=== PATIENT | female | born 1980 | race Caucasian/White ===

== ENCOUNTER 2023-11-01 14:29 | Outpatient (REF) | payer MEDICAID, SELFPAY ==
--- NOTE | ~2023-11-01 | US_ITS ---
EXAMINATION: US THYROID CLINICAL INFORMATION: Chronic mass sensation in thyroid, history of untreated hypothyroidism. COMPARISON: None available. TECHNIQUE: Linear transducer pelletier-scale and color Doppler examination with attention to the region of the thyroid. FINDINGS: SIZE: Measurements of the thyroid lobes and nodules are given in sagittal, anteroposterior and transverse dimensions respectively. Right Thyroid Lobe: 3.8 x 1.5 x 1.3 cm, volume 3.9 mL. Parenchyma: The gland echotexture is homogeneous. Thyroid vascularity is normal. Left Thyroid Lobe: 4.5 x 0.8 x 1.3 cm, volume 2.4 mL. Parenchyma: The gland echotexture is homogeneous. Thyroid vascularity is normal. Isthmus: 0.2 cm in maximum AP dimension. No focal thyroid nodule is seen. NODES: No lymphadenopathy is seen in the tissue surrounding the thyroid gland. US/US thyroid IMPRESSION: Nonenlarged homogeneous thyroid gland without a focal nodule. No further follow-up imaging is recommended. ACR TI-RADS RECOMMENDATION REFERENCE: Ultrasound-guided fine-needle aspiration, followup ultrasound, no further follow up. * TR1 (0 point) and TR2 (2 points): No FNA or follow up. * TR3 (3 points): FNA if more than or equal to 2.5 cm in maximum dimension, followup ultrasound in 1, 3 and 5 years if 1.5 to 2.4 cm in maximum dimension. * TR4 (4-6 points): FNA if more than or equal to 1.5 cm in maximum dimension, followup ultrasound in 1, 2, 3 and 5 years if 1 to 1.4 cm in maximum dimension. * TR5 (more than or equal to 7 points): FNA if more than or equal to 1 cm in maximum dimension, followup ultrasound every year for 5 years if 0.5 to 0.9 cm in maximum dimension. * TR3, TR4 or TR5 nodules that are below the size threshold for followup receive no follow up.
== END 2023-11-01 14:30 | disposition home or self-care (01) ==
LOC: HO.US 14:29
PROVIDERS: PCP Student in an Organized Health Care Education/Training Program; Visit Provider Student in an Organized Health Care Education/Training Program
DX: E03.9 Hypothyroidism, unspecified (principal)
CPT/HCPCS: 76536

== ENCOUNTER 2023-11-02 20:13 | Emergency (ER) | payer MEDICAID, SELFPAY ==
--- NOTE | ~2023-11-02 | XR_ITS ---
EXAMINATION: XR SHOULDER, LEFT CLINICAL INFORMATION: Pain with range of motion COMPARISON: None available. TECHNIQUE: Four views of the left shoulder. FINDINGS: The bones and soft tissues are normal. No fracture. Glenohumeral and acromioclavicular alignment is anatomic with normal joint space. No abnormal soft tissue calcifications. XR/XR shoulder LT min 2V IMPRESSION: Normal left shoulder.
--- NOTE | ~2023-11-02 | XR_ITS ---
EXAMINATION: XR ELBOW, LEFT CLINICAL INFORMATION: Pain with motion COMPARISON: None available. TECHNIQUE: Four views of the left elbow. FINDINGS: The bones and soft tissues are normal. No fracture or joint effusion. Alignment is anatomic. Joint spaces are maintained. XR/XR elbow LT 2V IMPRESSION: Normal left elbow.
[2023-11-02 20:38] VITALS: BP 145/90; PULSE 103; RESP 18; TEMP 37.1; O2SAT 97; BMI 37.8
--- NOTE | 2023-11-02 20:44 | ED_ITS ---
HPI - General Adult General Chief complaint: General Medical Stated complaint: Lt Arm ? Injury/ numbness Time Seen by Provider: 11/03/23 01:48 Source: patient Mode of arrival: ambulatory Limitations: no limitations History of Present Illness HPI narrative: Patient comes to the emergency room complaining of burning sensation with certain movements of the left arm. Patient states that the pins and needle sensation started approximately a few weeks ago. Patient states that she has to do a lot of heavy lifting including taking care and lifting her 4-year-old son who is autistic and fights her a lot. Also, patient's mother recently had a CVA and has to help lift her up and care for her. Patient states that she did not sustain any pulse. However, today after patient picked up her son, patient started feeling a burning sensation on the inside of the arm especially around the elbow area. Patient denies any loss of motor function. Related Data Previous Rx's Medication Instructions Recorded ketorolac 10 mg tablet 10 mg PO TID PRN pain #10 tabs 11/03/23 Allergies Allergy/AdvReac Type Severity Reaction Status Date / Time No Known Allergies Allergy Verified 11/02/23 20:37 Review of Systems Review of Systems: Constitutional : No Weight loss, No Fever, No Chills, No Night Sweats, No Fatigue, No Malaise ENT/Mouth : No Hearing loss, No Ear Pain, No Nasal Congestion, No Sinus Pain, No Hoarseness, No sore throat, No Rhinorrhea, No Swallowing Difficulty Eyes: No Eye Pain, No Swelling, No Redness, No Foreign Body, No Discharge, No Vision Changes Cardiovascular : No Chest Pain, No SOB, No Dyspnea on Exertion, No Orthopnea, No Edema, No Palpitations Respiratory : No Cough, No Sputum, No Wheezing, No Smoke Exposure, No Dyspnea Gastrointestinal : No Nausea, No Vomiting, No Diarrhea, No Constipation, No abdominal Pain, No Hematochezia, No Melena Genitourinary : no irregular bleeding, No Dysuria, No Urinary Frequency, No Hematuria, No Urinary Incontinence, No Urgency, No Flank Pain, No Urinary Flow Changes, No Hesitancy Musculoskeletal : Complaining of left arm pain especially around the elbow area , burning sensation throughout the whole arm with certain movement No joint pain, No Myalgias, No Joint Swelling Skin : No Skin Lesions, No rash Neuro : No Weakness, No Numbness, No Paresthesias, No Loss of Consciousness, No Dizziness, No Headache Psych : No Anxiety/Panic, No Depression, No SI/HI/AH/VH, No Social Issues, Heme/Lymph: No Bruising, No Bleeding,No Lymphadenopathy Endocrine : No Polyuria, No Polydipsia, No Temperature Intolerance [facility] Social History Social History Advance Directives: No Advance Directives Information Provided: Yes Physical Exam ED Vital Signs: Vital Signs - 24 hr 11/02/23 20:38 11/03/23 00:05 Temperature 98.7 F 98.2 F Pulse Rate 103 H 96 Respiratory Rate 18 18 Blood Pressure 145/90 H 146/100 H Pulse Oximetry 97 98 Oxygen Delivery Method Room Air Room Air BMI result Body Mass Index 37.8 Const Other: Appearance: Alert. Oriented X3. No acute distress. Eyes: Pupils equal, round and reactive to light. ENT: Pharynx normal. Neck: Normal inspection. Neck supple. No lymph nodes noted. No crepitus CVS: Normal heart rate and rhythm. Pulses normal. Normal S1 and S2 Respiratory: No respiratory distress. Breath sounds normal. No Wheezing. No rales Abdomen: Soft and nontender. No rigidity. No distention. Skin: Skin warm and dry. Normal skin color. Normal skin turgor. Extremities: No lower extremity edema. No Lacerations. No Rash, normal range of motion with arms. However, painful to the certain movements such as flexion- extension of the elbow and abduction of the left arm Neuro: Oriented X 3. No motor deficit. No sensory deficit. Moving all extremities. No slurred speech. CN 2 through 12 grossly intact Psych: calm, cooperative, normal affect Course Course Course Narrative: This is a rapid medical exam: Additional HPI, ROS, PE not included below will be deferred to primary provider. Patient is a 43-year-old female presenting to the ED with complaint of left upper arm pain from shoulder to elbow. States pain has been ongoing, was prescribed Sulindac in [place] which is an NSAID, was scheduled to have x-rays tomorrow. Was changing her autistic son today who weights 43lbs, and felt sudden increase in pain. Decreased ROM, especially with abduction of shoulder, extension of elbow. Plan: x-ray shoulder and elbow Medical Decision Making Medical Decision Making [facility] Narrative: -my interpretation of x-rays of the elbow and shoulder: Normal alignment, no fractures -I discussed with the patient his physical exam and also her symptoms. Patient likely has a cervical radiculopathy. Patient will likely need physical therapy and or an MRI. -for symptomatic relief, patient was giving a dose of IM Toradol and dexamethasone IM -patient's NIH score is 0, stroke is not suspected. Symptoms do not match stroke symptoms. Differential Diagnosis Differential Diagnoses: The differential diagnosis associated with the presentation includes (Pulled muscle, cervical radiculopathy, musculoskeletal injury) Independent Interpretation I performed an independent interpretation of an: Plain X-Ray Radiology Impression Discussion of test interpretation with radiology: I have reviewed the radiologist's reading. Radiologist Impression: The bones and soft tissues are normal. No fracture or joint effusion. Alignment is anatomic. Joint spaces are maintained. XR/XR elbow LT 2V IMPRESSION: Normal left elbow. The bones and soft tissues are normal. No fracture. Glenohumeral and acromioclavicular alignment is anatomic with normal joint space. No abnormal soft tissue calcifications. XR/XR shoulder LT min 2V IMPRESSION: Normal left shoulder. Discharge Plan Discharge Clinical Impression: Cervical radiculopathy Patient Disposition: Home, Self-Care Instructions: Cervical Radiculopathy (ED) Additional Instructions: Please follow-up with your primary care physician tomorrow. If you have any worsening or new symptoms, please return to the emergency room or call 911 Prescriptions: New ketorolac 10 mg tablet 10 mg PO TID PRN (Reason: pain) Qty: 10 0RF Rx Instructions: Do not use this medication with ibuprofen, Aleve or NSAIDs, only Tylenol
[2023-11-03 00:05] VITALS: BP 146/100; PULSE 96; RESP 18; TEMP 36.8; O2SAT 98
[2023-11-03] MEDS: dexAMETHasone sod phosphate 4 MG/ML VIAL IM (02:28)
[2023-11-03] MEDS: Ketorolac Tromethamine 60 MG/2 ML VIAL IM (02:28)
[2023-11-03 02:30] VITALS: BP 142/78; PULSE 76; RESP 16; O2SAT 97
== END 2023-11-03 02:35 | disposition home or self-care (01) ==
PROVIDERS: Emergency Provider Emergency Medicine
DX: M54.12 Radiculopathy, cervical region (principal)
CPT/HCPCS: 73030; 73070; 96372; 99284; J1100; J1885

== ENCOUNTER 2023-11-04 09:40 | Outpatient (REF) | payer MEDICAID, SELFPAY ==
--- NOTE | ~2023-11-04 | XR_ITS ---
EXAMINATION: RIGHT SHOULDER, BILATERAL ELBOWS CLINICAL INFORMATION: Chronic bilateral elbow pain and chronic right shoulder pain COMPARISON: Left elbow and left shoulder radiographs 2 days ago on 11/02/2023 TECHNIQUE: 4 views each elbow, 4 views right shoulder FINDINGS: Right shoulder: No significant bone, joint or soft tissue abnormality is seen. Left elbow: No interval change when compared to the study from 2 days ago. No significant bone, joint or soft tissue abnormality is seen. Right elbow: No bone, joint or soft tissue abnormality is seen. XR/XR elbow LT min 3V IMPRESSION: Normal radiographs of the right shoulder and both elbows. Patient had normal radiographs of the left elbow and left shoulder 2 days ago.
--- NOTE | ~2023-11-04 | XR_ITS ---
EXAMINATION: RIGHT SHOULDER, BILATERAL ELBOWS CLINICAL INFORMATION: Chronic bilateral elbow pain and chronic right shoulder pain COMPARISON: Left elbow and left shoulder radiographs 2 days ago on 11/02/2023 TECHNIQUE: 4 views each elbow, 4 views right shoulder FINDINGS: Right shoulder: No significant bone, joint or soft tissue abnormality is seen. Left elbow: No interval change when compared to the study from 2 days ago. No significant bone, joint or soft tissue abnormality is seen. Right elbow: No bone, joint or soft tissue abnormality is seen. XR/XR shoulder RT min 2V IMPRESSION: Normal radiographs of the right shoulder and both elbows. Patient had normal radiographs of the left elbow and left shoulder 2 days ago.
--- NOTE | ~2023-11-04 | XR_ITS ---
EXAMINATION: RIGHT SHOULDER, BILATERAL ELBOWS CLINICAL INFORMATION: Chronic bilateral elbow pain and chronic right shoulder pain COMPARISON: Left elbow and left shoulder radiographs 2 days ago on 11/02/2023 TECHNIQUE: 4 views each elbow, 4 views right shoulder FINDINGS: Right shoulder: No significant bone, joint or soft tissue abnormality is seen. Left elbow: No interval change when compared to the study from 2 days ago. No significant bone, joint or soft tissue abnormality is seen. Right elbow: No bone, joint or soft tissue abnormality is seen. XR/XR elbow RT min 3V IMPRESSION: Normal radiographs of the right shoulder and both elbows. Patient had normal radiographs of the left elbow and left shoulder 2 days ago.
[2023-11-04 12:14] LABS: Estimated Average Glucose 105 mg/dL; Hemoglobin A1c % 5.3 % (<6.0)
[2023-11-04 12:25] LABS: Hematocrit 38.1 % (37.0-47.0); Mean Corpuscular HGB Conc 34.1 g/dl (31.0-35.0); Mean Corpuscular Hemoglobin 31.8 pg (27.0-33.0); Mean Corpuscular Volume 93.2 fL (80.0-98.0); Mean Platelet Volume 10.1 fL (9.4-12.3); Platelet Count 310 X10*3/uL (160-400); Red Blood Count 4.09 X10*6/uL (4.20-5.50); Red Cell Distribution Width 12.8 % (11.0-16.0); White Blood Count 10.6 X10*3/uL (4.8-10.8)
[2023-11-04 12:53] LABS: Rheumatoid Factor < 13.0 IU/mL (<15.0)
[2023-11-04 13:26] LABS: Syphilis Screen Nonreactive (Nonreactive)
[2023-11-04 13:27] LABS: Alanine Aminotransferase 26 U/L (0-31); Albumin Level 4.1 g/dL (3.5-5.0); Alkaline Phosphatase 53 U/L (39-117); Anion Gap 13 (12-20); Aspartate Amino Transferase 16 U/L (5-31); Bilirubin Total 0.3 mg/dL (0.0-1.0); Blood Urea Nitrogen 12 mg/dL (9-16); C Reactive Protein 0.25 mg/dL (< or = 0.50); Carbon Dioxide 23 mmol/L (22-29); Chloride 108 mmol/L (96-108); Cholesterol 164 mg/dL (<200); Estimated Glomerular Filt Rate > 60; Glucose Random 122 mg/dL (60-115); HDL Cholesterol 51 mg/dL (>40); LDL Cholesterol Calculated 93 mg/dL (<100); Potassium 3.7 mmol/L (3.3-5.1); Sodium 140 mmol/L (135-145); Total Protein 7.3 g/dL (6.5-8.0); Triglycerides 100 mg/dL (<150)
[2023-11-04 13:31] LABS: Erythrocyte Sedimentation Rate 8 MM/HR (0-20)
[2023-11-04 13:44] LABS: Free T4 (Free Thyroxine) 0.83 ng/dL (0.71-1.85); Thyroid Stimulating Hormone 2.98 uIU/mL (0.32-4.0)
[2023-11-04 14:40] LABS: CT PCR NOT DETECTED (Not Detect.); NG PCR NOT DETECTED (Not Detect.)
[2023-11-05 04:09] LABS: HBS Num1 0.25 mIU/mL (0-7.99); HBc Num1 0.16 S/CO (0.00-0.79); HBsAGNum1 0.25 S/CO (0.00-0.99); HIV AB/AG Nonreactive (Nonreactive); HIV Num 1 0.05 S/CO (0.00-0.99); Hepatitis B Core Antibody Nonreactive (Nonreactive); Hepatitis B Surface Antigen Negative (Negative); ~HepC Num1 0.08 S/CO (0.00-0.79); ~Hepatitis B Surface Antibody NONREACTIVE (Nonreactive); ~Hepatitis C Antibody Nonreactive (Nonreactive)
[2023-11-06 11:44] LABS: Anti Nuclear Antibody Screen NEGATIVE (NEGATIVE)
[2023-11-08 14:23] LABS: Cyclic Citrullinated Peptide <16 UNITS
== END 2023-11-04 09:41 | disposition home or self-care (01) ==
LOC: HO.HHCL 09:40
PROVIDERS: Visit Provider Student in an Organized Health Care Education/Training Program
DX: Z00.00 Encounter for general adult medical examination without abnormal findings (principal); Z11.4 Encounter for screening for human immunodeficiency virus [HIV]; M25.522 Pain in left elbow; M25.521 Pain in right elbow; M25.511 Pain in right shoulder; E03.9 Hypothyroidism, unspecified
CPT/HCPCS: 0353U; 36415; 73030; 73080; 80053; 80061; 83036; 84439; 84443; 85027; 85652; 86038; 86140; 86200; 86431; 86704; 86706; 86780; 86803; 87340; 87389

== ENCOUNTER 2023-11-05 14:12 | Outpatient (REF) | payer MEDICAID, SELFPAY ==
--- NOTE | ~2023-11-05 | MM_ITS ---
EXAMINATION: MM SCREENING DIGITAL BREAST TOMOSYNTHESIS, BILATERAL CLINICAL INFORMATION: Screening. Asymptomatic. COMPARISON: Mammography: There are no prior mammograms for comparison. TECHNIQUE: Digital breast tomosynthesis is performed in both the craniocaudal and mediolateral oblique views along with computer-aided detection (CAD). Synthesized 2D images are generated from the tomosynthesis. FINDINGS: There are scattered areas of fibroglandular density (ACR BI-RADS breast composition Category b). In the upper outer quadrant of the right breast, there is an asymmetry in middle depth. Additional mammographic and targeted sonographic evaluation of these findings are advised. In the left breast, there are no significant masses, abnormal calcifications, or other abnormalities. MM/MM tomosynthesis screening BI IMPRESSION: Right breast asymmetry warrants additional mammographic and targeted sonographic imaging. No mammographic signs of malignancy left breast. ASSESSMENT: BI-RADS BI-RADS 0 - Incomplete: Needs additional Imaging. RECOMMENDATION: 1. Additional views of the right breast. 2. Targeted ultrasound if warranted after review of the additional views. 3. Radiology department staff will contact the patient for additional imaging. Additional Imaging required This examination should not preclude the clinical evaluation of a suspicious palpable abnormality. This patient's information was entered into a reminder system with a target due date for their next mammogram.
== END 2023-11-05 14:13 | disposition home or self-care (01) ==
LOC: HO.MAMMO 14:12
PROVIDERS: PCP Student in an Organized Health Care Education/Training Program; Visit Provider Student in an Organized Health Care Education/Training Program
DX: Z12.31 Encounter for screening mammogram for malignant neoplasm of breast (principal)
CPT/HCPCS: 77063; 77067

== ENCOUNTER → 2023-11-05 14:15 | Outpatient (BNV) | payer MEDICAID, SELFPAY | PROVIDERS: PCP Student in an Organized Health Care Education/Training Program; Visit Provider Radiology Diagnostic Radiology | DX: Z12.31 Encounter for screening mammogram for malignant neoplasm of breast (principal) | CPT/HCPCS: 77063; 77067 ==

== ENCOUNTER 2024-02-04 13:56 | Outpatient (REF) | payer MEDICAID, SELFPAY ==
--- NOTE | ~2024-02-04 | XR_ITS ---
EXAMINATION: XR HIP, RIGHT CLINICAL INFORMATION: Right hip pain, no trauma COMPARISON: None available. TECHNIQUE: Frontal and lateral views of the right hip. FINDINGS: No fracture. Alignment is anatomic. Hip joint space is maintained. Soft tissues are unremarkable. XR/XR hip RT min 2V IMPRESSION: Unremarkable plain radiographs of the right hip.
== END 2024-02-04 13:57 | disposition home or self-care (01) ==
LOC: HO.HHCX 13:56
PROVIDERS: Visit Provider Emergency Medicine
DX: S76.211A Strain of adductor muscle, fascia and tendon of right thigh, initial encounter (principal)
CPT/HCPCS: 73502

== ENCOUNTER → 2024-02-11 13:00 | Outpatient (BNV) | payer MEDICAID, SELFPAY | PROVIDERS: PCP Student in an Organized Health Care Education/Training Program; Visit Provider Radiology Diagnostic Radiology | DX: R92.8 Other abnormal and inconclusive findings on diagnostic imaging of breast (principal) | CPT/HCPCS: 77061; 77065 ==

== ENCOUNTER 2024-02-11 13:34 | Outpatient (REF) | payer MEDICAID, SELFPAY ==
--- NOTE | ~2024-02-11 | MM_ITS ---
EXAMINATION: MM DIAGNOSTIC DIGITAL BREAST TOMOSYNTHESIS, RIGHT CLINICAL INFORMATION: Follow-up one view linear asymmetry seen central slightly lateral right CC view, with no MLO correlate. The patient is over 3 months late for follow-up appointment. COMPARISON: Mammography: 11/05/2023 baseline exam. TECHNIQUE: Digital breast tomosynthesis is performed. 2D images are generated from the tomosynthesis. The following views are obtained: Full-field 3-D digital right mediolateral view, as well as a 3-D right spot compression CC view. FINDINGS: There are scattered areas of fibroglandular density (ACR BI-RADS breast composition Category b). Additional views show no significant mass, architectural abnormality, or abnormal calcifications. The one view asymmetry effaces completely with spot compression, consistent with superimposition artifact. No abnormalities seen in the right ML view. MM/MM tomosynthesis added views R IMPRESSION: No persistent findings suspicious for malignancy. Recommend the patient resume routine annual screening mammography. ASSESSMENT: BI-RADS BI-RADS 1 - Negative RECOMMENDATION: 1 year F/U Results were provided to the patient at time of visit by the technologist. This patient's information was entered into a reminder system with a target due date for their next mammogram.
== END 2024-02-11 13:35 | disposition home or self-care (01) ==
LOC: HO.MAMMO 13:34
PROVIDERS: PCP Student in an Organized Health Care Education/Training Program; Visit Provider Student in an Organized Health Care Education/Training Program
DX: N64.89 Other specified disorders of breast (principal)
CPT/HCPCS: 77061; 77065

== ENCOUNTER 2024-03-02 23:36 | Emergency (ER) | payer MEDICAID, SELFPAY ==
[2024-03-02 23:44] VITALS: BP 144/94; PULSE 110; RESP 20; TEMP 36.8; O2SAT 98; BMI 37.9
[2024-03-03 00:51] LABS: IDNOW Serial# 08D9AD1C; Strep A Nucleic Acid Negative (Negative)
[2024-03-03 01:07] LABS: Influenza A PCR NEGATIVE (Negative); Influenza B PCR NEGATIVE (Negative); Resp Syncy Virus RNA Qual PCR NEGATIVE (Negative); SARS COV2 PCR INHOUSE NEGATIVE (Negative)
--- NOTE | 2024-03-03 01:32 | ED.GENADULT ---
HPI - General Adult General Chief complaint: General Medical Stated complaint: Strep throat Time Seen by Provider: 03/03/24 00:39 Source: patient Mode of arrival: ambulatory Limitations: no limitations History of Present Illness HPI narrative: Patient's congested for last 3 days running nose and sore throat patient's son and nephew were sick last week patient took a leftover amoxicillin for 2 days still feeling sore throat and running nose with fever occasional cough no shortness a breath Related Data Previous Rx's ?Medication ?Instructions ?Recorded ketorolac 10 mg tablet 10 mg PO TID PRN pain #10 tabs 11/03/23 amoxicillin 875 mg-potassium 1 tab PO BID #20 tabs 03/03/24 clavulanate 125 mg tablet benzonatate 200 mg capsule 200 mg PO TID PRN cough #20 caps 03/03/24 Allergies Allergy/AdvReac Type Severity Reaction Status Date / Time red onion AdvReac Anaphylaxis Uncoded 03/02/24 23:47 Review of Systems Review of Systems: Yes all other systems are reviewed and are negative [facility] Social History Social History Advance Directives: No Advance Directives Information Provided: Yes Do you have a plan to hurt others: No Plan Physical Exam ED Vital Signs: Vital Signs - 24 hr 03/02/24 23:44 Temperature 98.2 F Pulse Rate 110 H Respiratory Rate 20 Blood Pressure 144/94 H Pulse Oximetry 98 Oxygen Delivery Method Room Air BMI result Body Mass Index 37.9 Appearance: Alert. Oriented X3. No acute distress. ENT: Pharynx erythema++ no exudates Oral Mucosa moist tympanic membrane intact no fluid Neck: Normal inspection. Neck supple. CVS: Normal heart rate and rhythm. Pulses normal. Respiratory: No respiratory distress. Equal air entry bilateral, no wheezing/rales/rhonchi Abdomen: Soft and nontender. Bowel sounds are present, Skin: Skin warm and dry. Normal skin color. Normal skin turgor. Extremities: No lower extremity edema. No calf tenderness Neuro: Oriented X 3. Medical Decision Making Lab Data [facility] Lab Attestation statement: I reviewed the patient's lab results. Labs: Lab Results 03/03/24 Range/Units 00:22 Influenza Type A (PCR) NEGATIVE (Negative) Influenza Type B (PCR) NEGATIVE (Negative) RSV RNA Qual (PCR) NEGATIVE (Negative) SARS-CoV-2 RNA (RT-PCR) NEGATIVE (Negative) S. pyogenes GrpA SHANT Negative (Negative) Discharge Plan Discharge Clinical Impression: Acute pharyngitis Patient Disposition: Home, Self-Care Instructions: Pharyngitis (ED) Additional Instructions: Possible you have strep pharyngitis but test is negative as you were taking antibiotics Antibiotic as prescribed for 10 days Saline gargles Tessalon for cough Prescriptions: New benzonatate 200 mg capsule 200 mg PO TID PRN (Reason: cough) Qty: 20 0RF amoxicillin-pot clavulanate 875-125 mg tablet 1 tab PO BID Qty: 20 0RF No Action ketorolac 10 mg tablet 10 mg PO TID PRN (Reason: pain) Qty: 10 0RF Rx Instructions: Do not use this medication with ibuprofen, Aleve or NSAIDs, only Tylenol Print Language: Danish
[2024-03-03 01:45] VITALS: BP 153/97; PULSE 99; RESP 19; TEMP 36.8; O2SAT 98
[2024-03-03] MEDS: Amoxicillin/Potassium Clav 875 MG TABLET PO (01:46)
--- NOTE | 2024-03-03 01:52 | PC.NURSE ---
pt able to swallow medication upon discharge, reviewed discharge instructions with pt. pt verbalized understanding, no sign of distress upon discharge.
[2024-03-03 01:53] VITALS: BP 153/97; PULSE 99; RESP 19; TEMP 36.8; O2SAT 98
== END 2024-03-03 01:54 | disposition home or self-care (01) ==
PROVIDERS: Emergency Provider Internal Medicine; PCP Student in an Organized Health Care Education/Training Program
DX: J02.9 Acute pharyngitis, unspecified (principal); Z03.818 Encounter for observation for suspected exposure to other biological agents ruled out
CPT/HCPCS: 0241U; 87651; 99283; 99284

== ENCOUNTER 2024-06-12 04:33 | Emergency (ER) | payer MEDICAID, SELFPAY ==
[2024-06-12 04:49] VITALS: BP 143/87; PULSE 98; RESP 18; TEMP 36.6; O2SAT 96; BMI 32.6
[2024-06-12 04:56] LABS: Basophils Percent Auto 0.5 % (0-2); Eosinophils Absolute Auto 0.2 X10*3/uL (0.0-0.4); Eosinophils Percent Auto 2.6 % (0-4); Hematocrit 37.6 % (37.0-47.0); Hemoglobin 13.3 g/dl (12.0-16.0); Imm Gran Abs Auto 0.03 X10*3/uL (0.00-0.03); Imm Gran Pct Auto 0.4 % (0.0-0.4); Lymphocytes Absolute Auto 3.1 X10*3/uL (1.2-4.9); Lymphocytes Percent Auto 36.6 % (20-40); MANUAL DIFF FLAG NO; Mean Corpuscular HGB Conc 35.4 g/dl (31.0-35.0); Mean Corpuscular Volume 90.4 fL (80.0-98.0); Mean Platelet Volume 9.2 fL (9.4-12.3); Monocytes Absolute Auto 0.5 X10*3/uL (0.1-1.2); Monocytes Percent Auto 5.8 % (2-11); Neutrophils Absolute Auto 4.6 x10*3/uL (2.0-8.3); Neutrophils Percent Auto 54.1 % (45-73); Platelet Count 247 X10*3/uL (160-400); Red Blood Count 4.16 X10*6/uL (4.20-5.50); Red Cell Distribution Width 12.3 % (11.0-16.0); White Blood Count 8.6 X10*3/uL (4.8-10.8)
[2024-06-12 05:12] LABS: Alanine Aminotransferase 32 U/L (0-31); Albumin Level 4.2 g/dL (3.5-5.0); Alkaline Phosphatase 59 U/L (39-117); Anion Gap 16 (12-20); Aspartate Amino Transferase 19 U/L (5-31); Bilirubin Direct 0.1 mg/dL (0.0-0.5); Bilirubin Total 0.3 mg/dL (0.0-1.0); Blood Urea Nitrogen 14 mg/dL (9-16); Calcium 9.5 mg/dL (8.4-10.2); Carbon Dioxide 21 mmol/L (22-29); Chloride 107 mmol/L (96-108); Creatinine Clr Calc Pharmacy 97.5; Estimated Glomerular Filt Rate > 60; Glucose Random 133 mg/dL (60-115); Lipase 34 U/L (8-78); Potassium 3.6 mmol/L (3.3-5.1); Sodium 140 mmol/L (135-145)
[2024-06-12 05:54] LABS: Appearance Urine Clear; Color Urine Yellow; Glucose Urine UA Negative (Negative); Leukocyte Esterase Urine Negative (Negative); Nitrite Urine Negative (Negative); PH 5.5 (5.0-9.0); Specific Gravity - Urine 1.025 (1.005-1.025); UPreg QC Valid YES; Urine Blood Negative (Negative); Urine Ketones Negative (Negative); Urine Pregnancy NEGATIVE (NEGATIVE); Urine Protein Negative (Neg-Trace)
--- NOTE | 2024-06-12 06:14 | ED_ITS ---
HPI - General Adult General Chief complaint: Abdominal Pain Stated complaint: L Side Pain Time Seen by Provider: 06/12/24 05:50 Source: patient Mode of arrival: ambulatory Limitations: no limitations History of Present Illness ED Provider: Dr. Olivia Cho HPI narrative: Patient comes to the emergency room complaining of pain along the left side of the rib for several years. Patient states that about every year she gets the same pain. This time, it has lasted constantly for 2 weeks. Patient states that the pain gets much worse with movement and is unable to lay on the left side due to pain. Patient states that about 5 years ago she started having this pain. States that when her son was born she had this discomfort, went to see her primary care physician, it was explained to her by her PCP that the pain was likely secondary to the muscle stretching of the . Patient states that every year she has rib pain. Patient denies any injuries, denies any nausea vomiting or diarrhea. Denies any hematuria or dysuria, denies flank pain. Related Data Previous Rx's ?Medication ?Instructions ?Recorded ketorolac 10 mg tablet 10 mg PO TID PRN pain #10 tabs 11/03/23 amoxicillin 875 mg-potassium 1 tab PO BID #20 tabs 03/03/24 clavulanate 125 mg tablet benzonatate 200 mg capsule 200 mg PO TID PRN cough #20 caps 03/03/24 Allergies Allergy/AdvReac Type Severity Reaction Status Date / Time red onion AdvReac Anaphylaxis Uncoded 06/12/24 04:50 Review of Systems 2 Review of Systems: Constitutional : No Weight loss, No Fever, No Chills, No Night Sweats, No Fatigue, No Malaise ENT/Mouth : No Hearing loss, No Ear Pain, No Nasal Congestion, No Sinus Pain, No Hoarseness, No sore throat, No Rhinorrhea, No Swallowing Difficulty Eyes: No Eye Pain, No Swelling, No Redness, No Foreign Body, No Discharge, No Vision Changes Cardiovascular : No Chest Pain, No SOB, No Dyspnea on Exertion, No Orthopnea, No Edema, No Palpitations Respiratory : No Cough, No Sputum, No Wheezing, No Smoke Exposure, No Dyspnea Gastrointestinal : No Nausea, No Vomiting, No Diarrhea, No Constipation, No abdominal Pain, No Hematochezia, No Melena Genitourinary : no irregular bleeding, No Dysuria, No Urinary Frequency, No Hematuria, No Urinary Incontinence, No Urgency, No Flank Pain, No Urinary Flow Changes, No Hesitancy Musculoskeletal : Complaining of pain along the ribcage on the left side No joint pain, worsened by movement, No Myalgias, No Joint Swelling Skin : No Skin Lesions, No rash Neuro : No Weakness, No Numbness, No Paresthesias, No Loss of Consciousness, No Dizziness, No Headache Psych : No Anxiety/Panic, No Depression, No SI/HI/AH/VH, No Social Issues, Heme/Lymph: No Bruising, No Bleeding,No Lymphadenopathy Endocrine : No Polyuria, No Polydipsia, No Temperature Intolerance [facility] Social History Social History Advance Directives: No Advance Directives Information Provided: Yes Do you have a plan to hurt others: No Plan Physical Exam ED Vital Signs: Vital Signs - 24 hr 06/12/24 04:49 Temperature 97.8 F Pulse Rate 98 Respiratory Rate 18 Blood Pressure 143/87 H Pulse Oximetry 96 Oxygen Delivery Method Room Air BMI result Body Mass Index 32.6 Const Other: Appearance: Alert. Oriented X3. No acute distress. Eyes: Pupils equal, round and reactive to light. ENT: Pharynx normal. Neck: Normal inspection. Neck supple. No lymph nodes noted. No crepitus CVS: Normal heart rate and rhythm. Pulses normal. Normal S1 and S2 Respiratory: No respiratory distress. Breath sounds normal. No Wheezing. No rales Abdomen: Soft and nontender. No rigidity. No distention. Musculoskeletal: Pain to palpation in the intercostal spaces in the mid axillary line and intercostal spaces in the frontal aspect of the ribcage on the left side. Skin: Skin warm and dry. Normal skin color. Normal skin turgor. Extremities: No lower extremity edema. No Lacerations. No Rash Neuro: Oriented X 3. No motor deficit. No sensory deficit. Moving all extremities. No slurred speech. CN 2 through 12 grossly intact Psych: calm, cooperative, normal affect Medical Decision Making Medical Decision Making MDM Narrative: -my interpretation of labs, normal hematology, normal chemistry, normal lipase, urine negative for UTI or blood -patient had clear reproducible pain to palpation in the intercostal spaces between the ribs on the lateral aspect of the ribcage and the frontal aspect of the ribcage. No abdominal pain whatsoever., no flank pain -I confirmed with the patient that she has been having the symptoms for 5 years. I asked the patient why she did not come before for an evaluation in the last 5 years. Patient states that today she was able to get a ride from her nephew to bring her to the hospital. I discussed the physical exam with the patient. I discussed with the patient that given her history and physical exam, she likely has costochondritis, musculoskeletal pain, possible muscle spasms. Patient got extremely upset that she was told that she has musculoskeletal pain. -patient was offered pain medication and muscle relaxants. Patient declined Differential Diagnosis Differential Diagnoses: The differential diagnosis associated with the presentation includes (Kidney stone, muscle spasms, costochondritis, UTI, pyelonephritis) Lab Data MDM Lab Attestation statement: I reviewed the patient's lab results. 06/12/24 04:52 06/12/24 04:52 Labs: Lab Results 06/12/24 06/12/24 Range/Units 04:52 05:45 WBC 8.6 (4.8-10.8) X10*3/uL RBC 4.16 L (4.20-5.50) X10*6/uL Hgb 13.3 (12.0-16.0) g/dl Hct 37.6 (37.0-47.0) % MCV 90.4 (80.0-98.0) fL MCH 32.0 (27.0-33.0) pg MCHC 35.4 H (31.0-35.0) g/dl RDW 12.3 (11.0-16.0) % Plt Count 247 (160-400) X10*3/uL MPV 9.2 L (9.4-12.3) fL Immature Gran % (Auto) 0.4 (0.0-0.4) % Neut % (Auto) 54.1 (45-73) % Lymph % (Auto) 36.6 (20-40) % Gosper % (Auto) 5.8 (2-11) % Eos % (Auto) 2.6 (0-4) % Baso % (Auto) 0.5 (0-2) % Lymph # (Auto) 3.1 (1.2-4.9) X10*3/uL Gosper # (Auto) 0.5 (0.1-1.2) X10*3/uL Eos # (Auto) 0.2 (0.0-0.4) X10*3/uL Baso # (Auto) 0.0 (0.0-0.2) X10*3/uL Abs Immat Gran (auto) 0.03 (0.00-0.03) X10*3/uL Absolute Neuts (auto) 4.6 (2.0-8.3) x10*3/uL Absolute Nucleated RBC 0.000 (0.0-0.012) X10*3/uL Nucleated RBC % (auto) 0.0 (0.0-0.2) /100WBC Sodium 140 (135-145) mmol/L Potassium 3.6 (3.3-5.1) mmol/L Chloride 107 (96-108) mmol/L Carbon Dioxide 21 L (22-29) mmol/L Anion Gap 16 (12-20) BUN 14 (9-16) mg/dL Creatinine 0.79 (0.5-1.4) mg/dL Estim Creat Clear Calc 97.5 Estimated GFR > 60 Random Glucose 133 H (60-115) mg/dL Calcium 9.5 (8.4-10.2) mg/dL Total Bilirubin 0.3 (0.0-1.0) mg/dL Direct Bilirubin 0.1 (0.0-0.5) mg/dL AST 19 (5-31) U/L ALT 32 H (0-31) U/L Alkaline Phosphatase 59 (39-117) U/L Total Protein 7.0 (6.5-8.0) g/dL Albumin 4.2 (3.5-5.0) g/dL Lipase 34 (8-78) U/L Urine Color Yellow Urine Appearance Clear Urine pH 5.5 (5.0-9.0) Ur Specific Baird 1.025 (1.005-1.025) Urine Protein Negative (Neg-Trace) mg/dL Urine Glucose (UA) Negative (Negative) mg/dL Urine Ketones Negative (Negative) mg/dL Urine Blood Negative (Negative) Urine Nitrite Negative (Negative) Ur Leukocyte Esterase Negative (Negative) Urine Test NEGATIVE (NEGATIVE) Discharge Plan Discharge Clinical Impression: Costochondritis Patient Disposition: Home, Self-Care Instructions: Costochondritis (ED) Additional Instructions: Please follow-up with your primary care physician tomorrow. If you have any worsening or new symptoms, please return to the emergency room or call 911 Prescriptions: No Action ketorolac 10 mg tablet 10 mg PO TID PRN (Reason: pain) Qty: 10 0RF Rx Instructions: Do not use this medication with ibuprofen, Aleve or NSAIDs, only Tylenol benzonatate 200 mg capsule 200 mg PO TID PRN (Reason: cough) Qty: 20 0RF amoxicillin-pot clavulanate 875-125 mg tablet 1 tab PO BID Qty: 20 0RF Print Language: Danish
[2024-06-12 06:32] VITALS: BP 00/00; PULSE 0; RESP 0; TEMP -17.7; TEMP 0
== END 2024-06-12 06:34 | disposition home or self-care (01) ==
PROVIDERS: Emergency Provider Emergency Medicine; PCP Student in an Organized Health Care Education/Training Program
DX: M94.0 Chondrocostal junction syndrome [Tietze] (principal); R07.81 Pleurodynia; Z79.899 Other long term (current) drug therapy
CPT/HCPCS: 36415; 80048; 80076; 81003; 81025; 83690; 85025; 99283; 99284

== ENCOUNTER 2024-06-14 17:49 | Outpatient (REF) | payer MEDICAID, SELFPAY | END 2024-06-14 17:50 | disposition home or self-care (01) | LOC: HO.HHCLNP 17:49 | PROVIDERS: Visit Provider Emergency Medicine | DX: L03.011 Cellulitis of right finger (principal) | CPT/HCPCS: 87070; 87077; 87147; 87186; 87205 ==

== ENCOUNTER 2024-06-27 13:34 | Outpatient (AMB) | payer MEDICAID, SELFPAY ==
[2024-06-27 13:37] VITALS: BMI 39.2
--- NOTE | 2024-06-27 13:37 | A.OFFVIS_ITS ---
VS Expanded 06/27/24 13:37 06/28/24 11:24 Height 5 ft 4 in 5 ft 4 in Weight 228 lb 2.855 oz 228 lb BMI 39.2 39.1 Intake Visit Reasons: T2DM/CONFIRMED Allergies red onion Adverse Reaction (Uncoded 06/12/24 04:50) Anaphylaxis Nutrition Presentation Details: Pt presents for MNT for T2DM Pt was referred by PCP, Dr. Monica Brandt Currently on no DM meds,working on diet modification Pt reports having weighed 160 lbs , 5 years ago, then gradually gaining weight. Reports often times having no meal routine and finding herself increasing on snacks. food frequency fruits: 0-1/d ve x/wk dairy 2-3 serving/d fish 0-1/wk starches 20+/d beverages: water, tea,sometimes juices \ etoh: denies smoking:denies physical activity: daily life activities BS Monitoring Most Recent Diabetes Results: Creatinine 0.79 mg/dL (0.5-1.4) 06/12/24 Blood Urea Nitrogen 14 mg/dL (9-16) 06/12/24 Sodium 140 mmol/L (135-145) 06/12/24 Potassium 3.6 mmol/L (3.3-5.1) 06/12/24 Chloride 107 mmol/L (96-108) 06/12/24 Carbon Dioxide 21 mmol/L (22-29) L 06/12/24 Calcium 9.5 mg/dL (8.4-10.2) 06/12/24 AST 19 U/L (5-31) 06/12/24 ALT 32 U/L (0-31) H 06/12/24 Total Protein 7.0 g/dL (6.5-8.0) 06/12/24 Albumin 4.2 g/dL (3.5-5.0) 06/12/24 TKA-Iyoapvb-Or.Jeor Equation Height: 5 ft 4 in Weight: 228 lb Resting Metabolic Rate: 1676.60 Calculated Activity Level: Sedentary Calories Needed to Maintain Weight: Diagnosis Nutrition problem #1: excessive energy intake As related to (etiology) #1: diagnosis PFSH Social History Alcohol intake: never Assessment & Plan Assessment & Plan (1) T2DM (type 2 diabetes mellitus): Code(s): E11.9 - Type 2 diabetes mellitus without complications Category: Medical Plan: Wt: 104 Kg ( 06/2024 ) Est kcal needs as per MSJ: 2000 (40% carb, 30% protein/fat) Est fluid needs as per 25-30 ml/d: 3100 Est prot per day as per 1 g/kg bw: 104 Recommend fiber intake : 8-10 g per day and gradually increase to 25-28 g per day for women and 35-38 g for men or as tolerated Recommend sodium intake per day : less than 2000 mg Educated patient on: ( R = reviewed V = verbalizes understanding N/R = needs review N/A = not applicable * Food sources of carbohydrate, adequate serving sizes and its role in various health conditions: R * Differences between complex carbohydrates a simple carbohydrates, role of fiber in diet: R * Lean protein sources of foods: R * Differences between types of fats and role in diet (mono on saturated fat fatty acids, saturated fatty acids, trans fats): R V N/R * Food sources of sodium in salt and healthy modifications for heart health in kidney health: R V R/V * Vitamins and minerals: R V N/R * Healthy plate method concept: R * Physical activity: Benefits a precaution: R V N/R * Hypoglycemia protocol (rule of 15): R V N/R * Dietary prevention of Hyperglycemia: R Patient Instructions: Work on having 3 scheduled meals following healthy plate method and reducing on snacks Reduce total carbs to 45-60 g per meal keep hydrated by having water with meals, choosing low sugar beverages Coding Level of Care Code Nutr Indiv Intake (26631) Diagnoses T2DM (type 2 diabetes mellitus) E11.9 Time Spent (min) 30
[2024-06-28 11:24] VITALS: BMI 39.1
== END 2024-06-27 14:12 | disposition home or self-care (01) ==
PROVIDERS: PCP Student in an Organized Health Care Education/Training Program; Visit Provider Dietitian, Registered
DX: E11.9 Type 2 diabetes mellitus without complications (principal)

== ENCOUNTER → 2024-06-27 13:34 | Outpatient (BNVA) | payer MEDICAID, SELFPAY | PROVIDERS: PCP Student in an Organized Health Care Education/Training Program; Visit Provider Dietitian, Registered | DX: E11.9 Type 2 diabetes mellitus without complications (principal) | CPT/HCPCS: 97802 ==

== ENCOUNTER 2024-07-15 13:46 | Outpatient (REF) | payer MEDICAID, SELFPAY | END 2024-07-15 13:47 | disposition home or self-care (01) | LOC: HO.HHCLNP 13:46 | PROVIDERS: Visit Provider General Practice | DX: J02.9 Acute pharyngitis, unspecified (principal) | CPT/HCPCS: 87070 ==

== ENCOUNTER 2024-07-27 13:35 | Outpatient (AMB) | payer MEDICAID, SELFPAY ==
[2024-07-27 13:37] VITALS: BMI 38.9
--- NOTE | 2024-07-27 13:37 | A.OFFVIS_ITS ---
VS Expanded 07/27/24 13:37 Height 5 ft 4 in Weight 226 lb 13.69 oz BMI 38.9 Intake Visit Reasons: obesity/LVM Allergies red onion Adverse Reaction (Uncoded 06/12/24 04:50) Anaphylaxis Nutrition Presentation Details: Pt presents for MNT f/u obesity Pt reports working on having a meal replacement instead of skipping meals, increasing in water intake, working on following healthy plate method, feeling well, no concerns expressed BS Monitoring Most Recent Diabetes Results: Creatinine 0.79 mg/dL (0.5-1.4) 06/12/24 Blood Urea Nitrogen 14 mg/dL (9-16) 06/12/24 Sodium 140 mmol/L (135-145) 06/12/24 Potassium 3.6 mmol/L (3.3-5.1) 06/12/24 Chloride 107 mmol/L (96-108) 06/12/24 Carbon Dioxide 21 mmol/L (22-29) L 06/12/24 Calcium 9.5 mg/dL (8.4-10.2) 06/12/24 AST 19 U/L (5-31) 06/12/24 ALT 32 U/L (0-31) H 06/12/24 Total Protein 7.0 g/dL (6.5-8.0) 06/12/24 Albumin 4.2 g/dL (3.5-5.0) 06/12/24 [facility] Social History Alcohol intake: never Assessment & Plan Assessment & Plan (1) T2DM (type 2 diabetes mellitus): Code(s): E11.9 - Type 2 diabetes mellitus without complications Category: Medical Plan: Wt: 104 Kg ( 06/2024 ), 103 (08/10) Est kcal needs as per MSJ: 2000 (40% carb, 30% protein/fat) Est fluid needs as per 25-30 ml/d: 3100 Est prot per day as per 1 g/kg bw: 104 Recommend fiber intake : 8-10 g per day and gradually increase to 25-28 g per day for women and 35-38 g for men or as tolerated Recommend sodium intake per day : less than 2000 mg Educated patient on: ( R = reviewed V = verbalizes understanding N/R = needs review N/A = not applicable * Food sources of carbohydrate, adequate serving sizes and its role in various health conditions: R * Differences between complex carbohydrates a simple carbohydrates, role of fiber in diet: R * Lean protein sources of foods: R * Differences between types of fats and role in diet (mono on saturated fat fatty acids, saturated fatty acids, trans fats): R V N/R * Food sources of sodium in salt and healthy modifications for heart health in kidney health: R V R/V * Vitamins and minerals: R V N/R * Healthy plate method concept: R * Physical activity: Benefits a precaution: R * Hypoglycemia protocol (rule of 15): R V N/R * Dietary prevention of Hyperglycemia: R Patient Instructions: Continue working on following healthy plate method Include prebiotic/probiotic food sources ( yogurts/bananas, beans, sauerkraut, fiber rich foods) Engage in physical activity, walking 20-30 minutes, 3-4 times a week Coding Level of Care Code Nutr Indiv Subseq (95895) Diagnoses T2DM (type 2 diabetes mellitus) E11.9 Time Spent (min) 30
== END 2024-07-27 14:09 | disposition home or self-care (01) ==
PROVIDERS: PCP Student in an Organized Health Care Education/Training Program; Visit Provider Dietitian, Registered
DX: E11.9 Type 2 diabetes mellitus without complications (principal)

== ENCOUNTER → 2024-07-27 13:35 | Outpatient (BNVA) | payer MEDICAID, SELFPAY | PROVIDERS: PCP Student in an Organized Health Care Education/Training Program; Visit Provider Dietitian, Registered | DX: E11.9 Type 2 diabetes mellitus without complications (principal); E66.9 Obesity, unspecified; Z71.3 Dietary counseling and surveillance; Z68.38 Body mass index [BMI] 38.0-38.9, adult | CPT/HCPCS: 97803 ==

== ENCOUNTER 2024-08-09 10:56 | Outpatient (REF) | payer MEDICAID, SELFPAY ==
--- NOTE | ~2024-08-09 | XR_ITS ---
EXAMINATION: XR CHEST CLINICAL INFORMATION: Productive cough. COMPARISON: None available. TECHNIQUE: 2 views of the chest were obtained. FINDINGS: No significant abnormality is noted involving the heart, lungs, mediastinum, bony thorax or soft tissues. XR/XR chest 2V IMPRESSION: Unremarkable examination. Electronically signed by: Shan Beauchamp MD 08/09/2024 04:50 PM EDT RP
== END 2024-08-09 10:57 | disposition home or self-care (01) ==
LOC: HO.HHCX 10:56
PROVIDERS: Visit Provider Emergency Medicine
DX: R05.2 Subacute cough (principal)
CPT/HCPCS: 71046

== ENCOUNTER 2024-08-12 14:23 | Emergency (ER) | payer MEDICAID, SELFPAY ==
--- NOTE | ~2024-08-12 | XR_ITS ---
EXAMINATION: XR CHEST CLINICAL INFORMATION: Chest pain. Shortness of breath. COMPARISON: Chest x-ray August 09, 2024 TECHNIQUE: 2 views of the chest were obtained. FINDINGS: Cardiac silhouette is normal in size. The lungs are mildly hypoinflated. Subtle patchy opacity in the right lung base is most suggestive of atelectasis. No gross lobar consolidation. No pleural effusion or pneumothorax. No acute osseous abnormality. XR/XR chest 2V IMPRESSION: Suspected right basilar atelectasis. Electronically signed by: Reno Lawton MD 08/12/2024 04:56 PM EDT
--- NOTE | 2024-08-12 14:25 | ECG_ITS ---
Test Reason : chest pain Blood Pressure : / mmHG Vent. Rate : 091 BPM Atrial Rate : 091 BPM P-R Int : 170 ms QRS Dur : 076 ms QT Int : 344 ms P-R-T Axes : 054 -06 025 degrees QTc Int : 423 ms Normal sinus rhythm Cannot rule out Anterior infarct , age undetermined Abnormal ECG No previous ECGs available Referred By: Claudia Mir Electronically Signed By:Vaibhav Cronin
[2024-08-12 14:40] VITALS: BP 166/88; PULSE 97; RESP 16; TEMP 36.8; O2SAT 96; BMI 38.5
--- NOTE | 2024-08-12 14:40 | ED.CHESTPAIN ---
HPI - Chest Pain General Chief Complaint: Chest Pain Stated Complaint: chest pain Time Seen by Provider: 08/12/24 16:38 Source: patient Limitations: no limitations History of Present Illness ED Provider: Katy Lloyd PA-C HPI narrative: Patient is a 44 year old female who presents with sternal pleuritic CP, cough, and L arm numbness x1 day. She was recently seen at [facility] for a productive cough with green phlegm and sent home with Prednisone, Azithromycin, and Albuterol. When she used the prednisone yesterday, she states her CP began and she felt nauseous, dizzy, and had palpitations and bilateral arm numbness/tingling. Her home BP at that time was 189/164, and then slowly decreased throughout the day as she rested. This morning, her fasting glucose was 202, and she states she does not have DM. Her CP is described as a pressure/throbbing sensation and she rates it a 9/10 overall. There are associated palpitations still present, especially on exertion. Though her cough is still productive, the phlegm is now yellow in color, per patient report. She denies fevers, SOB, edema, and recent travel. Related Data Previous Rx's ?Medication ?Instructions ?Recorded ketorolac 10 mg tablet 10 mg PO TID PRN pain #10 tabs 11/03/23 amoxicillin 875 mg-potassium 1 tab PO BID #20 tabs 03/03/24 clavulanate 125 mg tablet benzonatate 200 mg capsule 200 mg PO TID PRN cough #20 caps 03/03/24 Allergies Allergy/AdvReac Type Severity Reaction Status Date / Time red onion Allergy Severe Anaphylaxis Uncoded 08/12/24 14:44 Review of Systems Review of Systems: Yes all other systems are reviewed and are negative Constitutional: Constitutional: Denies chills, Denies fever(s), Reports headache(s) and Denies lethargy Eyes: Eyes: Denies loss of vision ENT: Denies dizziness and Reports headache(s) Cardiovascular: Cardiovascular: Denies Abdominal Distension, Reports chest pain, Denies syncope, Denies radiating jaw, neck or arm pain, Denies palpitations and Denies dyspnea Respiratory: Respiratory: Reports cough, Denies hemoptysis, Reports excessive phlegm production, Denies dyspnea and Denies wheezing Gastrointestinal: Gastrointestinal: Denies abdominal pain, Denies melena, Denies hematochezia, Denies constipation and Denies diarrhea Genitourinary: Genitourinary: Denies abnormal vaginal bleeding and Denies hematuria Musculoskeletal: Musculoskeletal: Denies myalgias, Denies atrophy, Denies deformity, Reports numbness and Reports tingling Neurologic: Denies dizziness, Denies syncope, Reports headache(s), Denies loss of vision, Reports numbness and Reports tingling Endocrine: Endocrine: Denies palpitations Allergic/Immunologic: Allergic/Immunologic: Denies wheezing [facility] Social History Social History Alcohol intake: never Smoked in Last 30 Days: No Use of substances other than those prescribed or required for medical reasons: No Advance Directives: No Advance Directives Information Provided: No Do you have a plan to hurt others: No Plan Physical Exam Vital Signs: Vital Signs: Last Vital Signs Temp 98.1 F 08/12/24 18:16 Pulse 96 08/12/24 18:16 Resp 18 08/12/24 18:16 BP 140/81 H 08/12/24 18:16 Pulse Ox 98 08/12/24 18:16 O2 Del Method Room Air 08/12/24 18:16 BMI result Body Mass Index 38.5 Const: Orientation/consciousness: patient oriented x3 Neck: Neck: Yes no meningeal signs Chest: Chest palpation & inspection: no crepitus, localized rib tenderness with anteroposterior compression, no masses and No rash Resp: Effort & Inspection: normal respiratory effort, no pursed lip breathing, not tachypneic and no use of accessory muscles Cardio: Jugular venous distension: no JVD Rate: regular rate Rhythm: regular rhythm Heart sounds: S1 normal heart sound present and S2 normal heart sound present Skin: Other: warm and dry, no rash Neuro: Other: calm and cooperative General: patient oriented x3, no meningeal signs, no focal motor deficits and CN's II-XI intact bilaterally Cranial nerves: Yes CN's II-XII intact bilaterally Cognition (Neuro): normal cognition Psych: Appearance: grossly normal Mental Status: mental status grossly normal Speech and movement: Normal speech and movement present and Clear speech present Affect: normal affect Attitude: cooperative Thought process: Normal thought process present Thought content: Normal thought content present Insight: Good insight present (Psych) Judgement: Good judgement present (Psych) Course Course Course Narrative: This is a Rapid Medical Examination (RME) performed by Richard Mir PA-C in triage. Full HPI, ROS, assessment and treatment plan per primary provider in the Main ED. 44 yo female chest pain worse w/ deep breathing and lying down x24 hours. pain radiation down b/l extremities and shoulders. no recent long car rides/ travel. no ocp. admits to elevated BP recently. no hx of HTN. eports upper respiratory symptoms x1 mo. seen at [facility] this week, discharged w/ zpak, albuterol, prednisone for bronchitis. Plan: labs, ekg, cxr Medications Administered Discontinued Medications Generic Name Dose Route Start Last Admin Trade Name Freq PRN Reason Stop Dose Admin Ketorolac Tromethamine 30 mg 08/12/24 18:48 08/12/24 19:06 Ketorolac Tromethamine 30 Mg/Ml Vial IM 08/12/24 18:49 30 mg ONCE ONE Administration Medical Decision Making Medical Decision Making [facility] Narrative: I Katy Melgar have personally assessed and manage the patient, Thalia ALEXANDRE observed and helped to formulate the documentation. Patient is a 44 year old female who presents with sternal pleuritic CP, cough, and L arm numbness x1 day. She was recently seen at [facility] for a productive cough with green phlegm and sent home with Prednisone, Azithromycin, and Albuterol. When she used the prednisone yesterday, she states her CP began and she felt nauseous, dizzy, and had palpitations and bilateral arm numbness/tingling. Her home BP at that time was 189/164, and then slowly decreased throughout the day as she rested. This morning, her fasting glucose was 202, and she states she does not have DM. Her CP is described as a pressure/throbbing sensation and she rates it a 9/10 overall. There are associated palpitations still present, especially on exertion. Though her cough is still productive, the phlegm is now yellow in color, per patient report. She denies fevers, SOB, edema, and recent travel. Patient has a history of hypothyroidism that was diagnosed when she lived in [place], but she has not been medicated for it x1 year. Differentials: ACS, pneumonia, bronchitis, costochondritis, atelectasis, asthma, PE, viral syndrome, hypothyroidism, anemia, electrolyte imbalance Plan: Patient is here today with what I believe to be costochondritis, considering patient has been suffering from an upper respiratory infection for upwards of 1 month, and pain is reproducible on exam. Will diagnose based on exclusion. I also find it reasonable to assume atelectasis due to her recent infection and prolonged cough, though she denies SOB. Will rule out with CXR. PE was considered, however patient is not hypoxic, not tachycardic, denies recent travel and estrogen supplementation, and has no objective symptoms of DVT. Considered ACS, however patient does not have any risk factors, symptoms are more likely to be caused by recent upper respiratory illness, and EKG was normal. Pneumonia was also considered, however there are no systemic symptoms such as fever, and patient was recently treated for bronchitis last week. Will do CXR to rule out. Thought about asthma exacerbation, however patient is not a known asthmatic and does not have SOB. Hypothyroidism was considered as she is not currently being treated for this, however given that she has upper respiratory symptoms and palpitations, I do not believe this is a likely diagnosis. Will check thyroid panel to rule out. Anemia and electrolyte imbalance also considered, given that the patient has had palpitations, dizziness, and chest pain, however there are not consistent with the upper respiratory symptoms and the patient denies history of either. Will check CBC and CMP to rule out. I believe that her symptoms are due to the use of prednisone use yesterday, and the prolonged upper respiratory infection that she has had. Per Katy Lloyd PA-C Patient here with a prolonged viral syndrome, she saw her primary care last week they initiated treatment for bronchitis. She is currently taking albuterol, steroid and a Z-Alirio. Patient here due to diffuse chest discomfort, I do believe this is consistent with costochondritis due to prolonged viral syndrome and all the excessive coughing. I explained at length that this is an inflammatory process, that the patient needs to take ibuprofen. She states she took ibuprofen once, and it did not help. I explained to the patient that she needs to take the medication as frequently as is directed over time, to have any benefit to help this inflammatory process. She is angry, I offered a muscle relaxant, she declines. We will discharge the patient as she has a appropriate treatment for her bronchitis. She can continue to follow up with her primary care provider labs, chest x-ray and EKG were obtained from triage. Patient does not want to stay for additional assessment at this time, we will have to defer the delta troponin. I have independently reviewed the following tests: Labs: No leukocytosis, not anemic, no electrolyte abnormality, 1st troponin is indeterminate, we will obtain a 2nd EKG: Normal sinus rhythm, rate of 91, no ischemic changes no ectopy Chest x-ray: XR/XR chest 2V IMPRESSION: Suspected right basilar atelectasis. Electronically signed by: Reno Lawton MD 08/12/2024 04:56 PM EDT RP Lab Data 08/12/24 17:13 08/12/24 15:12 Labs: Lab Results 08/12/24 08/12/24 08/12/24 Range/Units 15:12 15:35 17:13 WBC 10.8 (4.8-10.8) X10*3/uL RBC 4.35 (4.20-5.50) X10*6/uL Hgb 13.9 (12.0-16.0) g/dl Hct 39.7 (37.0-47.0) % MCV 91.3 (80.0-98.0) fL MCH 32.0 (27.0-33.0) pg MCHC 35.0 (31.0-35.0) g/dl RDW 12.4 (11.0-16.0) % Plt Count 279 (160-400) X10*3/uL MPV 9.4 (9.4-12.3) fL Immature Gran % (Auto) 0.3 (0.0-0.4) % Neut % (Auto) 64.3 (45-73) % Lymph % (Auto) 28.0 (20-40) % [place] % (Auto) 6.3 (2-11) % Eos % (Auto) 0.8 (0-4) % Baso % (Auto) 0.3 (0-2) % Lymph # (Auto) 3.0 (1.2-4.9) X10*3/uL [place] # (Auto) 0.7 (0.1-1.2) X10*3/uL Eos # (Auto) 0.1 (0.0-0.4) X10*3/uL Baso # (Auto) 0.0 (0.0-0.2) X10*3/uL Abs Immat Gran (auto) 0.03 (0.00-0.03) X10*3/uL Absolute Neuts (auto) 6.9 (2.0-8.3) x10*3/uL Absolute Nucleated RBC 0.000 (0.0-0.012) X10*3/uL Nucleated RBC % (auto) 0.0 (0.0-0.2) /100WBC PT 11.7 (10.9-12.4) SEC INR 1.0 (0.9-1.1) Sodium 140 (135-145) mmol/L Potassium 3.3 (3.3-5.1) mmol/L Chloride 106 (96-108) mmol/L Carbon Dioxide 25 (22-29) mmol/L Anion Gap 12 (12-20) BUN 12 (9-16) mg/dL Creatinine 0.84 (0.5-1.4) mg/dL Estim Creat Clear Calc 99.2 Estimated GFR > 60 Random Glucose 125 H (60-115) mg/dL Calcium 9.6 (8.4-10.2) mg/dL Magnesium 2.3 (1.6-2.6) mg/dL Total Bilirubin 0.4 (0.0-1.0) mg/dL AST 29 (5-31) U/L ALT 39 H (0-31) U/L Alkaline Phosphatase 61 (39-117) U/L Troponin I High Sens 9.7 (<3.5-17.0) ng/L Total Protein 7.5 (6.5-8.0) g/dL Albumin 4.2 (3.5-5.0) g/dL Lipase 29 (8-78) U/L Beta HCG, Quant < 2 mIU/mL Influenza Type A (PCR) NEGATIVE (Negative) Influenza Type B (PCR) NEGATIVE (Negative) RSV RNA Qual (PCR) NEGATIVE (Negative) SARS-CoV-2 RNA (RT-PCR) NEGATIVE (Negative) Discharge Plan Discharge Clinical Impression: Costochondritis Patient Disposition: Home, Self-Care Instructions: Costochondritis (ED) Additional Instructions: Your screening labs were overall unremarkable, there were no concerning changes on your EKG on your chest x-ray is clear. I would continue with the treatment you are receiving for your bronchitis. In regard to the costochondritis, as we discussed, this is inflammation of the cartilages between your ribs. It will take time for this inflammation to resolve. The treatment of choice is [id number] ibuprofen 600 mg taken every 6 hours with food, for 5-7 days. Again, it will take time for the inflammation to resolve. Follow up with your primary care provider for a recheck in 5-7 days Prescriptions: No Action ketorolac 10 mg tablet 10 mg PO TID PRN (Reason: pain) Qty: 10 0RF Rx Instructions: Do not use this medication with ibuprofen, Aleve or NSAIDs, only Tylenol benzonatate 200 mg capsule 200 mg PO TID PRN (Reason: cough) Qty: 20 0RF amoxicillin-pot clavulanate 875-125 mg tablet 1 tab PO BID Qty: 20 0RF Interventions: ED Discharge Assessment Last Done: 08/12/24 18:16 Discharge Date/Time: 08/12/24 18:17 Print Language: [place] Islander
[2024-08-12 15:34] LABS: Alanine Aminotransferase 39 U/L (0-31); Albumin Level 4.2 g/dL (3.5-5.0); Alkaline Phosphatase 61 U/L (39-117); Anion Gap 12 (12-20); Aspartate Amino Transferase 29 U/L (5-31); Bilirubin Total 0.4 mg/dL (0.0-1.0); Blood Urea Nitrogen 12 mg/dL (9-16); Calcium 9.6 mg/dL (8.4-10.2); Carbon Dioxide 25 mmol/L (22-29); Chloride 106 mmol/L (96-108); Creatinine Clr Calc Pharmacy 99.2; Estimated Glomerular Filt Rate > 60; Glucose Random 125 mg/dL (60-115); Lipase 29 U/L (8-78); Magnesium 2.3 mg/dL (1.6-2.6); Potassium 3.3 mmol/L (3.3-5.1); Sodium 140 mmol/L (135-145); Total Protein 7.5 g/dL (6.5-8.0)
[2024-08-12 15:41] LABS: Troponin-I High Sensitivity 9.7 ng/L (<3.5-17.0)
[2024-08-12 15:44] LABS: HCG Quantitative < 2 mIU/mL
[2024-08-12 15:50] LABS: Prothrombin Time 11.7 SEC (10.9-12.4)
[2024-08-12 15:55] LABS: Influenza A PCR NEGATIVE (Negative); Influenza B PCR NEGATIVE (Negative); Resp Syncy Virus RNA Qual PCR NEGATIVE (Negative); SARS COV2 PCR INHOUSE NEGATIVE (Negative)
[2024-08-12 17:40] LABS: Basophils Percent Auto 0.3 % (0-2); Eosinophils Absolute Auto 0.1 X10*3/uL (0.0-0.4); Eosinophils Percent Auto 0.8 % (0-4); Hematocrit 39.7 % (37.0-47.0); Hemoglobin 13.9 g/dl (12.0-16.0); Imm Gran Abs Auto 0.03 X10*3/uL (0.00-0.03); Imm Gran Pct Auto 0.3 % (0.0-0.4); Mean Corpuscular Volume 91.3 fL (80.0-98.0); Mean Platelet Volume 9.4 fL (9.4-12.3); Monocytes Absolute Auto 0.7 X10*3/uL (0.1-1.2); Monocytes Percent Auto 6.3 % (2-11); Neutrophils Absolute Auto 6.9 x10*3/uL (2.0-8.3); Neutrophils Percent Auto 64.3 % (45-73); Platelet Count 279 X10*3/uL (160-400); Red Blood Count 4.35 X10*6/uL (4.20-5.50); Red Cell Distribution Width 12.4 % (11.0-16.0); White Blood Count 10.8 X10*3/uL (4.8-10.8)
[2024-08-12 18:16] VITALS: BP 140/81; PULSE 96; RESP 18; TEMP 36.7; O2SAT 98
[2024-08-12] MEDS: Ketorolac Tromethamine 30 MG/ML VIAL IM (19:06)
== END 2024-08-12 18:17 | disposition home or self-care (01) ==
PROVIDERS: Physician Assistant Medical; Emergency Provider Emergency Medicine; PCP Student in an Organized Health Care Education/Training Program
DX: M94.0 Chondrocostal junction syndrome [Tietze] (principal); Z03.818 Encounter for observation for suspected exposure to other biological agents ruled out; E11.9 Type 2 diabetes mellitus without complications; Z79.899 Other long term (current) drug therapy
CPT/HCPCS: 0241U; 36415; 71046; 80053; 83690; 83735; 84484; 84702; 85025; 85610; 93005; 96372; 99284; J1885

== ENCOUNTER → 2024-08-12 14:25 | Outpatient (BNV) | payer MEDICAID, SELFPAY | PROVIDERS: Emergency Provider Emergency Medicine; PCP Student in an Organized Health Care Education/Training Program; Visit Provider Internal Medicine Cardiovascular Disease | DX: R07.9 Chest pain, unspecified (principal); R94.31 Abnormal electrocardiogram [ECG] [EKG] | CPT/HCPCS: 93010 ==

== ENCOUNTER 2024-09-20 12:58 | Outpatient (AMB) | payer MEDICAID, SELFPAY ==
[2024-09-20 13:00] VITALS: BMI 39.5
--- NOTE | 2024-09-20 13:00 | A.OFFVIS_ITS ---
VS Expanded 09/20/24 13:00 Height 5 ft 4 in Weight 229 lb 15.074 oz BMI 39.5 Intake Visit Reasons: T2DM/Left vm Allergies red onion Allergy (Severe, Uncoded 08/12/24 14:44) Anaphylaxis Nutrition Presentation Details: Pt presents for MNT f/u for T2DM BS Monitoring Most Recent Diabetes Results: Creatinine 0.84 mg/dL (0.5-1.4) 08/12/24 Blood Urea Nitrogen 12 mg/dL (9-16) 08/12/24 Sodium 140 mmol/L (135-145) 08/12/24 Potassium 3.3 mmol/L (3.3-5.1) 08/12/24 Chloride 106 mmol/L (96-108) 08/12/24 Carbon Dioxide 25 mmol/L (22-29) 08/12/24 Calcium 9.6 mg/dL (8.4-10.2) 08/12/24 AST 29 U/L (5-31) 08/12/24 ALT 39 U/L (0-31) H 08/12/24 Total Protein 7.5 g/dL (6.5-8.0) 08/12/24 Albumin 4.2 g/dL (3.5-5.0) 08/12/24 [facility] Social History Alcohol intake: never Assessment & Plan Assessment & Plan (1) T2DM (type 2 diabetes mellitus): Code(s): E11.9 - Type 2 diabetes mellitus without complications Category: Medical Plan: Wt: 104 Kg ( 06/2024 ), 103 (08/10), 104 kg (10/10) Est kcal needs as per MSJ: 2000 (40% carb, 30% protein/fat) Est fluid needs as per 25-30 ml/d: 3100 Est prot per day as per 1 g/kg bw: 104 Recommend fiber intake : 8-10 g per day and gradually increase to 25-28 g per day for women and 35-38 g for men or as tolerated Recommend sodium intake per day : less than 2000 mg Educated patient on: ( R = reviewed V = verbalizes understanding N/R = needs review N/A = not applicable * Food sources of carbohydrate, adequate serving sizes and its role in various health conditions: R * Differences between complex carbohydrates a simple carbohydrates, role of fiber in diet: R * Lean protein sources of foods: R * Differences between types of fats and role in diet (mono on saturated fat fatty acids, saturated fatty acids, trans fats): R * Food sources of sodium in salt and healthy modifications for heart health in kidney health: R V R/V * Vitamins and minerals: R V N/R * Healthy plate method concept: R * Physical activity: Benefits a precaution: R * Hypoglycemia protocol (rule of 15): R V N/R * Dietary prevention of Hyperglycemia: R Patient Instructions: Continue working on diet modifications, reducing on total carbohydrate to 60 g or less at meal (3 x/day) Include greens in your diet (spinach, lettuce, green beans, kale, alternating with red/orange, tomatoes/carrots, beets Try edadame, tofu, lentils, beans as protein sources lower n fat Coding Level of Care Code Nutr Indiv Subseq (32691) Diagnoses T2DM (type 2 diabetes mellitus) E11.9 Time Spent (min) 30
== END 2024-09-20 13:42 | disposition home or self-care (01) ==
PROVIDERS: PCP Student in an Organized Health Care Education/Training Program; Visit Provider Dietitian, Registered
DX: E11.9 Type 2 diabetes mellitus without complications (principal)

== ENCOUNTER → 2024-09-20 12:58 | Outpatient (BNVA) | payer MEDICAID, SELFPAY | PROVIDERS: PCP Student in an Organized Health Care Education/Training Program; Visit Provider Dietitian, Registered | DX: E11.9 Type 2 diabetes mellitus without complications (principal); Z71.3 Dietary counseling and surveillance | CPT/HCPCS: 97803 ==

== ENCOUNTER 2024-09-22 14:06 | Outpatient (REF) | payer MEDICAID, SELFPAY ==
[2024-09-22 16:27] LABS: Estimated Average Glucose 134 mg/dL; Hemoglobin A1C 166.1761 umol/L; Hemoglobin A1c % 6.3 % (<6.0); Total Hemoglobin (HGBA1C) 3637.1014 umol/L
[2024-09-22 16:49] LABS: Free T4 (Free Thyroxine) 0.79 ng/dL (0.71-1.85)
== END 2024-09-22 14:07 | disposition home or self-care (01) ==
LOC: HO.HHCL 14:06
PROVIDERS: Visit Provider Student in an Organized Health Care Education/Training Program
DX: E66.9 Obesity, unspecified (principal)
CPT/HCPCS: 36415; 83036; 84439; 84443

== ENCOUNTER 2024-10-12 11:15 | Emergency (ER) | payer MEDICAID, SELFPAY ==
--- NOTE | ~2024-10-12 | CT_ITS ---
EXAMINATION: CT ABDOMEN AND PELVIS WITH CONTRAST CLINICAL INFORMATION: Diffuse abdominal pain, nausea and diarrhea COMPARISON: None available. TECHNIQUE: Multidetector volumetric images were obtained from the superior aspect of the liver through the pubic symphysis following administration 85 mL of Omnipaque 350 intravenous contrast. Sagittal and coronal reformatted images were obtained on the technologist's workstation. Oral contrast: No This CT examination was performed using dose optimization techniques as appropriate, variously including the following: *Automated exposure control *Adjustment of mA and/or kV according to patient size (this includes techniques or standardized protocols for targeted exams where dose is matched to indication/reason for exam; i.e. extremities or head) *Use of iterative reconstruction technique DLP: 871 mGy-cm FINDINGS: LUNG BASES: The visualized lung bases are unremarkable. LIVER, GALLBLADDER, AND BILIARY TREE: The liver is normal in size, shape, and diffusely hypoattenuated. No focal hepatic lesion or biliary ductal dilatation is present. The gallbladder has been surgically removed. PANCREAS: Unremarkable. SPLEEN: Unremarkable. ADRENAL GLANDS: Unremarkable. KIDNEYS AND URETERS: The kidneys are normal in size, shape, and attenuation. No hydronephrosis, hydroureter, or calculi seen. No perinephric stranding. BLADDER: Unremarkable. GASTROINTESTINAL TRACT: There is scattered stool seen in colon without distention. There is a fecal filled small bowel loop of small bowel in the left midabdomen with clumped up other small bowel loops. No mural thickening or fat stranding seen. There is distal fluid-filled small bowel loops There is no pneumothorax or biliary. No free air or free fluid. The stomach is nondistended. Appendix is not visualized. ABDOMINAL WALL: No significant hernia is appreciated. LYMPH NODES: Normal. VASCULAR: Unremarkable. PELVIC VISCERA: The uterus is anteverted. It and appears unremarkable. The ovaries are unremarkable. No adnexal mass or free fluid seen. OSSEOUS STRUCTURES: Unremarkable. CT/CT abdomen pelvis w IV con IMPRESSION: No acute intra-abdominal process seen. Mild sacralization of loop of small bowel in the midabdomen and left upper proximal jejunal loop loops in the left upper/ mid quadrant and distal fluid-filled small bowel loops question focal ileus from local inflammatory process. Recommend the small bowel follow-through if patient has persistent pain. Fatty liver with cholecystectomy. Fleischner guidelines were followed. Electronically signed by: Severino Crow MD 10/12/2024 07:15 PM YANELY TOSCANO
[2024-10-12 11:36] VITALS: BP 136/82; PULSE 101; RESP 16; TEMP 36.7; O2SAT 95; BMI 38.4
--- NOTE | 2024-10-12 11:38 | ED.GENADULT ---
HPI - General Adult General Chief complaint: Abdominal Pain Stated complaint: abd pain Time Seen by Provider: 10/12/24 12:58 Source: patient, RN notes reviewed and old records reviewed Mode of arrival: ambulatory History of Present Illness ED Provider: Adelita Gómez PA-C HPI narrative: 44-year-old female with a past medical history of diabetes presenting to the ED complaining of abdominal pain, nausea, vomiting, and watery diarrhea x4-5 days s/p 1st injection of Mounjaro. States she was just prescribed Mounjaro for weight loss and diabetes treatment, had vs injection on Wednesday and then symptoms develop. Reports vomiting x1, resolved at present. Reports decreased p.o. intake. Was seen at [facility] and sent to ED for further eval. Denies bloody BMs, melena, dysuria/hematuria, fever/chills, suspicious food intake. Related Data Previous Rx's ?Medication ?Instructions ?Recorded ketorolac 10 mg tablet 10 mg PO TID PRN pain #10 tabs 11/03/23 amoxicillin 875 mg-potassium 1 tab PO BID #20 tabs 03/03/24 clavulanate 125 mg tablet benzonatate 200 mg capsule 200 mg PO TID PRN cough #20 caps 03/03/24 loperamide 2 mg capsule 2 mg PO Q4H PRN loose stool #14 10/12/24 caps ondansetron 4 mg disintegrating 4 mg PO Q6H PRN nausea and 10/12/24 tablet vomiting #14 tabs phenylephrine 0.25 %-pramoxine 1 1 appl HI QID PRN hemorrhoids #51 10/12/24 %-glycerin-wh.petrolatum rectal grams cream Allergies Allergy/AdvReac Type Severity Reaction Status Date / Time red onion Allergy Severe Anaphylaxis Uncoded 10/12/24 11:40 Review of Systems Review of Systems: Yes all other systems are reviewed and are negative Constitutional: Constitutional: Reports as per [facility] Past Medical History Attestation statement: The following information was validated with the patient. Source: old records reviewed Social History Social History Alcohol intake: never Smoked in Last 30 Days: No Use of substances other than those prescribed or required for medical reasons: No Advance Directives: No Advance Directives Information Provided: Yes Do you have a plan to hurt others: No Plan Patient : No Physical Exam ED Vital Signs: Vital Signs - 24 hr 10/12/24 11:36 10/12/24 15:47 10/12/24 18:00 Temperature 98.0 F 97.8 F 98.3 F Pulse Rate 101 H 91 96 Respiratory Rate 16 16 16 Blood Pressure 136/82 133/80 131/85 Pulse Oximetry 95 95 97 Oxygen Delivery Method Room Air Room Air Room Air 10/12/24 20:00 10/12/24 22:00 Temperature 98.3 F 97.8 F Pulse Rate 93 96 Respiratory Rate 16 16 Blood Pressure 139/71 147/91 H Pulse Oximetry 96 98 Oxygen Delivery Method Room Air Room Air BMI result Body Mass Index 38.4 Const Other: Appears uncomfortable General: cooperative, healthy appearing and no acute distress Orientation/consciousness: patient oriented x3 Limitations: no limitations HENMT Head: Yes normal to inspection and Yes atraumatic Ears: hearing grossly normal bilaterally General nose exam: Normal external nose present Face and sinus: Yes normal facial exam Eyes General: appearance normal, both eyes and all related structures EOM: EOMs intact bilaterally Neck Neck: Yes normal visual inspection and Yes no meningeal signs Resp Effort & Inspection: normal respiratory effort and no respiratory distress Auscultation: clear to auscultation bilaterally Cardio Rate: regular rate Heart sounds: S1 normal heart sound present and S2 normal heart sound present GI Inspection: Yes normal to inspection Palpation (GI): Soft to palpation, Tenderness to palpation present (GI) (Diffusely, no rebound or guarding) with no rebound tenderness, no guarding and not rigid Skin Rashes: no rashes Wounds: no wounds Neuro General: patient oriented x3, tone normal and no meningeal signs Cranial nerves: Yes CN's II-XII intact bilaterally Gait exam (Neuro): Normal gait present Extrem General: Yes normal to inspection Course Course Course Narrative: RME, this is a rapid medical exam performed by Vinicius Mclean please refer to primary provider for complete H&P- 44 year old female presents for evaluation abdominal pain. She is currently being treated with Zepbound for weight loss as well as diabetes treatment. She reports her 1st dose was Wednesday and she has had severe abdominal pain since with associated nausea and vomiting. She was sent for further evaluation and management. Plan to start with labs, urinalysis. Will defer any advanced imaging to primary ER provider -8--potassium low to 3.2 > p.o. repletion given. Labs otherwise reassuring. -UA negative -patient difficult stick, multiple attempts at getting IV. Ultrasound guidance used -1630--ED care transferred to JULIO Mccormick pending C diff, GI panel, CT AP, re-evaluation/p.o. trial Medications Administered Discontinued Medications Generic Name Dose Route Start Last Admin Trade Name Freq PRN Reason Stop Dose Admin Sodium Chloride 1,000 mls @ 999 mls/hr 10/12/24 13:15 10/12/24 17:22 Ns IV 10/12/24 14:15 Infused .Q1H1M BRICE Infusion Iohexol 100 ml 10/12/24 16:53 10/12/24 16:53 Iohexol 350 Mg/Ml 100 Ml Infus..Btl IV 10/12/24 16:54 85 ml ONCE ONE Administration Ketorolac Tromethamine 15 mg 10/12/24 13:12 10/12/24 16:16 Ketorolac Tromethamine 15 Mg/Ml Vial IVPUSH 10/12/24 13:13 15 mg ONCE ONE Administration Potassium Chloride 60 meq 10/12/24 13:36 10/12/24 14:05 Potassium Chloride Er 20 Meq Tab.Er.Prt PO 10/12/24 13:37 60 meq ONCE ONE Administration Medical Decision Making Medical Decision Making MDM Narrative: 44-year-old female with a past medical history of diabetes presenting to the ED complaining of abdominal pain, nausea, vomiting, and watery diarrhea x4-5 days s/p 1st injection of Mounjaro. On exam mildly tachycardic to 101, NAD, appears uncomfortable, nontoxic appearing, abdomen soft diffusely tender, no rebound or guarding. Low suspicion for severe sepsis this time. Concern for medication reaction vs pancreatitis vs colitis/diverticulitis or C diff. lower suspicion for acute appendicitis or cholecystitis/lithiasis Plan: Labs, UA, stool studies, IVF, CT AP, re-evaluate Please refer to course for remaining clinical decision making, interpretation of labs/imaging results, and discussions with consultants and/or family members. I received sign-out from my colleague JULIO Gómez - CT scan does not show any acute intra-abdominal process. Patient does have distal fluid filled small bowel loops. Patient has been having diarrhea for about a week. - Patient was given potassium p.o. I discussed with the patient that she is likely having a side effect with her medication for weight loss. - Patient states that the detriment of diarrhea is irritating her hemorrhoid, requesting topical medication for home. -Pt was PO challanged, did well, no N/V/D Differential Diagnosis Differential Diagnoses: The differential diagnosis associated with the presentation includes As above Admission/Observation Consideration of admission/observation: Escalation of care including admission/observation considered Lab Data MDM Lab Attestation statement: I reviewed the patient's lab results. 10/12/24 11:46 10/12/24 11:46 Labs: Lab Results 10/12/24 10/12/24 10/12/24 Range/Units 11:46 15:49 15:57 WBC 6.5 (4.8-10.8) X10*3/uL RBC 4.44 (4.20-5.50) X10*6/uL Hgb 14.0 (12.0-16.0) g/dl Hct 40.0 (37.0-47.0) % MCV 90.1 (80.0-98.0) fL MCH 31.5 (27.0-33.0) pg MCHC 35.0 (31.0-35.0) g/dl RDW 11.9 (11.0-16.0) % Plt Count 250 (160-400) X10*3/uL MPV 9.4 (9.4-12.3) fL Immature Gran % (Auto) 0.3 (0.0-0.4) % Neut % (Auto) 56.5 (45-73) % Lymph % (Auto) 33.8 (20-40) % [place] % (Auto) 6.2 (2-11) % Eos % (Auto) 2.9 (0-4) % Baso % (Auto) 0.3 (0-2) % Lymph # (Auto) 2.2 (1.2-4.9) X10*3/uL [place] # (Auto) 0.4 (0.1-1.2) X10*3/uL Eos # (Auto) 0.2 (0.0-0.4) X10*3/uL Baso # (Auto) 0.0 (0.0-0.2) X10*3/uL Abs Immat Gran (auto) 0.02 (0.00-0.03) X10*3/uL Absolute Neuts (auto) 3.7 (2.0-8.3) x10*3/uL Absolute Nucleated RBC 0.000 (0.0-0.012) X10*3/uL Nucleated RBC % (auto) 0.0 (0.0-0.2) /100WBC Sodium 139 (135-145) mmol/L Potassium 3.2 L (3.3-5.1) mmol/L Chloride 109 H (96-108) mmol/L Carbon Dioxide 21 L (22-29) mmol/L Anion Gap 12 (12-20) BUN 13 (9-16) mg/dL Creatinine 0.83 (0.5-1.4) mg/dL Estim Creat Clear Calc 100.3 Estimated GFR > 60 Random Glucose 124 H (60-115) mg/dL Lactic Acid 0.9 (0.5-2.0) mmol/L Calcium 8.9 D (8.4-10.2) mg/dL Magnesium 2.1 (1.6-2.6) mg/dL Total Bilirubin 0.5 (0.0-1.0) mg/dL AST 31 (5-31) U/L ALT 36 H (0-31) U/L Alkaline Phosphatase 55 (39-117) U/L Total Protein 7.5 (6.5-8.0) g/dL Albumin 4.4 (3.5-5.0) g/dL Lipase 23 (8-78) U/L Beta HCG, Quant < 2 mIU/mL Urine Color Yellow Urine Appearance Clear Urine pH 5.5 (5.0-9.0) Ur Specific [place] 1.025 (1.005-1.025) Urine Protein Negative (Neg-Trace) mg/dL Urine Glucose (UA) Negative (Negative) mg/dL Urine Ketones Negative (Negative) mg/dL Urine Blood Negative (Negative) Urine Nitrite Negative (Negative) Ur Leukocyte Esterase Negative (Negative) Urine RBC 3-5 H (0-2) /HPF Urine WBC 0-5 (0-5) /HPF Ur Squamous Epith Cells 3-5 (0-2) /HPF Urine Bacteria None Seen (None Seen) Hyaline Casts 0-2 (0-2) /LPF C. difficile Tox B Gene NEGATIVE (Negative) Independent Interpretation I performed an independent interpretation of an: CT Scan Radiology Impression Discussion of test interpretation with radiology: I have reviewed the radiologist's reading. Radiologist Impression: FINDINGS: LUNG BASES: The visualized lung bases are unremarkable. LIVER, GALLBLADDER, AND BILIARY TREE: The liver is normal in size, shape, and diffusely hypoattenuated. No focal hepatic lesion or biliary ductal dilatation is present. The gallbladder has been surgically removed. PANCREAS: Unremarkable. SPLEEN: Unremarkable. ADRENAL GLANDS: Unremarkable. KIDNEYS AND URETERS: The kidneys are normal in size, shape, and attenuation. No hydronephrosis, hydroureter, or calculi seen. No perinephric stranding. BLADDER: Unremarkable. GASTROINTESTINAL TRACT: There is scattered stool seen in colon without distention. There is a fecal filled small bowel loop of small bowel in the left midabdomen with clumped up other small bowel loops. No mural thickening or fat stranding seen. There is distal fluid-filled small bowel loops There is no pneumothorax or biliary. No free air or free fluid. The stomach is nondistended. Appendix is not visualized. ABDOMINAL WALL: No significant hernia is appreciated. LYMPH NODES: Normal. VASCULAR: Unremarkable. PELVIC VISCERA: The uterus is anteverted. It and appears unremarkable. The ovaries are unremarkable. No adnexal mass or free fluid seen. OSSEOUS STRUCTURES: Unremarkable. CT/CT abdomen pelvis w IV con IMPRESSION: No acute intra-abdominal process seen. Mild sacralization of loop of small bowel in the midabdomen and left upper proximal jejunal loop loops in the left upper/ mid quadrant and distal fluid-filled small bowel loops question focal ileus from local inflammatory process. Recommend the small bowel follow-through if patient has persistent pain. Fatty liver with cholecystectomy. Fleischner guidelines were followed. External Record Review External record reviewed: Inpatient record, Office record, Outpatient record, Prior outpatient labs, Prior outpatient radiology, Primary care record and Outside ED record Tests considered The following testing was considered but not selected: As above Prescription Management I considered prescription management with: Pain Medication Chronic Conditions Patient?s care impacted by: Other Social Determinants Patient?s care significantly limited by Social Determinants of Health including: Other Social Determinant of Health Critical Care Time Critical Care Time Critical Care Time: Yes Total Critical Care Time: 45 Attestation: I have personally provided critical care time. Time includes review of lab data, radiology results, discussion with consultants, and monitoring for potential decompensation. Intervention performed as documented. Discharge Plan Discharge Clinical Impression: Abdominal pain, Diarrhea Patient Disposition: Home, Self-Care Instructions: Acute Diarrhea (ED), Abdominal Pain (ED) Additional Instructions: Please stop taking previously prescribed Mounjaro Call your doctor for close follow-up Prescriptions: New ondansetron 4 mg tablet,disintegrating 4 mg PO Q6H PRN (Reason: nausea and vomiting) Qty: 14 0RF loperamide 2 mg capsule 2 mg PO Q4H PRN (Reason: loose stool) Qty: 14 0RF Rx Instructions: administer after each loose stool until symptoms controlled; do not exceed 8 mg per 24 hrs jtbjckbls-fptrnewo-vnwlm-w.pet 0.25-1 % cream 1 appl HI QID PRN (Reason: hemorrhoids) Qty: 51 0RF No Action ketorolac 10 mg tablet 10 mg PO TID PRN (Reason: pain) Qty: 10 0RF Rx Instructions: Do not use this medication with ibuprofen, Aleve or NSAIDs, only Tylenol benzonatate 200 mg capsule 200 mg PO TID PRN (Reason: cough) Qty: 20 0RF amoxicillin-pot clavulanate 875-125 mg tablet 1 tab PO BID Qty: 20 0RF Print Language: Divehi
[2024-10-12 11:52] LABS: MANUAL DIFF FLAG NO
[2024-10-12 11:57] LABS: Basophils Percent Auto 0.3 % (0-2); Eosinophils Absolute Auto 0.2 X10*3/uL (0.0-0.4); Eosinophils Percent Auto 2.9 % (0-4); Imm Gran Abs Auto 0.02 X10*3/uL (0.00-0.03); Imm Gran Pct Auto 0.3 % (0.0-0.4); Lymphocytes Absolute Auto 2.2 X10*3/uL (1.2-4.9); Lymphocytes Percent Auto 33.8 % (20-40); Mean Corpuscular Hemoglobin 31.5 pg (27.0-33.0); Mean Corpuscular Volume 90.1 fL (80.0-98.0); Mean Platelet Volume 9.4 fL (9.4-12.3); Monocytes Absolute Auto 0.4 X10*3/uL (0.1-1.2); Monocytes Percent Auto 6.2 % (2-11); Neutrophils Absolute Auto 3.7 x10*3/uL (2.0-8.3); Neutrophils Percent Auto 56.5 % (45-73); Platelet Count 250 X10*3/uL (160-400); Red Blood Count 4.44 X10*6/uL (4.20-5.50); Red Cell Distribution Width 11.9 % (11.0-16.0); White Blood Count 6.5 X10*3/uL (4.8-10.8)
[2024-10-12 12:06] LABS: Lactic Acid 0.9 mmol/L (0.5-2.0)
[2024-10-12 12:08] LABS: Alanine Aminotransferase 36 U/L (0-31); Albumin Level 4.4 g/dL (3.5-5.0); Anion Gap 12 (12-20); Aspartate Amino Transferase 31 U/L (5-31); Bilirubin Total 0.5 mg/dL (0.0-1.0); Blood Urea Nitrogen 13 mg/dL (9-16); Calcium 8.9 mg/dL (8.4-10.2); Carbon Dioxide 21 mmol/L (22-29); Chloride 109 mmol/L (96-108); Creatinine Clr Calc Pharmacy 100.3; Estimated Glomerular Filt Rate > 60; Glucose Random 124 mg/dL (60-115); Lipase 23 U/L (8-78); Potassium 3.2 mmol/L (3.3-5.1); Sodium 139 mmol/L (135-145); Total Protein 7.5 g/dL (6.5-8.0)
[2024-10-12 12:12] LABS: HCG Quantitative < 2 mIU/mL
[2024-10-12 12:56] LABS: Alkaline Phosphatase 55 U/L (39-117)
[2024-10-12 13:48] LABS: Magnesium 2.1 mg/dL (1.6-2.6)
--- NOTE | 2024-10-12 13:59 | PC.NURSE ---
RNs x2 unsuccessful with IV insertions. Tammi Haddad, DO aware and will try via US-guided
[2024-10-12] MEDS: Potassium Chloride ER 20 MEQ TAB.ER.PRT 60 MEQ PO (14:05)
[2024-10-12 15:47] VITALS: BP 133/80; PULSE 91; RESP 16; TEMP 36.6; O2SAT 95
[2024-10-12 16:00] LABS: Appearance Urine Clear; Color Urine Yellow; Glucose Urine UA Negative (Negative); Leukocyte Esterase Urine Negative (Negative); Nitrite Urine Negative (Negative); PH 5.5 (5.0-9.0); Specific Gravity - Urine 1.025 (1.005-1.025); Urine Blood Negative (Negative); Urine Ketones Negative (Negative); Urine Protein Negative (Neg-Trace)
[2024-10-12 16:11] LABS: Bacteria Urine None Seen (None Seen); Hyaline Casts Urine 0-2 /LPF (0-2); WBC Urine 0-5 /HPF (0-5)
--- NOTE | 2024-10-12 16:14 | PC.NURSE ---
20G peripheral IV to L upper AC inserted per JULIO Dodd. Tolerated well. IV flushes without difficulty or discomfort per pt.
[2024-10-12] MEDS: Ketorolac Tromethamine 15 MG/ML VIAL IVPUSH (16:16)
[2024-10-12] MEDS: 0.9 % Sodium Chloride 1,000 ML 999 ML IV (16:16)
[2024-10-12] MEDS: iohexoL 350 MG/ML 100 ML INFUS..BTL IV (16:53)
[2024-10-12 17:00] LABS: CDiff Gene PCR NEGATIVE (Negative)
[2024-10-12 18:00] VITALS: BP 131/85; PULSE 96; RESP 16; TEMP 36.8; O2SAT 97
--- NOTE | 2024-10-12 19:36 | PC.NURSE ---
pt abd tender to right quad.
[2024-10-12 20:00] VITALS: BP 139/71; PULSE 93; RESP 16; TEMP 36.8; O2SAT 96
--- NOTE | 2024-10-12 20:29 | PC.NURSE ---
pt ambulated with steady gait and is asking for something to eat. Pt given po challenge ok with provider. pt given crackers and gingerale.
[2024-10-12 22:00] VITALS: BP 147/91; PULSE 96; RESP 16; TEMP 36.6; O2SAT 98
[2024-10-12] MEDS: Loperamide HCl 2 MG CAPSULE 4 MG PO (22:51)
[2024-10-12 22:54] VITALS: BP 147/91; PULSE 96; RESP 16; TEMP 36.6; O2SAT 98
[2024-10-13 11:47] LABS: Adenovirus F 40/41 Not Detected (Not Detect.); Astrovirus Not Detected (Not Detect.); Campylobacter Not Detected (Not Detect.); Cryptosporidium Not Detected (Not Detect.); Cyclospora cayetanensis Not Detected (Not Detect.); E. coli EAEC Not Detected (Not Detect.); E. coli EPEC Not Detected (Not Detect.); E. coli ETEC Not Detected (Not Detect.); E. coli STEC Not Detected (Not Detect.); Entamoeba histolytica Not Detected (Not Detect.); Giardia lamblia Not Detected (Not Detect.); Norovirus GI/GII Not Detected (Not Detect.); Plesiomonas shigelloides Not Detected (Not Detect.); Rotavirus A Not Detected (Not Detect.); Salmonella Not Detected (Not Detect.); Sapovirus Not Detected (Not Detect.); Shigella sp./EIEC Not Detected (Not Detect.); Vibrio Not Detected (Not Detect.); Vibrio Cholerae Not Detected (Not Detect.); Yersinia enterocolitica Not Detected (Not Detect.)
== END 2024-10-12 22:55 | disposition home or self-care (01) ==
PROVIDERS: Physician Assistant; Emergency Provider Emergency Medicine; PCP Internal Medicine
DX: R19.7 Diarrhea, unspecified (principal); R10.9 Unspecified abdominal pain; R11.2 Nausea with vomiting, unspecified; R00.0 Tachycardia, unspecified; E11.9 Type 2 diabetes mellitus without complications; Z79.899 Other long term (current) drug therapy
CPT/HCPCS: 36415; 74177; 80053; 81001; 83605; 83690; 83735; 84702; 85025; 87493; 87507; 96361; 96374; 99284; 99285; J1885; Q9967

== ENCOUNTER → 2024-10-12 13:12 | Outpatient (BNV) | payer MEDICAID, SELFPAY | PROVIDERS: Emergency Provider Emergency Medicine; PCP Internal Medicine; Visit Provider Radiology Diagnostic Radiology | DX: R10.9 Unspecified abdominal pain (principal); R19.7 Diarrhea, unspecified; R11.0 Nausea; K76.0 Fatty (change of) liver, not elsewhere classified | CPT/HCPCS: 74177 ==

== ENCOUNTER 2024-12-13 01:08 | Emergency (ER) | payer MEDICAID, SELFPAY ==
--- NOTE | 2024-12-13 | ECG_ITS ---
Test Reason : CP Blood Pressure : */* mmHG Vent. Rate : 96 BPM Atrial Rate : 96 BPM P-R Int : 172 ms QRS Dur : 78 ms QT Int : 342 ms P-R-T Axes : 26 -5 18 degrees QTcB Int : 432 ms Normal sinus rhythm Minimal voltage criteria for LVH, may be normal variant ( R in aVL ) Borderline ECG When compared with ECG of 12-Aug-2024 14:23, No significant change was found Referred By: Generic ED Physician Electronically Signed By: Vaibhav Cronin
--- NOTE | ~2024-12-13 | XR_ITS ---
CLINICAL HISTORY: cp 1 view chest x-ray Comparison: CR/SR - XR CHEST 2V - 08/12/24 15:29 EDT Findings: No consolidation or effusion. Prominent cardiac silhouette. No acute fracture. IMPRESSION: 1. No acute findings. This document has been electronically signed by: Domingo Aguayo MD on 12/13/2024 02:16:21
[2024-12-13 01:23] VITALS: BP 115/85; PULSE 93; RESP 20; TEMP 36.2; O2SAT 96; BMI 39.4
[2024-12-13 01:26] LABS: MANUAL DIFF FLAG NO
[2024-12-13 01:27] LABS: Basophils Percent Auto 0.4 % (0-2); Eosinophils Absolute Auto 0.2 X10*3/uL (0.0-0.4); Eosinophils Percent Auto 3.2 % (0-4); Hematocrit 37.8 % (37.0-47.0); Hemoglobin 13.6 g/dl (12.0-16.0); Imm Gran Abs Auto 0.02 X10*3/uL (0.00-0.03); Imm Gran Pct Auto 0.3 % (0.0-0.4); Lymphocytes Absolute Auto 2.5 X10*3/uL (1.2-4.9); Lymphocytes Percent Auto 35.1 % (20-40); Mean Corpuscular Hemoglobin 31.6 pg (27.0-33.0); Mean Corpuscular Volume 87.9 fL (80.0-98.0); Mean Platelet Volume 9.1 fL (9.4-12.3); Monocytes Absolute Auto 0.4 X10*3/uL (0.1-1.2); Monocytes Percent Auto 5.8 % (2-11); Neutrophils Percent Auto 55.2 % (45-73); Platelet Count 252 X10*3/uL (160-400); Red Cell Distribution Width 12.4 % (11.0-16.0); White Blood Count 7.2 X10*3/uL (4.8-10.8)
[2024-12-13 01:46] LABS: Alanine Aminotransferase 43 U/L (0-31); Albumin Level 4.1 g/dL (3.5-5.0); Alkaline Phosphatase 65 U/L (39-117); Anion Gap 11 (12-20); Aspartate Amino Transferase 33 U/L (5-31); Bilirubin Total 0.3 mg/dL (0.0-1.0); Blood Urea Nitrogen 12 mg/dL (9-16); Carbon Dioxide 24 mmol/L (22-29); Chloride 108 mmol/L (96-108); Creatinine Clr Calc Pharmacy 106.8; Estimated Glomerular Filt Rate > 60; Glucose Random 147 mg/dL (60-115); Potassium 3.4 mmol/L (3.3-5.1); Sodium 140 mmol/L (135-145); Total Protein 7.7 g/dL (6.5-8.0); Troponin-I High Sensitivity 9.7 ng/L (<3.5-17.0)
[2024-12-13 03:20] VITALS: BP 155/91; PULSE 88; RESP 11; O2SAT 97
[2024-12-13 03:59] LABS: Troponin-I High Sensitivity 10.8 ng/L (<3.5-17.0)
[2024-12-13 05:33] VITALS: BP 152/77; PULSE 85; RESP 16; TEMP 36.5; O2SAT 98
--- NOTE | 2024-12-13 06:51 | ED.CHESTPAIN ---
HPI - Chest Pain General Chief Complaint: Chest Pain Stated Complaint: chest pain Time Seen by Provider: 12/13/24 06:51 Source: patient and RN notes reviewed Mode of arrival: ambulatory Limitations: no limitations History of Present Illness ED Provider: Niecy May PA-C HPI narrative: This is a 44-year-old female, with a history of type 2 diabetes, who presents emergency department with concerns of chest pain and pressure since yesterday afternoon. patient reports that since yesterday she has had chest pain, and right shoulder pain. She states the pain is tight in nature, onset in nature. She denies any shortness of breath. She also reports some right shoulder pain. She denies any recent injury, trauma, heavy lifting. 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 She states that she has a primary care physician. No recent travel, surgery, hospitalizations. No history of blood clots. No history of cancer. She is not on blood thinners. No control use. No other complaints or concerns at this time MD complaint: chest pain Onset (ago): day(s) Timing of current episode: constant Prior episodes: No Onset: during rest Pain location: left chest and right chest Pain radiation: right arm Severity: moderate Quality: tightness Relieving factors: nothing Exacerbating factors: nothing Treatment prior to arrival: none Risk Factors Coronary artery disease risk factors: none Thoracic aortic dissection risk factors: none Related Data On Oral Contraceptives: No Previous Rx's ?Medication ?Instructions ?Recorded ketorolac 10 mg tablet 10 mg PO TID PRN pain #10 tabs 11/03/23 amoxicillin 875 mg-potassium 1 tab PO BID #20 tabs 03/03/24 clavulanate 125 mg tablet benzonatate 200 mg capsule 200 mg PO TID PRN cough #20 caps 03/03/24 loperamide 2 mg capsule 2 mg PO Q4H PRN loose stool #14 10/12/24 caps ondansetron 4 mg disintegrating 4 mg PO Q6H PRN nausea and 10/12/24 tablet vomiting #14 tabs phenylephrine 0.25 %-pramoxine 1 1 appl SD QID PRN hemorrhoids #51 10/12/24 %-glycerin-wh.petrolatum rectal grams cream Allergies Allergy/AdvReac Type Severity Reaction Status Date / Time red onion Allergy Severe Anaphylaxis Uncoded 12/13/24 01:25 Review of Systems Review of Systems: Yes all other systems are reviewed and are negative Constitutional: Constitutional: Reports as per [facility] Social History Social History Alcohol intake: never Smoked in Last 30 Days: No Use of substances other than those prescribed or required for medical reasons: No Advance Directives: No Do you have a plan to hurt others: No Plan Patient : No Physical Exam Vital Signs: Vital Signs: Last Vital Signs Temp 97.7 F 12/13/24 05:33 Pulse 86 12/13/24 08:38 Resp 16 12/13/24 08:38 BP 146/87 H 12/13/24 08:38 Pulse Ox 95 12/13/24 08:38 O2 Del Method Room Air 12/13/24 08:38 BMI result Body Mass Index 39.4 Const: General: cooperative, comfortable and no acute distress Orientation/consciousness: patient oriented x3 Limitations: no limitations HEENT: Head: Yes normal to inspection, Yes normocephalic and Yes atraumatic Ears: hearing grossly normal bilaterally General nose exam: Normal external nose present Face and sinus: Yes normal facial exam Mouth: Normal oral and palatal mucosa present, oropharynx normal and moist mucous membranes Throat: Yes posterior oropharynx normal Eyes: General: appearance normal, both eyes and all related structures Eyelids: Yes eyelids normal Conjunctivae: conjunctivae normal Sclerae: sclerae normal Pupils: Equal, round and reactive pupils present EOM: EOMs intact bilaterally Neck: Neck: Yes normal visual inspection, Yes full ROM and Yes no lymphadenopathy Lymphatic: no lymphadenopathy noted Chest: Chest palpation & inspection: normal inspection of the chest Resp: Effort & Inspection: normal respiratory effort and able to speak in complete sentences Auscultation: clear to auscultation bilaterally, no crackles, no rales, no rhonchi and no wheezes Cardio: Rate: regular rate Rhythm: regular rhythm Heart sounds: S1 normal heart sound present and S2 normal heart sound present GI: Other: Abdomen is soft, nontender, nondistended Inspection: Yes normal to inspection Back/Spine/Pelvis: Other: tenderness palpation above the right trapezius with spasm. Skin: General skin exam: no rashes or lesions noted Trauma: no lacerations or abrasions Wounds: no wounds Neuro: General: patient oriented x3 and moves all extremities Cranial nerves: Yes Equal, round and reactive pupils present Extrem: General: Yes normal to inspection Right upper extremity: normal to inspection Left upper extremity: normal to inspection Right lower extremity: normal to inspection Left lower extremity: normal to inspection Course Reevaluation(s) Reevaluation #1: Chest x-ray revealing no acute findings. Third troponin flat. Overall workup was reassuring today. she has a heart score of 0. Unlikely cardiac in etiology. She will follow-up with her PCP. I spoke to patient, she does have pain in her right upper trapezius muscle, with spasm, she has had Toradol which has helped her symptoms in the past. Will medi Given strict return precautions. Patient stable for discharge. Time: 09:37 Medical Decision Making Medical Decision Making [facility] Narrative: This is a 44-year-old female, with a history of type 2 diabetes, who presents emergency department with ongoing chest pain which started yesterday. On arrival, vital signs within normal limits. She is speaking full sentences under no acute distress. Regular rate and rhythm, lungs are clear to auscultation bilaterally. No pitting edema noted bilaterally, no calf tenderness. She states that she has been monitoring her blood pressure at home which has been slightly elevated. on arrival, blood pressure 115/85. chest pain has been constant. Also radiates into her right shoulder. 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 Labs were obtained prior to my assessment, she has no leukocytosis, stable H&H, troponin x2 is flat. Will obtain 3rd As she has been in the emergency room for several hours with constant chest pain. EKG normal sinus rhythm with no ST elevation or depression. chest x-ray ordered, revealing no abnormalities. She has no pleuritic chest pain. No known risk factors. She is PERC negative. We will continue to closely monitor. Differential Diagnosis Differential Diagnoses: The differential diagnosis associated with the presentation includes Chest pain, pneumonia, viral illness, musculoskeletal pain, ACS Lab Data [facility] Lab Attestation statement: I reviewed the patient's lab results. see [facility] 12/13/24 01:21 12/13/24 01:21 Labs: Lab Results 12/13/24 12/13/24 12/13/24 Range/Units 01:21 03:27 08:35 WBC 7.2 (4.8-10.8) X10*3/uL RBC 4.30 (4.20-5.50) X10*6/uL Hgb 13.6 (12.0-16.0) g/dl Hct 37.8 (37.0-47.0) % MCV 87.9 (80.0-98.0) fL MCH 31.6 (27.0-33.0) pg MCHC 36.0 H (31.0-35.0) g/dl RDW 12.4 (11.0-16.0) % Plt Count 252 (160-400) X10*3/uL MPV 9.1 L (9.4-12.3) fL Immature Gran % (Auto) 0.3 (0.0-0.4) % Neut % (Auto) 55.2 (45-73) % Lymph % (Auto) 35.1 (20-40) % Kenton % (Auto) 5.8 (2-11) % Eos % (Auto) 3.2 (0-4) % Baso % (Auto) 0.4 (0-2) % Lymph # (Auto) 2.5 (1.2-4.9) X10*3/uL [place]on # (Auto) 0.4 (0.1-1.2) X10*3/uL Eos # (Auto) 0.2 (0.0-0.4) X10*3/uL Baso # (Auto) 0.0 (0.0-0.2) X10*3/uL Abs Immat Gran (auto) 0.02 (0.00-0.03) X10*3/uL Absolute Neuts (auto) 4.0 (2.0-8.3) x10*3/uL Absolute Nucleated RBC 0.000 (0.0-0.012) X10*3/uL Nucleated RBC % (auto) 0.0 (0.0-0.2) /100WBC Sodium 140 (135-145) mmol/L Potassium 3.4 (3.3-5.1) mmol/L Chloride 108 (96-108) mmol/L Carbon Dioxide 24 (22-29) mmol/L Anion Gap 11 L (12-20) BUN 12 (9-16) mg/dL Creatinine 0.79 (0.5-1.4) mg/dL Estim Creat Clear Calc 106.8 Estimated GFR > 60 Random Glucose 147 H (60-115) mg/dL Calcium 9.0 (8.4-10.2) mg/dL Total Bilirubin 0.3 (0.0-1.0) mg/dL AST 33 H (5-31) U/L ALT 43 H (0-31) U/L Alkaline Phosphatase 65 (39-117) U/L Troponin I High Sens 9.7 10.8 8.4 (<3.5-17.0) ng/L Total Protein 7.7 (6.5-8.0) g/dL Albumin 4.1 (3.5-5.0) g/dL Influenza Type A (PCR) NEGATIVE (Negative) Influenza Type B (PCR) NEGATIVE (Negative) RSV RNA Qual (PCR) NEGATIVE (Negative) SARS-CoV-2 RNA (RT-PCR) NEGATIVE (Negative) Independent Interpretation I performed an independent interpretation of an: EKG Interpretation: EKG normal sinus rhythm at a ventricular rate of 96 beats per minute, SD interval 172, QT QTC 342/432, no ST elevation or depression. Radiology Impression Discussion of test interpretation with radiology: I have reviewed the radiologist's reading. Radiologist Impression: CLINICAL HISTORY: cp 1 view chest x-ray Comparison: CR/SR - XR CHEST 2V - 08/12/24 15:29 EDT Findings: No consolidation or effusion. Prominent cardiac silhouette. No acute fracture. IMPRESSION: 1. No acute findings. This document has been electronically signed by: Domingo Aguayo MD on 12/13/2024 02:16:21 Dictated By: Domingo Aguayo MD Scores Heart Score History: -0- slightly suspicious ECG: -0- normal Age: -0- < or = 45 Risk factory: -0- no risk factors known Troponin: -0- < or = normal limit Score: 0 Risk: 1.7% Discharge Plan Discharge Clinical Impression: Chest pain Patient Disposition: Still a Patient Instructions: Chest Pain (ED) Additional Instructions: You were seen in the emergency department due to chest pain. Your blood work was reassuring. You do have slight elevation in your liver enzymes, this is just above the upper limit of normal. Please follow-up with your primary care physician. Your blood glucose was. Your troponin test, which is a enzyme measuring any heart attack, was normal. We trended this over several hours. Your EKG was normal. You tested negative for COVID, flu, and RSV. Your chest x-ray was normal. If any new or worsening symptoms occur including but not limited to worsening chest pain, shortness of breath, please seek emergent care. Prescriptions: No Action ondansetron 4 mg tablet,disintegrating 4 mg PO Q6H PRN (Reason: nausea and vomiting) Qty: 14 0RF loperamide 2 mg capsule 2 mg PO Q4H PRN (Reason: loose stool) Qty: 14 0RF Rx Instructions: administer after each loose stool until symptoms controlled; do not exceed 8 mg per 24 hrs ajubcntez-rvxmkvmd-ceahh-w.pet 0.25-1 % cream 1 appl SD QID PRN (Reason: hemorrhoids) Qty: 51 0RF ketorolac 10 mg tablet 10 mg PO TID PRN (Reason: pain) Qty: 10 0RF Rx Instructions: Do not use this medication with ibuprofen, Aleve or NSAIDs, only Tylenol benzonatate 200 mg capsule 200 mg PO TID PRN (Reason: cough) Qty: 20 0RF amoxicillin-pot clavulanate 875-125 mg tablet 1 tab PO BID Qty: 20 0RF Print Language: Nicaraguan
[2024-12-13 08:38] VITALS: BP 146/87; PULSE 86; RESP 16; O2SAT 95
[2024-12-13 09:06] LABS: Troponin-I High Sensitivity 8.4 ng/L (<3.5-17.0)
[2024-12-13 09:31] LABS: Influenza A PCR NEGATIVE (Negative); Influenza B PCR NEGATIVE (Negative); Resp Syncy Virus RNA Qual PCR NEGATIVE (Negative); SARS COV2 PCR INHOUSE NEGATIVE (Negative)
[2024-12-13 09:49] VITALS: BP 146/87; PULSE 86; RESP 16; TEMP 36.7; O2SAT 95
[2024-12-13] MEDS: Ketorolac Tromethamine 15 MG/ML VIAL IM (09:56)
== END 2024-12-13 10:08 | disposition still patient (30) ==
PROVIDERS: Physician Assistant Medical; Emergency Provider Emergency Medicine Emergency Medical Services; PCP Student in an Organized Health Care Education/Training Program
DX: R07.9 Chest pain, unspecified (principal); M25.511 Pain in right shoulder; E11.9 Type 2 diabetes mellitus without complications; Z03.818 Encounter for observation for suspected exposure to other biological agents ruled out; Z79.899 Other long term (current) drug therapy
CPT/HCPCS: 0241U; 36415; 71045; 80053; 84484; 85025; 93005; 96372; 99284; 99285; J1885

== ENCOUNTER → 2024-12-13 01:14 | Outpatient (BNV) | payer MEDICAID, SELFPAY | PROVIDERS: Emergency Provider Emergency Medicine Emergency Medical Services; PCP Student in an Organized Health Care Education/Training Program; Visit Provider Internal Medicine Cardiovascular Disease | DX: R07.9 Chest pain, unspecified (principal); R94.31 Abnormal electrocardiogram [ECG] [EKG] | CPT/HCPCS: 93010 ==

== ENCOUNTER → 2024-12-13 01:55 | Outpatient (BNV) | payer MEDICAID, SELFPAY | PROVIDERS: PCP Student in an Organized Health Care Education/Training Program; Visit Provider Radiology Diagnostic Radiology | DX: R07.9 Chest pain, unspecified (principal) | CPT/HCPCS: 71045 ==

== ENCOUNTER 2025-01-08 09:08 | Outpatient (REF) | payer MEDICAID, SELFPAY ==
[2025-01-08 12:13] LABS: Estimated Average Glucose 140 mg/dL; Hemoglobin A1c % 6.5 % (<6.0)
[2025-01-08 12:14] LABS: Anion Gap 12 (12-20); Blood Urea Nitrogen 9 mg/dL (9-16); Calcium 9.1 mg/dL (8.4-10.2); Carbon Dioxide 23 mmol/L (22-29); Chloride 107 mmol/L (96-108); Estimated Glomerular Filt Rate > 60; Glucose Random 204 mg/dL (60-115); Potassium 3.3 mmol/L (3.3-5.1); Sodium 139 mmol/L (135-145)
[2025-01-08 12:38] LABS: TSH reflex Free T4 4.12 uIU/mL (0.32-4.0)
[2025-01-08 13:12] LABS: Free T4 (Free Thyroxine) 0.85 ng/dL (0.71-1.85)
== END 2025-01-08 09:09 | disposition home or self-care (01) ==
LOC: HO.HHCL 09:08
DX: I10 Essential (primary) hypertension (principal); R00.2 Palpitations; R63.5 Abnormal weight gain
CPT/HCPCS: 36415; 80048; 83036; 84439; 84443

== ENCOUNTER 2025-01-16 14:24 | Outpatient (REF) | payer MEDICAID, SELFPAY ==
--- OUTSIDE RECORDS SUMMARY | 2025-01-16 19:08 | XMS_ITS | Encounter Summary ---
Author Organization [employer] Address [address] [facility] [address] [place] [address] Care Team Providers Care Resistance Welder Name Role Phone Janel Go RN Unavailable [phone] Ina Arroyo NP Primary Care Provider [phone] Reason for Visit * Reason Comments Care Coordination Appt reminder Encounter Details Date Type Department Care Team (Latest Contact Info) Description 01/11/2025 Patient Outreach [facility] MEDICINE [address] [place] [address] Ina Arroyo NP [address] [place] [address] Care Coordination (Appt reminder) Social History Tobacco Use Types Packs/Day Years Used Date Smoking Tobacco: Never Passive Smoke Exposure: Never Smokeless Tobacco: Never Alcohol Use Standard Drinks/Week Comments Yes 0 (1 standard drink = 0.6 oz pur e alcohol) social Depression Answer Date Recorded Patient Health Questionnaire-9 Score 0 09/22/2024 Patient Health Questionnaire-9 Score 0 09/22/2024 Last PHQ-9: Questionnaire Data Not on file 1 11/23/2023 Housing Stability Answer Date Recorded What is your housing situation today? I have martinrica duff 10/23/[address] you li ve. Do you have problems with any of the following? None of the above 10/23/2024 Food Insecurity Answer Date Recorded Within the past 12 months, y ou worried that your food would run out before you got money to buy more: Never True 10/23/2024 Within the past 12 months,th e food you bought just didn't last and you didn't have enough money to get more: Never True 03/2025 Transportation Answer Date Recorded In the past 12 months, has l ack of transportation kept you from medical appts, meetings, work or from getting things needed for daily living? No 10/23/2024 Utilities Answer Date Recorded In the past 12 months, has t he electric, gas, oil or water company threatened to shut off services in your home? No 10/23/2024 Depression Answer Date Recorded Patient Health Questionnaire-2 Score 0 09/22/2024 Internet Access Answer Date Recorded Internet Access Q1 Yes 10/23/2024 Internet Access Q2 Not on file 10/23/2024 Comments No Sex and Gender Information Value Date Recorded Sex Assigned at Female 08/06/2023 2:51 PM EDT Legal Sex Female 2:46 PM EDT Gender Identity Female 08/06/2023 2:51 PM EDT Sexual Orientation Straight 08/06/2023 2: 51 PM EDT documented as of this encounter Progress Notes * Nahed Engel - 01/11/2025 1:53 PM EDT CHW Nahed Engel placed call to patient to remind her of appt on 01/12/25 1PM at [facility] with PCP. Patient is aware and confirmed will be available for call and has no barriers on attending call. Patient verbalized understanding and agrees with plan. documented in this encounter Plan of Treatment Upcoming Encounters Date Type Department Care Team (Late st Contact Info) Description 01/29/2025 1:30 PM EDT Clinical Support [facility] MEDICINE [address] [place] [address] 02/26/2025 1:30 PM EDT Office Visit [facility] MEDICINE [address] [place] [address] Ina Arroyo NP [address] [place] [address] 03/05/2025 10:00 AM EDT Office Visit [facility] OPTOMETRY [address] [place] [address] Aminta Stewart, OD [address] [place] [address] 05/16/2025 10:00 AM EDT Office Visit [facility] ADULT DENTAL [address] [place] [address] Kristan Briscoe documented as of this encounter Visit Diagnoses Not on filedocumented in this encounter Additional Health Concerns Assessment Noted Time PHQ-9 Depression Total Score: 0 09/22/20 24 1:10 PM EST documented as of this encounter Care Teams Resistance Welder Relationship Specialty Start Date End Date Ina Arroyo NP [address] [place] [address] PCP - General Family Medicine 10/30/24 Janel Go RN [address] [place] [id number] Envelope Folding Machine OperatorProduct Marketing Executive 10/19/24 documented as of this encounter
--- OUTSIDE RECORDS SUMMARY | 2025-01-16 19:08 | XMS_ITS | Encounter Summary ---
Author Organization [employer] Address [address] [facility] [address] [place] [address] Care Team Providers Care Radiological Technologist Name Role Phone Janel Go RN Unavailable [phone] Ina Arroyo NP Primary Care Provider [phone] Reason for Visit * Reason Comments Gynecologic Exam Encounter Details Date Type Department Care Team (Latest Contact Info) Description 01/16/2025 2:15 PM EDT Procedure Visit [facility] MEDICINE [address] [place] [address] Kristina Cuellar CNM [address] [place] [address] Cervical cancer screening (Primary Dx); Screening examination for venereal disease; Genital ulcer, female; Vaginal odor Social History Tobacco Use Types Packs/Day Years [...] is your housing situation today? I have martin duff 10/23/[address] you [...] PM EDT documented as of this encounter Last Filed Vital Signs Vital Sign Reading Time Taken Comments Blood Pressure 161/101 01/16/2025 2:20 PM EDT Pulse 110 01/16/2025 2:20 PM EDT Temperature 36.4 ??C (97.6 ??F) 01/16/2025 2:20 PM ED T Respiratory Rate 20 01/16/2025 2:20 PM EDT Oxygen Saturation 98% 01/16/2025 2:20 PM EDT Inhaled Oxygen Concentration - - Weight 105 kg (232 lb 6.4 oz) 01/16/2025 2:20 PM EDT Height 162.6 cm (5' 4 ) 01/16/2025 2:20 PM EDT Body Mass Index 39.89 01/16/2025 2:20 PM EDT documented in this encounter Progress Notes * Kristina Cuellar CNM - 01/16/2025 2:15 PM EDT Subjective Patient ID: Carlos Castle is a 44 y.o. 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 Notes painful perianal lesion x 4 days. Previous partner HSV positive. Last sexually active in 2019. Also notes vaginal odor. No other vaginal/urinary symptoms. Mammogram BIRADS 1, cat b 03/2024. No pelvic organ abnormalities on CT 09/2024. Has tubal ligation. TSH 4.12. Menses Q1-3 months x 4 d. No heavy flow or severe cramping. Review of Systems Genitourinary: Negative for dyspareunia, dysuria, frequency, genital sores, hematuria, menstrual problem, pelvic pain, urgency, vaginal bleeding, vaginal discharge and vaginal pain. No abnormal pap, no abnormal bleeding, no breast pain, no breast mass, no nipple discharge Objective BP (!) 161/101 (BP Location: Left arm, Patient Position: Sitting, BP Cuff Size: Adult) Pulse 110 Temp 97.6 ??F (36.4 ??C) (Temporal) Resp 20 Ht 5' 4 (1.626 m) Wt 232 lb 6.4 oz (105 kg) LMP 01/01/2025 (Approximate) SpO2 98% BMI 39.89 kg/m?? Physical Exam Constitutional: Appearance: Normal appearance. Chest: Breasts: Right: Normal. No swelling, bleeding, inverted nipple, mass, nipple discharge, skin change or tenderness. Left: Normal. No swelling, bleeding, inverted nipple, mass, nipple discharge, skin change or tenderness. Genitourinary: General: Normal vulva. Labia: Right: No rash, tenderness, lesion or injury. Left: No rash, tenderness, lesion or injury. Vagina: Normal. No signs of injury and foreign body. No vaginal discharge, erythema, tenderness, bleeding or lesions. Cervix: No cervical motion tenderness, discharge, friability, lesion, erythema, cervical bleeding or eversion. Uterus: Normal. Not enlarged and not tender. Adnexa: Right adnexa normal and left adnexa normal. Right: No mass, tenderness or fullness. Left: No mass, tenderness or fullness. Rectum: Tenderness and external hemorrhoid present. No mass, anal fissure or internal hemorrhoid. Comments: Area of ulceration near anus on right. External hemorrhoid noted as well Lymphadenopathy: Upper Body: Right upper body: No supraclavicular or axillary adenopathy. Left upper body: No supraclavicular or axillary adenopathy. Neurological: Mental Status: She is alert. Psychiatric: Mood and Affect: Mood normal. Behavior: Behavior normal. Assessment/Plan Diagnoses and all orders for this visit: Cervical cancer screening - Pap Smear Cotest 5 years if normal. Routine mammography. Reviewed normal vs abnormal perimenopausal menstrual changes and common symptoms. Report prolonged/frequent/heavy bleeding or bleeding that occurs after a year of no bleeding. Screening examination for venereal disease - Herpes Simplex Virus 1 and 2 (IgG), Type-Specific Antibodies; Future - Syphilis Screen; Future Will check RPR and HSV 1/2 ab Genital ulcer, female Suggestive of HSV outbreak, especially given former partner's history. Will treat empirically with lidocaine and valacyclovir, confirm with HSV 1/2 ab Vaginal odor - POCT fern test, vaginal fluid manually resulted No obvious vaginitis. If bacterial vaginosis/vulvovaginal candidiasis on pap, will treat. Other orders - lidocaine (Xylocaine) 5 % ointment; Apply to affected area up to 5 times a day as needed - valACYclovir (Valtrex) 1 g tablet; One tablet twice a day x 7 days documented in this encounter Plan of Treatment Upcoming Encounters Date Type Department Care Team (Late st Contact Info) Description 01/29/2025 1:30 PM EDT Clinical Support [facility] MEDICINE [address] [place] [address] 02/26/2025 1:30 PM EDT Office Visit [facility] MEDICINE [address] [place] [address] Ina Arroyo NP [address] [place] [address] 03/05/2025 10:00 AM EDT Office Visit [facility] OPTOMETRY [address] [place] [address] Terry, Aminta, OD [address] [place] [address] 05/16/2025 10:00 AM EDT Office Visit [facility] ADULT DENTAL [address] [place] [address] Kristan Briscoe Scheduled Orders Name Type Priority Associated Diagnoses Orde r Schedule Pap Smear Pathology and Cytology Routine Cervical cancer screening Ordered: 01/16/2025 Herpes Simplex Virus 1 and 2 (IgG), Type-Specific Antibodies Lab Routine Screening examination for venereal disease Expected: 01/16/2025 (Approximate), Expires: 01/16/2026 Syphilis Screen Lab Routine Screening examination for venereal disease Expected: 01/16/2025 (Approximate), Expires: 01/16/2026 documented as of this encounter Procedures Procedure Name Priority Date/Time Associated Diagnosis Comments POCT WET MOUNT/MARINO Routine 01/16/2025 3: 16 PM EDT Vaginal odor documented in this encounter Results * POCT fern test, vaginal fluid manually resulted (01/16/2025 3:16 PM EDT) MARINO Prep Negative Comment:pH 4.5, neg whiff, n eg clue, neg yeast, neg trich, neg wbc Vaginal Fluid Vaginal structure / Unknown 01/16/2025 3:16 PM EDT Result [facility] Kristina Cuellar [facility] POINT OF CARE TEST ENTER/ EDIT ORDERABLES Final Result documented in this encounter Visit Diagnoses Diagnosis Cervical cancer screening- Primary Screening for malignant neoplasm of the cervix Screening examination for venereal disease Genital ulcer, female Other specified disorders of female genital organs Vaginal odor Unspecified symptom associated with female genital organs documented in this encounter Additional Health Concerns Assessment Noted Time PHQ-9 Depression Total Score: 0 09/22/20 24 1:10 PM EST documented as of this encounter Care Teams Radiological Technologist Relationship Specialty Start Date End Date Ina Arroyo NP [address] [place] [id number] PCP - General Family Medicine 10/30/24 Janel Go RN [address] [place] [id number] Business Analysis ProfessionalSlot Machine Key Person 10/19/24 documented as of this encounter
--- OUTSIDE RECORDS SUMMARY | 2025-01-16 19:08 | XMS_ITS | Encounter Summary ---
Author Organization [employer] Address [address] [place] [address] Care Team Providers Care Relay Tester Name Role Phone Janel Go RN Unavailable [phone] Ina Arroyo NP Primary Care Provider [phone] Encounter Details Date Type Department Care Team (Latest Contact Info) Description 01/16/2025 Travel Social History Tobacco Use Types Packs/Day Years [...] PM EDT documented as of this encounter Plan of Treatment Upcoming Encounters Date Type Department Care Team (Late st Contact Info) Description 01/29/2025 1:30 PM EDT Clinical Support [facility] MEDICINE [address] [place] [id number] 02/26/2025 1:30 PM EDT Office Visit [facility] MEDICINE [address] [place] [address] Ina Arroyo NP [address] [place] [address] 03/05/2025 10:00 AM EDT Office Visit [facility] OPTOMETRY [address] [place] [address] Terry, Aminta, OD [address] [place] [address] 05/16/2025 10:00 AM EDT Office Visit [facility] ADULT DENTAL [address] [place] [address] Kristan Briscoe documented as of this encounter Visit Diagnoses Not on filedocumented in this encounter Additional Health Concerns Assessment Noted Time PHQ-9 Depression Total Score: 0 09/22/20 24 1:10 PM EST documented as of this encounter Care Teams Relay Tester Relationship Specialty Start Date End Date Ina Arroyo NP [address] [place] [address] PCP - General Family Medicine 10/30/24 Janel Go RN [address] [place] [id number] Electric Golf Cart RepairerSupervisor Meter Shop 10/19/24 documented as of this encounter
--- OUTSIDE RECORDS SUMMARY | 2025-01-16 19:08 | XMS_ITS | Encounter Summary ---
Author Organization [employer] Address [address] [place] [address] Care Team Providers Care Program Director Cable Television Name Role Phone Janel Go RN Unavailable [phone] Ina Arroyo NP Primary Care Provider [phone] Reason for Referral * Consultation (Routine) - Closed Specialty Diagnoses / Procedures Referred By Danette ayala Referred To Contact Chiropractic Medicine Diagnoses Chronic low back pain without sciatica, unspecified back pain laterality Neck pain Ina Arroyo NP [address] [place] [address] Phone: tel: fax: [facility] [address] [place] [address] Phone: tel: fax: Referral ID Status Reason Start Date Expiration Date V isits Requested Visits Authorized [id number] Closed Specialty Services Required 01/13/2025 01/13/2026 20 20 Reason for Visit * Reason Comments transfer patient Encounter Details Date Type Department Care Team (Late st Contact Info) Description 01/12/2025 1:00 PM EDT Office Visit [facility] [address] [place] [address] Ina Arroyo NP [address] [place] [address] Encounter to establish care (Primary Dx); Chronic low back pain without sciatica, unspecified back pain laterality; Neck pain; Subclinical hypothyroidism; Class 3 severe obesity due to excess calories without serious comorbidity with body mass index (BMI) of 40.0 to 44.9 in adult ([facility]); Dietary counseling; Exercise counseling; Primary hypertension; Obesity (BMI 30-39.9); Pre-diabetes; Hypertension, unspecified type Social History Tobacco Use Types Packs/Day Years [...] Sign Reading Time Taken Comments Blood Pressure 153/94 01/12/2025 2:09 PM EDT Pulse 100 01/12/2025 12:58 PM EDT Temperature 35.8 ??C (96.5 ??F) 01/12/2025 12:58 PM E DT Respiratory Rate 25 01/12/2025 12:58 PM EDT Oxygen Saturation 97% 01/12/2025 12:58 PM EDT Inhaled Oxygen Concentration - - Weight 106 kg (233 lb 3.2 oz) 01/12/2025 12:58 P M EDT Height 162.6 cm (5' 4 ) 01/12/2025 12:58 PM EDT Body Mass Index 40.03 01/12/2025 12:58 PM EDT documented in this encounter Progress Notes * Ina Arroyo NP - 01/12/2025 1:00 PM EDT Subjective Patient ID: Carlos Castle is a 44 y.o. female who presents for transfer patient visit. Denies recent illness, injury or hospitalization. Previous PCP Dr. Latham. HPI Concerns: Patient has multiple concerns coming in into the appointment today. She understands they cannot be addressed today for the sale of time, however, they will be addressed over the course of our ongoinginteractions. Abdominal pain: located on left in upper quadrant area. CT from 09/2024 reveal mild sacralization of loop of small bowel in mid-abdomen and left upper proximal jejunal loop loops in the LUQ/mid quadrant and distal fluid-filled small bowel loops question focal ileus from local inflammatory process. She has upcoming appointment GI appointment next week . [place]othyroxine for over 5 years. [facility] that revealed abnormal thyroid levels. States she has been unsuccessfully seeking to be restarted on levothyroxine. Reports symptoms of hair loss (clogging shower drain), shivering, palpitations, and unexplained weight gain. She does not attribute the weight gai n to poor lifestyle, reporting that she maintains a strict diet and has been following with lining presser. Neck: has pain along her entire back. Had MR of cervical spine ordered but was unable to complete due to severe claustrophobia Back: reports pain along her entire back; specifically in L4&L5 region where she demonstrates the two areas touching. Hip: reports hip misalignment noted on imaging completed in [place]. States she has coccyx fracture due to a fall several years ago. Feels like her body tilts to the left when she stands straight with herfeet together. Saw chiropractor in [place] and found it beneficial Weight: feels like the weight is the source of all her pain. Attributes the weight to thyroid function. Trialed zepbound and expereinced adverse GI effects ENT: followed by ENT provider and needs barium swallow Echo scheduled for next month bc of palpitations Hypertension: started on lisinopril 5 mg 12/23/23 BP and does not note any improvement. Reports readings: Home readings range 140's-163/80's-90's. 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 son w/ autism Substance use: denies Sexual activity: abstains Last period: Patient's last menstrual period was 12/25/2024 (approximate). Irregular; menses lasts 4 days, heavy bleeding first 2 days Last PAP: Overdue control method: tubal ligation OB Hx: OB History Para Term AB Living 2 1 0 0 1 0 SAB IAB Ectopic Multiple Live Births 1 0 0 0 0 Mental health: Reports stable Routine Health Maintenance Optometry: seen 1 year ago. Has upcoming appointment in March Dental: established with dental home [facility] dental. Last seen couple weeks ago Breast CA: scheduled for screening in January Dexa scan: Not due for routine screening Cervical CA: Overdue, patient declines at this time. Discussed importance of screening and she is encouraged to consider Colon CA: Not due for routine screening Lung CA: N/A patient is non-smoker Outstanding IZ: Up-to-date Family History Problem Relation Name Age of Onset Other (DM2,depression,stroke) Mother Alcohol abuse Father Other (depression -commited suicide) Sister Lung cancer Paternal Grandfather Review of Systems Constitutional: Negative. Negative for chills and fever. Respiratory: Negative for chest tightness and shortness of breath. Cardiovascular: Negative for chest pain. Gastrointestinal: Positive for abdominal pain. Negative for constipation, diarrhea and nausea. Genitourinary: Negative for dysuria. Musculoskeletal: Positive for arthralgias and neck pain. Negative for back pain and myalgias. Skin: Negative. Negative for rash and wound. Neurological: Negative for weakness, light-headedness and headaches. Psychiatric/Behavioral: Negative for behavioral problems, confusion, decreased concentration and suicidal ideas. Objective: Vitals: 01/12/25 1258 01/12/25 1409 BP: (!) 154/85 (!) 153/94 BP Location: Left arm Left arm Patient Position: Sitting Sitting BP Cuff Size: Large adult long Large adult Pulse: 100 Resp: 25 Temp: 96.5 ??F (35.8 ??C) TempSrc: Temporal SpO2: 97% Weight: 233 lb 3.2 oz (106 kg) Height: 5' 4 (1.626 m) Patient Active Problem List Diagnosis Subclinical hypothyroidism Health care maintenance Chronic sinusitis Arthralgia Mixed anxiety and depressive disorder Grief Neck pain Low back pain radiating down leg Generalized anxiety disorder Diarrhea Generalized abdominal pain GERD (gastroesophageal reflux disease) Decreased visual acuity Chronic heel pain, left Palpitations Hypertension Unexplained weight gain Shortness of breath Class 3 severe obesity due to excess calories without serious comorbidity with body mass index (BMI) of 40.0 to 44.9 in adult ([facility]) Pre-diabetes Current Outpatient Medications: acetaminophen (Tylenol) 500 MG tablet, Take 1 tablet by mouth every 6 (six) hours if needed for mild pain., Disp: , Rfl: Blood Pressure kit, 1 each 2 times daily., Disp: 1 kit, Rfl: 0 famotidine (Pepcid) 20 MG tablet, TAKE 1 TABLET (20 MG) BY MOUTH IF NEEDED AT BEDTIME FOR HEARTBURN., Disp: 90 tablet, Rfl: 0 fexofenadine (Misti) 180 MG tablet, Take 1 tablet by mouth Once per day., Disp: , Rfl: fluticasone (Flonase) 50 MCG/ACT nasal spray, INSTILL 1-2 SPRAYS IN EACH NOSTRIL ONCE DAILY IN THE MORNING, Disp: 48 g, Rfl: 0 hydrocortisone (Anusol-HC) 2.5 % rectal cream, INSERT RECTALLY TWICE DAILY, Disp: 30 g, Rfl: 0 lidocaine (Lidoderm) 5 % patch, Apply 1 patch topically Once per day. Remove & discard patch within 12 hours or as directed by MD., Disp: 30 patch, Rfl: 2 lisinopril 10 MG tablet, Take 1 tablet (10 mg) by mouth Once per day., Disp: 30 tablet, Rfl: 1 omeprazole (PriLOSEC) [address] capsule, Take 1 capsule (40 mg) by mouth before breakfast., Disp: 90capsule, Rfl: 0 Immunization History Administered Date(s) Administered Influenza injectable quadrivalent preservative free 10/01/2023 Influenza, seasonal, injectable, preservative free 09/22/2024 Pfizer Covid-19 Vaccine 12+ 09/22/2024 Tdap 10/01/2023 Physical Exam Vitals reviewed. Constitutional: General: She is not in acute distress. Appearance: Normal appearance. She is not ill-appearing. HENT: Head: Normocephalic and atraumatic. Right Ear: External ear normal. Left Ear: External ear normal. Nose: Nose normal. Eyes: General: No scleral icterus. Extraocular Movements: Extraocular movements intact. Cardiovascular: Rate and Rhythm: Normal rate and regular rhythm. Pulses: Normal pulses. Heart sounds: Normal heart sounds. Pulmonary: Effort: Pulmonary effort is normal. No respiratory distress. Breath sounds: Normal breath sounds. Musculoskeletal: General: Normal range of motion. Cervical back: Normal range of motion and neck supple. No tenderness. Lymphadenopathy: Cervical: No cervical adenopathy. Neurological: General: No focal deficit present. Mental Status: She is alert and oriented to person, place, and time. Gait: Gait normal. Psychiatric: Mood and Affect: Mood normal. Behavior: Behavior normal. Assessment/Plan: Problem List Items Addressed This Visit Subclinical hypothyroidism -Recent lab reviewed which reveals TSH of 4.12 with normal T4 -Use of medication is not clinically indicated at this time -Plan to repeat in 4 to 6 weeks Relevant Orders TSH W/Reflex to FT4 Neck pain -Referral for chiropractor placed -Discussed trial of acupuncture for generalized musculoskeletal pain. Schedule provided Relevant Orders Referral to Chiropractic RESOLVED: Obesity (BMI 30-39.9) Hypertension -Office BP above 140/90 mmHg -Increase lisinopril to 10 mg daily, call the clinic with 3 or more persistently elevated BPs -Scheduled follow-up with nurses in 2 weeks -Lifestyle and dietary changes discussed -Continue home monitoring -Emergency precautions reviewed Relevant Medications lisinopril 10 MG tablet Other Relevant Orders Basic Metabolic Panel Albumin, Random Urine W/Creatinine Class 3 severe obesity due to excess calories without serious comorbidity with body mass index (BMI) of 40.0 to 44.9 in adult ([facility]) -Failed Zepbound trial -Engaged with lining presser -Continue lifestyle and diet modifications -Plan to discuss other pharmacological measures at next visit Relevant Orders Lipid Panel, Standard Pre-diabetes -A1c 6.5%, glucose 204 on labs completed 01/08 -Patient declined metformin -Diet and exercise discussed -Plan to discuss further interventions at follow-up Other Visit Diagnoses Encounter to establish care - Primary -Patient's personal and family histories along with surgical history was reviewed -Routine we discussed routine health maintenance Chronic low back pain without sciatica, unspecified back pain laterality Relevant Orders Referral to Chiropractic Dietary counseling Exercise counseling Korean Translation: Patient is bilingual and declines translation services documented in this encounter Miscellaneous Notes * Assessment & Plan Note - Ina Arroyo NP - 01/13/2025 6:49 AM EDTAssociated Problem(s): Neck pain -Referral for chiropractor placed -Discussed trial of acupuncture for generalized musculoskeletal pain. Schedule provided * Assessment & Plan Note - Ina Arroyo NP - 01/13/2025 6:37 AM EDTAssociated Problem(s): Class 3 severe obesity due to excess calories without serious comorbidity with body mass index (BMI) of 40.0 to 44.9 in adult ([facility]) -Failed Zepbound trial -Engaged with lining presser -Continue lifestyle and diet modifications -Plan to discuss other pharmacological measures at next visit * Assessment & Plan Note - Ina Arroyo NP - 01/13/2025 6:33 AM EDTAssociated Problem(s): Pre-diabetes -A1c 6.5%, glucose 204 on labs completed 01/08 -Patient declined metformin -Diet and exercise discussed -Plan to discuss further interventions at follow-up * Assessment & Plan Note - Ina Arroyo NP - 01/13/2025 6:32 AM EDTAssociated Problem(s): Subclinical hypothyroidism -Recent lab reviewed which reveals TSH of 4.12 with normal T4 -Use of medication is not clinically indicated at this time -Plan to repeat in 4 to 6 weeks * Assessment & Plan Note - Ina Arroyo NP - 01/13/2025 6:26 AM EDTAssociated Problem(s): Hypertension -Office BP above 140/90 mmHg -Increase lisinopril to 10 mg daily, call the clinic with 3 or more persistently elevated BPs -Scheduled follow-up with nurses in 2 weeks -Lifestyle and dietary changes discussed -Continue home monitoring -Emergency precautions reviewed documented in this encounter Plan of Treatment Upcoming Encounters Date Type Department Care Team (Late st Contact Info) Description 01/29/2025 1:30 PM EDT Clinical Support [facility] [address] [place] [phone] 02/26/2025 1:30 PM EDT Office Visit [facility] [address] [place] [phone] Ina Arroyo NP [address] [place] [address] 03/05/2025 10:00 AM EDT Office Visit [facility] [address] [place] [address] Terry, Aminta, OD [address] [place] [address] 05/16/2025 10:00 AM EDT Office Visit [facility] D[facility] [address] [place] [address] Kristan Briscoe Scheduled Orders Name Type Priority Associated Diagnoses Orde r Schedule TSH W/Reflex to FT4 Lab Routine Subclinical hypothyroidism Expected: 02/13/2025 (Approximate), Expires: 01/13/2026 Basic Metabolic Panel Lab Routine Primary hypertension Expected: 02/13/2025 (Approximate), Expires: 01/13/2026 Albumin, Random Urine W/Creatinine Lab Routine Primary hypertension Expected: 02/13/2025 (Approximate), Expires: 01/13/2026 Lipid Panel, Standard Lab Routine Class 3 severe obesity due to excess calories without serious comorbidity with body mass index (BMI) of 40.0 to 44.9 in adult (CMS/HCC) Expected: 02/13/2025 (Approximate), Expires: 01/13/2026 Scheduled Referrals Name Type Priority Associated Diagnoses Orde r Schedule Referral to Chiropractic Outpatient Referral Routine Chronic low back pain without sciatica, unspecified back pain laterality Neck pain Expected: 01/13/2025 (Approximate), Expires: 01/13/2026 documented as of this encounter Visit Diagnoses Diagnosis Encounter to establish care- Primary Chronic low back pain without sciatica, unspecified back pain laterality Neck pain Cervicalgia Subclinical hypothyroidism Other specified acquired hypothyroidism Class 3 severe obesity due to excess calories without serious comorbidity with body mass index (BMI) of 40.0 to 44.9 in adult (CMS/HCC) Dietary counseling Dietary surveillance and counseling Exercise counseling Primary hypertension Unspecified essential hypertension Obesity (BMI 30-39.9) Pre-diabetes Other abnormal glucose Hypertension, unspecified type documented in this encounter Additional Health Concerns Assessment Noted Time PHQ-9 Depression Total Score: 0 09/22/20 24 1:10 PM EST documented as of this encounter Care Teams Program Director Cable Television Relationship Specialty Start Date End Date Ina Arroyo NP [address] [place] [address] PCP - General Family Medicine 10/30/24 Janel Go RN [address] [place] [id number] Reptile FarmerFruit Grader Operator 10/19/24 documented as of this encounter
--- OUTSIDE RECORDS SUMMARY | 2025-01-16 19:08 | XMS_ITS | Encounter Summary ---
Author Organization [employer] Address [address] [place] [address] Care Team Providers Care Equalizer Operator Name Role Phone Janel Go RN Unavailable [phone] Ina Arroyo NP Primary Care Provider [phone] Encounter Details Date Type Department Care Team (Latest Contact Info) Description 01/12/2025 Travel Social History Tobacco Use Types Packs/Day [...] Description 01/29/2025 1:30 PM EDT Clinical Support [facility] [address] [place] [phone] 02/26/2025 1:30 PM EDT Office Visit [facility] [address] [place] [address] Ina Arroyo NP [address] [place] [address] 03/05/2025 10:00 AM EDT Office Visit [facility] OPTOMETRY [address] [place] [address] Terry, Aminta, OD [address] [place] [address] 05/16/2025 10:00 AM EDT Office Visit [facility] ADULT DENTAL [address] [place] [address] Kristan Briscoe documented as of this encounter Visit Diagnoses Not on filedocumented in this encounter Additional Health Concerns Assessment Noted Time PHQ-9 Depression Total Score: 0 09/22/20 24 1:10 PM EST documented as of this encounter Care Teams Equalizer Operator Relationship Specialty Start Date End Date Ina Arroyo NP [address] [place] [address] PCP - General Family Medicine 10/30/24 aJnel Go RN [address] [place] [phone] [employer]ed [employer] BoardsJukebox Checker 10/19/24 documented as of this encounter
--- OUTSIDE RECORDS SUMMARY | 2025-01-16 19:08 | XMS_ITS | Clinical Summary ---
Author Organization [email or web address] Address [address] [facility] [address] [place] [address] Care Team Providers Care Shell Trim Operator Name Role Phone Janel Go RN Unavailable [phone] Ina Arroyo NP Primary Care Provider [phone] Allergies Active Allergy Reactions Criticality Noted Date Comments Onion 10/15/2023 All red onion types Medications * This document contains information received from the source organization and may not represent a complete record from that organization. hydrocortisone (Anusol-HC) 2.5 % rectal cream INSERT RECTALLY TWICE DAILY 30 g 12/02/19 24 Active fluticasone (Flonase) 50 MCG/ACT nasal spray INSTILL 1-2 SPRAYS IN EACH NOSTRIL ONCE DAILY IN THE MORNING 48 g 12/02/19 24 Active Blood Pressure kit 1 each 2 times daily. 1 kit 06/14/20 24 025 Active lidocaine (Lidoderm) 5 % patch Apply 1 patch topically Once per day. Remove & discard patch within 12 hours or as directed by MD. 30 patch 2 09/22/20 24 Active omeprazole (PriLOSEC) [address] Morris ons:Gastroesoph ageal reflux disease with esophagitis, unspecified whether hemorrhage Take 1 capsule (40 mg) by mouth before breakfast. 90 capsule 10/24/19 25 026 Active famotidine (Pepcid) 20 MG tablet TAKE 1 TABLET (20 MG) BY MOUTH IF NEEDED AT BEDTIME FOR HEARTBURN. 90 tablet 12/22/19 25 Active fexofenadine (Misti) 180 MG tablet Take 1 tablet by mouth Once per day. Active acetaminophen (Tylenol) 500 MG tablet Take 1 tablet by mouth every 6 (six) hours if needed for mild pain. Active lisinopril 10 MG tabletIndicatio ns:Primary hypertension Take 1 tablet (10 mg) by mouth Once per day. 30 tablet 1 01/14/20 025 Active lidocaine (Xylocaine) 5 % ointment Apply to affected area up to 5 times a day as needed 30 g 01/17/20 25 Active valACYclovir (Valtrex) 1 g tablet One tablet twice a day x 7 days 14 tablet 01/17/20 25 Active loratadine (Claritin) 10 MG tablet Take 10 mg by mouth in the morning. 10/21/19 24 025 Discontinued(M ed list cleanup (will not trigger notification to Pharmacy)) cetirizine (ZyrTEC) 10 MG tablet Take 10 mg by mouth if needed each day. 025 Discontinued(M ed list cleanup (will not trigger notification to Pharmacy)) Spacer/Aero-Hol ding Chambers (OptiChamber Maritza) misc 1 each every 4 (four) hours if needed (asthma). 1 each 08/09/20 025 Discontinued(M ed list cleanup (will not trigger notification to Pharmacy)) sodium chloride (Roberdel Nasal Bokeelia) 0.65 % nasal spray Administer 1 spray into each nostril if needed for congestion. 30 mL 12 08/09/20 025 Discontinued(M ed list cleanup (will not trigger notification to Pharmacy)) famotidine (Pepcid) 20 MG tablet Take 1 tablet (20 mg) by mouth if needed at bedtime for heartburn. 90 tablet 09/22/20 025 Discontinued Tirzepatide-Choco ght Management (Zepbound) 2.5 MG/0.5ML solution auto-injector Inject 0.5 mL (2.5 mg) under the skin 1 (one) time per week. 2 mL 11 09/26/20 025 Discontinued(M ed list cleanup (will not trigger notification to Pharmacy)) lisinopril 5 MG tabletIndicatio ns:Hypertension , unspecified type Take 1 tablet (5 mg) by mouth Once per day. 30 tablet 11 12/23/19 025 Discontinued(R eorder (will not trigger notification to Pharmacy)) Active Problems Problem Noted Date Diagnosed Date Class 3 severe obesity due t o excess calories without serious comorbidity with body mass index (BMI) of 40.0 to 44.9 in adult 01/13/2025 Assessment & Plan (01/13/2025 6:37 AM EDT): -Failed Zepbound trial -Engaged with litigation secretary -Continue lifestyle and diet modifications -Plan to discuss other pharmacological measures at next visit Pre-diabetes 01/13/2025 Assessment & Plan (01/13/2025 6:35 AM EDT): -A1c 6.5%, glucose 204 on labs completed 01/08 -Patient declined metformin -Diet and exercise discussed -Plan to discuss further interventions at follow-up Palpitations 12/22/2024 Assessment & Plan (12/22/2024 12:38 PM EST): EKG: NSR, Rate: 87 bpm, no ST elevation or depression, normal ECG Physical exam reassuring today, wnl Plan to obtain TSH to r/o thyroid abnormalities d/t pt hx of hypothyroidism Plan to obtain echocardiogram and urgent referral to cardiology as pt also having unexplained fatigue and SOB. Has f/u with PCP at the end of the month. Hypertension 12/22/2024 Assessment & Plan (01/13/2025 6:26 AM EDT): -Office BP above 140/90 mmHg -Increase lisinopril to 10 mg daily, call the clinic with 3 or more persistently elevated BPs -Scheduled follow-up with nurses in 2 weeks -Lifestyle and dietary changes discussed -Continue home monitoring -Emergency precautions reviewed Assessment & Plan (12/22/2024 12:39 PM EST): Pt home and in office BP consistently above 140/90 Plan to initiate lisinopril 5 mg Pt plans to obtain BMP in 2 weeks after initiation Unexplained weight gain 12/22/2024 Assessment & Plan (12/22/2024 12:44 PM EST): Pt had unexplained weight gain of 10 lbs in last 3 months Pt reports that this is the heaviest she has been in her life Plan to obtain labs-see orders Shortness of breath 12/22/2024 Assessment & Plan (12/22/2024 12:46 PM EST): Plan to obtain PFTs to r/o resp. Etiology, lung sounds wnl, physical exam wnl Plan to obtain echo and send referral to cardiology to r/o cardiac etiology. EKG was normal today. F/u with PCP at end of month GERD (gastroesophageal reflux disease) Assessment & Plan (10/24/2024 11:44 AM EST): Pt with persistent symptoms despite Famotidine and Prilosec Plan: refer to GI Decreased visual acuity 10/24/2024 Assessment & Plan (10/24/2024 11:50 AM EST): Referred to eye care Chronic heel pain, left 10/24/2024 Assessment & Plan (10/24/2024 11:56 AM EST): Pt reports she has had problems with left heel pain for years, in the past diagnosed with heel spurs per her report. C/o pain usually worse in Am, that improves during the day Symptoms suggestive of plantar fasciitis that has not improve. Plan: Stretching exercises, Podiatry evaluation for heel pads Diarrhea 10/12/2024 Generalized abdominal pain 10/12/2024 Assessment & Plan (10/24/2024 11:40 AM EST): Pt here for a follow up, seen at our [facility] with c/o svere abdominal pain x 4 days, started right after she initiated Zepbound. Intensity 9/10 On exam today she has a distendee abdomen with decreased Bowel sounds and positive rebound. HR is elevated due to pain Plan: Patient needs to be evaluated in the ER to rule out abdominal obstruction. Etiology: likely Zepbound side effect, but other etiologies of acute abdomen need to be considered. At a minimum she will need a CBC, CRP and Pt was Seen in the ER /CT abdomen pelvis w IV con showed: No acute intra-abdominal process seen. Mild sacralization of loop of small bowel in the midabdomen and left upper proximal jejunal loop loops in the left upper/ mid quadrant and distal fluid-filled small bowel loops question focal ileus from local inflammatory process. Recommend the small bowel follow-through if patient has persistent pain. Plan: referral to gastroenterology Assessment & Plan (10/12/2024 10:01 AM EST): Pt here with c/o svere abdominal pain x 4 days, started right after she initiated Zepbound. Intensity 9/10 On exam today she has a distendee abdomen with decreased Bowel sounds and positive rebound. HR is elevated due to pain Plan: Patient needs to be evaluated in the ER to rule out abdominal obstruction. Etiology: likely Zepbound side effect, but other etiologies of acute abdomen need to be considered. At a minimum she will need a CBC, CRP and KUB and or abdominal KUB. Pt refused to be transported via ambulance. Stating that she has an autistic kid she needs to take care of before she can go to the ER and there is no one that cn help her. She promised to go to the ER within the hour. I gave sign out to the charge nurse at [facility] ER who will be expecting her. Generalized anxiety disorder 02/27/2024 Assessment & Plan (02/27/2024 9:03 PM EDT): discontinued duloxetine due to s.e , trial lexapro, start with 2.5 mg daily, if tolerated may increase to 5 mg daily , Medication Indications, side effects and duration of therapy reviewed, pt aware to call clinic for worsening symptoms or failure to resolve Neck pain 02/15/2024 Assessment & Plan (01/13/2025 6:49 AM EDT): -Referral for chiropractor placed -Discussed trial of acupuncture for generalized musculoskeletal pain. Schedule provided Low back pain radiating down leg 02/15/2024 Health care maintenance 10/04/2023 Chronic sinusitis 10/04/2023 Assessment & Plan (07/15/2024 11:16 AM EDT): Acute worsening of chronic sinusitis Continue home remedies such as steam inhalation, Misti D, Robitussin Focus on fluid intake and rast Can also use Mucinex as expectorant If she is experiencing the same level of symptoms or worsening symptoms after 07/17/24, to start Augmentin Arthralgia 10/04/2023 Subclinical hypothyroidism 10/01/202310/01 Assessment & Plan (01/13/2025 6:32 AM EDT): -Recent lab reviewed which reveals TSH of 4.12 with normal T4 -Use of medication is not clinically indicated at this time -Plan to repeat in 4 to 6 weeks Assessment & Plan (02/27/2024 9:03 PM EDT): Due for labs, pt plans to draw after this visit Mixed anxiety and depressive disorder 10/01/2023 Assessment & Plan (12/09/2023 2:43 PM EST): During [facility] Consult Carlos presenting with depressed mood, loss of interests/pleasure , changes in sleep difficulty falling asleep, trouble concentrating, thoughts of worthlessness or guilt, fatigue/loss of energy, hopelessness, worthlessness , difficulty concentrating and excessive worry/anxiety, difficulty controlling worry, restless/keyed up/On edge, easily fatigued, irritability, muscle tension, and sleep disturbance difficulty falling asleep, intense emotional pain, feels like life is meaningless and intense loneliness for a period of 0-6 mo, for all symptoms in the context of , family issues, and illness or family illness. Carlos is having a difficult time adjusting to a new routine after her sister completed SI. Family relocated from [place] to [place] as part of the transition process about six months ago. Patient feels very overwhelmed and frustrated due to having so many stressors (taking care of her mom, son, she has no transportation). PLAN: (check all that apply) Continue with current services (defined as services in the past 12 months) . Carlos was referred to [facility] on 10/04/23. She completed intake and scheduled appointment twice. She's requesting Telehealth session, however, agency keeps scheduling pt for in-person sessions. Pt said she will call again to schedule tele sessions only. Assessment & Plan (10/05/2023 3:10 PM EST): During IBH Consult Carlos presenting with depressed mood, loss of interests/pleasure , trouble concentrating, thoughts of worthlessness or guilt, difficulty concentrating and excessive worry/anxiety, difficulty controlling worry, restless/keyed up/On edge, easily fatigued, and difficulty concentrating/Mind going blank ; for a period of 0-6 mo, for all symptoms in the context of recent move. Carlos is having a difficult time adjusting to a new routine after her sister completed SI. Family relocated from [place] to [place] as part of the transition process. PLAN: (check all that apply) New/Additional Services needed PCP management On-site non-integrated BH services Off-site services for BH, Behavioral Health Integration Plan Internal Follow up with [facility], External OP BH therapy referral , Patient Self Plan Patient to utilize skills provided in intervention , Patient to reach out to HHC team as needed, Patient to engage in OP BH therapy , and Patient to reach out to [facility] as needed. Discussed attending group support for families who lost loved one due to SI. Pt will see clinician Kylie during next physical appointment. Assessment & Plan (10/04/2023 3:00 PM EST): During IBH Consult Carlos presenting with depressed mood, loss of interests/pleasure , changes in sleep difficulty falling asleep, change in appetite or weight overeating, trouble concentrating, thoughts of worthlessness or guilt, fatigue/loss of energy, hopelessness, difficulty concentrating and excessive worry/anxiety, difficulty controlling worry, restless/keyed up/On edge, difficulty concentrating/Mind going blank , and irritability; for a period of 0-6 mo, for all symptoms in the context of family issues financial concern recent move. Carlos is having a difficult time adjusting to a new routine after her sister completed SI. Family relocated from [place] to [place] as part of the transition process. PLAN: (check all that apply) New/Additional Services needed PCP management On-site non-integrated BH services Off-site services for BH, Behavioral Health Integration Plan Internal Follow up with [facility], External OP BH therapy referral , Patient Self Plan Patient to utilize skills provided in intervention , Patient to reach out to HHC team as needed, Patient to engage in OP BH therapy , and Patient to reach out to [facility] as needed. Grief 10/01/2023 Assessment & Plan (12/09/2023 2:43 PM EST): During IBH Consult Carlos presenting with depressed mood, loss of interests/pleasure , changes in sleep difficulty falling asleep, trouble concentrating, thoughts of worthlessness or guilt, fatigue/loss of energy, hopelessness, worthlessness , difficulty concentrating and excessive worry/anxiety, difficulty controlling worry, restless/keyed up/On edge, easily fatigued, irritability, muscle tension, and sleep disturbance difficulty falling asleep, intense emotional pain, feels like life is meaningless and intense loneliness for a period of 0-6 mo, for all symptoms in the context of , family issues, and illness or family illness. Carlos is having a difficult time adjusting to a new routine after her sister completed SI. Family relocated from [place] to [place] as part of the transition process about six months ago. Patient feels very overwhelmed and frustrated due to having so many stressors (taking care of her mom, son, she has no transportation). PLAN: (check all that apply) Continue with current services (defined as services in the past 12 months) . Carlos was referred to [facility] on 10/04/23. She completed intake and scheduled appointment twice. She's requesting Telehealth session, however, agency keeps scheduling pt for in-person sessions. Pt said she will call again to schedule tele sessions only. Assessment & Plan (10/05/2023 3:10 PM EST): During IBH Consult Carlos presenting with depressed mood, loss of interests/pleasure , trouble concentrating, thoughts of worthlessness or guilt, difficulty concentrating and excessive worry/anxiety, difficulty controlling worry, restless/keyed up/On edge, easily fatigued, and difficulty concentrating/Mind going blank ; for a period of 0-6 mo, for all symptoms in the context of recent move. Carlos is having a difficult time adjusting to a new routine after her sister completed SI. Family relocated from [place] to [place] as part of the transition process. PLAN: (check all that apply) New/Additional Services needed PCP management On-site non-integrated BH services Off-site services for BH, Behavioral Health Integration Plan Internal Follow up with [facility], External OP BH therapy referral , Patient Self Plan Patient to utilize skills provided in intervention , [facility], Patient to engage in OP BH therapy , and Patient to reach out to [facility] as needed. Discussed attending group support for families who lost loved one due to SI. Pt will see clinician Kylie during next physical appointment. Assessment & Plan (10/04/2023 3:00 PM EST): During IBH Consult Carlos presenting with depressed mood, loss of interests/pleasure , changes in sleep difficulty falling asleep, change in appetite or weight overeating, trouble concentrating, thoughts of worthlessness or guilt, fatigue/loss of energy, hopelessness, difficulty concentrating and excessive worry/anxiety, difficulty controlling worry, restless/keyed up/On edge, difficulty concentrating/Mind going blank , and irritability; for a period of 0-6 mo, for all symptoms in the context of family issues financial concern recent move. Carlos is having a difficult time adjusting to a new routine after her sister completed SI. Family relocated from [place] to [place] as part of the transition process. PLAN: (check all that apply) New/Additional Services needed PCP management On-site non-integrated BH services Off-site services for BH, Behavioral Health Integration Plan Internal Follow up with I, External OP BH therapy referral , Patient Self Plan Patient to utilize skills provided in intervention , Patient to reach out to HHC team as needed, Patient to engage in OP BH therapy , and Patient to reach out to [facility] as needed. Resolved Problems Problem Noted Date Diagnosed Date Resolved Date Obesity (BMI 30-39.9) 02/27/20242024 Assessment & Plan (10/24/2024 11:48 AM EST): Referred to [facility] weight management center Elevated BP without diagnosis of hypertension 02/15/20 24 12/22/2024 Assessment & Plan (02/27/2024 9:03 PM EDT): Monitor, referral to cardiology given episode of substernal chest pain Encounters Date Type Department Care Team Description 01/16/2025 2:15 PM EDT Procedure Visit [address] [address] Kristina Cuellar CNM Cervical cancer screening (Primary Dx); Screening examination for venereal disease; Genital ulcer, female; Vaginal odor 01/16/[address] [address] Isatu Sloan MD 01/16/2025 Travel 01/15/[address] [address] Ina Arroyo NP 01/12/2025 1:00 PM EDT Office Visit [address] [address] Ina Arroyo NP Encounter to establish care (Primary Dx); Chronic low back pain without sciatica, unspecified back pain laterality; Neck pain; Subclinical hypothyroidism; Class 3 severe obesity due to excess calories without serious comorbidity with body mass index (BMI) of 40.0 to 44.9 in adult (CMS/[facility]); Dietary counseling; Exercise counseling; Primary hypertension; Obesity (BMI 30-39.9); Pre-diabetes; Hypertension, unspecified type 01/12/2025 Travel 01/11/2025 Patient Outreach [address] [address] Ina Arroyo NP Care Coordination (Appt reminder) 01/10/[address] [address] Ina Arroyo NP Care Management (C3CM- f/u call) 01/08/2025 Orders Only [address] [address] María Stephens CNP 01/08/2025 Patient Outreach [address] [address] Ina Arroyo NP Care Coordination (Appt reminder) 01/05/2025 Patient Outreach [facility] [address] [place] [address] Ina Arroyo NP Pre-visit Planning (SDOH was already completed. ) 01/04/[address] [address] Angel Luis Silva MA chartprep 12/29/2024 Population Health Risk Score Community Care [facility] (C3) Department [address] [place] [phone] Provider, Population Health Generic 12/29/2024 Patient Outreach [address] [address] Ina Arroyo NP Care Coordination (SDOH outreach) 12/28/[address] [address] Ina Arroyo NP Care Management (C3CM- f/u call) 12/22/2024 11:15 AM EST Office Visit [address] [address] María Stephens CNP Palpitations (Primary Dx); Hypertension, unspecified type; Unexplained weight gain; Shortness of breath 12/22/2024 10:00 AM EST Clinical Support [address] [address] Rhina Herrera, OPAL Elevated BP without diagnosis of hypertension 12/22/2024 Travel 12/21/2024 Patient Outreach [address] [address] Ina Arroyo NP Care Coordination (CM/CHW f/u) 12/21/[address] [address] Isatu Sloan MD 12/18/2024 Patient Outreach [address] [address] Ina Arroyo NP Care Coordination (Appt reminder) 12/15/[address] [address] Ina Aroryo NP Care Management (C3CM- f/u call) 12/13/2024 Orders Only [facility] External Provider, [facility] 12/01/[address] [address] Janel Go, OPAL 11/20/[address] [place] [address] Janel Go RN Care Management (C3CM- f/u call) 11/13/2024 11:00 AM EST Office Visit [facility] [address] [place] [phone] Kristan Briscoe Dental calculus (Primary Dx); Dental plaque; Encounter for dental examination; Tooth sensitivity 11/10/2024 Patient Outreach [address] [address] Ina Arroyo NP Care Coordination (Appt reminder) 11/09/[address] [address] Janel Go RN 11/09/[address] [address] Janel Go RN Care Management (C3CM- f/u call) 11/03/2024 Patient Outreach [address] [address] Ina Arroyo NP Care Coordination (Appt reminder) 10/30/[address] [address] Janel Go RN Care Management (C3CM- f/u call) 10/30/2024 Travel 10/30/2024 Patient Outreach [address] [address] Isatu Sloan MD Care Coordination (Appt reminder) 10/24/2024 11:00 AM EST Office Visit [address] [address] Alec Barber MD Generalized abdominal pain (Primary Dx); Gastroesophageal reflux disease with esophagitis, unspecified whether hemorrhage; Obesity (BMI 30-39.9); Decreased visual acuity; Chronic heel pain, left 10/24/[address] [address] Alec Barber MD 10/24/[address] [address] Alec Barber MD 10/24/2024 Telephone [facility] [address] [facility] [place] [address] Isatu Sloan MD 10/24/2024 Travel 10/23/2024 Patient Outreach [facility] [address] [facility] [place] [address] Isatu Sloan MD Care Coordination (SDOH/appt reminder) 10/23/2024 Travel 10/19/2024 Telephone [facility] [address] [facility] [place] [address] Janel Go, OPAL Care Management (C3CM- initial assessment/ enrollment.) from Last 3 Months Immunizations Name Administration Dates Next Due Influenza injectable quadrivalent preservative f ree 10/01/2023 Influenza, seasonal, injectable, preservative fr ee 09/22/2024 Pfizer Covid-19 Vaccine 12+ 09/22/2024 Tdap 10/01/2023 Family History Medical History Relation Name Comments Alcohol abuse Father Breast cancer Maternal Grandmother DM2,depression,stroke Mother Lung cancer Paternal Grandfather depression -commited suicide Sister Relation Name Status Comments Father Maternal Grandmother Mother Paternal Grandfather Sister Social History Tobacco Use Types Packs/Day Years Used Date Smoking Tobacco: Never Passive Smoke Exposure: Never Smokeless Tobacco: Never Tobacco Cessation:Counseling Given: Not Answered Alcohol Use Standard Drinks/Week Comments Yes 0 (1 standard drink = 0.6 oz pur e alcohol) social Depression Answer Date Recorded Patient Health Questionnaire-9 Score 0 09/22/2024 Patient Health Questionnaire-9 Score 0 09/22/2024 Last PHQ-9: Questionnaire Data Not on file 1 11/23/2023 Housing Stability Answer Date Recorded What is your housing situation today? I have martin sing 10/23/[address] you li [...] Orientation Straight 08/06/2023 2: 51 PM EDT Last Filed Vital Signs Vital Sign Reading [...] Mass Index 39.89 01/16/2025 2:20 PM EDT Plan of Treatment Upcoming Encounters Date Type Department Care Team (Late st Contact Info) Description 01/29/2025 1:30 PM EDT Clinical Support [facility] [address] [place] [phone] 02/26/2025 1:30 PM EDT Office Visit [facility] [address] [place] [phone] Ina Arroyo NP [address] [place] [address] 03/05/2025 10:00 AM EDT Office Visit [facility] [address] [place] [address] Aminta Stewart, OD [address] [place] [address] 05/16/2025 10:00 AM EDT Office Visit [facility] [address] [place], [place] [phone] Jozef Briscoesa Health Maintenance Due Date Last Done Comments Hepatitis B Vaccines (1 of 3 - 19+ 3-dose series) 1999 Pap Smear 2001 Cervical Cancer Screening 2010 HPV/Cotest 2010 Dental X-Ray: Bitewings 03/11/2025 03/10/2024 Dental Oral Exam 05/14/2025 11/13/2024, 03/10/2024 Dental Prophylaxis 05/14/2025 11/13/2024, 04/04/2024 Alcohol/Substance Use Screening 09/22/2025 09/22/2024 Depression Screening 09/22/2025 09/22/2024, 09/22/2024 SDOH Screening 10/24/2025 10/24/2024 Mammogram 11/05/2025 11/05/2023 Family Planning (PISQ) 01/16/2026 01/16/2025 Tobacco Screening 01/16/2026 01/16/2025 Dental X-Ray: Full Mouth 03/11/2027 03/10/2024 Lipid Panel 11/04/2028 11/04/2023 Zoster Vaccines (1 of 2) 2030 DTaP/Tdap/Td Vaccines (2 - T d or Tdap) 10/01/2033 10/01/2023 RSV Patients and Patients Aged 60 years or older (1 - 1-dose 75+ series) 2055 HIV Screening Completed 11/04/2023 Hepatitis C Screening Completed 11/04/2023 COVID-19 Vaccine Completed 09/22/2024 Influenza Vaccine Completed 09/22/2024, 10/01/2023 HIB Vaccines Aged Out No longer eligi ble based on patient's age to complete this topic HPV Vaccines Aged Out No longer eligi ble based on patient's age to complete this topic Hepatitis A Vaccines Aged Out No long er eligible based on patient's age to complete this topic IPV Vaccines Aged Out No longer eligi ble based on patient's age to complete this topic Meningococcal Vaccine Aged Out No franki terence eligible based on patient's age to complete this topic Pneumococcal Vaccine: Pediatrics (0 to 5 Years) and At-Risk Patients (6 to 49) Years) Aged Out No longer eligible b ased on patient's age to complete this topic RSV under 20 months Aged Out No longe r eligible based on patient's age to complete this topic Rotavirus Vaccines Aged Out No longer eligible based on patient's age to complete this topic Procedures Procedure Name Priority Date/Time Associated Diagnosis Comments POCT WET MOUNT/MARINO Routine 01/16/2025 3: 16 PM EDT Vaginal odor T4, FREE Routine 01/08/2025 9:10 AM EDT HEMOGLOBIN A1C Routine 01/08/2025 9:10 AM EDT Unexplained weight gain BASIC METABOLIC PANEL Routine 01/08/2025 9:10 AM EDT Hypertension, unspecified type TSH W/REFLEX TO FT4 Routine 01/08/2025 9 :10 AM EDT Palpitations ECG 12-LEAD Routine 12/22/2024 12:34 PM EST Palpitations HIGH SENSITIVITY TROPONIN I Routine 12/13/2024 8:35 AM EST SARS COV2/INFLUENZA A/B AND RSV RNA QL NAAT Routine 12/13/2024 8:35 AM EST HIGH SENSITIVITY TROPONIN I Routine 12/13/2024 3:27 AM EST XR CHEST 1 VIEW Routine 12/13/2024 2:16 AM EST COMPREHENSIVE METABOLIC PANEL Routine 12/13/2024 1:21 AM EST HIGH SENSITIVITY TROPONIN I Routine 12/13/2024 1:21 AM EST CBC WITH AUTO DIFFERENTIAL Routine 12/13/2024 1:21 AM EST PERIODIC ORAL EVALUATION - ESTABLISHED PATIENT Routine 11/13/2024 11:00 AM EST CASE PRESENTATION, DETAILED AND EXTENSIVE TREATMENT PLANNING Routine 11/13/2024 11:00 AM EST ORAL HYGIENE INSTRUCTIONS Routine 11/13/2024 11:00 AM EST Dental calculus Dental plaque PROPHYLAXIS - ADULT Routine 11/13/2024 1 1:00 AM EST Dental calculus Dental plaque INTRAORAL - COMPLETE SERIES OF RADIOGRAPHIC IMAGES Routine 03/10/2024 3:00 PM EDT BI MAMMOGRAM SCREENING TOMOSYNTHESIS BILATERAL Routine 11/05/2023 2:30 PM EST Encounter for screening mammogram for malignant neoplasm of breast HEPATITIS C AB W/REFL TO HCV RNA, QN, PCR Routine 11/04/2023 9:45 AM EST Annual physical exam HIV 1/2 ANTIGEN/ANTIBODY, FOURTH GENERATION W/RFL Routine 11/04/2023 9:45 AM EST Annual physical exam LIPID PANEL, STANDARD Routine 11/04/2023 9:45 AM EST Annual physical exam from Last 3 Months or Most Recently Relevant to Health Maintenance Results * POCT fern test, vaginal fluid manually resulted (01/16/2025 3:16 PM EDT) MARINO Prep Negative Comment:pH 4.5, neg whiff, n eg clue, neg yeast, neg trich, neg wbc Vaginal Fluid Vaginal structure / Unknown 01/16/2025 3:16 PM EDT Kristina Cuellar CNM POINT OF CARE TEST ENTER/ EDIT ORDERABLES Final Result * (ABNORMAL) TSH W/Reflex to FT4 (01/08/2025 9:10 AM EDT) TSH reflex Free T4 4.12(H) 0.32 - 4.0 uIU/mL [facility] Blood Venous blood specimen / Unknown 01/08/2025 9:10 AM EDT 01/08/2025 11:36 AM EDT [facility] LAB BLOOD ORDERABLES Saima l Result Performing Organization Address [facility] Co de Phone Number [facility] [address] [place] [phone] * T4, Free (01/08/2025 9:10 AM EDT) Free T4 (Free Thyroxine) 0.85 0.71 - 1.85 ng/dL [facility] 01/08/2025 9:10 AM EDT 01/08/2025 11:36 AM EDT [facility] LAB BLOOD ORDERABLES Saima l Result Performing Organization Address [facility] de Phone Number [facility] [address] [place] [phone] * (ABNORMAL) Hemoglobin A1c (01/08/2025 9:10 AM EDT) Hemoglobin A1c 6.5(H) <6.0 % [facility] Comment:Hemoglobin A1C Refer ence Range Adults: 4.8 - 6.0 % Non diabetic: < 6.0 % Goal: < 7.0 %Additional Action Suggested: > 8.0 %Note: Hemoglobin A1c results are invalid for patients with abnormal amounts of HbF. Blood transfusions may impact the HbA1c concentration in the patient sample. Estimated Average Glucose 140 mg/dL [facility] Comment:eAG = Estimated ave rage glucose which is %A1C expressed asaverage glucose, using the formula of the R5E-YeanwmwYhzthun Glucose study (ADAG), Diabetes Care, Vol.31,#8,May. 2007 Blood Venous blood specimen / Unknown 01/08/2025 9:10 AM EDT 01/08/2025 11:36 AM EDT [facility] LAB BLOOD ORDERABLES Saima l Result Performing Organization Address [facility] de Phone Number [facility] [address] [place] [phone] [phone] * (ABNORMAL) Basic Metabolic Panel (01/08/2025 9:10 AM EDT) Sodium 139 135 - 145 mmol/L [facility] Potassium 3.3 3.3 - 5.1 mmol/L [facility] Chloride 107 96 - 108 mmol/L [facility] Carbon Dioxide 23 22 - 29 mmol/L [facility] Anion Gap 12 12 - 20 [facility] Urea Nitrogen (BUN) 9 9 - 16 mg/dL [facility] Creatinine, Serum 0.80 0.5 - 1.4 mg/dL [facility] Estimated Glomerular Filt Rate >60 [facility] Comment:Chronic Kidney Disea se: Estimated GFR < 60 mL/min/1.50t2Mirugd Kidney Disease: Estimated GFR < 15 mL/min/1.73m2 Glucose 204(H) 60 - 115 mg/dL [facility] Calcium 9.1 8.4 - 10.2 mg/dL [facility] Blood Venous blood specimen / Unknown 01/08/2025 9:10 AM EDT 01/08/2025 11:36 AM EDT [facility] LAB BLOOD ORDERABLES Saima l Result Performing Organization Address [facility] Co de Phone Number [facility] [address] [place] [address] [phone] * ECG 12 lead (12/22/2024 12:34 PM EST) Narrative María Stephens CNP - 12/22/2024 12:34 PM EST NSR, Rate: 87 bpm, no ST elevation or depression, normal ECG [facility] ECG ORDERABLES Final Res ult * High Sensitivity Troponin I (12/13/2024 8:35 AM EST) Only the most recent of3 resultswithin the time period is included. TROPONIN I HIGH SENSITIVITY 8.4 <3.5 - 17.0 ng/L [facility] Comment:The Alaniz high sens itivity Troponin-I results should beused in conjunction with other diagnostic information suchas ECG, clinical observations and information, and patientsymptoms to aid in the diagnosis of [place]. 12/13/2024 8:35 AM EST 12/13/2024 8:39 AM EST us Generic External Data Provider LAB BLOOD ORDERAB LES Final Result Performing Organization Address City/[facility]/ZIP Co de Phone Number [facility] [address] [place] [phone] * SARS-CoV-2 RNA, Influenza A/B, and RSV RNA, Ql NAAT (12/13/2024 8:35 AM EST) Pathologist [facility] Influenza A PCR NEGATIVE Negative [facility] Influenza B PCR NEGATIVE Negative [facility] Resp Syncy Virus RNA Qual PCR NEGATIVE Negative [facility] SARS COV2 PCR NEGATIVE Negative [facility] Comment:All test results mus t be correlated with clinical findings.Negative results do not preclude SARS-CoV2, influenza Avirus, influenza B virus and/or RSV infectionand should not be used as the sole basis for treatment orother patient management decisions. Negative results must becombined with clinical observations, patient history, andepidemiological information.This test has not been evaluated for monitoring treatment ofinfection.This test has been authorized by the FDA under an EmergencyUse Authorization (EUA) for use by authorized laboratories.Testing performed on the [employer] GeneXpert utilizingreal-time RT-PCR.All SARS CoV2 and positive influenza A/B results arereported to [facility]. 12/13/2024 8:35 AM EST 12/13/2024 8:39 AM EST us Generic External Data Provider LAB MICROBIOLOGY - GENERAL ORDERABLES Final Result Performing Organization Address City/[facility]/ZIP Co de Phone Number [facility] [address] [place] [phone] * XR Chest 1 View (12/13/2024 2:16 AM EST) Anatomical Region Laterality Modality Chest Radiographic No ging 12/13/2024 2:16 AM EST Narrative 12/13/2024 2:17 AM EST ? [facility] ?[address] ?[place] [address] ?XRay Report ? Signed ? Patient: Bhatt Monlezun,Danyela ?MR ?? #: [id number] ? : 1980 ?Acct:[id number] ? Age/Sex: 44 / F ?ADM Date: 12/13/24 ? Loc: HO.ED ? Attending Dr: ? Ordering Physician: Generic ED Physician ?? Date of Service: 12/13/24 ?? Procedure(s): XR chest 1V ?? Accession Number(s): [id number] ? cc: Generic ED Physician; Isatu Sloan MD ? CLINICAL HISTORY: cp ? 1 view chest x-ray ? Comparison: CR/SR - XR CHEST 2V - 08/12/24 15:29 EDT ? Findings: ?? No consolidation or effusion. ?? Prominent cardiac silhouette. ?? No acute fracture. ? IMPRESSION: ?? 1. No acute findings. ? This document has been electronically signed by: Domingo Aguayo MD on ?? 12/13/2024 02:16:21 ? Dictated By: ?Domingo Aguayo MD ? Signed By: ?<Electronically signed by Domingo Aguayo MD in OV> ?12/13/24216 ? DD/ 5 ? TD/TT: 12/13/24215 ? Extrusion Die Repair Manager: ? Procedure Note Adelfo, Image - 12/13/[address] [address] XRay Report Signed Patient: Sundar Alegria #: [id number] : 1980Acct:[id number] Age/Sex: 44 / FADM Date: 12/13/24 Loc: HO.ED Attending Dr: Ordering Physician: Generic ED Physician Date of Service: 12/13/24 Procedure(s): XR chest 1V Accession Number(s): [id number] cc: Generic ED Physician; Isatu Sloan MD CLINICAL HISTORY: cp 1 view chest x-ray Comparison: CR/SR - XR CHEST 2V - 08/12/24 15:29 EDT Findings: No consolidation or effusion. Prominent cardiac silhouette. No acute fracture. IMPRESSION: 1. No acute findings. This document has been electronically signed by: Domingo Aguayo MD on 12/13/2024 02:16:21 Dictated By: Domingo Aguayo MD Signed By: <Electronically signed by Domingo Aguayo MD in OV> 12/13/24216 DD/ 5 TD/TT: 12/13/24215 Extrusion Die Repair Manager: [facility] External Provider IMG XR PROCEDURES Edited Result - Final * (ABNORMAL) CBC auto differential (12/13/2024 1:21 AM EST) White Blood Count 7.2 4.8 - 10.8 X10*3/uL [facility] Red Blood Count 4.30 4.20 - 5.50 X10*6/uL [facility] Hemoglobin 13.6 12.0 - 16.0 g/dl [facility] Hematocrit 37.8 37.0 - 47.0 % [facility] Mean Corpuscular Volume 87.9 80.0 - 98.0 fL [facility] Mean Corpuscular Hemoglobin 31.6 27.0 - 33.0 pg [facility] Mean Corpuscular HGB Conc 36.0(H) 31.0 - 35.0 g/dl [facility] Red Cell Distribution Width 12.4 11.0 - 16.0 % [facility] Platelet Count 252 160 - 400 X10*3/uL [facility] Mean Platelet Volume 9.1(L) 9.4 - 12.3 fL [facility] Neutrophils Percent Auto 55.2 45 - 73 % [facility] Imm Gran Pct Auto 0.3 0.0 - 0.4 % [facility] Lymphocytes Percent Auto 35.1 20 - 40 % [facility] Monocytes Percent Auto 5.8 2 - 11 % [facility] Eosinophils Percent Auto 3.2 0 - 4 % [facility] Basophils Percent Auto 0.4 0 - 2 % [facility] NRBC Pct Auto 0.0 0.0 - 0.2 /100WBC [facility] Neutrophils Absolute Auto 4.0 2.0 - 8.3 x10*3/uL [facility] Imm Gran Abs Auto 0.02 0.00 - 0.03 X10*3/uL [facility] Lymphocytes Absolute Auto 2.5 1.2 - 4.9 X10*3/uL [facility] Monocytes Absolute Auto 0.4 0.1 - 1.2 X10*3/uL [facility] Eosinophils Absolute Auto 0.2 0.0 - 0.4 X10*3/uL [facility] Basophils Absolute Auto 0.0 0.0 - 0.2 X10*3/uL [facility] NRBC Abs Auto 0.000 0.0 - 0.012 X10*3/uL [facility] 12/13/2024 1:21 AM EST 12/13/2024 1:24 AM EST us Generic External Data Provider LAB BLOOD ORDERAB LES Final Result [facility] [address] [place] [phone] * (ABNORMAL) Comprehensive Metabolic Panel (12/13/2024 1:21 AM EST) Sodium 140 135 - 145 mmol/L [facility] Potassium 3.4 3.3 - 5.1 mmol/L [facility] Chloride 108 96 - 108 mmol/L [facility] Carbon Dioxide 24 22 - 29 mmol/L [facility] Anion Gap 11(L) 12 - 20 [facility] Urea Nitrogen (BUN) 12 9 - 16 mg/dL [facility] Creatinine, Serum 0.79 0.5 - 1.4 mg/dL [facility] Creatinine Clr Calc Pharmacy 106.8 [facility] Comment:Provided height and weight: 162.56 cm,104.1 kg.eGFR (calculated from the MDRD study equation) and eCrCl(calculated from the Cockcroft-Gault equation) are based ondifferent parameters and may not yield comparable results.If eCrCl result is absurd, please check patient'sheight/weight. Estimated Glomerular Filt Rate >60 [facility] Comment:Chronic Kidney Disea se: Estimated GFR < 60 mL/min/1.65s8Wthoxo Kidney Disease: Estimated GFR < 15 mL/min/1.73m2 Glucose 147(H) 60 - 115 mg/dL [facility] Calcium 9.0 8.4 - 10.2 mg/dL [facility] Bilirubin, Total 0.3 0.0 - 1.0 mg/dL [facility] Aspartate Amino Transferase 33(H) 5 - 31 U/L [facility] Alanine Aminotransferase 43(H) 0 - 31 U/L [facility] Total Protein 7.7 6.5 - 8.0 g/dL [facility] Albumin Level 4.1 3.5 - 5.0 g/dL [facility] Alkaline Phosphatase 65 39 - 117 U/L [facility] 12/13/2024 1:21 AM EST 12/13/2024 1:24 AM EST us Generic External Data Provider LAB BLOOD ORDERAB LES Final Result [facility] [address], [place] [phone] * BI Mammogram Screening Tomosynthesis Bilateral (11/05/2023 2:30 PM EST) Anatomical Region Laterality Modality Breast Bilateral Mammography 11/05/2023 2:30 PM EST Narrative 11/20/2023 12:18 PM EST ? [facility] ? [address] ?[place] [address] ? Mammography Report ? Signed ? Patient: Bhatt Monlezun,Danyela ?MR ?? #: [id number] ? : 1980 ?Acct:[id number] ? Age/Sex: 43 / F ?ADM Date: 11/05/23 ? Loc: HO.MAMMO ? Attending Dr: Isatu Brandt MD ? Ordering Physician: Isatu Sloan MD ?Results: 0Incomplete: Needs Additional Imaging ?? Evaluation ? Date of Service: 11/05/23 ?Follow Up: Additional Imagi ?? ng ? Procedure(s): MM tomosynthesis screening BI ?? Accession Number(s): [id number] ? cc: Isatu Sloan MD ? EXAMINATION: ?? MM SCREENING DIGITAL BREAST TOMOSYNTHESIS, BILATERAL ? CLINICAL INFORMATION: ? Screening. Asymptomatic. ? COMPARISON: ?? Mammography: There are no prior mammograms for comparison. ? TECHNIQUE: ?? Digital breast tomosynthesis is performed in both the craniocaudal and ?? mediolateral oblique views along with computer-aided detection (CAD). ?? Synthesized 2D images are generated from the tomosynthesis. ? FINDINGS: ?? There are scattered areas of fibroglandular density (ACR BI-RADS breast ?? composition Category b). ? In the upper outer quadrant of the right breast, there is an asymmetry ?? in middle depth. Additional mammographic and targeted sonographic ?? evaluation of these findings are advised. ? In the left breast, there are no significant masses, abnormal ?? calcifications, or other abnormalities. ? MM/MM tomosynthesis screening BI ?? IMPRESSION: ?? Right breast asymmetry warrants additional mammographic and targeted ?? sonographic imaging. ? No mammographic signs of malignancy left breast. ? ASSESSMENT: ? BI-RADS BI-RADS 0 - Incomplete: Needs additional Imaging. ? RECOMMENDATION: ?? 1. Additional views of the right breast. ?? 2. Targeted ultrasound if warranted after review of the additional ?? views. ?? 3. Radiology department staff will contact the patient for additional ?? imaging. ? Additional Imaging required ? This examination should not preclude the clinical evaluation of a ?? suspicious palpable abnormality. ? This patient's information was entered into a reminder system with a ?? target due date for their next mammogram. ? Dictated By: ?Rocio Aparicio MD ? Signed By: ?<Electronically signed by Rocio Aparicio MD in OV> ? 11/20/23 1215 ? DD/ 1430 ? TD/TT: ? Extrusion Die Repair Manager: ? Procedure Note Adelfo, Francia - 11/20/2023 [facility] [address] [place], [place] [address] Mammography Report Signed Patient: Sundar Alegria #: [id number] : 1980Acct:[id number] Age/Sex: 43 / FADM Date: 11/05/23 Loc: JUSTO Attending Dr: Isatu Brandt MD Ordering Physician: Isatu Sloan MD Results: 0Incomplete: Needs Additional Imaging Evaluation Date of Service: 11/05/23Follow Up: Additional Imagi ng Procedure(s): MM tomosynthesis screening BI Accession Number(s): [id number] cc: Isatu Sloan MD EXAMINATION: MM SCREENING DIGITAL BREAST TOMOSYNTHESIS, BILATERAL CLINICAL INFORMATION: Screening. Asymptomatic. COMPARISON: Mammography: There are no prior mammograms for comparison. TECHNIQUE: Digital breast tomosynthesis is performed in both the craniocaudal and mediolateral oblique views along with computer-aided detection (CAD). Synthesized 2D images are generated from the tomosynthesis. FINDINGS: There are scattered areas of fibroglandular density (ACR BI-RADS breast composition Category b). In the upper outer quadrant of the right breast, there is an asymmetry in middle depth. Additional mammographic and targeted sonographic evaluation of these findings are advised. In the left breast, there are no significant masses, abnormal calcifications, or other abnormalities. MM/MM tomosynthesis screening BI IMPRESSION: Right breast asymmetry warrants additional mammographic and targeted sonographic imaging. No mammographic signs of malignancy left breast. ASSESSMENT: BI-RADS BI-RADS 0 - Incomplete: Needs additional Imaging. RECOMMENDATION: 1. Additional views of the right breast. 2. Targeted ultrasound if warranted after review of the additional views. 3. Radiology department staff will contact the patient for additional imaging. Additional Imaging required This examination should not preclude the clinical evaluation of a suspicious palpable abnormality. This patient's information was entered into a reminder system with a target due date for their next mammogram. Dictated By: Rocio Aparicio MD Signed By: <Electronically signed by Rocio Aparicio MD in OV> 11/20/23 1215 DD/ 1430 TD/TT: Extrusion Die Repair Manager: us Isatu Brandt MD [facility] PROCED[facility] Edited Result - Final * Hepatitis C Antibody with Reflex to HCV, RNA, Quantitative, Real-Time PCR (11/04/2023 9:45 AM EST) Hepatitis C Antibody Nonreactive Nonreactive [facility] Comment:Antibodies to HCV no t detected; does not exclude early acuteHCV infection. Blood Venous blood specimen / Unknown 11/04/2023 9:45 AM EST 11/04/2023 12:00 PM EST us Isatu Brandt MD LAB BLOOD ORDERAB LES Final Result Performing Organization Address [facility]/ZIP Co de Phone Number [facility] [address] [place] [phone] * HIV-1/2 Antigen and Antibodies, Fourth Generation, with Reflexes (11/04/2023 9:45 AM EST) HIV AB/AG Nonreactive Nonreactive [facility] Comment:HIV-1 p24 Ag and/or HIV-1/HIV-2 Ab not detected.A test result that is nonreactive does not exclude thepossibility of exposure to or infection with HIV-1 and/orHIV-2. Nonreactive results in this assay for individualswith prior exposure to HIV-1 and/or HIV-2 may be due toantigen and antibody levels that are below the limit ofdetection of this assay.The [employer] HIV Ag/Ab Combo assay result andsupplemental assay results should be interpreted inconjunction with the patient's clinical presentation,history and other laboratory results. If the results areinconsistent with clinical evidence, additional testing issuggested to confirm the result. Blood Venous blood specimen / Unknown 11/04/2023 9:45 AM EST 11/04/2023 12:00 PM EST us Isatu Brandt MD LAB BLOOD ORDERAB LES Final Result Performing Organization Address City/[facility]/ZIP Co de Phone Number [facility] [address] [place] [phone] * Lipid Panel, Standard (11/04/2023 9:45 AM EST) Triglycerides 100 <150 mg/dL [facility] Comment:Desirable Triglyceri de: less than 150 mg/dLBorderline High Triglyceride 150-199 mg/dLHigh Triglyceride: 200-499 mg/dLVery High Triglyceride: greater than or equal to 5OO mg/dL Cholesterol 164 <200 mg/dL [facility] Comment:Desirable Cholestero l: less than 200 mg/dLBorderline High Cholesterol: 200-239 mg/dLHigh Cholesterol: greater than 239 mg/dL LDL Cholesterol Calculated 93 <100 mg/dL [facility] Comment:Desirable LDL: less than 100 mg/dLNear Optimal/Above Optimal LDL: 110- 129 mg/dLBorderline High LDL: 130-159 mg/dLHigh LDL: 160-189 mg/dLVery High LDL: greater than or equal to 190 mg/dL HDL Cholesterol 51 >40 mg/dL [facility] Comment:Desirable HDL: great er than 40 mg/dL Note: This HDL assay may give artificially low results in patients with liver disease. Blood Venous blood specimen / Unknown 11/04/2023 9:45 AM EST 11/04/2023 12:00 PM EST Isatu Brandt MD LAB BLOOD ORDERAB LES Final Result [facility] [address] [place] [phone] from Last 3 Months or Most Recently Relevant to Health Maintenance Insurance [place] [address] [place] [address] [employer] [employer] [place] AD[place] Care Teams Shell Trim Operator Relationship Specialty Start Date End Date Ina Arroyo NP [address] [facility] [place] [address] PCP - General Family Medicine 10/30/24 Janel Go, OPAL [address] [place] [phone] Counter HandHi Lift Operator 10/19/24
--- OUTSIDE RECORDS SUMMARY | 2025-01-16 19:08 | XMS_ITS | Encounter Summary ---
Author Organization [employer] Address [address] [facility] 7 [place] [address] Care Team Providers Care Fingerprinter Name Role Phone Janel Go RN Unavailable Ina Arroyo NP Primary Care Provider [phone] for Visit * Reason Comments Med Refill Encounter Details Date Type Department Care Team (Late st Contact Info) Description 01/16/2025 Refill [facility] MEDICINE [address] [place] [address] Isatu Sloan MD [address] [place] [address] Social History Tobacco Use Types Packs/Day Years [...] Description 01/29/2025 1:30 PM EDT Clinical Support [facility] MEDICINE [address] [place] [address] 02/26/2025 1:30 PM EDT Office Visit [facility] MEDICINE [address] [place] [address] Ina Arroyo NP [address] [place] [address] 03/05/2025 10:00 AM EDT Office Visit [facility] OPTOMETRY [address] [place] [address] Terry, Aminta, OD [address] [place] [address] 05/16/2025 10:00 AM EDT Office Visit [facility] ADULT DENTAL [address] [place] [address] Kristan Briscoe documented as of this encounter Visit Diagnoses Not on filedocumented in this encounter Additional Health Concerns Assessment Noted Time PHQ-9 Depression Total Score: 0 09/22/20 24 1:10 PM EST documented as of this encounter Care Teams Fingerprinter Relationship Specialty Start Date End Date Ina Arroyo NP [address] [place] [id number] PCP - General Family Medicine 10/30/24 Janel Go RN [address] [place] [phone] Greige MenderAssembler Skylights 10/19/24 documented as of this encounter
--- OUTSIDE RECORDS SUMMARY | 2025-01-16 19:08 | XMS_ITS | Clinical Summary ---
Author Organization [facility] Address [address] [place] [address] Phone Care Team Providers Care Sharepoint Analyst Name Role Phone Alec Valencia MD Primary Care Provi ana Allergies No known active allergies Medications Hospital, Clinic, or Other Facility Administered Medication Ordered Dose Route Frequency Start Date End Date Status lidocaine (PF) (XYLOCAINE-MPF) 1 % injection 0.5 mLIndications:Planta r fasciitis .5 mL inj Once PRN Procedure 01/09/2025 01/09/2025 Ended triamcinolone acetonide (KENALOG-40) 40 mg/mL injection 40 mgIndications:Planta r fasciitis 40 mg IAtc Once PRN Procedure 01/09/2025 01/09/2025 Ended Encounters Date Type Department Care Team Description 01/09/2025 11:00 AM EDT Consult Orthopedic Surgery [facility] [address] [place] [phone] Tom Higgins DPM Left foot pain (Primary Dx); Equinus contracture of left ankle; Pes planus of both feet; Plantar fasciitis from Last 3 Months Social History Tobacco Use Types Packs/Day Years Used Date Smoking Tobacco: Never Assessed Comments Unknown Sex and Gender Information Value Date Recorded Sex Assigned at Not on file Legal Sex Female 3:43 PM EDT Gender Identity Not on file Sexual Orientation Not on file Last Filed Vital Signs Vital Sign Reading Time Taken Comments Blood Pressure - - Pulse - - Temperature - - Respiratory Rate - - Oxygen Saturation - - Inhaled Oxygen Concentration - - Weight 103 kg (227 lb) 01/09/2025 10:57 AM EDT Height 162.6 cm (5' 4 ) 01/09/2025 10:57 AM EDT Body Mass Index 38.96 01/09/2025 10:57 AM EDT Plan of Treatment Health Maintenance Due Date Last Done Comments Breast Cancer Screening 1980 Hepatitis B Vaccines (1 of 3 - 19+ 3-dose series) 1999 Cervical Cancer Screening: Pap Smear 2001 Social Influencers of Health Screening 08/05/2024 Depression Screening 09/22/2025 09/22/2024 Hypertension/CHF/CAD Annual BMP Blood Test 01/08/2026 01/08/2025, 12/13/2024, 10/12/2024, Additional history exists Cholesterol Screening (Lipid Panel) 11/04/2028 11/04/2023 DTaP,Tdap,and Td Vaccines (2 - Td or Tdap) 10/01/2033 10/01/2023 HIV Screening Completed 11/04/2023 Hepatitis C Screening [...] on patient's age to complete this topic MMR Vaccines Aged Out No longer eligi ble based on patient's age to complete this topic Meningococcal ACWY Vaccine Aged Out N o longer eligible based on patient's age to complete this topic Meningococcal B Vacine Aged Out No lo nger eligible based on patient's age to complete this topic Pneumococcal Vaccine: Pediatrics (0 to 5 Years) and At-Risk Patients (6 to 64 Years) Aged Out No longer eligible based on patient's age to complete this topic RSV Immunization Patients Under 20 months Aged Out No longer eligible based on patient's age to complete this topic Varicella Vaccines Aged Out No longer eligible based on patient's age to complete this topic Procedures Procedure Name Priority Date/Time Associated Diagnosis Comments INJECTION TENDON OR LIGAMENT Routine 01/09/2025 11:00 AM EDT Plantar fasciitis from Last 3 Months Results * Injection tendon or ligament (01/09/2025 11:00 AM EDT) Narrative Tom Higgins DPM - 01/09/2025 11:00 AM EDT Tom Higgins DPM ? 01/09/2025 12:04 PM Injection tendon or ligament Indications: pain Details: 25 G needle Medications: 0.5 mL lidocaine (PF) 1 %; 40 mg triamcinolone acetonide 40 mg/mL Informed Consent: ??Laterality: ??Left us Tom Higgins DPM IN CLINIC/BEDSIDE ORDERABLE S Final Result from Last 3 Months Insurance MEDICAID - [place] Care Teams Sharepoint Analyst Relationship Specialty Start Date End Date Alec Valencia MD [address] [place] [id number] PCP - General Internal Medicine 11/17/24
--- OUTSIDE RECORDS SUMMARY | 2025-01-16 19:08 | XMS_ITS | Encounter Summary ---
Author Organization [employer] Address [address] [facility] 7t [place] [address] Care Team Providers Care Senior Catering Sales Manager Name Role Phone Janel Go RN Unavailable Ina Arroyo NP Primary Care Provider [phone] Encounter Details Date Type Department Care Team ([facility] st Contact Info) Description 01/15/2025 Telephone [facility] MEDICINE [address] [place] [address] Ina Arroyo NP [address] [place] [address] Social History Tobacco Use Types Packs/Day Years [...] PM EDT documented as of this encounter Miscellaneous Notes * Telephone Encounter - Linda Gomez RN - 01/15/2025 9:50 AM EDT TC placed to pt via [employer] oncology rep (ID#[id number]) to inform and advise of below PCP message. Pt does not need oncology rep. Software Quality Analyst advised pt of PCP message. Pt verbalized understanding of message. Pt asked if she can take acetaminophen while on this medication / if there are any interactions between lisinopril and acetaminophen. Advised pt there are not any reactions between the 2 medications. Pt denies further questions at this time. ----- Message from Ina Arroyo sent at 01/15/2025 9:26 AM EDT ----- Regarding: BP medication GM! Please call this patient and advise she increase her lisinopril to 10 mg every day. I sent a new prescription to the pharmacy for her, but she may take two of her 5 mg, until finished if that's easier for her now. She has a BP follow-up scheduled with nurses coming up. Thanks documented in this encounter Plan of Treatment Upcoming Encounters Date Type Department Care Team (Late st Contact Info) Description 01/29/2025 1:30 PM EDT Clinical Support [facility] MEDICINE [address] [place] [address] 02/26/2025 1:30 PM EDT Office Visit [facility] [address] [place] [address] Ina Arroyo NP [address] [place] [address] 03/05/2025 10:00 AM EDT Office Visit [facility] OPTOMETRY [address] [place] [address] Terry, Aminta, OD [address] [place] [address] 05/16/2025 10:00 AM EDT Office Visit [facility] ADULT DENTAL [address] [place] [address] Kristan Briscoe documented as of this encounter Visit Diagnoses Not on filedocumented in this encounter Additional Health Concerns Assessment Noted Time PHQ-9 Depression Total Score: 0 09/22/20 24 1:10 PM EST documented as of this encounter Care Teams Senior Catering Sales Manager Relationship Specialty Start Date End Date Ina Arroyo NP [address] [place] [address] PCP - General Family Medicine 10/30/24 Janel Go, OPAL [address] [place] [address] Veterans Service RepresentativeFinancial Analyst Accountant 10/19/24 documented as of this encounter
--- OUTSIDE RECORDS SUMMARY | 2025-01-16 19:08 | XMS_ITS | Encounter Summary ---
Author Organization [employer] Address [address] [facility] [address] [place] [address] Care Team Providers Care Brake Operator Helper Name Role Phone Isatu Sloan MD Primary Care Pro vider Janel Go RN Unavailable [phone] Ina Arroyo NP Primary Care Provider [phone] Encounter Details Date Type Department Care Team (Late st Contact Info) Description 09/26/2024 Orders Only [facility] MEDICINE [address] [place] [address] Vanita Silver MD [address] [place] [address] Social History Tobacco Use Types Packs/Day Years [...] housing situation today? I have martin duff 09/23/[address] you li ve. Do you have problems with any of the following? None of the above 09/23/2023 Food Insecurity Answer Date Recorded Within the past 12 months, y ou worried that your food would run out before you got money to buy more: Never True 10/01/2023 Within the past 12 months,th e food you bought just didn't last and you didn't have enough money to get more: Never True Transportation Answer Date Recorded In the past 12 months, has l ack of transportation kept you from medical appts, meetings, work or from getting things needed for daily living? No 09/23/2023 Utilities Answer Date Recorded In the past 12 months, has t he electric, gas, oil or water company threatened to shut off services in your home? No 09/23/2023 Depression Answer Date Recorded Patient Health Questionnaire-2 Score 0 09/22/2024 Comments No Sex and Gender Information Value [...] Description 01/29/2025 1:30 PM EDT Clinical Support [facility] MEDICINE [address] [place] [address] 02/26/2025 1:30 PM EDT Office Visit [facility] MEDICINE [address] [place] [address] Ina Arroyo, FLATCAR WHACKER [address] [place] [address] 03/05/2025 10:00 AM EDT Office Visit [facility] OPTOMETRY [address] [place] [address] Terry, Aminta, OD [address] [place] [address] 05/16/2025 10:00 AM EDT Office Visit [facility] ADULT DENTAL [address] [place] [address] Kristan Briscoe documented as of this encounter Visit Diagnoses Not on filedocumented in this encounter Additional Health Concerns Assessment Noted Time PHQ-9 Depression Total Score: 0 09/22/20 24 1:10 PM EST documented as of this encounter Care Teams Brake Operator Helper Relationship Specialty Start Date End Date Isatu Sloan MD [address] [place] [address] PCP - General Internal Medicine 10/01/23 10/29/24 Ina Arroyo NP [address] [place] [id number] PCP - General Family Medicine 10/30/24 Janel Go RN [address] [place] [id number] Cable Television TechnicianSlot Operations Director 10/19/24 documented as of this encounter
[2025-01-24 14:54] LABS: HPV Genotype 16 Negative (Negative); HPV Genotype 18 Negative (Negative); HPV High Risk Negative (Negative)
== END 2025-01-16 14:25 | disposition home or self-care (01) ==
LOC: HO.LNP 14:24
PROVIDERS: Visit Provider Advanced Practice Midwife
DX: Z12.4 Encounter for screening for malignant neoplasm of cervix (principal)
CPT/HCPCS: 87626; 88175

== ENCOUNTER 2025-01-19 12:07 | Outpatient (REF) | payer MEDICAID, SELFPAY ==
[2025-01-19 14:31] LABS: Appearance Urine Clear; Color Urine Yellow; Glucose Urine UA Negative (Negative); Leukocyte Esterase Urine Negative (Negative); Nitrite Urine Negative (Negative); PH 5.5 (5.0-9.0); Specific Gravity - Urine >= 1.030 (1.005-1.025); Urine Blood Negative (Negative); Urine Ketones Negative (Negative); Urine Protein Trace mg/dL (Neg-Trace)
[2025-01-19 15:28] LABS: Alanine Aminotransferase 29 U/L (0-31); Albumin Level 4.4 g/dL (3.5-5.0); Alkaline Phosphatase 77 U/L (39-117); Anion Gap 13 (12-20); Aspartate Amino Transferase 24 U/L (5-31); Bilirubin Total 0.4 mg/dL (0.0-1.0); Blood Urea Nitrogen 15 mg/dL (9-16); Calcium 9.4 mg/dL (8.4-10.2); Carbon Dioxide 25 mmol/L (22-29); Chloride 106 mmol/L (96-108); Estimated Glomerular Filt Rate > 60; Glucose Random 104 mg/dL (60-115); Potassium 3.8 mmol/L (3.3-5.1); Sodium 140 mmol/L (135-145); Total Protein 7.6 g/dL (6.5-8.0)
--- OUTSIDE RECORDS SUMMARY | 2025-01-19 15:29 | XMS_ITS | Clinical Summary ---
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 Generalized [...] her sister completed SI. Family relocated from [place] to [place] as part of the transition process about six months ago. Patient feels very overwhelmed and frustrated due to having so many stressors (taking care of her mom, son, she has no transportation). PLAN: (check all that apply) Continue with current services (defined as services in the past 12 months) . Carlos was referred to [facility] on 10/04/23. She completed intake and [...] her sister completed SI. Family relocated from [place] to [place] as part of the transition process. PLAN: [...] her sister completed SI. Family relocated from [place] to [place] as part of the transition process. PLAN: [...] her sister completed SI. Family relocated from [place] to [place] as part of the transition process about six months ago. Patient feels very overwhelmed and frustrated due to having so many stressors (taking care of her mom, son, she has no transportation). PLAN: (check all that apply) Continue with current services (defined as services in the past 12 months) . Carlos was referred to [facility] on 10/04/23. She completed intake and [...] her sister completed SI. Family relocated from [place] to [place] as part of the transition process. PLAN: [...] her sister completed SI. Family relocated from [place] to [place] as part of the transition process. PLAN: [...] Plan (10/24/2024 11:48 AM EST): Referred to [facility] Elevated BP without diagnosis of hypertension 02/15/20 24 12/22/2024 Assessment & Plan (02/27/2024 9:03 PM EDT): Monitor, referral to cardiology given episode of substernal chest pain Encounters Date Type Department Care Team Description 01/19/2025 Orders Only GENERIC EXTERNAL DATA DEPARTMENT Provider, Generic External Data 01/18/2025 Patient Outreach [address] [address] Ina Arroyo NP Care Coordination (Appt reminder) 01/16/2025 2:15 PM EDT Procedure Visit [address] [address] Kristina Cuellar CNM Cervical cancer screening (Primary Dx); Screening examination for venereal disease; Genital ulcer, female; Vaginal odor 01/16/[address] [address] Isatu Sloan MD 01/16/2025 Travel 01/15/[address] [address] Ina Arroyo NP 01/12/2025 1:00 PM EDT Office Visit [address] [address] Ina Arroyo NP Encounter to establish care (Primary Dx); Chronic low back pain without sciatica, unspecified back pain laterality; Neck pain; Subclinical hypothyroidism; Class 3 severe obesity due to excess calories without serious comorbidity with body mass index (BMI) of 40.0 to 44.9 in adult (CMS/HCC); Dietary counseling; Exercise counseling; Primary hypertension; Obesity (BMI 30-39.9); Pre-diabetes; Hypertension, unspecified type 01/12/2025 Travel 01/11/2025 Patient Outreach [address] [address] Ina Arroyo NP Care Coordination (Appt reminder) 01/10/[address] [address] Ina Arroyo NP Care Management (C3CM- f/u call) 01/08/2025 Orders Only [address] [address] María Stephens CNP 01/08/2025 Patient Outreach [address] [address] Ina Arroyo NP Care Coordination (Appt reminder) 01/05/2025 Patient Outreach [facility] [address] [place] [address] Ina Arroyo NP Pre-visit Planning (SDOH was already completed. ) 01/04/[address] [address] Angel Luis Silva MA chartprep 12/29/2024 Population Health Risk Score Community [facility] (C3) Department [address] [place] [phone] Provider, Population Health Generic 12/29/2024 Patient Outreach [address] [address] Ina Arroyo NP Care Coordination (SDOH outreach) 12/28/[address] [address] Ina Arroyo NP Care Management (C3CM- f/u call) 12/22/2024 11:15 AM EST Office Visit [address] [address] María Stephens CNP Palpitations (Primary Dx); Hypertension, unspecified type; Unexplained weight gain; Shortness of breath 12/22/2024 10:00 AM EST Clinical Support [address] [address] Rhina Herrera, RN Elevated BP without diagnosis of hypertension 12/22/2024 Travel 12/21/2024 Patient Outreach [address] [address] Ina Arroyo NP Care Coordination (CM/CHW f/u) 12/21/[address] [address] Isatu Sloan MD 12/18/2024 Patient Outreach [address] [address] Ina Arroyo NP Care Coordination (Appt reminder) 12/15/[address] [address] Ina Arroyo NP Care Management (C3CM- f/u call) 12/13/2024 Orders Only [facility] External Provider, [employer] 12/01/[address] [address] Janel Go RN 11/20/[address] [address] Janel Go RN Care Management (C3CM- f/u call) 11/13/2024 11:00 AM EST Office Visit [facility] [address] [place] [address] Kristan Briscoe Dental calculus (Primary Dx); Dental plaque; Encounter for dental examination; Tooth sensitivity 11/10/2024 Patient Outreach [address] [address] Ina Arroyo NP Care Coordination (Appt reminder) 11/09/[address] [address] Janel Go RN 11/09/[address] [address] Janel Go RN Care Management (C3CM- f/u call) 11/03/2024 Patient Outreach [address] [address] Ina Arroyo NP Care Coordination (Appt reminder) 10/30/[address] [address] Janel Go RN Care Management (C3- f/u call) 10/30/2024 Travel 10/30/2024 Patient Outreach [address] [address] Isatu Sloan MD Care Coordination (Appt reminder) 10/24/2024 11:00 AM EST Office Visit [address] [address] Alec Barber MD Generalized abdominal pain (Primary Dx); Gastroesophageal reflux disease with esophagitis, unspecified whether hemorrhage; Obesity (BMI 30-39.9); Decreased visual acuity; Chronic heel pain, left 10/24/2024 Telephone [facility] [address] [facility] [place] [address] Alec Barber MD 10/24/2024 Telephone [facility] [address]ierrez, [place] [address] Alec Barber MD 10/24/2024 Telephone [facility] [address] [facility] [place], [place] [phone] Isatu Sloan MD 10/24/2024 Travel 10/23/2024 Patient Outreach [facility] [address] [facility] [place] [address] Isatu Sloan MD Care Coordination (SDOH/appt reminder) [...] your housing situation today? I have martin sherin 10/23/[address] you li [...] EDT Clinical Support [facility] [address] [place] [address] 02/26/2025 1:30 PM EDT Office Visit [facility] [address] [place] [address] Ina Arroyo NP [address] [place] [address] 03/05/2025 10:00 AM EDT Office Visit [facility] [address] [place] [address] Aminta Stewart, OD [address] [place] [address] 05/16/2025 10:00 AM EDT Office Visit [facility] [address] [place] [address] Kristan Briscoe Health Maintenance Due Date Last Done Comments [...] Procedure Name Priority Date/Time Associated Diagnosis Comments URINALYSIS WITH REFLEX MICROSCOPIC Routine 01/19/2025 2:00 PM EDT POCT WET MOUNT/MARINO Routine 01/16/2025 3: 16 [...] Recently Relevant to Health Maintenance Results * (ABNORMAL) Urinalysis w/reflex microscopic (01/19/2025 2:00 PM EDT) Color Urine Yellow [facility] Appearance Urine Clear [facility] PH 5.5 5.0 - 9.0 [facility] Glucose Urine UA Negative Negative mg/dL [facility] Urine Blood Negative Negative [facility] Specific [place] - Urine >=1.030(H) 1.005 - 1.025 [facility] Urine Protein Trace Neg-Trace mg/dL [facility] Urine Ketones Negative Negative mg/dL [facility] Nitrite Urine Negative Negative [facility] Leukocyte Esterase Urine Negative Negative [facility] 01/19/2025 2:00 PM EDT 01/19/2025 2:27 PM EDT Narrative [facility] - 01/19/2025 2:32 PM EDT Urine, Clean Catch Generic External Data Provider LAB URINE ORDERAB LES Final Result Performing Organization Address [facility] Co de Phone Number [facility] [address] [place] [phone] * POCT fern test, vaginal fluid manually resulted (01/16/2025 3:16 PM EDT) MARINO Prep Negative Comment:pH 4.5, neg whiff, n eg clue, neg yeast, neg trich, neg wbc Vaginal Fluid Vaginal structure / Unknown 01/16/2025 3:16 PM EDT Kristina DEL VALLE POINT OF CARE TEST ENTER/ EDIT ORDERABLES Final Result * (ABNORMAL) TSH W/Reflex to FT4 (01/08/2025 9:10 AM EDT) Pathologist [facility] TSH reflex Free T4 4.12(H) 0.32 - 4.0 uIU/mL [facility] Blood Venous blood specimen / Unknown 01/08/2025 9:10 AM EDT 01/08/2025 11:36 AM EDT María Stephens [employer]PER[employer] LAB BLOOD ORDERABLES Saima l Result Performing Organization Address City/[facility]/ZIP Co de Phone Number [facility] [address] [place] [phone] * T4, Free (01/08/2025 9:10 AM EDT) Pathologist [facility] Free T4 (Free Thyroxine) 0.85 0.71 - 1.85 ng/dL [facility] 01/08/2025 9:10 AM EDT 01/08/2025 11:36 AM EDT [facility] LAB BLOOD ORDERABLES Saima l Result Performing Organization Address [facility] Co de Phone Number [facility] [address] [place] [address] [phone] * (ABNORMAL) Hemoglobin A1c (01/08/2025 9:10 AM EDT) Hemoglobin A1c 6.5(H) <6.0 % [facility] Comment:Hemoglobin A1C Refer ence Range Adults: 4.8 - 6.0 % Non diabetic: < 6.0 % Goal: < 7.0 %Additional Action Suggested: > 8.0 %Note: Hemoglobin A1c results are invalid for patients with abnormal amounts of HbF. Blood transfusions may impact the HbA1c concentration in the patient sample. Estimated Average Glucose 140 mg/dL [facility] Comment:eAG = Estimated ave rage glucose which is %A1C expressed asaverage glucose, using the formula of the T7N-PkmzokmMsjxahg Glucose study (ADAG), Diabetes Care, Vol.31,#8,May. 2007 Blood Venous blood specimen / Unknown 01/08/2025 9:10 AM EDT 01/08/2025 11:36 AM EDT [facility] LAB BLOOD ORDERABLES Saima l Result Performing Organization Address [facility]/ZIP Co de Phone Number [facility] [address] [place] [address] [phone] * (ABNORMAL) Basic Metabolic Panel (01/08/2025 9:10 AM EDT) Sodium 139 135 - 145 mmol/L [facility] Potassium 3.3 3.3 - 5.1 mmol/L [facility] Chloride 107 96 - 108 mmol/L [facility] Carbon Dioxide 23 22 - 29 mmol/L [facility] Anion Gap 12 12 - 20 [facility] Urea Nitrogen (BUN) 9 9 - 16 mg/dL [facility] Creatinine, Serum 0.80 0.5 - 1.4 mg/dL [facility] Estimated Glomerular Filt Rate >60 [facility] Comment:Chronic Kidney Disea se: Estimated GFR < 60 mL/min/[id number] Kidney Disease: Estimated GFR < 15 mL/min/1.73m2 Glucose 204(H) 60 - 115 mg/dL [facility] Calcium 9.1 8.4 - 10.2 mg/dL [facility] Blood Venous blood specimen / Unknown 01/08/2025 9:10 AM EDT 01/08/2025 11:36 AM EDT [facility] LAB BLOOD ORDERABLES Saima l Result Performing Organization Address City/[facility] Co de Phone Number [facility] [address] [place] [address] [phone] * ECG 12 lead (12/22/2024 12:34 PM EST) Narrative María Stephens CNP - 12/22/2024 12:34 PM EST NSR, Rate: 87 bpm, no ST elevation or depression, normal ECG [facility] ECG ORDERABLES Final Res ult * High Sensitivity Troponin I (12/13/2024 8:35 AM EST) Only the most recent of3 resultswithin the time period is included. TROPONIN I HIGH SENSITIVITY 8.4 <3.5 - 17.0 ng/L [facility] Comment:The Alaniz high sens itivity Troponin-I results should beused in conjunction with other diagnostic information suchas ECG, clinical observations and information, and patientsymptoms to aid in the diagnosis of DC. 12/13/2024 8:35 AM EST 12/13/2024 8:39 AM EST Generic External Data Provider LAB BLOOD ORDERAB LES Final Result Performing Organization Address City/[facility]/ZIP Co de Phone Number [facility] [address] [place] [address] [phone] * SARS-CoV-2 RNA, Influenza A/B, and RSV RNA, Ql NAAT (12/13/2024 8:35 AM EST) Influenza A PCR NEGATIVE Negative [facility] Influenza B PCR NEGATIVE Negative [facility] Resp Syncy Virus RNA Qual PCR NEGATIVE Negative [facility] SARS COV2 PCR NEGATIVE Negative [facility] Comment:All test results mus t [...] use by authorized laboratories.Testing performed on the Bio[employer] GeneXpert utilizingreal-time RT-PCR.All SARS CoV2 and positive influenza A/B results arereported to [facility]. 12/13/2024 8:35 AM EST 12/13/2024 8:39 AM EST us Generic External Data Provider LAB MICROBIOLOGY - GENERAL ORDERABLES Final Result [facility] [address] [place] [address] [phone] * XR Chest 1 View (12/13/2024 2:16 AM EST) Anatomical Region Laterality Modality Chest Radiographic No ging 12/13/2024 2:16 AM EST Narrative 12/13/2024 2:17 AM EST ? [employer] ?[address] ?[place] [address] ?XRay Report ? Signed ? Patient: Bhatt Monlezun,Danyela ?MR ?? #: [id number] ? : 1980 ?Acct:[id number] ? Age/Sex: 44 / F ?ADM Date: 02/26/25 ? Loc: HO.ED ? Attending Dr: ? Ordering Physician: Generic ED Physician ?? Date of Service: 12/13/24 ?? Procedure(s): XR chest 1V ?? Accession Number(s): [id number] ? cc: Generic ED Physician; Isatu Sloan [...] signed by Domingo Aguayo MD in OV> ?12/13/24 0217 ? DD/ 5 ? TD/TT: 12/13/24215 ? Fire Engine Pump Operator: ? Procedure Note Adelfo, Image - 12/13/[address] [address] XRay Report Signed Patient: Sundar Alegria #: [id number] : 1980Acct:[id number] Age/Sex: 44 / FADM Date: 12/13/24 Loc: HO.ED Attending Dr: Ordering Physician: Generic ED Physician Date of Service: 12/13/24 Procedure(s): XR chest 1V Accession Number(s): [id number] cc: Generic ED Physician; Isatu Sloan MD [...] in OV> 12/13/24216 DD/ 5 TD/TT: 12/13/24215 Fire Engine Pump Operator: [facility] External Provider IMG XR PROCEDURES Edited Result - Final * (ABNORMAL) CBC auto differential (12/13/2024 1:21 AM EST) White Blood Count 7.2 4.8 - 10.8 X10*3/uL [facility] Red Blood Count 4.30 4.20 - 5.50 X10*6/uL [facility] Hemoglobin 13.6 12.0 - 16.0 g/dl [facility] Hematocrit 37.8 37.0 - 47.0 % [facility] Mean Corpuscular Volume 87.9 80.0 - 98.0 fL [facility] Mean Corpuscular Hemoglobin 31.6 27.0 - 33.0 pg [facility] Mean Corpuscular HGB Conc 36.0(H) 31.0 - 35.0 g/dl [facility] Red Cell Distribution Width 12.4 11.0 - 16.0 % [facility] Platelet Count 252 160 - 400 X10*3/uL [facility] Mean Platelet Volume 9.1(L) 9.4 - 12.3 fL [facility] Neutrophils Percent Auto 55.2 45 - 73 % [facility] Imm Gran Pct Auto 0.3 0.0 - 0.4 % [facility] Lymphocytes Percent Auto 35.1 20 - 40 % [facility] Monocytes Percent Auto 5.8 2 - 11 % [facility] Eosinophils Percent Auto 3.2 0 - 4 % [facility] Basophils Percent Auto 0.4 0 - 2 % [facility] NRBC Pct Auto 0.0 0.0 - 0.2 /100WBC [facility] Neutrophils Absolute Auto 4.0 2.0 - 8.3 x10*3/uL [facility] Imm Gran Abs Auto 0.02 0.00 - 0.03 X10*3/uL [facility] Lymphocytes Absolute Auto 2.5 1.2 - 4.9 X10*3/uL [facility] Monocytes Absolute Auto 0.4 0.1 - 1.2 X10*3/uL [facility] Eosinophils Absolute Auto 0.2 0.0 - 0.4 X10*3/uL [facility] Basophils Absolute Auto 0.0 0.0 - 0.2 X10*3/uL [facility] NRBC Abs Auto 0.000 0.0 - 0.012 X10*3/uL [facility] 12/13/2024 1:21 AM EST 12/13/2024 1:24 AM EST us Generic External Data Provider LAB BLOOD ORDERAB LES Final Result [facility] [address] [place] [phone] * (ABNORMAL) Comprehensive Metabolic Panel (12/13/2024 1:21 AM EST) Sodium 140 135 - 145 mmol/L [facility] Potassium 3.4 3.3 - 5.1 mmol/L [facility] Chloride 108 96 - 108 mmol/L [facility] Carbon Dioxide 24 22 - 29 mmol/L [facility] Anion Gap 11(L) 12 - 20 [facility] Urea Nitrogen (BUN) 12 9 - 16 mg/dL [facility] Creatinine, Serum 0.79 0.5 - 1.4 mg/dL [facility] Creatinine Clr Calc Pharmacy 106.8 [facility] Comment:Provided height and weight: 162.56 cm,104.1 kg.eGFR (calculated from the MDRD study equation) and eCrCl(calculated from the Cockcroft-Gault equation) are based ondifferent parameters and may not yield comparable results.If eCrCl result is absurd, please check patient'sheight/weight. Estimated Glomerular Filt Rate >60 [facility] Comment:Chronic Kidney Disea se: Estimated GFR < 60 mL/min/1.02b2Ihuihs Kidney Disease: Estimated GFR < 15 mL/min/1.73m2 Glucose 147(H) 60 - 115 mg/dL [facility] Calcium 9.0 8.4 - 10.2 mg/dL [facility] Bilirubin, Total 0.3 0.0 - 1.0 mg/dL [facility] Aspartate Amino Transferase 33(H) 5 - 31 U/L [facility] Alanine Aminotransferase 43(H) 0 - 31 U/L [facility] Total Protein 7.7 6.5 - 8.0 g/dL [facility] Albumin Level 4.1 3.5 - 5.0 g/dL [facility] Alkaline Phosphatase 65 39 - 117 U/L [facility] 12/13/2024 1:21 AM EST 12/13/2024 1:24 AM EST us Generic External Data Provider LAB BLOOD ORDERAB LES Final Result Performing Organization Address City/State/[facility] de Phone Number [facility] [address] [place] [address] [phone] * BI Mammogram Screening Tomosynthesis Bilateral (11/05/2023 2:30 PM EST) Anatomical Region Laterality Modality Breast Bilateral Mammography 11/05/2023 2:30 PM EST Narrative 11/20/2023 12:18 PM EST ? [facility] [place] ? [address] [facility] ?[place] [address] ? Mammography Report ? Signed ? Patient: Bhatt Zacariaslezun,Danyela ?MR ?? #: [id number] ? : 1980 ?Acct:[id number] ? Age/Sex: 43 / F ?ADM Date: 01/19/24 ? Loc: HO.MAMMO ? Attending Dr: Isatu Brandt MD ? Ordering Physician: Isatu Sloan MD ?Results: 0Incomplete: Needs Additional Imaging ?? Evaluation ? Date of Service: 11/05/23 ?Follow Up: Additional Imagi ?? ng ? Procedure(s): MM tomosynthesis screening BI ?? Accession Number(s): [id number] ? cc: Isatu Sloan MD ? EXAMINATION: [...] by Rocio Aparicio MD in OV> ? 11/20/235 ? DD/ 1430 ? TD/TT: ? Fire Engine Pump Operator: ? Procedure Note Doncirilosriramter, Image - 11/20/2023 [place] [facility] [address] [place] [address] Mammography Report Signed Patient: Sundar Alegria #: [id number] : 1980Acct:[id number] Age/Sex: 43 / FADM Date: 11/05/23 Loc: HO.MAMMO Attending Dr: Isatu Brandt MD Ordering Physician: Isatu Sloan MD Results: 0Incomplete: Needs Additional Imaging Evaluation Date of Service: 11/05/23Follow Up: Additional Imagi ng Procedure(s): MM tomosynthesis screening BI Accession Number(s): [id number] cc: Isatu Sloan MD EXAMINATION: MM SCREENING [...] MD Signed By: <Electronically signed by Rocio Aapricio MD in OV> 11/20/23 1215 DD/ 1430 TD/TT: Fire Engine Pump Operator: Isatu Brandt MD IMG BI PROCEDURES Edited Result - Final * Hepatitis C Antibody with Reflex to HCV, RNA, Quantitative, Real-Time PCR (11/04/2023 9:45 AM EST) Hepatitis C Antibody Nonreactive Nonreactive [facility] Comment:Antibodies to HCV no t detected; does not exclude early acuteHCV infection. Blood Venous blood specimen / Unknown 11/04/2023 9:45 AM EST 11/04/2023 12:00 PM EST Isatu Brandt MD LAB BLOOD ORDERAB LES Final Result [facility] [address] [place] [phone] [phone] * HIV-1/2 Antigen and Antibodies, Fourth Generation, with Reflexes (11/04/2023 9:45 AM EST) HIV AB/AG Nonreactive Nonreactive [facility] Comment:HIV-1 p24 Ag and/or HIV-1/HIV-2 Ab not detected.A test result that is nonreactive does not exclude thepossibility of exposure to or infection with HIV-1 and/orHIV-2. Nonreactive results in this assay for individualswith prior exposure to HIV-1 and/or HIV-2 may be due toantigen and antibody levels that are below the limit ofdetection of this assay.The [employer] HIV Ag/Ab Combo assay result andsupplemental assay results should be interpreted inconjunction with the patient's clinical presentation,history and other laboratory results. If the results areinconsistent with clinical evidence, additional testing issuggested to confirm the result. Blood Venous blood specimen / Unknown 11/04/2023 9:45 AM EST 11/04/2023 12:00 PM EST us Isatu Brandt MD LAB BLOOD ORDERAB LES Final Result [facility] [address] [place] [phone] * Lipid Panel, Standard (11/04/2023 9:45 AM EST) Triglycerides 100 <150 mg/dL [facility] Comment:Desirable Triglyceri de: less than 150 mg/dLBorderline High Triglyceride 150-199 mg/dLHigh Triglyceride: 200-499 mg/dLVery High Triglyceride: greater than or equal to 5OO mg/dL Cholesterol 164 <200 mg/dL [facility] Comment:Desirable Cholestero l: less than 200 mg/dLBorderline High Cholesterol: 200-239 mg/dLHigh Cholesterol: greater than 239 mg/dL LDL Cholesterol Calculated 93 <100 mg/dL [facility] Comment:Desirable LDL: less than 100 mg/dLNear Optimal/Above Optimal LDL: 110- 129 mg/dLBorderline High LDL: 130-159 mg/dLHigh LDL: 160-189 mg/dLVery High LDL: greater than or equal to 190 mg/dL HDL Cholesterol 51 >40 mg/dL [facility] Comment:Desirable HDL: great er than 40 mg/dL Note: This HDL assay may give artificially low results in patients with liver disease. Blood Venous blood specimen / Unknown 11/04/2023 9:45 AM EST 11/04/2023 12:00 PM EST Isatu Brandt MD LAB BLOOD ORDERAB LES Final Result [facility] [address] [place] [address] [phone] from Last 3 Months or Most Recently Relevant to Health Maintenance Insurance [facility] C3 DENTAL-[facility] MEDICAID STAND ADULT Care Teams Patient Access Representative Relationship Specialty Start Date End Date Ina Arroyo NP [address] [place] [phone] PCP - General Family Medicine 10/30/24 Janel Go RN [address] [place] [phone] RheumatologistRegistered Nurse Step Down 10/19/24
--- OUTSIDE RECORDS SUMMARY | 2025-01-19 15:29 | XMS_ITS | Encounter Summary ---
Author Organization [employer] Address 75 [facility] 7t [place] [address] Care Team Providers Care Disability Advocate Name Role Phone Isatu Sloan MD Primary Care Pro vider Janel Go RN Unavailable Ina Arroyo NP Primary Care Provider [phone] Encounter Details Date Type Department Care Team (Late st Contact Info) Description 09/26/2024 Orders Only [facility] MEDICINE [address] [place] [address] Vanita Silver MD [address] [place] [address] Social History Tobacco Use Types Packs/Day Years [...] Description 01/29/2025 1:30 PM EDT Clinical Support [facility] MEDICINE 230 [place] [address] 02/26/2025 1:30 PM EDT Office Visit [facility] MEDICINE [address] [place] [address] Ina Arroyo, REGISTERED NURSE MATERNAL CHILD [address] [place] [address] 03/05/2025 10:00 AM EDT Office Visit [facility] OPTOMETRY [address] [place] [address] Terry, Aminta, OD 230 [place] [address] 05/16/2025 10:00 AM EDT Office Visit [facility] ADULT DENTAL 230 [place] [address] Kristan Briscoe documented as of this encounter Visit Diagnoses Not on filedocumented in this encounter Additional Health Concerns Assessment Noted Time PHQ-9 Depression Total Score: 0 09/22/20 24 1:10 PM EST documented as of this encounter Care Teams Disability Advocate Relationship Specialty Start Date End Date Isatu Sloan MD 230 [place] [address] PCP - General Internal Medicine 10/01/23 10/29/24 Ina rAroyo NP [address] [place] [address] PCP - General Family Medicine 10/30/24 Janel Go RN [address] [place] [address] Color Television Console MonitorSection Leader Screen Printing 10/19/24 documented as of this encounter
--- OUTSIDE RECORDS SUMMARY | 2025-01-19 15:29 | XMS_ITS | Encounter Summary ---
Author Organization [employer] Address 75 [facility] 7 [place] [address] Care Team Providers Care Process Operator Name Role Phone Janel Go RN Unavailable [phone] Ina Arroyo NP Primary Care Provider [phone] Reason for Visit * Reason Comments Med Refill Encounter Details Date Type Department Care Team (Late st Contact Info) Description 01/16/2025 Refill [facility] MEDICINE 230 [place] [address] Isatu Sloan MD 230 [place] [address] Social History Tobacco Use Types Packs/Day Years [...] Description 01/29/2025 1:30 PM EDT Clinical Support [facility] MEDICINE 230 [place] [address] 02/26/2025 1:30 PM EDT Office Visit [facility] MEDICINE 230 [place] [address] Ina Arroyo NP 230 [place] [address] 03/05/2025 10:00 AM EDT Office Visit [facility] OPTOMETRY [address] [place] [address] Terry, Aminta, OD [address] [place] [address] 05/16/2025 10:00 AM EDT Office Visit [facility] ADULT DENTAL 230 [place] [address] Kristan Briscoe documented as of this encounter Visit Diagnoses Not on filedocumented in this encounter Additional Health Concerns Assessment Noted Time PHQ-9 Depression Total Score: 0 09/22/20 24 1:10 PM EST documented as of this encounter Care Teams Process Operator Relationship Specialty Start Date End Date Ina Arroyo NP [address] [place] [address] PCP - General Family Medicine 10/30/24 Janel Go RN [address] [place] [address] Braiding Machine TenderSurgical Technologist 10/19/24 documented as of this encounter
--- OUTSIDE RECORDS SUMMARY | 2025-01-19 15:29 | XMS_ITS | Encounter Summary ---
Author Organization [employer] Address [address] [facility] [address] 7t [place] [address] Care Team Providers Care Ticket Writer Name Role Phone Janel Go RN Unavailable [phone] Ina Arroyo NP Primary Care Provider [phone] Encounter Details Date Type Department Care Team [...] Description 01/29/2025 1:30 PM EDT Clinical Support [facility] MEDICINE [address] [place] [address] 02/26/2025 1:30 PM EDT Office Visit [facility] MEDICINE 230 [place] [address] Ina Arroyo NP 230 [place] [address] 03/05/2025 10:00 AM EDT Office Visit [facility] OPTOMETRY [address] [place] [address] Terry, Aminta, OD 230 [place] [address] 05/16/2025 10:00 AM EDT Office Visit [facility] ADULT DENTAL 230 [place] [address] Kristan Briscoe documented as of this encounter Visit Diagnoses Not on filedocumented in this encounter Additional Health Concerns Assessment Noted Time PHQ-9 Depression Total Score: 0 09/22/20 24 1:10 PM EST documented as of this encounter Care Teams Ticket Writer Relationship Specialty Start Date End Date Ina Arroyo NP 230 [place] [address] PCP - General Family Medicine 10/30/24 Janel Go RN [address] [place] [phone] Photo TechnicianBlender Machine Operator 10/19/24 documented as of this encounter
--- OUTSIDE RECORDS SUMMARY | 2025-01-19 15:29 | XMS_ITS | Encounter Summary ---
Author Organization [employer] Address 75 [facility] 7t [place] [address] Care Team Providers Care Preschool Paraprofessional Name Role Phone Janel Go RN Unavailable [phone] Ina Arroyo NP Primary Care Provider [phone] Reason for Visit * Reason Comments Care Coordination Appt reminder Encounter Details Date Type Department Care Team (Latest Contact Info) Description 01/18/2025 Patient Outreach [facility] MED[facility]INE 230 [place] [address] Ina Arroyo NP 230 [place] [address] Care Coordination (Appt reminder) Social History Tobacco [...] this time LVM with details of appt [facility] on 01/19/25 at 12:00pm. documented in this encounter Plan of Treatment Upcoming Encounters Date Type Department Care Team (Late st Contact Info) Description 01/29/2025 1:30 PM EDT Clinical Support [facility] MEDICINE [address] [place] [address] 02/26/2025 1:30 PM EDT Office Visit [facility] MEDICINE [address] [place] [address] Ina Arroyo NP 230 [place] [address] 03/05/2025 10:00 AM EDT Office Visit [facility] OPTOMETRY [address] [place] [address] Aminta Stewart, OD 230 [place] [address] 05/16/2025 10:00 AM EDT Office Visit [facility] ADULT DENTAL 230 [place] [address] Kristan Briscoe documented as of this encounter Visit Diagnoses Not on filedocumented in this encounter Additional Health Concerns Assessment Noted Time PHQ-9 Depression Total Score: 0 09/22/20 24 1:10 PM EST documented as of this encounter Care Teams Preschool Paraprofessional Relationship Specialty Start Date End Date Ina Arroyo NP 230 [place] [address] PCP - General Family Medicine 10/30/24 Janel Go RN [address] [place] [address] Sanitation OfficerFruit Raiser 10/19/24 documented as of this encounter
--- OUTSIDE RECORDS SUMMARY | 2025-01-19 15:29 | XMS_ITS | Encounter Summary ---
Author Organization [employer] Address 75 [facility] 7t [place] [address] Care Team Providers Care Tire Repair Mechanic Name Role Phone Janel Go RN Unavailable [phone] Ina Arroyo NP Primary Care Provider [phone] Reason for Visit * Reason Comments Gynecologic Exam Encounter Details Date Type Department Care Team (Latest Contact Info) Description 01/16/2025 2:15 PM EDT Procedure Visit [facility] MEDICINE [address] [place] [address] Kristina Cuellar CNM [address] [place] [address] Cervical cancer screening (Primary Dx); Screening examination [...] who presents for pap Here for yearly CHARGE GANG WEIGHER visit. Notes painful perianal lesion x 4 [...] Description 01/29/2025 1:30 PM EDT Clinical Support [facility] MEDICINE [address] [place] [address] 02/26/2025 1:30 PM EDT Office Visit [facility] MEDICINE [address] [place] [address] Ina Arroyo NP 230 [place] [address] 03/05/2025 10:00 AM EDT Office Visit [facility] OPTOMETRY [address] [place] [address] Terry, Aminta, OD 230 [place] [address] 05/16/2025 10:00 AM EDT Office Visit [facility] ADULT DENTAL 230 [place] [address] Kristan Briscoe Scheduled Orders Name Type Priority [...] / Unknown 01/16/2025 3:16 PM EDT Result [facility] Kristina Cuellar [facility] POINT OF CARE TEST ENTER/ EDIT [...] documented as of this encounter Care Teams Tire Repair Mechanic Relationship Specialty Start Date End Date Ina Arroyo NP [address] [place] [address] PCP - General Family Medicine 10/30/24 Janel Go RN [address] [place] [address] Manager GraphicNanny/Household Manager 10/19/24 documented as of this encounter
--- OUTSIDE RECORDS SUMMARY | 2025-01-19 15:29 | XMS_ITS | Encounter Summary ---
Author Organization [employer] Address 75 [facility] 7t [place] [address] Care Team Providers Care Work Order Sorting Clerk Name Role Phone Janel Go RN Unavailable [phone] Ina Arroyo NP Primary Care Provider [phone] Encounter Details Date Type Department Care Team ([facility] st Contact Info) Description 01/15/2025 Telephone [facility] MEDICINE 230 [place] [address] Ina Arroyo NP [address] [place] [address] Social History Tobacco Use Types Packs/Day Years [...] AM EDT TC placed to pt via [employer] health promotion specialist (ID#[id number]) to inform and advise of below PCP message. Pt does not need health promotion specialist. Submarine Element Coordinator advised pt of PCP message. Pt verbalized [...] Description 01/29/2025 1:30 PM EDT Clinical Support [facility] MEDICINE [address] [place] [address] 02/26/2025 1:30 PM EDT Office Visit [facility] MEDICINE [address] [place] [address] Ina Arroyo NP [address] [place] [address] 03/05/2025 10:00 AM EDT Office Visit [facility] OPTOMETRY [address] [place] [address] Terry, Aminta, OD [address] [place] [address] 05/16/2025 10:00 AM EDT Office Visit [facility] ADULT DENTAL [address] [place] [address] Kristan Briscoe documented as of this encounter Visit Diagnoses Not on filedocumented in this encounter Additional Health Concerns Assessment Noted Time PHQ-9 Depression Total Score: 0 09/22/20 24 1:10 PM EST documented as of this encounter Care Teams Work Order Sorting Clerk Relationship Specialty Start Date End Date Ina Arroyo NP [address] [place] [address] PCP - General Family Medicine 10/30/24 Janel Go, OPAL [address] [place] [phone] Custom Van ConverterRadiation Engineer 10/19/24 documented as of this encounter
--- OUTSIDE RECORDS SUMMARY | 2025-01-19 15:29 | XMS_ITS | Clinical Summary ---
Author Organization [facility] Address [address] [place] [address] Phone Care Team Providers Care Sanitation Truck Cleaner Name Role Phone Ina Arroyo JENNY Primary Care Provider [phone] Allergies No known active allergies Medications Hospital, [...] 01/09/2025 11:00 AM EDT Consult Orthopedic Surgery [facility] [address] [place] [phone] Tom Higgins DPM Left foot pain [...] Description 02/09/2025 1:30 PM EDT Evaluation Outpatient [address] [phone] Trey Butterfield, PT [address] [place] [address] Health Maintenance Due Date Last Done Comments [...] Months Insurance MEDICAID - [place] Care Teams Sanitation Truck Cleaner Relationship Specialty Start Date End Date Ina Arroyo NP [address] [phone] PCP - General 01/18/25
--- OUTSIDE RECORDS SUMMARY | 2025-01-19 15:29 | XMS_ITS | Encounter Summary ---
Author Organization [employer] Address 75 [facility] 7t [place] [address] Care Team Providers Care Spooler Rubber Strand Name Role Phone Janel Go RN Unavailable [phone] Ina Arroyo NP Primary Care Provider [phone] Encounter Details Date Type Department Care Team (Late st Contact Info) Description 01/19/2025 Orders Only GENERIC EXTERNAL DATA DEPARTMENT Provider, Generic External Data Social History Tobacco Use Types Packs/Day Years [...] t he electric, gas, oil or water [employer] threatened to shut off services in your [...] Description 01/29/2025 1:30 PM EDT Clinical Support [facility] [address] [place] [address] 02/26/2025 1:30 PM EDT Office Visit [facility] [address] [place] [address] Ina Arroyo, JENNY [address] [place] [address] 03/05/2025 10:00 AM EDT Office Visit [facility] OPTOMETRY [address] [place] [address] Terry, Mainta, OD [address] [place] [address] 05/16/2025 10:00 AM EDT Office Visit [facility] ADULT DENTAL [address] [place] [address] Kristan Briscoe documented as of this encounter Procedures Procedure Name Priority Date/Time Associated Diagnosis Comments URINALYSIS WITH REFLEX MICROSCOPIC Routine 01/19/2025 2:00 PM EDT documented in this encounter Results * (ABNORMAL) Urinalysis w/reflex microscopic (01/19/2025 2:00 PM EDT) Color Urine Yellow [facility] Appearance Urine Clear [facility] PH 5.5 5.0 - 9.0 [facility] Glucose Urine UA Negative Negative mg/dL [facility] Urine Blood Negative Negative [facility] Specific [place] - Urine >=1.030(H) 1.005 - 1.025 [facility] Urine Protein Trace Neg-Trace mg/dL [facility] Urine Ketones Negative Negative mg/dL [facility] Nitrite Urine Negative Negative [facility] Leukocyte Esterase Urine Negative Negative [facility] 01/19/2025 2:00 PM EDT 01/19/2025 2:27 PM EDT Narrative [facility] - 01/19/2025 2:32 PM EDT Urine, Clean Catch us Generic External Data Provider LAB URINE ORDERAB LES Final Result [facility] [address] [place] [address] [phone] documented in this encounter Visit Diagnoses Not on filedocumented in this encounter Additional Health Concerns Assessment Noted Time PHQ-9 Depression Total Score: 0 09/22/20 24 1:10 PM EST documented as of this encounter Care Teams Spooler Rubber Strand Relationship Specialty Start Date End Date Ina Arroyo NP [address] [place] [address] PCP - General Family Medicine 10/30/24 Janel Go RN [address] [place] [address] Ceramics TeacherRoll Edge Stitcher Hand 10/19/24 documented as of this encounter
[2025-01-19 15:44] LABS: Ferritin 262 ng/mL (10-250); TSH reflex Free T4 2.86 uIU/mL (0.32-4.0)
[2025-01-20 07:11] LABS: Syphilis Screen Nonreactive (Nonreactive)
[2025-01-20 07:28] LABS: HBc Num1 0.13 S/CO (0.00-0.79); HBsAGNum1 0.26 S/CO (0.00-0.99); HIV AB/AG Nonreactive (Nonreactive); HIV Num 1 0.06 S/CO (0.00-0.99); Hepatitis A Antibody IgM 0.11 Index (0-0.79); Hepatitis B Core Antibody Nonreactive (Nonreactive); Hepatitis B Surface Antigen Negative (Negative); ~HepC Num1 0.13 S/CO (0.00-0.79); ~Hepatitis A Antibody IgM Nonreactive (Nonreactive); ~Hepatitis B Surface Antibody NONREACTIVE (Nonreactive); ~Hepatitis C Antibody Nonreactive (Nonreactive)
[2025-01-22 21:29] LABS: Thyroid Peroxidase Antibodies <1 IU/mL (<9)
[2025-01-23 09:44] LABS: Mitochondrial Antibodies NEGATIVE (NEGATIVE)
[2025-01-23 21:47] LABS: Smooth Muscle Antibody <20 U (<20)
[2025-01-24 10:38] LABS: Anti Nuclear Antibody Screen NEGATIVE (NEGATIVE)
== END 2025-01-19 12:08 | disposition home or self-care (01) ==
LOC: HO.LAB 12:07
PROVIDERS: Advanced Practice Midwife; PCP Student in an Organized Health Care Education/Training Program; Visit Provider Nurse Practitioner
DX: R10.9 Unspecified abdominal pain (principal); R93.5 Abnormal findings on diagnostic imaging of other abdominal regions, including retroperitoneum; R74.01 Elevation of levels of liver transaminase levels; K21.9 Gastro-esophageal reflux disease without esophagitis; R09.A2 Foreign body sensation, throat; R13.10 Dysphagia, unspecified; R06.83 Snoring; R53.83 Other fatigue; R35.81 Nocturnal polyuria; R73.01 Impaired fasting glucose; Z98.51 Tubal ligation status; Z98.891 History of uterine scar from previous surgery; Z90.49 Acquired absence of other specified parts of digestive tract
CPT/HCPCS: 36415; 80053; 81003; 82728; 84443; 86015; 86038; 86376; 86381; 86695; 86696; 86704; 86706; 86709; 86780; 86803; 87340; 87389; 99212

== ENCOUNTER 2025-01-19 12:07 | Outpatient (AMB) | payer MEDICAID, SELFPAY ==
--- NOTE | 2025-01-19 12:09 | MHC.OFFVIS ---
Vital Signs 01/19/25 12:11 Height 5 ft 4 in Weight 231 lb 0.711 oz BMI 39.7 BP 144/84 H Blood Pressure Location Lt brachial Position Sitting Pulse 97 Intake Visit Reasons: Abdominal pain/GERD Intake Note: New patient in office today for abdominal pain and GERD. CC: Per patient after giving about 5 years ago she began to experience abdominal pain. She is having LUQ abdominal pain. Patient had a CT abd done on 10/12 here at [facility]. Ballet Professor Required: No Accompanied by: Self / Same As Patient Allergies No Known Drug Allergies Allergy (Verified 01/19/25 12:18) none red onion Allergy (Severe, Uncoded 12/13/24 01:25) Anaphylaxis HPI HPI Abdominal pain/GERD: Details: 44-year-old female here for initial evaluation of abdominal pain and GERD. She is referred by PMX Diabetes patient denies * SURGICAL HISTORY Cholecystectomy section Tubal ligation * ALLERGIES; NKDA Red onions as a food allergy * [facility] LABS: Laboratory Tests 12/13/24 01/08/25 01:21 09:10 WBC 7.2 Hgb 13.6 Hct 37.8 Plt Count 252 Estimated GFR > 60 Hemoglobin A1c % 6.5 H Total Bilirubin 0.3 AST 33 H ALT 43 H Alkaline Phosphatase [address] ABD AND PELVIS 10/12/24 FINDINGS: LUNG BASES: The visualized lung bases are unremarkable. LIVER, GALLBLADDER, AND BILIARY TREE: The liver is normal in size, shape, and diffusely hypoattenuated. No focal hepatic lesion or biliary ductal dilatation is present. The gallbladder has been surgically removed. PANCREAS: Unremarkable. SPLEEN: Unremarkable. ADRENAL GLANDS: Unremarkable. KIDNEYS AND URETERS: The kidneys are normal in size, shape, and attenuation. No hydronephrosis, hydroureter, or calculi seen. No perinephric stranding. BLADDER: Unremarkable. GASTROINTESTINAL TRACT: There is scattered stool seen in colon without distention. There is a fecal filled small bowel loop of small bowel in the left midabdomen with clumped up other small bowel loops. No mural thickening or fat stranding seen. There is distal fluid-filled small bowel loops There is no pneumothorax or biliary. No free air or free fluid. The stomach is nondistended. Appendix is not visualized. ABDOMINAL WALL: No significant hernia is appreciated. LYMPH NODES: Normal. VASCULAR: Unremarkable. PELVIC VISCERA: The uterus is anteverted. It and appears unremarkable. The ovaries are unremarkable. No adnexal mass or free fluid seen. OSSEOUS STRUCTURES: Unremarkable. CT/CT abdomen pelvis w IV con IMPRESSION: No acute intra-abdominal process seen. Mild sacralization of loop of small bowel in the mid-abdomen and left upper proximal jejunal loop loops in the left upper/ mid quadrant and distal fluid-filled small bowel loops question focal ileus from local inflammatory process. Recommend the small bowel follow-through if patient has persistent pain. Fatty liver with cholecystectomy. TODAY'S VISIT For years she has had trouble with left sides severe cramps and bloating that is asymmetric, this greatly worsened after her PCP tried to start Zepbound. She denies CIC, she does have intermittent diarrhea r/t fat content that was bad just after her mani, but has improved over time. She seems to have subclinical hypothyroid, as she had prior abnormal labs in [place] but an elevated TSH with normal T4 here. Her PCP stopped her levothyroxine, and she started gaining a lot of weight and losing her hair. She changed PCP's but so far they have not restarted her medication. Will get small bowel follow through, consider tx with either reglan or bentyl or both. Want to see the study first. She has an undetermined dx of NIDDM, will get 3 hr GTT to help her determine, also thyroid peroxidases for her TSH, she has transaminitis so getting a liver work up. FHX TIJERINA. She eats healthfully, no junk foods or candies. She snores very loudly at night and has daytime yawning and fatigue. BUT she also has nocturnal polyuria. / NIDDM??? getting UA. ROV 8 weeks. [facility] Surgical History (Updated 01/19/25 @ 13:24 by ARIAN Fuchs) History of tubal ligation History of section S/P cholecystectomy Social History Alcohol intake: never Review of Systems Const Reports fatigue, Denies fever(s), Denies night sweats, Denies poor appetite, Reports snoring, Reports weight gain and Denies weight loss Eyes Reports itchy eyes ENT Reports Normal hearing present, Denies dental pain, Denies dysphagia, Denies hearing loss, Denies mouth pain, Reports odynophagia, Reports sore throat, Denies throat swelling, Denies tongue swelling and Reports other (Dentition adequate) Card Reports no additional complaints Resp Reports snoring GI Details: Reports abdominal pain, Denies melena, Reports bloating, Denies hematochezia, Denies constipation, Denies GI cramping, Denies dysphagia, Denies excessive flatus, Denies early satiety, Reports heartburn, Denies diarrhea, Denies nausea, Reports odynophagia, Denies vomiting and Denies hematemesis Reports nocturia Musc Reports back pain Skin/Breast Reports change in hair, Reports dry skin, Reports alopecia, Denies pruritus, Denies lesions, Denies rash and Denies jaundice Neuro Reports Normal hearing present and Denies Abnormal speech present Endo Reports fatigue and Reports polyuria Aller/Immun Reports itchy eyes, Reports seasonal rhinorrhea, Denies throat swelling and Denies tongue swelling Physical Exam Vital Signs: Last Vital Signs Pulse 97 01/19/25 12:11 BP 144/84 H 01/19/25 12:11 BMI result Body Mass Index 39.7 Const General: cooperative, no acute distress, well developed and well groomed Nutritional Appearance: well nourished and obese (And centrally obese) morbidly obese Orientation/consciousness: oriented to person, oriented to place and oriented to time Limitations: No language barrier HEENT Head: Yes normocephalic and Yes atraumatic Eyes General: appearance normal, both eyes and all related structures Pupils: Equal, round and reactive pupils present Neck Neck: Yes normal visual inspection and Yes no lymphadenopathy Thyroid: diffusely enlarged Resp Effort & Inspection: normal respiratory effort and able to speak in complete sentences Auscultation: clear to auscultation bilaterally Cardio Rate: regular rate Rhythm: regular rhythm Heart sounds: Normal, physiologic split S2 sound present Peripheral pulses: radial pulses present and posterior tibial pulses present GI Inspection: Yes distended, Yes Abdominal panniculus present and Yes obesity Palpation (GI): Soft to palpation, Tenderness to palpation present (GI) in the LLQ and in the LUQ, no guarding, not rigid and No hepatosplenomegaly present Percussion: Yes tympanic to percussion Auscultation: Hypoactive bowel sounds present Rectal Exam - Female: deferred Abdomen image: 1. surgical scars 2. Skin General skin exam: no rashes or lesions noted, turgor normal, skin not dry, no jaundice, No spider nevi and no striae Rashes: no rashes Nails: normal Neuro General: oriented to person, oriented to place and oriented to time Cranial nerves: Yes Equal, round and reactive pupils present and Yes Normal hearing present Speech: No Abnormal speech present Extrem General: Yes normal to inspection, No clubbing, No cyanosis and No edema Psych Appearance: grossly normal and well kempt Mental Status: mental status grossly normal Speech and movement: Pressured speech present Affect: Animated affect present Attitude: cooperative Thought process: Normal thought process present and not confabulating Thought content: Normal thought content present Insight: Fair insight present (Psych) Judgement: Fair judgement present (Psych) Assessment & Plan Assessment & Plan (1) Left sided abdominal pain: Code(s): R10.9 - Unspecified abdominal pain Category: Medical (2) Abnormal CT of the abdomen: Comment: CT abdomen and pelvis 09/2024 Mild sacralization of loop of small bowel in the mid-abdomen and left upper proximal jejunal loop loops in the left upper/ mid quadrant and distal fluid-filled small bowel loops question focal ileus from local inflammatory process. Code(s): R93.5 - Abnormal findings on diagnostic imaging of other abdominal regions, including retroperitoneum Category: Medical (3) Elevated transaminase level: Code(s): R74.01 - Elevation of levels of liver transaminase levels Category: Medical (4) GERD (gastroesophageal reflux disease): Code(s): K21.9 - Gastro-esophageal reflux disease without esophagitis Category: Medical (5) Globus sensation: Code(s): R09.A2 - Foreign body sensation, throat Category: Medical (6) Odynophagia: Code(s): R13.10 - Dysphagia, unspecified Category: Medical (7) Snoring: Code(s): R06.83 - Snoring Category: Medical (8) Fatigue: Code(s): R53.83 - Other fatigue Category: Medical (9) Nocturnal polyuria: Code(s): R35.81 - Nocturnal polyuria Category: Medical (10) Elevated fasting glucose: Code(s): R73.01 - Impaired fasting glucose Category: Medical Plan For years she has had trouble with left sides severe cramps and bloating that is asymmetric, this greatly worsened after her PCP tried to start Zepbound. She denies CIC, she does have intermittent diarrhea r/t fat content that was bad just after her mani, but has improved over time. She seems to have subclinical hypothyroid, as she had prior abnormal labs in [place] but an elevated TSH with normal T4 here. Her PCP stopped her levothyroxine, and she started gaining a lot of weight and losing her hair. She changed PCP's but so far they have not restarted her medication. Will get small bowel follow through, consider tx with either reglan or bentyl or both. Want to see the study first. She has an undetermined dx of NIDDM, will get 3 hr GTT to help her determine, also thyroid peroxidases for her TSH, she has transaminitis so getting a liver work up. FHX TIJERINA. She eats healthfully, no junk foods or candies. She snores very loudly at night and has daytime yawning and fatigue. BUT she also has nocturnal polyuria. / NIDDM??? getting UA. ROV 8 weeks. Orders: Orders [place] upper GI small bowel Today R10.9 - Unspecified abdominal pain, R93.5 - Abnormal findings on diagnostic imaging of other abdominal regions, including retroperitoneum Thyroid Peroxidase Antibodies Today K21.9 - Gastro-esophageal reflux disease without esophagitis, R09.A2 - Foreign body sensation, throat, R74.01 - Elevation of levels of liver transaminase levels, Z98.51 - Tubal ligation status, Z98.891 - History of uterine scar from previous surgery Ferritin Today K21.9 - Gastro-esophageal reflux disease without esophagitis, R09.A2 - Foreign body sensation, throat, R74.01 - Elevation of levels of liver transaminase levels, Z98.51 - Tubal ligation status, Z98.891 - History of uterine scar from previous surgery Mitochondrial Antibody Today K21.9 - Gastro-esophageal reflux disease without esophagitis, R09.A2 - Foreign body sensation, throat, R74.01 - Elevation of levels of liver transaminase levels, Z98.51 - Tubal ligation status, Z98.891 - History of uterine scar from previous surgery Smooth Muscle Antibody Today K21.9 - Gastro-esophageal reflux disease without esophagitis, R09.A2 - Foreign body sensation, throat, R74.01 - Elevation of levels of liver transaminase levels, Z98.51 - Tubal ligation status, Z98.891 - History of uterine scar from previous surgery RAFI Reflex Titer and Pattern Today K21.9 - Gastro-esophageal reflux disease without esophagitis, R09.A2 - Foreign body sensation, throat, R74.01 - Elevation of levels of liver transaminase levels, Z98.51 - Tubal ligation status, Z98.891 - History of uterine scar from previous surgery HIV Ab/Ag Today K21.9 - Gastro-esophageal reflux disease without esophagitis, R09.A2 - Foreign body sensation, throat, R74.01 - Elevation of levels of liver transaminase levels, Z98.51 - Tubal ligation status, Z98.891 - History of uterine scar from previous surgery US abdomen comp w elastography Today K21.9 - Gastro-esophageal reflux disease without esophagitis, R09.A2 - Foreign body sensation, throat, R74.01 - Elevation of levels of liver transaminase levels, Z98.51 - Tubal ligation status, Z98.891 - History of uterine scar from previous surgery UA CC w/rflx Micro + Cult Today R35.81 - Nocturnal polyuria TSH reflex Free T4 Today K21.9 - Gastro-esophageal reflux disease without esophagitis, R09.A2 - Foreign body sensation, throat, R74.01 - Elevation of levels of liver transaminase levels, Z98.51 - Tubal ligation status, Z98.891 - History of uterine scar from previous surgery Comprehensive Met. Panel Today K21.9 - Gastro-esophageal reflux disease without esophagitis, R09.A2 - Foreign body sensation, throat, R74.01 - Elevation of levels of liver transaminase levels, Z98.51 - Tubal ligation status, Z98.891 - History of uterine scar from previous surgery Hepatitis A,B,C Profile Today K21.9 - Gastro-esophageal reflux disease without esophagitis, R09.A2 - Foreign body sensation, throat, R74.01 - Elevation of levels of liver transaminase levels, Z98.51 - Tubal ligation status, Z98.891 - History of uterine scar from previous surgery RT PSG in-lab sleep study Today R06.83 - Snoring, R35.81 - Nocturnal polyuria, R53.83 - Other fatigue Glucose Tolerance 3 Hour Today R73.01 - Impaired fasting glucose Medications: Discontinued loperamide administer after each loose stool until symptoms controlled; do not exceed 8 mg per 24 hrs Discontinued Reason: Doctor's Order 2 mg PO Q4H PRN 14 caps 0RF loose stool Coding Level of Care Code New Pt Level 3 (11585) Diagnoses Left sided abdominal pain R10.[address] of the abdomen R93.5 Elevated transaminase level R74.01 GERD (gastroesophageal reflux disease) K21.9 Globus sensation R09.A2 Odynophagia R13.10 Snoring R06.83 Fatigue R53.83 Nocturnal polyuria R35.81 Elevated fasting glucose R73.01
[2025-01-19 12:11] VITALS: BP 144/84; PULSE 97; BMI 39.7
--- OUTSIDE RECORDS SUMMARY | 2025-01-19 14:05 | XMS_ITS | Encounter Summary ---
Author Organization [employer] Address [address] [facility] [address] 7[address] [place] [address] Care Team Providers Care Supermarket Manager Name Role Phone Janel Go RN Unavailable [phone] Ina Arroyo NP Primary Care Provider [phone] Encounter Details Date Type Department Care Team ([facility] st Contact Info) Description 01/15/[address] [facility] MEDICINE [address] [place] [address] Ina Arroyo NP [address] [place] [address] Social History Tobacco Use Types Packs/Day Years [...] AM EDT TC placed to pt via [employer] senior game advisor (ID#[id number]) to inform and advise of below PCP message. Pt does not need senior game advisor. Public Health Professor advised pt of PCP message. Pt verbalized [...] 1:30 PM EDT Clinical Support [facility] [address] [place] [address] 02/26/2025 1:30 PM EDT Office Visit [facility] [address] [place] [address] Ina Arroyo NP [address] [place] [address] 03/05/2025 10:00 AM EDT Office Visit [facility] OPTOMETRY [address] [place] [address] Terry, Aminta, OD [address] [place] [address] 05/16/2025 10:00 AM EDT Office Visit [facility] ADULT DENTAL [address] [place] [address] Kristan Briscoe documented as of this encounter Visit Diagnoses Not on filedocumented in this encounter Additional Health Concerns Assessment Noted Time PHQ-9 Depression Total Score: 0 09/22/20 24 1:10 PM EST documented as of this encounter Care Teams Supermarket Manager Relationship Specialty Start Date End Date Ina Arroyo NP [address] [place] [address] PCP - General Family Medicine 10/30/24 Janel Go, OPAL [address] [place] [id number] Tapping Machine OperatorGrill Prep Cook 10/19/24 documented as of this encounter
--- OUTSIDE RECORDS SUMMARY | 2025-01-19 14:05 | XMS_ITS | Encounter Summary ---
Author Organization [employer] Address [address] [facility] 7t [place] [address] Care Team Providers Care Hand Cell Tuber Name Role Phone Janel Go RN Unavailable [phone] Ina Arroyo NP Primary Care Provider [phone] Reason for Visit * Reason Comments Care Coordination Appt reminder Encounter Details Date Type Department Care Team (Latest Contact Info) Description 01/18/2025 Patient Outreach [facility]INE [address] [place] [address] Ina Arroyo NP [address] [place] [address] Care Coordination (Appt reminder) Social History Tobacco [...] encounter Progress Notes * Nahed Engel - 01/18/2025 11:26 AM EDT CHW Nahed Engel placed call to patient, no answer at this time LVM with details of appt [facility] on 01/19/25 at 12:00pm. documented in this encounter Plan of Treatment Upcoming Encounters Date Type Department Care Team (Late st Contact Info) Description 01/29/2025 1:30 PM EDT Clinical Support [facility] [address] [place] [address] 02/26/2025 1:30 PM EDT Office Visit [facility] MED[facility]INE [address] [place] [address] Ina Arroyo NP [address] [place] [address] 03/05/2025 10:00 AM EDT Office Visit [facility] OPTOMETRY [address] [place] [address] Aminta Stewart, OD [address] [place] [address] 05/16/2025 10:00 AM EDT Office Visit [facility] ADULT DENTAL [address] [place] [address] Kristan Briscoe documented as of this encounter Visit Diagnoses Not on filedocumented in this encounter Additional Health Concerns Assessment Noted Time PHQ-9 Depression Total Score: 0 09/22/20 24 1:10 PM EST documented as of this encounter Care Teams Hand Cell Tuber Relationship Specialty Start Date End Date Ina Arroyo NP [address] [place] [address] PCP - General Family Medicine 10/30/24 Janel Go RN [address] [place] [address] Instant Print OperatorCommissioner Of Relocation Services 10/19/24 documented as of this encounter
--- OUTSIDE RECORDS SUMMARY | 2025-01-19 14:05 | XMS_ITS | Clinical Summary ---
Author Organization [facility] Address [address] [place] [address] Phone Care Team Providers Care Supervisor Gluing Name Role Phone Ina Arroyo JENNY Primary Care Provider [phone] Allergies No known active allergies Medications Hospital, [...] 01/09/2025 11:00 AM EDT Consult Orthopedic Surgery [facility] [address] [place] [phone] Tom Higgins DPM Left foot pain [...] 01/09/2025 10:57 AM EDT Plan of Treatment Upcoming Encounters Date Type Department Care Team (Late st Contact Info) Description 02/09/2025 1:30 PM EDT Evaluation Outpatient [address] [phone] Trey Butterfield, PT [address] [place] [address] Health Maintenance Due Date Last Done Comments [...] Months Insurance MEDICAID - [place] Care Teams Supervisor Gluing Relationship Specialty Start Date End Date Ina Arroyo NP [address] [phone] PCP - General 01/18/25
--- OUTSIDE RECORDS SUMMARY | 2025-01-19 14:05 | XMS_ITS | Encounter Summary ---
Author Organization [employer] Address [address] [facility] 7t [place] [address] Care Team Providers Care Dynamite Reclaimer Name Role Phone Janel Go RN Unavailable [phone] Ina Arroyo NP Primary Care Provider [phone] Reason for Visit * Reason Comments Gynecologic Exam Encounter Details Date Type Department Care Team (Latest Contact Info) Description 01/16/2025 2:15 PM EDT Procedure Visit [facility] [address] [place] [address] Kristina Cuellar CNM [address] [place] [address] Cervical cancer screening (Primary Dx); Screening examination [...] who presents for pap Here for yearly OVER THE RO[address] DRIVER visit. Notes painful perianal lesion x 4 [...] Description 01/29/2025 1:30 PM EDT Clinical Support [facility] [address] [place] [address] 02/26/2025 1:30 PM EDT Office Visit [facility] [address] [place] [address] Ina Arroyo NP [address] [place] [address] 03/05/2025 10:00 AM EDT Office Visit [facility] OPTOMETRY [address] [place] [address] Terry, Aminta, OD [address] [place] [address] 05/16/2025 10:00 AM EDT Office Visit [facility] ADULT DENTAL [address] [place] [address] Kristan Briscoe Scheduled Orders Name Type Priority [...] / Unknown 01/16/2025 3:16 PM EDT Result [facility] Kristina Cuellar [facility] POINT OF CARE TEST ENTER/ EDIT ORDERABLES [...] documented as of this encounter Care Teams Dynamite Reclaimer Relationship Specialty Start Date End Date Ina Arroyo NP [address] [place] [address] PCP - General Family Medicine 10/30/24 Janel Go RN [address] [place] [id number] College Basketball CoachMedium Cycle Salesperson 10/19/24 documented as of this encounter
--- OUTSIDE RECORDS SUMMARY | 2025-01-19 14:05 | XMS_ITS | Encounter Summary ---
Author Organization [employer] Address [address] [facility] [address]t [place] [address] Care Team Providers Care Investment Trader Name Role Phone Isatu Sloan MD Primary Care Pro vider Janel oG RN Unavailable [phone] Ina Arroyo NP Primary Care Provider [phone] Encounter Details Date Type Department Care Team (Late st Contact Info) Description 09/26/2024 Orders Only [facility] MED[facility]INE [address] [place] [address] Vanita Silver MD [address] [place] [address] Social History Tobacco Use Types Packs/Day Years [...] Description 01/29/2025 1:30 PM EDT Clinical Support [facility] [address] [place] [address] 02/26/2025 1:30 PM EDT Office Visit [facility] MED[facility]INE [address] [place] [address] Ina Arroyo, COMMUNITY SERVICE TECHNICIAN [address] [place] [address] 03/05/2025 10:00 AM EDT Office Visit [facility] OPTOMETRY [address] [place] [address] Terry, Aminta, OD [address] [place] [address] 05/16/2025 10:00 AM EDT Office Visit [facility] ADULT DENTAL [address] [place] [address] Kristan Briscoe documented as of this encounter Visit Diagnoses Not on filedocumented in this encounter Additional Health Concerns Assessment Noted Time PHQ-9 Depression Total Score: 0 09/22/20 24 1:10 PM EST documented as of this encounter Care Teams Investment Trader Relationship Specialty Start Date End Date Isatu Sloan MD [address] [place] [address] PCP - General Internal Medicine 10/01/23 10/29/24 Ina Arroyo NP [address] [place] [address] PCP - General Family Medicine 10/30/24 Janel Go RN [address] [place] [address] Evening SitterHuman Resources Receptionist 10/19/24 documented as of this encounter
--- OUTSIDE RECORDS SUMMARY | 2025-01-19 14:05 | XMS_ITS | Clinical Summary ---
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 Generalized [...] her sister completed SI. Family relocated from [place] to [place] as part of the transition process about six months ago. Patient feels very overwhelmed and frustrated due to having so many stressors (taking care of her mom, son, she has no transportation). PLAN: (check all that apply) Continue with current services (defined as services in the past 12 months) . Carlos was referred to [facility] on 10/04/23. She completed intake and scheduled [...] her sister completed SI. Family relocated from [place] to [place] as part of the transition process. PLAN: [...] her sister completed SI. Family relocated from [place] to [place] as part of the transition process. PLAN: [...] her sister completed SI. Family relocated from [place] to [place] as part of the transition process about six months ago. Patient feels very overwhelmed and frustrated due to having so many stressors (taking care of her mom, son, she has no transportation). PLAN: (check all that apply) Continue with current services (defined as services in the past 12 months) . Carlos was referred to [facility] on 10/04/23. She completed intake and scheduled [...] her sister completed SI. Family relocated from [place] to [place] as part of the transition process. PLAN: (check all that apply) New/Additional Services needed PCP management On-site non-integrated services Off-site services for BH, Behavioral Health Integration Plan Internal Follow up with [facility], External OP BH therapy referral , Patient Self Plan Patient to utilize skills provided in intervention , Patient [facility], Patient to engage in [...] her sister completed SI. Family relocated from [place] to [place] as part of the transition process. PLAN: (check all that apply) New/Additional Services needed PCP management On-site non-integrated services Off-site services for BH, Behavioral Health Integration Plan Internal Follow up with [facility], External OP BH therapy referral , Patient Self Plan Patient to utilize skills provided in intervention , Patient to [facility] to [facility] team as needed, Patient to engage in OP BH therapy , and Patient to reach out to [facility] as needed. Resolved Problems Problem Noted Date Diagnosed Date Resolved Date Obesity (BMI 30-39.9) 02/27/20242024 Assessment & Plan (10/24/2024 11:48 AM EST): Referred to [facility] weight management center Elevated BP without diagnosis of hypertension 02/15/20 24 12/22/2024 Assessment & Plan (02/27/2024 9:03 PM EDT): Monitor, referral to cardiology given episode of substernal chest pain Encounters Date Type Department Care Team Description 01/18/2025 Patient Outreach [address] [address] Ina Arroyo NP Care Coordination (Appt reminder) 01/16/2025 2:15 PM EDT Procedure Visit [address] [address] Kristina Cuellar CNM Cervical cancer screening (Primary Dx); Screening examination for venereal disease; Genital ulcer, female; Vaginal odor 01/16/[address] [address] Isatu Sloan MD 01/16/2025 Travel 01/15/[address] [address] Ina Arroyo NP 01/12/2025 1:00 PM EDT Office Visit [address] [address] Ina Arroyo NP Encounter to establish care (Primary Dx); Chronic low back pain without sciatica, unspecified back pain laterality; Neck pain; Subclinical hypothyroidism; Class 3 severe obesity due to excess calories without serious comorbidity with body mass index (BMI) of 40.0 to 44.9 in adult ([facility]); Dietary counseling; Exercise counseling; Primary hypertension; Obesity (BMI 30-39.9); Pre-diabetes; Hypertension, unspecified type 01/12/2025 Travel 01/11/2025 Patient Outreach [address] [address] Ina Arroyo NP Care Coordination (Appt reminder) 01/10/[address] [address] Ina Arroyo NP Care Management (C3CM- f/u call) 01/08/2025 Orders Only [address] [address] María Stephens CNP 01/08/2025 Patient Outreach [address] [address] Ina Arroyo NP Care Coordination (Appt reminder) 01/05/2025 Patient Outreach [facility] [address] [place] [address] Ina Arroyo NP Pre-visit Planning (SDOH was already completed. ) 01/04/[address] [address] Angel Luis Silva MA chartprep 12/29/2024 Population Health Risk Score Community [facility] ([facility]) Department [address] [place] [phone] Provider, Population Health Generic 12/29/2024 Patient Outreach [address] [address] Ina Arroyo NP Care Coordination (SDOH outreach) 12/28/[address] [address] Ina Arroyo NP Care Management (C3CM- f/u call) 12/22/2024 11:15 AM EST Office Visit [address] [address] María Stephens CNP Palpitations (Primary Dx); Hypertension, unspecified type; Unexplained weight gain; Shortness of breath 12/22/2024 10:00 AM EST Clinical Support [address] [address] Rhina Herrera, RN Elevated BP without diagnosis of hypertension 12/22/2024 Travel 12/21/2024 Patient Outreach [address] [address] Ina Arroyo NP Care Coordination (CM/CHW f/u) 12/21/[address] [address] Isatu Sloan MD 12/18/2024 Patient Outreach [address] [address] Ina Arroyo NP Care Coordination (Appt reminder) 12/15/[address] [address] Ina Arroyo NP Care Management (C3CM- f/u call) 12/13/2024 Orders Only [facility] External Provider, [facility] 12/01/[address] [address] Janel Go RN 11/20/[address] [address] Janel Go RN Care Management (C3CM- f/u call) 11/13/2024 11:00 AM EST Office Visit [facility] ADULT DENTAL [address] [place] [phone] Kristan Briscoe Dental calculus (Primary Dx); Dental plaque; Encounter for dental examination; Tooth sensitivity 11/10/2024 Patient Outreach [address] [address] Ina Arroyo NP Care Coordination (Appt reminder) 11/09/[address] [address] Janel Go RN 11/09/[address] [address] Janel Go RN Care Management (C3CM- f/u call) 11/03/2024 Patient Outreach [address] [address] Ina Arroyo NP Care Coordination (Appt reminder) 10/30/[address] [address] Janel Go RN Care Management (C3CM- f/u call) 10/30/2024 Travel 10/30/2024 Patient Outreach [address] [address] Isatu Sloan MD Care Coordination (Appt reminder) 10/24/2024 11:00 AM EST Office Visit [address] [address] Alec Barber MD Generalized abdominal pain (Primary Dx); Gastroesophageal reflux disease with esophagitis, unspecified whether hemorrhage; Obesity (BMI 30-39.9); Decreased visual acuity; Chronic heel pain, left 10/24/[address] [address] Alec Barber MD 10/24/2024 Telephone [facility] MEDICINE [address] [place] [address] Alec Barber MD 10/24/2024 Telephone [facility] MEDICINE [address] [place] [address] Isatu Sloan MD 10/24/2024 Travel 10/23/2024 Patient Outreach [facility] MED[facility] [address], [place] [address] Isatu Sloan MD Care Coordination (SDOH/appt reminder) 10/23/2024 Travel from Last 3 Months Immunizations Name Administration [...] Description 01/29/2025 1:30 PM EDT Clinical Support [facility] MEDICINE [address] [place] [phone] 02/26/2025 1:30 PM EDT Office Visit [facility] [address] [place] [address] Ina Arroyo NP [address] [place] [address] 03/05/2025 10:00 AM EDT Office Visit [facility] OPTOMETRY [address] [place] [address] Aminta Stewart, OD [address] [place] [address] 05/16/2025 10:00 AM EDT Office Visit [facility] ADULT DENTAL [address] [place] [address] Jozef Briscoesa Health Maintenance Due Date Last [...] Free T4 4.12(H) 0.32 - 4.0 uIU/mL [facility] Blood Venous blood specimen / Unknown 01/08/2025 9:10 AM EDT 01/08/2025 11:36 AM EDT [facility] LAB BLOOD ORDERABLES Saima l Result Performing Organization Address City/[facility]/ZIP Co de Phone Number [facility] [address] [place] [phone] * T4, Free (01/08/2025 9:10 AM EDT) Free T4 (Free Thyroxine) 0.85 0.71 - 1.85 ng/dL [facility] 01/08/2025 9:10 AM EDT 01/08/2025 11:36 AM EDT [facility] LAB BLOOD ORDERABLES Saima l Result Performing Organization Address [facility] Co de Phone Number [facility] [address] [place] [phone] * (ABNORMAL) Hemoglobin A1c (01/08/2025 9:10 AM EDT) Hemoglobin A1c 6.5(H) <6.0 % [facility] Comment:Hemoglobin A1C Refer ence Range Adults: 4.8 - 6.0 % Non diabetic: < 6.0 % Goal: < 7.0 %Additional Action Suggested: > 8.0 %Note: Hemoglobin A1c results are invalid for patients with abnormal amounts of HbF. Blood transfusions may impact the HbA1c concentration in the patient sample. Estimated Average Glucose 140 mg/dL [facility] Comment:eAG = Estimated ave rage glucose which is %A1C expressed asaverage glucose, using the formula of the I5A-ScmasxcNmsgfgc Glucose study (ADAG), Diabetes Care, Vol.31,#8,May. 2007 Blood Venous blood specimen / Unknown 01/08/2025 9:10 AM EDT 01/08/2025 11:36 AM EDT [facility] LAB BLOOD ORDERABLES Saima l Result Performing Organization Address [facility] Co de Phone Number [facility] [address] [place] [address] [phone] * (ABNORMAL) Basic Metabolic Panel (01/08/2025 9:10 AM EDT) Sodium 139 135 - 145 mmol/L [facility] Potassium 3.3 3.3 - 5.1 mmol/L [facility] Chloride 107 96 - 108 mmol/L [facility] Carbon Dioxide 23 22 - 29 mmol/L [facility] Anion Gap 12 12 - 20 [facility] Urea Nitrogen (BUN) 9 9 - 16 mg/dL [facility] Creatinine, Serum 0.80 0.5 - 1.4 mg/dL [facility] Estimated Glomerular Filt Rate >60 [facility] Comment:Chronic Kidney Disea se: Estimated GFR < 60 mL/min/[id number] Kidney Disease: Estimated GFR < 15 mL/min/1.73m2 Glucose 204(H) 60 - 115 mg/dL [facility] Calcium 9.1 8.4 - 10.2 mg/dL [facility] Blood Venous blood specimen / Unknown 01/08/2025 9:10 AM EDT 01/08/2025 11:36 AM EDT Result [facility] LAB BLOOD ORDERABLES Siama l Result Performing Organization Address [facility] Co de Phone Number [facility] [address] [place] [address] [phone] * ECG 12 lead (12/22/2024 12:34 PM EST) Narrative María Stephens [facility] - 12/22/2024 12:34 PM EST NSR, Rate: 87 bpm, no ST elevation or depression, normal ECG Result [facility] ECG ORDERABLES Final Res ult * High Sensitivity Troponin I (12/13/2024 8:35 AM EST) Only the most recent of3 resultswithin the time period is included. TROPONIN I HIGH SENSITIVITY 8.4 <3.5 - 17.0 ng/L [facility] Comment:The Alaniz high sens itivity Troponin-I results should beused in conjunction with other diagnostic information suchas ECG, clinical observations and information, and patientsymptoms to aid in the diagnosis of [place]. 12/13/2024 8:35 AM EST 12/13/2024 8:39 AM EST us Generic External Data Provider LAB BLOOD ORDERAB LES Final Result Performing Organization Address [facility]/ZIP Co de Phone Number [facility] [address] [place] [phone] * SARS-CoV-2 RNA, Influenza A/B, and RSV RNA, Ql NAAT (12/13/2024 8:35 AM EST) Pathologist [facility] Influenza A PCR NEGATIVE Negative [facility] Influenza B PCR NEGATIVE Negative [facility] Resp Syncy Virus RNA Qual PCR NEGATIVE Negative [facility] SARS COV2 PCR NEGATIVE Negative [facility] Comment:All test results mus t [...] use by authorized laboratories.Testing performed on the [employer] GeneXpert utilizingreal-time RT-PCR.All SARS CoV2 and positive influenza A/B results arereported to [facility]. 12/13/2024 8:35 AM EST 12/13/2024 8:39 AM EST us Generic External Data Provider LAB MICROBIOLOGY - GENERAL ORDERABLES Final Result Performing Organization Address City/[facility]/ZIP Co de Phone Number [facility] [address] [place] [phone] * XR Chest 1 View (12/13/2024 2:16 AM EST) Anatomical Region Laterality Modality Chest Radiographic No ging 12/13/2024 2:16 AM EST Narrative 12/13/2024 2:17 AM EST ? [facility] ?[address] ?[place] [address] ?XRay Report ? Signed ? Patient: Bhatt Monlezun,Danyela ?MR ?? #: [id number] ? : 1980 ?Acct:[id number] ? Age/Sex: 44 / F ?ADM Date: 12/13/24 ? Loc: HO.ED ? Attending Dr: ? Ordering Physician: Generic ED Physician ?? Date of Service: 12/13/24 ?? Procedure(s): XR chest 1V ?? Accession Number(s): [id number] ? cc: Generic ED Physician; Isatu Sloan [...] ? DD/ 5 ? TD/TT: 12/13/[address] ? Caddy: ? Procedure Note Adelfo, Image - 12/13/[address] [address] XRay Report Signed Patient: Sundar Alegria #: [id number] : 1980Acct:[id number] Age/Sex: 44 / FADM Date: 12/13/24 Loc: HO.ED Attending Dr: Ordering Physician: Generic ED Physician Date of Service: 12/13/24 Procedure(s): XR chest 1V Accession Number(s): [id number] cc: Generic ED Physician; Isaut Sloan MD CLINICAL HISTORY: cp 1 view [...] in OV> 12/13/24216 DD/ 5 TD/TT: 12/13/24[address] Caddy: [facility] External Provider IMG XR PROCEDURES Edited Result - Final * (ABNORMAL) CBC auto differential (12/13/2024 1:21 AM EST) White Blood Count 7.2 4.8 - 10.8 X10*3/uL [facility] Red Blood Count 4.30 4.20 - 5.50 X10*6/uL [facility] Hemoglobin 13.6 12.0 - 16.0 g/dl [facility] Hematocrit 37.8 37.0 - 47.0 % [facility] Mean Corpuscular Volume 87.9 80.0 - 98.0 fL [facility] Mean Corpuscular Hemoglobin 31.6 27.0 - 33.0 pg [facility] Mean Corpuscular HGB Conc 36.0(H) 31.0 - 35.0 g/dl [facility] Red Cell Distribution Width 12.4 11.0 - 16.0 % [facility] Platelet Count 252 160 - 400 X10*3/uL [facility] Mean Platelet Volume 9.1(L) 9.4 - 12.3 fL [facility] Neutrophils Percent Auto 55.2 45 - 73 % [facility] Imm Gran Pct Auto 0.3 0.0 - 0.4 % [facility] Lymphocytes Percent Auto 35.1 20 - 40 % [facility] Monocytes Percent Auto 5.8 2 - 11 % [facility] Eosinophils Percent Auto 3.2 0 - 4 % [facility] Basophils Percent Auto 0.4 0 - 2 % [facility] NRBC Pct Auto 0.0 0.0 - 0.2 /100WBC [facility] Neutrophils Absolute Auto 4.0 2.0 - 8.3 x10*3/uL [facility] Imm Gran Abs Auto 0.02 0.00 - 0.03 X10*3/uL [facility] Lymphocytes Absolute Auto 2.5 1.2 - 4.9 X10*3/uL [facility] Monocytes Absolute Auto 0.4 0.1 - 1.2 X10*3/uL [facility] Eosinophils Absolute Auto 0.2 0.0 - 0.4 X10*3/uL [facility] Basophils Absolute Auto 0.0 0.0 - 0.2 X10*3/uL [facility] NRBC Abs Auto 0.000 0.0 - 0.012 X10*3/uL [facility] 12/13/2024 1:21 AM EST 12/13/2024 1:24 AM EST us Generic External Data Provider LAB BLOOD ORDERAB LES Final Result [facility] [address] [place] [phone] * (ABNORMAL) Comprehensive Metabolic Panel (12/13/2024 1:21 AM EST) Sodium 140 135 - 145 mmol/L [facility] Potassium 3.4 3.3 - 5.1 mmol/L [facility] Chloride 108 96 - 108 mmol/L [facility] Carbon Dioxide 24 22 - 29 mmol/L [facility] Anion Gap 11(L) 12 - 20 [facility] Urea Nitrogen (BUN) 12 9 - 16 mg/dL [facility] Creatinine, Serum 0.79 0.5 - 1.4 mg/dL [facility] Creatinine Clr Calc Pharmacy 106.8 [facility] Comment:Provided height and weight: 162.56 cm,104.1 kg.eGFR (calculated from the MDRD study equation) and eCrCl(calculated from the Cockcroft-Gault equation) are based ondifferent parameters and may not yield comparable results.If eCrCl result is absurd, please check patient'sheight/weight. Estimated Glomerular Filt Rate >60 [facility] Comment:Chronic Kidney Disea se: Estimated GFR < 60 mL/min/1.99z5Otnwtu Kidney Disease: Estimated GFR < 15 mL/min/1.73m2 Glucose 147(H) 60 - 115 mg/dL [facility] Calcium 9.0 8.4 - 10.2 mg/dL [facility] Bilirubin, Total 0.3 0.0 - 1.0 mg/dL [facility] Aspartate Amino Transferase 33(H) 5 - 31 U/L [facility] Alanine Aminotransferase 43(H) 0 - 31 U/L [facility] Total Protein 7.7 6.5 - 8.0 g/dL [facility] Albumin Level 4.1 3.5 - 5.0 g/dL [facility] Alkaline Phosphatase 65 39 - 117 U/L [facility] 12/13/2024 1:21 AM EST 12/13/2024 1:24 AM EST us Generic External Data Provider LAB BLOOD ORDERAB LES Final Result [facility] [address] [place], [place] [phone] * BI Mammogram Screening Tomosynthesis Bilateral (11/05/2023 2:30 PM EST) Anatomical Region Laterality Modality Breast Bilateral Mammography 11/05/2023 2:30 PM EST Narrative 11/20/2023 12:18 PM EST ? [facility] [place] [facility] ? [address] ?[place] [address] ? Mammography Report ? Signed ? Patient: Bhatt Monlezun,Danyela ?MR ?? #: [id number] ? : 1980 ?Acct:[id number] ? Age/Sex: 43 / F ?ADM Date: 11/05/23 ? Loc: HO.MAMMO ? Attending Dr: Isatu Brandt MD ? Ordering Physician: Isatu Sloan MD ?Results: 0Incomplete: Needs Additional Imaging ?? Evaluation ? Date of Service: 11/05/23 ?Follow Up: Additional Imagi ?? ng ? Procedure(s): MM tomosynthesis screening BI ?? Accession Number(s): [id number] ? cc: Isatu Sloan MD ? EXAMINATION: [...] 1215 ? DD/ 1430 ? TD/TT: ? Caddy: ? Procedure Note Adelfo, Francia - 11/20/2023 [facility] [address] [place], [place] [address] Mammography Report Signed Patient: Sundar Alegria #: [id number] : 1980Acct:[id number] Age/Sex: 43 / FADM Date: 11/05/23 Loc: JUSTO Attending Dr: Isatu Brandt MD Ordering Physician: Isatu Sloan MD Results: 0Incomplete: Needs Additional Imaging Evaluation Date of Service: 11/05/23Follow Up: Additional Imagi ng Procedure(s): MM tomosynthesis screening BI Accession Number(s): [id number] cc: Isatu Sloan MD EXAMINATION: MM SCREENING [...] in OV> 11/20/23 1215 DD/ 1430 TD/TT: Caddy: us Isatu Brandt MD [facility] PROCEDURES Edited Result - Final * Hepatitis C Antibody with Reflex to HCV, RNA, Quantitative, Real-Time PCR (11/04/2023 9:45 AM EST) Hepatitis C Antibody Nonreactive Nonreactive [facility] Comment:Antibodies to HCV no t detected; does not exclude early acuteHCV infection. Blood Venous blood specimen / Unknown 11/04/2023 9:45 AM EST 11/04/2023 12:00 PM EST us Isatu Brandt MD LAB BLOOD ORDERAB LES Final Result Performing Organization Address [facility] Co de Phone Number [facility] [address] [place] [address] [phone] * HIV-1/2 Antigen and Antibodies, Fourth Generation, with Reflexes (11/04/2023 9:45 AM EST) HIV AB/AG Nonreactive Nonreactive [facility] Comment:HIV-1 p24 Ag and/or HIV-1/HIV-2 Ab not detected.A test result that is nonreactive does not exclude thepossibility of exposure to or infection with HIV-1 and/orHIV-2. Nonreactive results in this assay for individualswith prior exposure to HIV-1 and/or HIV-2 may be due toantigen and antibody levels that are below the limit ofdetection of this assay.The ScaleMP HIV Ag/Ab Combo assay result andsupplemental assay results should be interpreted inconjunction with the patient's clinical presentation,history and other laboratory results. If the results areinconsistent with clinical evidence, additional testing issuggested to confirm the result. Blood Venous blood specimen / Unknown 11/04/2023 9:45 AM EST 11/04/2023 12:00 PM EST us Isatu Brandt MD LAB BLOOD ORDERAB LES Final Result Performing Organization Address [facility]/ZIP Co de Phone Number [facility] [address] [place] [phone] * Lipid Panel, Standard (11/04/2023 9:45 AM EST) Triglycerides 100 <150 mg/dL [facility] Comment:Desirable Triglyceri de: less than 150 mg/dLBorderline High Triglyceride 150-199 mg/dLHigh Triglyceride: 200-499 mg/dLVery High Triglyceride: greater than or equal to 5OO mg/dL Cholesterol 164 <200 mg/dL [facility] Comment:Desirable Cholestero l: less than 200 mg/dLBorderline High Cholesterol: 200-239 mg/dLHigh Cholesterol: greater than 239 mg/dL LDL Cholesterol Calculated 93 <100 mg/dL [facility] Comment:Desirable LDL: less than 100 mg/dLNear Optimal/Above Optimal LDL: 110- 129 mg/dLBorderline High LDL: 130-159 mg/dLHigh LDL: 160-189 mg/dLVery High LDL: greater than or equal to 190 mg/dL HDL Cholesterol 51 >40 mg/dL [facility] Comment:Desirable HDL: great er than 40 mg/dL Note: This HDL assay may give artificially low results in patients with liver disease. Blood Venous blood specimen / Unknown 11/04/2023 9:45 AM EST 11/04/2023 12:00 PM EST Isatu Brandt MD LAB BLOOD ORDERAB LES Final Result Performing Organization Address City/State/[facility] Co de Phone Number [facility] [address] [place] [phone] from Last 3 Months or Most Recently Relevant to Health Maintenance Insurance [facility] [address] [place] [address] [place] AD[place] Care Teams Pharmaceutical Service Representative Relationship Specialty Start Date End Date Ina Arroyo NP [address] [facility] [place] [address] PCP - General Family Medicine 10/30/24 Janel Go, RN [address] [place] [phone] Insurance ExaminerResearch Neuropsychologist 10/19/24
--- OUTSIDE RECORDS SUMMARY | 2025-01-19 14:05 | XMS_ITS | Encounter Summary ---
Author Organization [employer] Address [address] [facility] 7 [place] [address] Care Team Providers Care Rehabilitation Physician Name Role Phone Janel Go RN Unavailable [phone] Ina Arroyo NP Primary Care Provider [phone] Reason for Visit * Reason Comments Med Refill Encounter Details Date Type Department Care Team (Late st Contact Info) Description 01/16/2025 Refill [facility] MEDICINE [address] [place] [address] Isatu Sloan MD [address] [place] [address] Social History Tobacco Use Types Packs/Day Years [...] 1:30 PM EDT Clinical Support [facility] [address] [place] [address] 02/26/2025 1:30 PM EDT Office Visit [facility] [address] [place] [address] Ina Arroyo NP [address] [place] [address] 03/05/2025 10:00 AM EDT Office Visit [facility] OPTOMETRY [address] [place] [address] Terry, Aminta, OD [address] [place] [address] 05/16/2025 10:00 AM EDT Office Visit [facility] ADULT DENTAL [address] [place] [address] Kristan Briscoe documented as of this encounter Visit Diagnoses Not on filedocumented in this encounter Additional Health Concerns Assessment Noted Time PHQ-9 Depression Total Score: 0 09/22/20 24 1:10 PM EST documented as of this encounter Care Teams Rehabilitation Physician Relationship Specialty Start Date End Date Ina Arroyo NP [address] [place] [id number] PCP - General Family Medicine 10/30/24 Janel Go RN [address] [place] [id number] Head Cleaning PorterWatershed Tender 10/19/24 documented as of this encounter
--- OUTSIDE RECORDS SUMMARY | 2025-01-19 14:05 | XMS_ITS | Encounter Summary ---
Author Organization [employer] Address [address] [facility] [address] [place] [address] Care Team Providers Care Cigarette Lighter Repairer Name Role Phone Janel Go RN Unavailable [phone] Ina Arroyo NP Primary Care Provider [phone] Encounter Details Date Type Department Care Team [...] Description 01/29/2025 1:30 PM EDT Clinical Support [facility] [address] [place] [id number] 02/26/2025 1:30 PM EDT Office Visit [facility] [address] [place] [address] Ina Arroyo NP [address] [place] [address] 03/05/2025 10:00 AM EDT Office Visit [facility] OPTOMETRY [address] [place] [address] Terry, Aminta, OD [address] [place] [address] 05/16/2025 10:00 AM EDT Office Visit [facility] ADULT DENTAL [address] [place] [address] Kristan Briscoe documented as of this encounter Visit Diagnoses Not on filedocumented in this encounter Additional Health Concerns Assessment Noted Time PHQ-9 Depression Total Score: 0 09/22/20 24 1:10 PM EST documented as of this encounter Care Teams Cigarette Lighter Repairer Relationship Specialty Start Date End Date Ina Arroyo NP [address] [place] [address] PCP - General Family Medicine 10/30/24 Janel Go RN [address] [place] [id number] Power Plant Operator ApprenticeManager Furniture 10/19/24 documented as of this encounter
== END 2025-01-19 13:35 | disposition home or self-care (01) ==
LOC: HO.HGI 12:08
PROVIDERS: PCP Student in an Organized Health Care Education/Training Program; Visit Provider Nurse Practitioner
DX: R10.9 Unspecified abdominal pain (principal); R93.5 Abnormal findings on diagnostic imaging of other abdominal regions, including retroperitoneum; R74.01 Elevation of levels of liver transaminase levels; K21.9 Gastro-esophageal reflux disease without esophagitis; R09.A2 Foreign body sensation, throat; R13.10 Dysphagia, unspecified; R06.83 Snoring; R53.83 Other fatigue; R35.81 Nocturnal polyuria; R73.01 Impaired fasting glucose
CPT/HCPCS: 99203

== ENCOUNTER 2025-02-26 12:23 | Outpatient (REF) | payer MEDICAID, SELFPAY ==
--- NOTE | ~2025-02-26 | MM_ITS ---
EXAMINATION: MM SCREENING DIGITAL BREAST TOMOSYNTHESIS, BILATERAL CLINICAL INFORMATION: Screening. Asymptomatic. COMPARISON: Mammography: Comparison is made with available priors TECHNIQUE: Digital breast mammography with tomosynthesis is performed in both the craniocaudal and mediolateral oblique views along with computer-aided detection (CAD). FINDINGS: There are scattered areas of fibroglandular density (ACR BI-RADS breast composition Category b). There are no significant masses, abnormal calcifications, or other abnormalities. MM/MM tomosynthesis screening BI IMPRESSION: No mammographic evidence of malignancy. ASSESSMENT: BI-RADS BI-RADS 1 - Negative RECOMMENDATION: Routine annual mammography screening. 1 year F/U This examination should not preclude the clinical evaluation of a suspicious palpable abnormality. This patient's information was entered into a reminder system with a target due date for their next mammogram. Electronically signed by: Renata Johnson DO 03/04/2025 05:30 PM EDT
--- OUTSIDE RECORDS SUMMARY | 2025-02-26 12:52 | XMS_ITS | Encounter Summary ---
Author Organization [employer] Address 75 [facility] 7t [place] [address] Care Team Providers Care Scrapper Name Role Phone Elliotnba Ina JENNY Primary Care Provider [phone] Encounter Details Date Type Department Care Team ([facility] st Contact Info) Description 01/24/2025 Orders Only [facility] MEDICINE [address] [place] [address] Layla Bautista MD [address] [place] [address] Social History Tobacco Use Types Packs/Day Years [...] Care Team (Late st Contact Info) Description 03/02/2025 10:15 AM EDT Office Visit [facility] MEDICINE [address] [place] [address] Ina Arroyo NP [address] [place] [address] 03/05/2025 10:00 AM EDT Office Visit [facility] OPTOMETRY [address] [place] [address] Terry, Aminta, OD [address] [place] [address] 05/16/2025 10:00 AM EDT Office Visit [facility] ADULT DENTAL [address] [place] [address] Fiona Camacho [address] [place] [address] documented as of this encounter Visit Diagnoses Not on filedocumented in this encounter Additional Health Concerns Assessment Noted Time PHQ-9 Depression Total Score: 0 09/22/20 24 1:10 PM EST documented as of this encounter Care Teams Scrapper Relationship Specialty Start Date End Date Ina Arroyo NP [address] [place] [address] PCP - General Family Medicine 10/30/24 documented as of this encounter
--- OUTSIDE RECORDS SUMMARY | 2025-02-26 12:52 | XMS_ITS | Encounter Summary ---
Author Organization [employer] Address 75 [facility] 7t [place] [address] Care Team Providers Care Moving Consultant Name Role Phone Isatu Sloan MD Primary Care Pro vider Janel Go RN Unavailable [phone] Ina Arroyo NP Primary Care Provider [phone] Encounter Details Date Type Department Care Team (Late st Contact Info) Description 09/26/2024 Orders Only [facility] MEDICINE [address] [place] [address] Vanita Silver MD [address] [place] [address] Social History Tobacco Use Types Packs/Day Years [...] Description 03/02/2025 10:15 AM EDT Office Visit [facility] MEDICINE [address] [place] [address] Ina Arroyo NP [address] [place] [address] 03/05/2025 10:00 AM EDT Office Visit [facility] OPTOMETRY [address] [place] [address] Terry, Aminta, OD [address] [place] [address] 05/16/2025 10:00 AM EDT Office Visit [facility] ADULT DENTAL [address] [place] [address] Fiona Camacho [address] [place] [address] documented as of this encounter Visit Diagnoses Not on filedocumented in this encounter Additional Health Concerns Assessment Noted Time PHQ-9 Depression Total Score: 0 09/22/20 24 1:10 PM EST documented as of this encounter Care Teams Moving Consultant Relationship Specialty Start Date End Date Isatu Sloan MD 230 [place] [address] PCP - General Internal Medicine 10/01/23 10/29/24 Ina Arroyo NP 230 [place] [address] PCP - General Family Medicine 10/30/24 Janel Go RN [address] [place] [address] LockmakerAnimal Groomer 10/19/24 01/22/25 documented as of this encounter
--- OUTSIDE RECORDS SUMMARY | 2025-02-26 12:52 | XMS_ITS | Clinical Summary ---
Author Organization [employer] Address [address] [place] [address] Care Team Providers Care Pool Player Name Role Phone Ina Arroyo NP Primary Care Provider [phone] Allergies Active Allergy Reactions Criticality Noted Date [...] 2 times daily. 1 kit 06/14/20 24 06/14/ 025 Active famotidine (Pepcid) 20 MG tablet TAKE 1 TABLET (20 MG) BY MOUTH IF NEEDED AT BEDTIME FOR HEARTBURN. 90 tablet 12/22/19 25 Active fexofenadine (Misti) 180 MG tablet Take 1 tablet by mouth Once per day. Active acetaminophen (Tylenol) 500 MG tablet Take 1 tablet by mouth every 6 (six) hours if needed for mild pain. Active lidocaine (Xylocaine) 5 % ointment Apply to affected area up to 5 times a day as needed 30 g 01/17/20 25 Active valACYclovir (Valtrex) 1 g tablet One tablet twice a day x 7 days 14 tablet 01/17/20 25 Active hydroCHLOROthia zide 12.5 MG tablet TAKE 1 TABLET BY MOUTH EVERY DAY 90 tablet 01/26/20 25 Active omeprazole (PriLOSEC) [address] capsuleIndicati ons:Gastroesoph ageal reflux disease with esophagitis, unspecified whether hemorrhage TAKE 1 CAPSULE BY MOUTH BEFORE BREAKFAST 90 capsule 02/03/20 25 Active lidocaine (Lidoderm) 5 % patch APPLY 1 PATCH TOPICALLY ONCE PER DAY. REMOVE & DISCARD PATCH WITHIN 12 HOURS OR DIRECTED BY . 30 patch 2 02/09/20 25 Active lidocaine (Lidoderm) 5 % patch Apply 1 patch topically Once per day. Remove & discard patch within 12 hours or as directed by . 30 patch 2 09/22/20 24 025 Discontinued omeprazole (PriLOSEC) [address] capsuleIndicati ons:Gastroesoph ageal reflux disease with esophagitis, unspecified whether hemorrhage Take 1 capsule (40 mg) by mouth before breakfast. 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 Family relocated from [place] to [place] as part of the transition process about six months ago. Patient feels very overwhelmed and frustrated due to having so many stressors (taking care of her mom, son, she has no transportation). PLAN: (check all that apply) Continue with current services (defined as services in the past 12 months) . Carlos was referred to [facility] on 10/04/23. She completed intake and [...] her sister completed SI. Family relocated from [place] to [place] as part of the transition process. PLAN: (check all that apply) New/Additional Services needed PCP management On-site non-integrated services Off-site services for , Behavioral Health Integration Plan Internal Follow up with I, External OP therapy referral , Patient Self Plan Patient to utilize skills provided in intervention , [facility], Patient to [...] her sister completed SI. Family relocated from [place] to [place] as part of the transition process. PLAN: (check all that apply) New/Additional Services needed PCP management On-site non-integrated services Off-site services for , Behavioral Health Integration Plan Internal Follow up with I, External OP therapy referral , Patient Self Plan Patient [...] her sister completed SI. Family relocated from [place] to [place] as part of the transition process about six months ago. Patient feels very overwhelmed and frustrated due to having so many stressors (taking care of her mom, son, she has no transportation). PLAN: (check all that apply) Continue with current services (defined as services in the past 12 months) . Carlos was referred to [facility] on 10/04/23. She completed intake and [...] her sister completed SI. Family relocated from [place] to [place] as part of the transition process. PLAN: [...] her sister completed SI. Family relocated from [place] to [place] as part of the transition process. PLAN: (check all that apply) New/Additional Services needed PCP management On-site non-integrated BH services Off-site services for BH, Behavioral Health Integration Plan Internal Follow up with [facility], External OP BH therapy referral , Patient Self Plan Patient to utilize skills provided in intervention , Patient [facility] as needed, Patient to engage in OP BH therapy , and Patient to reach out to [facility] as needed. Resolved Problems Problem Noted Date Diagnosed Date Resolved Date Obesity (BMI 30-39.9) 02/27/20242024 Assessment & Plan (10/24/2024 11:48 AM EST): Referred to [facility] weight management center Elevated BP without diagnosis of hypertension 02/15/2012/22/2024 Assessment & Plan (02/27/2024 9:03 PM EDT): Monitor, referral to cardiology given episode of substernal chest pain Encounters Date Type Department Care Team Description 02/09/[address] [address] Gerda Carmona MA Chart Prep 02/07/[address] [address] Isatu Sloan MD 02/02/2025 Refill [facility] [address] [place] [phone] Alec Barber MD Gastroesophageal reflux disease with esophagitis, unspecified whether hemorrhage 01/25/2025 Patient Outreach [address] [address] Ina Arroyo NP Care Coordination (Appt reminder) 01/24/2025 Orders Only [facility] [address] [place] [phone] Layla Bautista MD 01/24/2025 Refill [facility] [address] [place] [address] Adelaida Degroot MD 01/23/2025 Patient Outreach [facility] [address] [place] [phone] Ina Arroyo NP Care Coordination 01/23/[address] [address] Ina Arroyo NP Care Management (C3CM- f/u call) 01/19/2025 Orders Only GENERIC EXTERNAL DATA DEPARTMENT Provider, Generic External Data 01/18/2025 Patient Outreach [address] [address] Ina Arroyo NP Care Coordination (Appt reminder) 01/16/2025 2:15 PM EDT Procedure Visit [address] [address] Chayo Key CNM Cervical cancer screening (Primary Dx); Screening examination for venereal disease; Genital ulcer, female; Vaginal odor 01/16/2025 Orders Only [address] [address] Chayo Key CNM 01/16/[address] [address] Iastu Sloan MD med concern (Pt walked in stating that she has not taken her lisinopril 10 MG tablet in 2 day. Stating the medication is giving her a bad dry cough and she does not like how it is making her feel . Pt is requesting to speak about stopping medications or finding a different option.) 01/16/2025 Travel 01/15/[address] [address] Ina Arroyo NP 01/12/2025 1:00 PM EDT Office Visit [address] [address] Ina Arroyo NP Encounter to establish care (Primary Dx); Chronic low back pain without sciatica, unspecified back pain laterality; Neck pain; Subclinical hypothyroidism; Class 3 severe obesity due to excess calories without serious comorbidity with body mass index (BMI) of 40.0 to 44.9 in adult (CMS/[facility]); Dietary counseling; Exercise counseling; Primary hypertension; Obesity (BMI 30-39.9); Pre-diabetes; Hypertension, unspecified type 01/12/2025 Travel 01/11/2025 Patient Outreach [address] [address] Ina Arroyo NP Care Coordination (Appt reminder) 01/10/[address] [address] Ina Arroyo NP Care Management (C3CM- f/u call) 01/08/2025 Orders Only [address] [address] María Stephens CNP 01/08/2025 Patient Outreach [address] [address] Ina Arroyo NP Care Coordination (Appt reminder) 01/05/2025 Patient Outreach [facility] [address] [place] [address] Ina Arroyo NP Pre-visit Planning (SDOH was already completed. ) 01/04/[address] [address] Angel Luis Silva MA chartprep 12/29/2024 Population Health Risk Score [facility] (C3) [address] [phone] Provider, Population Health Generic 12/29/2024 Patient Outreach [address] [address] Ina Arroyo NP Care Coordination (SDOH outreach) 12/28/[address] [address] Ina Arroyo NP Care Management (C3CM- f/u call) 12/22/2024 11:15 AM EST Office Visit [address] [address] María Stephens CNP Palpitations (Primary Dx); Hypertension, unspecified type; Unexplained weight gain; Shortness of breath 12/22/2024 10:00 AM EST Clinical Support [address] [address] Rhina Herrera, OPAL Elevated BP without diagnosis of hypertension 12/22/2024 Travel 12/21/2024 Patient Outreach [address] [address] Ina Arroyo NP Care Coordination (CM/CHW f/u) 12/21/[address] [address] Isatu Sloan MD 12/18/2024 Patient Outreach [facility] [address] [place] [address] Ina Arroyo NP Care Coordination (Appt reminder) 12/15/2024 Telephone [facility] [address] [place] [address] Ina Arroyo NP Care Management (C3CM- f/u call) 12/13/2024 Orders Only [facility] External Provider, [facility] 12/01/2024 Telephone [facility] [address] [place] [address] Janel Go RN from Last 3 Months Immunizations Name Administration [...] 10:15 AM EDT Office Visit [facility] [address] [place], [place] [phone] Ina Arroyo NP [address] [place], [place] [phone] 03/05/2025 10:00 AM EDT Office Visit [facility] [address] [place] [address] Aminta Stewart, OD [address] [place] [address] 05/16/2025 10:00 AM EDT Office Visit [facility] ADULT DENTAL [address] [place] [address] Fiona Camacho [address] [place] [phone] Health Maintenance Due Date Last Done Comments Hepatitis B Vaccines (1 of 3 - 19+ 3-dose series) 1999 Dental X-Ray: Bitewings 03/11/2025 03/10/2024 Dental Oral Exam 05/14/2025 11/13/2024, 03/10/2024 Dental Prophylaxis 05/14/2025 11/13/2024, 04/04/2024 Alcohol/Substance Use Screening 09/22/2025 09/22/2024 Depression Screening 09/22/2025 09/22/2024, 09/22/2024 SDOH Screening 10/24/2025 10/24/2024 Mammogram 11/05/2025 11/05/2023 Family Planning (PISQ) 01/16/2026 01/16/2025 Tobacco Screening 01/16/2026 01/16/2025 Dental X-Ray: Full Mouth 03/11/2027 03/10/2024 Lipid Panel 11/04/2028 11/04/2023 Cervical Cancer Screening 01/16/2030 HPV/Cotest 01/16/2030 01/16/2025 Pap Smear 01/16/2030 01/16/2025 Zoster Vaccines (1 of 2) 2030 DTaP/Tdap/Td Vaccines (2 - T d or Tdap) 10/01/2033 10/01/2023 RSV Patients and Patients Aged 60 years or older (1 - 1-dose 75+ series) 2055 COVID-19 Vaccine Completed 09/22/2024 Influenza Vaccine Completed 09/22/2024, 10/01/2023 HIV Screening Completed 01/19/2025, 11/04/2023 Hepatitis C Screening Completed 01/19/2025 , 11/04/2023 HIB Vaccines Aged Out No longer eligi [...] Procedure Name Priority Date/Time Associated Diagnosis Comments CANCELLED CHEMISTRY Routine 01/19/2025 2 :06 PM EDT RAFI SCREEN, IFA, W/REFL TITER AND PATTERN Routine 01/19/2025 2:06 PM EDT ACTIN (SMOOTH MUSCLE) ANTIBODY (IGG) Routine 01/19/2025 2:06 PM EDT MITOCHONDRIAL ANTIBODY WITH REFLEX TO TITER Routine 01/19/2025 2:06 PM EDT THYROID PEROXIDASE ANTIBODIES Routine 01/19/2025 2:06 PM EDT HIV 1/2 ANTIGEN/ANTIBODY, FOURTH GENERATION W/RFL Routine 01/19/2025 2:06 PM EDT HEPATITIS PANEL, GENERAL Routine 01/19/2025 2:06 PM EDT TSH W/REFLEX TO FT4 Routine 01/19/2025 2 :06 PM EDT FERRITIN Routine 01/19/2025 2:06 PM EDT COMPREHENSIVE METABOLIC PANEL Routine 01/19/2025 2:06 PM EDT SYPHILIS SCREEN Routine 01/19/2025 2:06 PM EDT Screening examination for venereal disease HSV 1/2 IGG,TYPE SPECIFIC AB Routine 01/19/2025 2:06 PM EDT Screening examination for venereal disease URINALYSIS WITH REFLEX MICROSCOPIC Routine 01/19/2025 2:00 PM EDT POCT WET MOUNT/MARINO Routine 01/16/2025 3: 16 PM EDT Vaginal odor PAP SMEAR Routine 01/16/2025 2:24 PM EDT Cervical cancer screening HPV DNA, LOW/HIGH RISK Routine 2:24 PM EDT T4, FREE Routine 01/08/2025 9:10 AM EDT [...] AUTO DIFFERENTIAL Routine 12/13/2024 1:21 AM EST PROPHYLAXIS - ADULT Routine 11/13/2024 1 1:00 AM EST Dental calculus Dental plaque PERIODIC ORAL EVALUATION - ESTABLISHED PATIENT Routine 11/13/2024 11:00 AM EST INTRAORAL - COMPLETE SERIES OF RADIOGRAPHIC IMAGES Routine 03/10/2024 3:00 PM EDT BI MAMMOGRAM SCREENING TOMOSYNTHESIS BILATERAL Routine 11/05/2023 2:30 PM EST Encounter for screening mammogram for malignant neoplasm of breast LIPID PANEL, STANDARD Routine 11/04/2023 9:45 AM EST Annual physical exam from Last 3 Months or Most Recently Relevant to Health Maintenance Results * Cancelled Chemistry (01/19/2025 2:06 PM EDT) Cancelled Chemistry SEE NOTE [facility] Comment:CANCEL GLUCOSE EVIE ANCE TEST 3HR( GTT 3 HR). NO SPECIMENRECEIVED 01/19/2025 2:06 PM EDT 01/19/2025 2:06 PM EDT us Generic External Data Provider HISTORICAL/NON OR DERABLE LABS Final Result Performing Organization Address City/[facility]/ZIP Co de Phone Number [facility] [address] [place] [phone] * Syphilis Screen (01/19/2025 2:06 PM EDT) Syphilis Screen Nonreactive Nonreactive [facility] Blood Venous blood specimen / Unknown 01/19/2025 2:06 PM EDT 01/19/2025 2:06 PM EDT us Chayo Key CNM LAB BLOOD ORDERABLES Saima l Result Performing Organization Address City/[facility]/ZIP Co de Phone Number [facility] [address] [place] [phone] * TSH with Reflex to Free T4 (01/19/2025 2:06 PM EDT) Only the most recent of2 resultswithin the time period is included. TSH reflex Free T4 2.86 0.32 - 4.0 uIU/mL [facility] 01/19/2025 2:06 PM EDT 01/19/2025 2:06 PM EDT Generic External Data Provider LAB BLOOD ORDERAB LES Final Result Performing Organization Address [facility] de Phone Number [facility] [address] [place] [phone] * Hepatitis Panel, General (01/19/2025 2:06 PM EDT) Pathologist [facility] Hepatitis A IgM Nonreactive Nonreactive [facility] Comment:IgM antibodies to JAFFE V not detected; does not exclude earlyacute or recovered HAV infection. ~Hepatitis B Surface Antibody NONREACTIVE Nonreactive [facility] Comment:Nonreactive: < 8.00 mIU/mL Hepatitis B Core Antibody Nonreactive Nonreactive [facility] Hepatitis C Antibody Nonreactive Nonreactive [facility] Comment:Antibodies to HCV no t detected; does not exclude early acuteHCV infection. Hepatitis B Surface Ag Negative Negative [facility] 01/19/2025 2:06 PM EDT 01/19/2025 2:06 PM EDT Generic External Data Provider LAB BLOOD ORDERAB LES Final Result Performing Organization Address [facility] de Phone Number [facility] [address] [place] [phone] * Thyroid Peroxidase Antibodies (01/19/2025 2:06 PM EDT) Pathologist [facility] Thyroid Peroxidase Antibodies <1 <9 IU/mL [facility] Comment:THIS TEST WAS PERFOR MED AT:[facility] [place] [phone] CROSS MD 01/19/2025 2:06 PM EDT 01/19/2025 2:06 PM EDT us Generic External Data Provider LAB BLOOD ORDERAB LES Final Result Performing Organization Address [facility] Co de Phone Number [facility] [address] [place] [phone] * Actin (Smooth Muscle) Antibody (IgG) (01/19/2025 2:06 PM EDT) Smooth Muscle Antibody <20 <20 U [facility] Comment:Reference Range: <20 U: Negative>or=20 U: PositiveAntibodies recognizing actin are the main componentof smooth muscle antibodies associated with auto- immune liver disease. Actin antibodies are found inapproximately 75% of patients with autoimmunehepatitis (AIH) type 1, approximately 65% of patientswith autoimmune cholangitis, approximately 30% ofpatients with primary biliary cirrhosis andapproximately 2% of healthy controls. High values areclosely correlated with AIH type 1.THIS TEST WAS PERFORMED AT:[facility] [place] [phone] EDEN MD,PHD 01/19/2025 2:06 PM EDT 01/19/2025 2:06 PM EDT us Generic External Data Provider LAB BLOOD ORDERAB LES Final Result Performing Organization Address [facility] Co de Phone Number [facility] [address] [place] [phone] * Mitochondrial Antibody with Reflex to Titer (01/19/2025 2:06 PM EDT) Mitochondrial Antibodies NEGATIVE NEGATIVE [facility] Comment:THIS TEST WAS PERFOR MED AT:[facility] [address] [phone] CROSS MD Mitochondrial Ab Titer TNP [facility] 01/19/2025 2:06 PM EDT 01/19/2025 2:06 PM EDT us Generic External Data Provider LAB BLOOD ORDERAB LES Final Result Performing Organization Address [facility]/ZIP Co de Phone Number [facility] [address] [place] [phone] * (ABNORMAL) Herpes Simplex Virus 1 and 2 (IgG), Type-Specific Antibodies (01/19/2025 2:06 PM EDT) Herpes Simplex Type 1 IgG 11.70(A) index [facility] Herpes Simplex Type 2 IgG 13.90(A) index [facility] Comment:Index Interpretation ----- <0.90 Negative 0.90-1.09 Equivocal >1.09 PositiveThis assay utilizes recombinant type-specific antigensto differentiate HSV-1 from HSV-2 infections. Apositive result cannot distinguish between recent andpast infection. If recent HSV infection is suspectedbut the results are negative or equivocal, the assayshould be repeated in 4-6 weeks. The performancecharacteristics of the assay have not been establishedfor pediatric populations, immunocompromised patients,or screening.For additional information, please refer tohttp://education.Brandpotion/faq/SYR083(This link is being provided for informational/educational purposes only.)THIS TEST WAS PERFORMED AT:[facility] [place] [phone] CROSS MD Blood Venous blood specimen / Unknown 01/19/2025 2:06 PM EDT 01/19/2025 2:06 PM EDT us Chayo DEL VALLE LAB BLOOD ORDERABLES Saima l Result Performing Organization Address [facility]/ZIP Co de Phone Number [facility] [address] [place] [phone] * HIV-1/2 Antigen and Antibodies, Fourth Generation, with Reflexes (01/19/2025 2:06 PM EDT) HIV AB/AG Nonreactive Nonreactive [facility] Comment:HIV-1 p24 Ag and/or HIV-1/HIV-2 Ab not detected.A test result that is nonreactive does not exclude thepossibility of exposure to or infection with HIV-1 and/orHIV-2. Nonreactive results in this assay for individualswith prior exposure to HIV-1 and/or HIV-2 may be due toantigen and antibody levels that are below the limit ofdetection of this assay.The [employer] HIV Ag/Ab Combo assay result andsupplemental assay results should be interpreted inconjunction with the patient's clinical presentation,history and other laboratory results. If the results areinconsistent with clinical evidence, additional testing issuggested to confirm the result. 01/19/2025 2:06 PM EDT 01/19/2025 2:06 PM EDT us Generic External Data Provider LAB BLOOD ORDERAB LES Final Result [facility] [address] [place] [phone] * RAFI Screen,IFA, with Reflex to Titer and Pattern (01/19/2025 2:06 PM EDT) Anti Nuclear Antibody Screen NEGATIVE NEGATIVE [facility] Comment:RAFI IFA is a first l ine screen for detecting thepresence of up to approximately 150 autoantibodies invarious autoimmune diseases. A negative RAFI IFA resultsuggests an RAFI-associated autoimmune disease is notpresent at this time, but is not definitive. If thereis high clinical suspicion for Sjogren's syndrome,testing for anti-SS-A/Ro antibody should be considered.Anti-Therese-1 antibody should be considered for clinicallysuspected inflammatory myopathies.AC-0: NegativeInternational Consensus on RAFI Patterns(https://doi.org/10.1515/ghvv-5610-3888)For additional information, please refer tohttp://education.Brandpotion/faq/OQR162(This link is being provided for informational/educational purposes only.)THIS TEST WAS PERFORMED AT:[facility] [place] [phone] CROSS MD RAFI Titer TNP [facility] RAFI Pattern TNP [facility] RAFI TITER 2 (REF LAB) TNP [facility] RAFI Pattern 2 TNP [facility] RAFI TITER 3 TNP [facility] RAFI PATTERN 3 TNP [facility] 01/19/2025 2:06 PM EDT 01/19/2025 2:06 PM EDT us Generic External Data Provider LAB BLOOD ORDERAB LES Final Result Performing Organization Address [facility]/ZIP Co de Phone Number [facility] [address] [place] [phone] * (ABNORMAL) Ferritin (01/19/2025 2:06 PM EDT) Ferritin 262(H) 10 - 250 ng/mL [facility] 01/19/2025 2:06 PM EDT 01/19/2025 2:06 PM EDT [place] External Data Provider LAB BLOOD ORDERAB LES Final Result Performing Organization Address [facility] Co de Phone Number [facility] [address] [place] [phone] * Comprehensive Metabolic Panel (01/19/2025 2:06 PM EDT) Only the most recent of2 resultswithin the time period is included. Sodium 140 135 - 145 mmol/L [facility] Potassium 3.8 3.3 - 5.1 mmol/L [facility] Chloride 106 96 - 108 mmol/L [facility] Carbon Dioxide 25 22 - 29 mmol/L [facility] Anion Gap 13 12 - 20 [facility] Urea Nitrogen (BUN) 15 9 - 16 mg/dL [facility] Creatinine, Serum 0.76 0.5 - 1.4 mg/dL [facility] Estimated Glomerular Filt Rate >60 [facility] Comment:Chronic Kidney Disea se: Estimated GFR < 60 mL/min/1.37o0Bgdxzw Kidney Disease: Estimated GFR < 15 mL/min/1.73m2 Glucose 104 60 - 115 mg/dL [facility] Calcium 9.4 8.4 - 10.2 mg/dL [facility] Bilirubin, Total 0.4 0.0 - 1.0 mg/dL [facility] Aspartate Amino Transferase 24 5 - 31 U/L [facility] Alanine Aminotransferase 29 0 - 31 U/L [facility] Total Protein 7.6 6.5 - 8.0 g/dL [facility] Albumin Level 4.4 3.5 - 5.0 g/dL [facility] Alkaline Phosphatase 77 39 - 117 U/L [facility] 01/19/2025 2:06 PM EDT 01/19/2025 2:06 PM EDT us Generic External Data Provider LAB BLOOD ORDERAB LES Final Result [facility] [address] [place] [phone] * (ABNORMAL) Urinalysis w/reflex microscopic (01/19/2025 2:00 PM EDT) Color Urine Yellow [facility] Appearance Urine Clear [facility] PH 5.5 5.0 - 9.0 [facility] Glucose Urine UA Negative Negative mg/dL [facility] Urine Blood Negative Negative [facility] Specific [place] - Urine >=1.030(H) 1.005 - 1.025 [facility] Urine Protein Trace Neg-Trace mg/dL [facility] Urine Ketones Negative Negative mg/dL [facility] Nitrite Urine Negative Negative [facility] Leukocyte Esterase Urine Negative Negative [facility] 01/19/2025 2:00 PM EDT 01/19/2025 2:27 PM EDT Narrative [facility] - 01/19/2025 2:32 PM EDT Urine, Clean Catch Generic External Data Provider LAB URINE ORDERAB LES Final Result [facility] [address] [place] [address] [phone] * POCT fern test, vaginal fluid manually resulted (01/16/2025 3:16 PM EDT) MARINO Prep Negative Comment:pH 4.5, neg whiff, n eg clue, neg yeast, neg trich, neg wbc Vaginal Fluid Vaginal structure / Unknown 01/16/2025 3:16 PM EDT Chayo Key CNM POINT OF CARE TEST ENTER/ EDIT ORDERABLES Final Result * HPV DNA, Low/High Risk (01/16/2025 2:24 PM EDT) HPV High Risk Negative Negative [facility] HPV Genotype 16 Negative Negative [facility] HPV Genotype 18 Negative Negative [facility] Comment:HPV testing performe d at [facility] (CLIA#[id number]), [address] [place] [address].Testing for HPV was performed using the Norberto KIRAN 6800system. The presence of HPV in the female genital tract isassociated with a number of diseases, including cervicalcarcinoma. The HPV DNA high risk pool tests for HPV 31, 33,35, 39, 45, 51, 52, 56, 58, 59, 66 and 68. The testing forHPV 16 and 18 genotypes has also been performed. A positiveresult indicates detection of nucleic acid sequences fromone or more subtypes, whereas a negative result indicatessuch sequences were not detected. 01/16/2025 2:24 PM EDT 01/17/2025 6:00 AM EDT Chayo Key CNM LAB BLOOD ORDERABLES Saima l Result [facility] [address] [place] [address] [phone] * Pap Smear (01/16/2025 2:24 PM EDT) Swab Cervix uteri structure / Unknown 01/16/2025 2:24 PM EDT 01/17/2025 6:00 AM EDT Narrative [facility] - 01/22/2025 1:21 PM EDT ----- ------- Name: Carlos Alegria ?Age/Sex: 44/F ? : 1980 Unit#: [id number] ?? Attend Dr: CHAYO KEY CNM ?Re01/16/25 ?Status: DEP REF ? Location: HO.LNP ?Disch: ? ----- ------- SPEC : [id number] ? RECD: 01/17/25-599 ? STATUS: ??SOUT ? REQ NUM: [id number] ? ADELA: 01/16/25-935 ? SUBM DR: CHAYO KEY CNM ? ENTERED: ??01/17/25 ?SP TYPE: Pap Smr ?OTHR DR: ? ORDERED: ??Pap Smear ? Interpretation ?? Satisfactory for evaluation. ?? Negative for intraepithelial lesion or malignancy. ?? No endocervical cells seen. ? HPV High Risk: ??Negative ? HPV Genotyping 16: ??Negative ?? HPV Genotyping 18: ??Negative ?Clinical Information LMP: Unknown date Previous PAP test: Unknown date/findings ? Material Received ?? Cervix ----- ------- Signed (signature on file) LAYA Dewey ([facility]) 01/22/25 1321 ? ----- ------- ? END OF REPORT ? Chayo Key [facility] CYTOLOGY ORDERABLES F inal Result Performing Organization Address [facility] Co de Phone Number [facility] [address] [place] [address] [phone] * T4, Free (01/08/2025 9:10 AM EDT) Free T4 (Free Thyroxine) 0.85 0.71 - 1.85 ng/dL [facility] 01/08/2025 9:10 AM EDT 01/08/2025 11:36 AM EDT María Stephens [facility] LAB BLOOD ORDERABLES Saima l Result Performing Organization Address [facility] de Phone Number [facility] [address] [place] [address] [phone] * (ABNORMAL) Hemoglobin A1c (01/08/2025 9:10 AM EDT) Hemoglobin A1c 6.5(H) <6.0 % [facility] Comment:Hemoglobin A1C Refer ence Range Adults: 4.8 - 6.0 % Non diabetic: < 6.0 % Goal: < 7.0 %Additional Action Suggested: > 8.0 %Note: Hemoglobin A1c results are invalid for patients with abnormal amounts of HbF. Blood transfusions may impact the HbA1c concentration in the patient sample. Estimated Average Glucose 140 mg/dL [facility] Comment:eAG = Estimated ave rage glucose which is %A1C expressed asaverage glucose, using the formula of the A3L-AfvupftHeonujb Glucose study (ADAG), Diabetes Care, Vol.31,#8,2007 Blood Venous blood specimen / Unknown 01/08/2025 9:10 AM EDT 01/08/2025 11:36 AM EDT [facility] LAB BLOOD ORDERABLES Saima l Result Performing Organization Address [facility] Co de Phone Number [facility] [address] [place] [address] [phone] * (ABNORMAL) Basic Metabolic Panel (01/08/2025 9:10 AM EDT) Sodium 139 135 - 145 mmol/L [facility] Potassium 3.3 3.3 - 5.1 mmol/L [facility] Chloride 107 96 - 108 mmol/L [facility] Carbon Dioxide 23 22 - 29 mmol/L [facility] Anion Gap 12 12 - 20 [facility] Urea Nitrogen (BUN) 9 9 - 16 mg/dL [facility] Creatinine, Serum 0.80 0.5 - 1.4 mg/dL [facility] Estimated Glomerular Filt Rate >60 [facility] Comment:Chronic Kidney Disea se: Estimated GFR < 60 mL/min/1.09b5Ftepah Kidney Disease: Estimated GFR < 15 mL/min/1.73m2 Glucose 204(H) 60 - 115 mg/dL [facility] Calcium 9.1 8.4 - 10.2 mg/dL [facility] Blood Venous blood specimen / Unknown 01/08/2025 9:10 AM EDT 01/08/2025 11:36 AM EDT [facility] LAB BLOOD ORDERABLES Saima l Result Performing Organization Address [facility]/ZIP Co de Phone Number [facility] [address] [place] [address] [phone] * ECG 12 lead (12/22/2024 12:34 PM EST) Narrative María Stephens CNP - 12/22/2024 12:34 PM EST NSR, Rate: 87 bpm, no ST elevation or depression, normal ECG us Alexxis Stephens QUALITY TECHNICIAN [employer] ECG ORDERABLES Final Res ult * High Sensitivity Troponin I (12/13/2024 8:35 AM EST) Only the most recent of3 resultswithin the time period is included. TROPONIN I HIGH SENSITIVITY 8.4 <3.5 - 17.0 ng/L [facility] Comment:The Alaniz high sens itivity Troponin-I results should beused in conjunction with other diagnostic information suchas ECG, clinical observations and information, and patientsymptoms to aid in the diagnosis of VA. 12/13/2024 8:35 AM EST 12/13/2024 8:39 AM EST Generic External Data Provider LAB BLOOD ORDERAB LES Final Result [facility] [address] [place] [phone] * SARS-CoV-2 RNA, Influenza A/B, and RSV RNA, Ql NAAT (12/13/2024 8:35 AM EST) Pathologist [facility] Influenza A PCR NEGATIVE Negative [facility] Influenza B PCR NEGATIVE Negative [facility] Resp Syncy Virus RNA Qual PCR NEGATIVE Negative [facility] SARS COV2 PCR NEGATIVE Negative [facility] Comment:All test results mus t [...] use by authorized laboratories.Testing performed on the [employer] GeneXpert utilizingreal-time RT-PCR.All SARS CoV2 and positive influenza A/B results arereported to [facility]. 12/13/2024 8:35 AM EST 12/13/2024 8:39 AM EST us Generic External Data Provider LAB MICROBIOLOGY - GENERAL ORDERABLES Final Result [facility] [address] [place] [address] [phone] * XR Chest 1 View (12/13/2024 2:16 AM EST) Anatomical Region Laterality Modality Chest Radiographic No ging 12/13/2024 2:16 AM EST Narrative 12/13/2024 2:17 AM EST ? [facility] ?[address] ?[place] [address] ?XRay Report ? Signed ? Patient: Bhatt Monlezun,Danyela ?MR ?? #: [id number] ? : 1980 ?Acct:[id number] ? Age/Sex: 44 / F ?ADM Date: 12/13/24 ? Loc: HO.ED ? Attending Dr: ? Ordering Physician: Generic ED Physician ?? Date of Service: 12/13/24 ?? Procedure(s): XR chest 1V ?? Accession Number(s): [id number] ? cc: Generic ED Physician; Isatu Sloan [...] MD in OV> ?12/13/24 0217 ? DD/ ? TD/TT: 12/13/24 0216 ? Insecticide Mixer: ? Procedure Note Adelfo, Francia - 12/13/2024 [id number] [place] [address] XRay Report Signed Patient: BhattSundar Fenton #: [id number] : 1980Acct:[id number] Age/Sex: 44 / FADM Date: 12/13/24 Loc: HO.ED Attending Dr: Ordering Physician: Generic ED Physician Date of Service: 12/13/24 Procedure(s): XR chest 1V Accession Number(s): [id number] cc: Generic ED Physician; Isatu Sloan MD [...] in OV> 12/13/24216 DD/ 5 TD/TT: 12/13/24215 Insecticide Mixer: [facility] External Provider IMG XR PROCEDURES Edited Result - Final * (ABNORMAL) CBC auto differential (12/13/2024 1:21 AM EST) White Blood Count 7.2 4.8 - 10.8 X10*3/uL [facility] Red Blood Count 4.30 4.20 - 5.50 X10*6/uL [facility] Hemoglobin 13.6 12.0 - 16.0 g/dl [facility] Hematocrit 37.8 37.0 - 47.0 % [facility] Mean Corpuscular Volume 87.9 80.0 - 98.0 fL [facility] Mean Corpuscular Hemoglobin 31.6 27.0 - 33.0 pg [facility] Mean Corpuscular HGB Conc 36.0(H) 31.0 - 35.0 g/dl [facility] Red Cell Distribution Width 12.4 11.0 - 16.0 % [facility] Platelet Count 252 160 - 400 X10*3/uL [facility] Mean Platelet Volume 9.1(L) 9.4 - 12.3 fL [facility] Neutrophils Percent Auto 55.2 45 - 73 % [facility] Imm Gran Pct Auto 0.3 0.0 - 0.4 % [facility] Lymphocytes Percent Auto 35.1 20 - 40 % [facility] Monocytes Percent Auto 5.8 2 - 11 % [facility] Eosinophils Percent Auto 3.2 0 - 4 % [facility] Basophils Percent Auto 0.4 0 - 2 % [facility] NRBC Pct Auto 0.0 0.0 - 0.2 /100WBC [facility] Neutrophils Absolute Auto 4.0 2.0 - 8.3 x10*3/uL [facility] Imm Gran Abs Auto 0.02 0.00 - 0.03 X10*3/uL [facility] Lymphocytes Absolute Auto 2.5 1.2 - 4.9 X10*3/uL [facility] Monocytes Absolute Auto 0.4 0.1 - 1.2 X10*3/uL [facility] Eosinophils Absolute Auto 0.2 0.0 - 0.4 X10*3/uL [facility] Basophils Absolute Auto 0.0 0.0 - 0.2 X10*3/uL [facility] NRBC Abs Auto 0.000 0.0 - 0.012 X10*3/uL [facility] 12/13/2024 1:21 AM EST 12/13/2024 1:24 AM EST us Generic External Data Provider LAB BLOOD ORDERAB LES Final Result Performing Organization Address City/State/[facility] Co de Phone Number [facility] [address], [place] [phone] * BI Mammogram Screening Tomosynthesis Bilateral (11/05/2023 2:30 PM EST) Anatomical Region Laterality Modality Breast Bilateral Mammography 11/05/2023 2:30 PM EST Narrative 11/20/2023 12:18 PM EST ? [facility] ? [address] ?[place] [address] ? Mammography Report ? Signed ? Patient: Bhatt Monlezun,Danyela ?MR ?? #: [id number] ? : 1980 ?Acct:[id number] ? Age/Sex: 43 / F ?ADM Date: 11/05/23 ? Loc: HO.MAMMO ? Attending Dr: Isatu Brandt MD ? Ordering Physician: Isatu Sloan MD ?Results: 0Incomplete: Needs Additional Imaging ?? Evaluation ? Date of Service: 11/05/23 ?Follow Up: Additional Imagi ?? ng ? Procedure(s): MM tomosynthesis screening BI ?? Accession Number(s): [id number] ? cc: Isatu Sloan MD ? EXAMINATION: [...] 1215 ? DD/ 1430 ? TD/TT: ? Insecticide Mixer: ? Procedure Note Adelof, Image - 11/20/2023 [facility] [address] [place] [address] Dr. [place], [place] [address] Mammography Report Signed Patient: Sundar Alegria #: [id number] : 1980Acct:[id number] Age/Sex: 43 / FADM Date: 11/05/23 Loc: JUSTO Attending Dr: Isatu Brandt MD Ordering Physician: Isatu Sloan MD Results: 0Incomplete: Needs Additional Imaging Evaluation Date of Service: 11/05/23Follow Up: Additional Imagi ng Procedure(s): MM tomosynthesis screening BI Accession Number(s): [id number] cc: Isatu Sloan MD EXAMINATION: MM SCREENING [...] in OV> 11/20/23 1215 DD/ 1430 TD/TT: Insecticide Mixer: us Isatu Brandt MD [facility] PROCEDURES Edited Result - Final * Lipid Panel, Standard (11/04/2023 9:45 AM EST) Triglycerides 100 <150 mg/dL [facility] Comment:Desirable Triglyceri de: less than 150 mg/dLBorderline High Triglyceride 150-199 mg/dLHigh Triglyceride: 200-499 mg/dLVery High Triglyceride: greater than or equal to 5OO mg/dL Cholesterol 164 <200 mg/dL [facility] Comment:Desirable Cholestero l: less than 200 mg/dLBorderline High Cholesterol: 200-239 mg/dLHigh Cholesterol: greater than 239 mg/dL LDL Cholesterol Calculated 93 <100 mg/dL [facility] Comment:Desirable LDL: less than 100 mg/dLNear Optimal/Above Optimal LDL: 110- 129 mg/dLBorderline High LDL: 130-159 mg/dLHigh LDL: 160-189 mg/dLVery High LDL: greater than or equal to 190 mg/dL HDL Cholesterol 51 >40 mg/dL [facility] Comment:Desirable HDL: great er than 40 mg/dL Note: This HDL assay may give artificially low results in patients with liver disease. Blood Venous blood specimen / Unknown 11/04/2023 9:45 AM EST 11/04/2023 12:00 PM EST Isatu Brandt MD LAB BLOOD ORDERAB LES Final Result [facility] [address] [place] [address] [phone] from Last 3 Months or Most Recently Relevant to Health Maintenance [place] [address] [address] [place] [address] C[place] AD[place] Care Teams Pool Player Relationship Specialty Start Date End Date Ina Arroyo NP [address] [place] [address] [place] [address] PCP - General Family Medicine 10/30/24
--- NOTE | 2025-02-26 13:07 | CA_ITS ---
Transthoracic Echocardiogram Patient (Last, First, Middle): Carlos Alegria, Gender: Female Date of : 1980 Age: 44 Procedure Date: 02/26/2025 Procedure Type: Transthoracic Echocardiogram Location: OP Height: 162.56 cm Weight: 104.33 kg BSA: 2.08 m2 Heart Rate: bpm BP: 124 / 80 mmHg Rehabilitation Program Manager: SUMMER Hall MD: María Stephens WOOD CUT ENGRAVER Machine Ii Coremaker: Qamar Story MD Symptoms: R00.2 PALPITATIONS Study Quality: Good ECG Rhythm: Sinus Conclusions: - Essentially normal study Findings Left Ventricle Normal left ventricular size, thickness, and systolic function. The visually estimated ejection fraction is between 60-65%. Spectral Doppler is indicative of a normal filling pattern. Right Ventricle Normal right ventricular cavity size and systolic function. Atria Both atria are normal in size. Interatrial shunt cannot be excluded. Aortic Valve The aortic valve structure and function is likely normal. There is no aortic valve stenosis. There is no aortic valve regurgitation. Mitral Valve Likely normal mitral valve structure and function. There is no mitral valve regurgitation. There is no mitral valve stenosis. Pulmonic Valve The pulmonic valve was not well visualized. Tricuspid Valve Likely normal tricuspid valve structure and function. There is trace tricuspid valve regurgitation. The right ventricular systolic pressure is normal. The right ventricular systolic pressure is 12 mmHg. Normal right atrial pressure. There is no evidence of pulmonary hypertension. Great Vessels All visible segments of the aorta are normal in size. The pulmonary artery was not well visualized. Venous The inferior vena cava is normal in size and collapses greater than 50% with inspiration. Pericardium/Pleural There is no evidence of pericardial effusion. Prior Study Comparison No prior study available for comparison. Measurements 2D Linear Measurements IVSd: 1.01 0.6-0.9/0.6-1.0 cm LVIDd: 3.85 3.9-5.3/4.2-5.9 cm LVIDd Index: 1.85 2.4-3.2/2.2-3.1 cm/m2 LVIDs: 2.27 2.0-3.6 cm LVPWd: 1.04 0.7-1.1 cm Ao Root: 3.10 2.1-3.5 cm LA Diam: 3.70 2.7-3.8/3.0-4.0 cm LAIDs Index: 1.78 1.5-2.3 cm/m2 LV Mass: 205.68 67-162/88-224 g LV Mass Index: 98.89 43-95/49-115 g/m2 LVOT Diam: 2.10 3.0+(-)1.3 cm 2D Systolic Function EF 4C: 64.60 >55% EF 2C: 59.50 >55% EF BiP: 61.20 >55% Mitral Valve MV Pk E: 0.63 MV PK A: 0.73 MV Decel Time: 123.00 E/A: 0.90 E'Lateral: 11.10 E'Medial: 10.10 E/E' Med: 6.20 E/E' Lat: 5.70 PHT: 36.00 MVA PHT: 6.11 Decel Hayes: 5.11 Aortic Valve AoV Pk Abdelrahman: 1.51 AoV Mn Abdelrahman: 0.99 AoV VTI: 0.30 AoV Pk Grad: 9.00 Aov Mn Grad: 5.00 ROCHELLE Cont.VTI: 2.42 LVOT LVOT Pk Abdelrahman: 1.11 LVOT Mn Abdelrahman: 0.70 LVOT VTI: 0.21 LVOT Pk Grad: 5.00 LVOT Mn Grad: 2.00 LVOT Diam: 2.10 LVOT Area: 3.46 Diastolic Function MV Pk E: 0.63 MV Pk A: 0.73 E/A: 0.90 E'Medial: 10.10 E/E' Med: 6.20 E' Laterial: 11.10 E/E' Lat: 5.70 Right Ventricle TAPSE (mm): 18.00 TVS' Abdelrahman: 12.00 Tricuspid Valve TR Pk Abdelrahman: 1.48 TR Pk Grad: 9.00 RA Press: 3.00 RVSP: 12.00 Great Vessels Aorta Ao Root-2D: 3.10 2.0-3.7 cm Ao Asc: 3.20 2.1-3.4 cm Pulmonary Valve PV Pk Abdelrahman: 1.15 Peak PV Grad: 5.00 Updated in Other Vendor System with Status of Final Qamar Story MD electronically signed on 02/27/2025 10:22:21 AM with status of Final
== END 2025-02-26 12:24 | disposition home or self-care (01) ==
LOC: HO.MAMMO 12:23
PROVIDERS: PCP Nurse Practitioner
DX: Z12.31 Encounter for screening mammogram for malignant neoplasm of breast (principal)
CPT/HCPCS: 77063; 77067; 93306

== ENCOUNTER → 2025-02-26 12:30 | Outpatient (BNV) | payer MEDICAID, SELFPAY | PROVIDERS: PCP Nurse Practitioner; Visit Provider Internal Medicine | DX: Z12.31 Encounter for screening mammogram for malignant neoplasm of breast (principal) | CPT/HCPCS: 77063; 77067 ==

== ENCOUNTER → 2025-02-26 13:07 | Outpatient (BNV) | payer MEDICAID, SELFPAY | PROVIDERS: PCP Nurse Practitioner; Visit Provider Internal Medicine Cardiovascular Disease | DX: R94.31 Abnormal electrocardiogram [ECG] [EKG] (principal); R00.2 Palpitations | CPT/HCPCS: 93306 ==

== ENCOUNTER 2025-03-02 09:24 | Outpatient (REF) | payer MEDICAID, SELFPAY ==
--- NOTE | ~2025-03-02 | US_ITS ---
EXAMINATION: US ABDOMEN COMPLETE WITH LIVER ELASTOGRAPHY HISTORY: R74.01 - Elevation of levels of liver transaminase levels TECHNIQUE: Real-time grayscale ultrasound imaging of the abdomen was performed and images were reviewed. COMPARISON: Correlation is made with a CT of the abdomen with contrast dated 10/12/2024. FINDINGS: Liver: The right lobe of the liver measures 22.6 cm in size. The left lobe of the liver measures 14.3 cm in size. The liver demonstrates increased echotexture, consistent with steatosis. No focal mass or intrahepatic biliary ductal dilatation is identified. There is normal hepatopedal flow in the portal vein. Ultrasound elastography of the liver was performed with 10 separate measurements of the liver parenchyma with the patient in the supine position. Measurements were obtained approximately 2 cm below An's capsule and perpendicular to the capsule. Images are of satisfactory quality. The median shear wave velocity is 1.36 m/s. The interquartile range/median (IQR/median) is 0.14. Gallbladder and biliary tree: The gallbladder is surgically absent. The common bile duct is normal in caliber measuring 3 mm. Kidneys: The right kidney measures 11.1 cm in length. The left kidney measures 11.5 cm in length. The kidneys are unremarkable, without evidence of masses, hydronephrosis, or calculi. Pancreas: The pancreatic head, neck, and body are unremarkable. The pancreatic tail is obscured by bowel gas. Spleen: The spleen is normal in size and contour, measuring 10.3 cm in length. Abdominal aorta and inferior vena cava: The visualized portions of the abdominal aorta and inferior vena cava are normal in caliber. There is no free fluid in the abdomen. US/US abdomen comp w elastography IMPRESSION: Hepatomegaly and hepatic steatosis. The median shear wave velocity in the liver is 1.36 m/s, corresponding to a median liver stiffness of 5.54 kPa. The IQR/median value is 0.19. This is indicative of a poor quality data set, and the estimated liver stiffness may be unreliable. Findings are indicative of a low elastography value which rules out advanced chronic liver disease in asymptomatic patients. REFERENCE: Society of Radiologists in Ultrasound Liver Stiffness Thresholds (2020): LIVER STIFFNESS THRESHOLDS: *Shear wave velocity less than 1.3 m/s (Liver Stiffness equal or less than 5 kPa): High probability of being normal. *Shear wave velocity less than 1.7 m/s (Liver Stiffness less than 9 kPa): In the absence of other known clinical signs, rules out compensated advanced chronic liver disease. *Shear wave velocity between 1.7-2.1 m/s (Liver Stiffness 9-13 kPa): Suggestive of compensated advanced chronic liver disease but need further test for confirmation. *Shear wave velocity between 2.1-2.4 m/s (Liver Stiffness 13-17 kPa): Rules in compensated advanced chronic liver disease. *Shear wave velocity greater than 2.4 m/s (Liver Stiffness over 17 kPa): Suggestive of clinically significant portal hypertension. QUALITY OF DATA SET: *IQR/Median value equal or less than 0.15 implies a quality data set. *IQR/Median value over 0.15 implies a poor quality data set. SIGNIFICANT CHANGE FROM PRIOR EXAM: Significant change if liver stiffness measurement is 10% or greater from prior exam. OTHER CONSIDERATIONS: The stage of liver fibrosis may be overestimated in the setting of acute hepatitis, liver inflammation, elevated liver function tests, hepatic vascular congestion, obstructive cholestasis, non-fasting state, and infiltrative diseases such as amyloidosis and lymphoma. In some patients with NAFLD, the liver stiffness thresholds for compensated advanced chronic liver disease may be lower. In causes other than viral hepatitis and NAFLD, liver stiffness thresholds are not well established. Electronically signed by: Quintin Gomes MD 03/02/2025 10:19 AM EDT
--- OUTSIDE RECORDS SUMMARY | 2025-03-02 09:33 | XMS_ITS | Clinical Summary ---
Author Organization [facility] Address [address] [place] [address] Phone Care Team Providers Care Fuel Efficient Aircraft Designer Name Role Phone Ina Arroyo NP Primary Care Provider [phone] Allergies No known active allergies Encounters Date Type Department Care Team Description 01/09/2025 11:00 AM EDT Consult Orthopedic Surgery [facility] [address] [facility] [address] [place] [address] Tom Higgins DPM Left foot pain [...] Care Team (Late st Contact Info) Description 04/18/2025 8:45 AM EDT Appointment [facility] Xray [address] [place] [address] Health Maintenance Due Date Last Done Comments [...] age to complete this topic Meningococcal B Vaccine Aged Out No l onger eligible based on patient's age to complete [...] acetonide 40 mg/mL Informed Consent: ??Laterality: ??Left Tom Higgins DPM IN CLINIC/BEDSIDE ORDERABLE S Final Result from Last 3 Months Insurance MEDICAID - [place] Care Teams Fuel Efficient Aircraft Designer Relationship Specialty Start Date End Date Ina Arroyo NP [address] [place] [phone] PCP - General 01/18/25
--- OUTSIDE RECORDS SUMMARY | 2025-03-02 09:33 | XMS_ITS | Encounter Summary ---
Author Organization [employer] Address [address] [facility] [address] [place] [address] Care Team Providers Care Car Worker Name Role Phone Elliotnba Ina JENNY Primary Care Provider [phone] Encounter Details Date Type Department Care Team ([facility] st Contact Info) Description 01/24/2025 Orders Only [facility] MEDICINE [address] [place] [address] Layla Bautista MD [address] [place] [address] Social History Tobacco Use Types Packs/Day Years [...] Care Team (Late st Contact Info) Description 03/05/2025 10:00 AM EDT Office Visit [facility] OPTOMETRY [address] [place] [address] Terry, Aminta, OD [address] [place] [address] 05/16/2025 10:00 AM EDT Office Visit [facility] ADULT DENTAL [address] [place] [address] Fiona Camacho [address] [place] [address] documented as of this encounter Visit Diagnoses Not on filedocumented in this encounter Additional Health Concerns Assessment Noted Time PHQ-9 Depression Total Score: 0 09/22/20 24 1:10 PM EST documented as of this encounter Care Teams Car Worker Relationship Specialty Start Date End Date Ina Arroyo NP [address] [place] [address] PCP - General Family Medicine 10/30/24 documented as of this encounter
--- OUTSIDE RECORDS SUMMARY | 2025-03-02 09:33 | XMS_ITS | Clinical Summary ---
Author Organization [employer] Address [address] [place] [address] Care Team Providers Care Investments Manager Name Role Phone Ina Arroyo NP Primary Care Provider [phone] Allergies Active Allergy Reactions Criticality Noted Date [...] AM EDT): -Failed Zepbound trial -Engaged with instructional manager -Continue lifestyle and diet modifications -Plan to [...] for a follow up, seen at our [facility] with c/o svere abdominal pain x [...] sign out to the charge nurse at [facility] who will be [...] her sister completed SI. Family relocated from [place] to [place] as part of the transition process about six months ago. Patient feels very overwhelmed and frustrated due to having so many stressors (taking care of her mom, son, she has no transportation). PLAN: (check all that apply) Continue with current services (defined as services in the past 12 months) . Carlos was referred to [facility] on 10/04/23. She completed intake and scheduled [...] her sister completed SI. Family relocated from [place] to [place] as part of the transition process. PLAN: (check all that apply) New/Additional Services needed PCP management On-site non-integrated services Off-site services for , Behavioral Health Integration Plan Internal Follow up with I, External OP therapy referral , Patient Self Plan Patient to utilize skills provided in intervention , [facility] as [facility], Patient to [...] her sister completed SI. Family relocated from [place] to [place] as part of the transition process. PLAN: [...] her sister completed SI. Family relocated from [place] to [place] as part of the transition process about six months ago. Patient feels very overwhelmed and frustrated due to having so many stressors (taking care of her mom, son, she has no transportation). PLAN: (check all that apply) Continue with current services (defined as services in the past 12 months) . Carlos was referred to [facility] on 10/04/23. She completed intake and scheduled [...] her sister completed SI. Family relocated from [place] as part of the transition process. PLAN: [...] her sister completed SI. Family relocated [place] as part of the transition process. PLAN: (check all that apply) New/Additional Services needed PCP management On-site non-integrated BH services Off-site services for BH, Behavioral Health Integration Plan Internal Follow up with [facility], External OP BH therapy referral , Patient Self Plan Patient to utilize skills provided in intervention , Patient to [facility] as needed, Patient to engage in OP BH therapy , and Patient to reach out to [facility] as needed. Resolved Problems Problem Noted Date Diagnosed Date Resolved Date Obesity (BMI 30-39.9) 02/27/20242024 Assessment & Plan (10/24/2024 11:48 AM EST): Referred to [facility] weight management center Elevated BP without diagnosis of hypertension 02/15/2012/22/2024 Assessment & Plan (02/27/2024 9:03 PM EDT): Monitor, referral to cardiology given episode of substernal chest pain Encounters Date Type Department Care Team Description 02/09/[address] [address] Gerda Carmona MA Chart Prep 02/07/[address] [address] Isatu Sloan MD 02/02/2025 Refill [facility] [address] [place] [phone] Alec Barber MD Gastroesophageal reflux disease with esophagitis, unspecified whether hemorrhage 01/25/2025 Patient Outreach [address] [address] Ina Arroyo NP Care Coordination (Appt reminder) 01/24/2025 Orders Only [facility] [address] [place] [phone] Layla Bautista MD 01/24/2025 Refill [facility] [address] [place] [phone] Adelaida Degroot MD 01/23/2025 Patient Outreach [facility] [address] [place] [address] Ina Arroyo NP Care Coordination 01/23/[address] [address] Ina Arroyo NP Care Management (C3CM- f/u call) 01/19/2025 Orders Only GENERIC EXTERNAL DATA DEPARTMENT Provider, Generic External Data 01/18/2025 Patient Outreach [address] [address] Ina Arroyo NP Care Coordination (Appt reminder) 01/16/2025 2:15 PM EDT Procedure Visit [address] [address] Chayo Key CNM Cervical cancer screening (Primary Dx); Screening examination for venereal disease; Genital ulcer, female; Vaginal odor 01/16/2025 Orders Only [address] [address] Chayo Key CNM 01/16/[address] [address] Isatu Sloan MD med concern (Pt walked in stating that she has not taken her lisinopril 10 MG tablet in 2 day. Stating the medication is giving her a bad dry cough and she does not like how it is making her feel . Pt is requesting to speak about stopping medications or finding a different option.) 01/16/2025 Travel 01/15/[address] [address] Ina Arroyo NP 01/12/2025 1:00 PM EDT Office Visit [address] [address] Ina Arroyo NP Encounter to establish care (Primary Dx); Chronic low back pain without sciatica, unspecified back pain laterality; Neck pain; Subclinical hypothyroidism; Class 3 severe obesity due to excess calories without serious comorbidity with body mass index (BMI) of 40.0 to 44.9 in adult (CMS/[facility]); Dietary counseling; Exercise counseling; Primary hypertension; Obesity (BMI 30-39.9); Pre-diabetes; Hypertension, unspecified type 01/12/2025 Travel 01/11/2025 Patient Outreach [address] [address] Ina Arroyo NP Care Coordination (Appt reminder) 01/10/[address] [address] Ina Arroyo NP Care Management (C3CM- f/u call) 01/08/2025 Orders Only [address] [address] María Stephens CNP 01/08/2025 Patient Outreach [address] [address] Ina Arroyo NP Care Coordination (Appt reminder) 01/05/2025 Patient Outreach [facility] [address] [place] [address] Ina Arroyo NP Pre-visit Planning (SDOH was already completed. ) 01/04/[address] [address] Angel Luis Silva MA chartprep 12/29/2024 Population Health Risk Score [facility] (C3) [address] [phone] Provider, Population Health Generic 12/29/2024 Patient Outreach [address] [address] Ina Arroyo NP Care Coordination (SDOH outreach) 12/28/[address] [address] Ina Arroyo NP Care Management (C3CM- f/u call) 12/22/2024 11:15 AM EST Office Visit [address] [address] María Stephens CNP Palpitations (Primary Dx); Hypertension, unspecified type; Unexplained weight gain; Shortness of breath 12/22/2024 10:00 AM EST Clinical Support [address] [address] Rhina Herrera, OPAL Elevated BP without diagnosis of hypertension 12/22/2024 Travel 12/21/2024 Patient Outreach [address] [address] Ina Arroyo NP Care Coordination (CM/CHW f/u) 12/21/[address] [address] Isatu Sloan MD 12/18/2024 Patient Outreach [facility] [address] [place] [address] Ina Arroyo NP Care Coordination (Appt reminder) 12/15/2024 Telephone [facility] [address] [place] [address] Ina Arroyo NP Care Management (C3CM- f/u call) 12/13/2024 Orders Only [facility] External Provider, [facility] from Last 3 Months Immunizations Immunization Administration Dates Next Due Influenza injectable quadrivalent [...] Q2 Not on file 10/23/2024 Comments No Intention Date Recorded No desire to become (finding) 0 01/16/2025 Sex and Gender Information Value Date Recorded [...] Description 03/05/2025 10:00 AM EDT Office Visit [facility]OM[facility] [address] [place] [address] Terry, Aminta, OD [address] [place] [address] 05/16/2025 10:00 AM EDT Office Visit [facility] AD[facility] DENTAL [address] [place] [address] Fiona Camacho [address] [place] [address] [phone] Health Maintenance Due Date Last Done Comments [...] Procedure Name Priority Date/Time Associated Diagnosis Comments TRANSTHORACIC ECHO (TTE) COMPLETE Routine 02/26/2025 Palpitations CANCELLED CHEMISTRY Routine 01/19/2025 2 :06 PM [...] Recently Relevant to Health Maintenance Results * Transthoracic Echo (TTE) Complete (02/26/2025) [facility] AUDIOLOGY DOCTOR CV ECHO PROCEDURES Final Result * Cancelled Chemistry (01/19/2025 2:06 PM EDT) Cancelled Chemistry SEE NOTE [facility] Comment:CANCEL GLUCOSE EVIE ANCE TEST 3HR( GTT 3 HR). NO SPECIMENRECEIVED 01/19/2025 2:06 PM EDT 01/19/2025 2:06 PM EDT us Generic External Data Provider HISTORICAL/NON OR DERABLE LABS Final Result Performing Organization Address City/[facility]/ZIP Co de Phone Number [facility] [address] [place] [address] [phone] * Syphilis Screen (01/19/2025 2:06 PM EDT) Syphilis Screen Nonreactive Nonreactive [facility] Blood Venous blood specimen / Unknown 01/19/2025 2:06 PM EDT 01/19/2025 2:06 PM EDT us Chayo [place] LAB BLOOD ORDERABLES Saima l Result Performing Organization Address [facility]/ZIP Co de Phone Number [facility] [address] [place] [address] [phone] * TSH with Reflex to Free T4 (01/19/2025 2:06 PM EDT) Only the most recent of2 resultswithin the time period is included. TSH reflex Free T4 2.86 0.32 - 4.0 uIU/mL [facility] 01/19/2025 2:06 PM EDT 01/19/2025 2:06 PM EDT Generic External Data Provider LAB BLOOD ORDERAB LES Final Result Performing Organization Address [facility] Co de Phone Number [facility] [address] [place] [phone] * Hepatitis Panel, General (01/19/2025 2:06 PM EDT) Pathologist [facility] Hepatitis A IgM Nonreactive Nonreactive [facility] Comment:IgM antibodies to JAFFE V not detected; does not exclude earlyacute or recovered HAV infection. ~Hepatitis B Surface Antibody NONREACTIVE Nonreactive [facility] Comment:Nonreactive: < 8.00 mIU/mL Hepatitis B Core Antibody Nonreactive Nonreactive [facility] Hepatitis C Antibody Nonreactive Nonreactive [facility] Comment:Antibodies to HCV no t detected; does not exclude early acuteHCV infection. Hepatitis B Surface Ag Negative Negative [facility] 01/19/2025 2:06 PM EDT 01/19/2025 2:06 PM EDT Generic External Data Provider LAB BLOOD ORDERAB LES Final Result Performing Organization Address [facility] Co de Phone Number [facility] [address] [place] [phone] * Thyroid Peroxidase Antibodies (01/19/2025 2:06 PM EDT) Thyroid Peroxidase Antibodies <1 <9 IU/mL [facility] Comment:THIS TEST WAS PERFOR MED AT:[id number] [place] [phone] CROSS MD 01/19/2025 2:06 PM EDT 01/19/2025 2:06 PM EDT us Generic External Data Provider LAB BLOOD ORDERAB LES Final Result Performing Organization Address [facility] Co de Phone Number [facility] [address] [place] [phone] * Actin (Smooth Muscle) Antibody (IgG) (01/19/2025 2:06 PM EDT) Smooth Muscle Antibody <20 <20 U [facility] Comment:Reference Range: <20 U: Negative>or=20 [...] with AIH type 1.THIS TEST WAS PERFORMED AT:[id number] [place] [phone] EDEN MD,PHD 01/19/2025 2:06 PM EDT 01/19/2025 2:06 PM EDT Generic External Data Provider LAB BLOOD ORDERAB LES Final Result Performing Organization Address [facility] Co de Phone Number [facility] [address] [place] [phone] * Mitochondrial Antibody with Reflex to Titer (01/19/2025 2:06 PM EDT) Mitochondrial Antibodies NEGATIVE NEGATIVE [facility] Comment:THIS TEST WAS PERFOR MED AT:[facility] [address] [phone] CROSS MD Mitochondrial Ab Titer TNP [facility] 01/19/2025 2:06 PM EDT 01/19/2025 2:06 PM EDT us Generic External Data Provider LAB BLOOD ORDERAB LES Final Result Performing Organization Address [facility]/ZIP Co de Phone Number [facility] [address] [place] [address] [phone] * (ABNORMAL) Herpes Simplex Virus 1 and 2 (IgG), Type-Specific Antibodies (01/19/2025 2:06 PM EDT) Herpes Simplex Type 1 IgG 11.70(A) index [facility] Herpes Simplex Type 2 IgG 13.90(A) index [facility] Comment:Index Interpretation ----- <0.90 Negative [...] immunocompromised patients,or screening.For additional information, please refer tohttp://education.Prestodiag/faq/JUU860(This link is being provided for informational/educational purposes only.)THIS TEST WAS PERFORMED AT:[id number] [place] [phone] CROSS MD Blood Venous blood specimen / Unknown 01/19/2025 2:06 PM EDT 01/19/2025 2:06 PM EDT us Chayo Key [facility] LAB BLOOD ORDERABLES Saima l Result Performing Organization Address [facility]/ZIP Co de Phone Number [facility] [address] [place] [address] [phone] * HIV-1/2 Antigen and Antibodies, Fourth Generation, with Reflexes (01/19/2025 2:06 PM EDT) HIV AB/AG Nonreactive Nonreactive [facility] Comment:HIV-1 p24 Ag and/or HIV-1/HIV-2 Ab not detected.A test result that is nonreactive does not exclude thepossibility of exposure to or infection with HIV-1 and/orHIV-2. Nonreactive results in this assay for individualswith prior exposure to HIV-1 and/or HIV-2 may be due toantigen and antibody levels that are below the limit ofdetection of this assay.The [employer] HIV Ag/Ab Combo assay result andsupplemental assay results should be interpreted inconjunction with the patient's clinical presentation,history and other laboratory results. If the results areinconsistent with clinical evidence, additional testing issuggested to confirm the result. 01/19/2025 2:06 PM EDT 01/19/2025 2:06 PM EDT us Generic External Data Provider LAB BLOOD ORDERAB LES Final Result [facility] [address] [place] [phone] * RAFI Screen,IFA, with Reflex to Titer and Pattern (01/19/2025 2:06 PM EDT) Anti Nuclear Antibody Screen NEGATIVE NEGATIVE [facility] Comment:RAFI IFA is a first [...] clinicallysuspected inflammatory myopathies.AC-0: NegativeInternational Consensus on RAFI Patterns(https://doi.org/10.1515/ygro-4598-3216)For additional information, please refer tohttp://education.Prestodiag/faq/XXS854(This link is being provided for informational/educational purposes only.)THIS TEST WAS PERFORMED AT:[facility] [place] [id number] CROSS MD RAFI Titer TNP [facility] RAFI Pattern TNP [facility] RAFI TITER 2 (REF LAB) TNP [facility] RAFI Pattern 2 TNP [facility] RAFI TITER 3 TNP [facility] RAFI PATTERN 3 TNP [facility] 01/19/2025 2:06 PM EDT 01/19/2025 2:06 PM EDT us Generic External Data Provider LAB BLOOD ORDERAB LES Final Result Performing Organization Address [facility]/ZIP Co de Phone Number [facility] [address] [place] [phone] * (ABNORMAL) Ferritin (01/19/2025 2:06 PM EDT) Pathologist [facility] Ferritin 262(H) 10 - 250 ng/mL [facility] 01/19/2025 2:06 PM EDT 01/19/2025 2:06 PM EDT Generic External Data Provider LAB BLOOD ORDERAB LES Final Result Performing Organization Address [facility] de Phone Number [facility] [address] [place] [phone] * Comprehensive Metabolic Panel (01/19/2025 2:06 PM EDT) Only the most recent of2 resultswithin the time period is included. Sodium 140 135 - 145 mmol/L [facility] Potassium 3.8 3.3 - 5.1 mmol/L [facility] Chloride 106 96 - 108 mmol/L [facility] Carbon Dioxide 25 22 - 29 mmol/L [facility] Anion Gap 13 12 - 20 [facility] Urea Nitrogen (BUN) 15 9 - 16 mg/dL [facility] Creatinine, Serum 0.76 0.5 - 1.4 mg/dL [facility] Estimated Glomerular Filt Rate >60 [facility] Comment:Chronic Kidney Disea se: Estimated GFR < 60 mL/min/1.24a8Ydsxfq Kidney Disease: Estimated GFR < 15 mL/min/1.73m2 Glucose 104 60 - 115 mg/dL [facility] Calcium 9.4 8.4 - 10.2 mg/dL [facility] Bilirubin, Total 0.4 0.0 - 1.0 mg/dL [facility] Aspartate Amino Transferase 24 5 - 31 U/L [facility] Alanine Aminotransferase 29 0 - 31 U/L [facility] Total Protein 7.6 6.5 - 8.0 g/dL [facility] Albumin Level 4.4 3.5 - 5.0 g/dL [facility] Alkaline Phosphatase 77 39 - 117 U/L [facility] 01/19/2025 2:06 PM EDT 01/19/2025 2:06 PM EDT us Generic External Data Provider LAB BLOOD ORDERAB LES Final Result [facility] [address] [place] [address] [phone] * (ABNORMAL) Urinalysis w/reflex microscopic (01/19/2025 2:00 PM EDT) Color Urine Yellow [facility] Appearance Urine Clear [facility] PH 5.5 5.0 - 9.0 [facility] Glucose Urine UA Negative Negative mg/dL [facility] Urine Blood Negative Negative [facility] Specific [place] - Urine >=1.030(H) 1.005 - 1.025 [facility] Urine Protein Trace Neg-Trace mg/dL [facility] Urine Ketones Negative Negative mg/dL [facility] Nitrite Urine Negative Negative [facility] Leukocyte Esterase Urine Negative Negative [facility] 01/19/2025 2:00 PM EDT 01/19/2025 2:27 PM EDT Narrative [facility] - 01/19/2025 2:32 PM EDT Urine, Clean Catch Generic External Data Provider LAB URINE ORDERAB LES Final Result [facility] [address] [place] [address] [phone] * POCT fern test, vaginal fluid [...] PM EDT) HPV High Risk Negative Negative [facility] HPV Genotype 16 Negative Negative [facility] HPV Genotype 18 Negative Negative [facility] Comment:HPV testing performe d at [facility] (CLIA#[id number]), [address] [place] [address].Testing for HPV was performed using the Norberto [...] CNM LAB BLOOD ORDERABLES Saima l Result [facility] [address] [place] [address] [phone] * Pap Smear (01/16/2025 2:24 PM EDT) Swab Cervix uteri structure / Unknown 01/16/2025 2:24 PM EDT 01/17/2025 6:00 AM EDT Narrative [facility] - 01/22/2025 1:21 PM EDT ----- ------- Name: Carlos Alegria ?Age/Sex: 44/F ? : 1980 Unit#: [id number] ?? Attend Dr: CHAYO KEY CNM ?Re01/16/25 ?Status: DEP REF ? Location: HO.LNP ?Disch: ? ----- ------- SPEC : [id number] ? RECD: 01/17/25-599 ? STATUS: ??SOUT ? REQ NUM: [id number] ? ADELA: 01/16/25-392 ? SUBM DR: CHAYO KEY CNM ? ENTERED: ??01/17/25 ?SP TYPE: Pap Smr ?OTHR : ? ORDERED: ??Pap Smear ? Interpretation ?? Satisfactory for evaluation. ?? Negative for intraepithelial lesion or malignancy. ?? No endocervical cells seen. ? HPV High Risk: ??Negative ? HPV Genotyping 16: ??Negative ?? HPV Genotyping 18: ??Negative ?Clinical Information LMP: Unknown date Previous PAP test: Unknown date/findings ? Material Received ?? Cervix ----- ------- Signed (signature on file) LAYA Dewey ([facility]) 01/22/25 1321 ? ----- ------- ? END OF REPORT ? Chayo Key M LAB CYTOLOGY ORDERABLES F inal Result Performing Organization Address [facility] Co de Phone Number [facility] [address] [place] [address] [phone] * T4, Free (01/08/2025 9:10 AM EDT) Free T4 (Free Thyroxine) 0.85 0.71 - 1.85 ng/dL [facility] 01/08/2025 9:10 AM EDT 01/08/2025 11:36 AM EDT María Stephens [facility] LAB BLOOD ORDERABLES Saima l Result Performing Organization Address [facility] de Phone Number [facility] [address] [place] [phone] * (ABNORMAL) Hemoglobin A1c (01/08/2025 9:10 AM EDT) Hemoglobin A1c 6.5(H) <6.0 % [facility] Comment:Hemoglobin A1C Refer ence Range Adults: 4.8 - 6.0 % Non diabetic: < 6.0 % Goal: < 7.0 %Additional Action Suggested: > 8.0 %Note: Hemoglobin A1c results are invalid for patients with abnormal amounts of HbF. Blood transfusions may impact the HbA1c concentration in the patient sample. Estimated Average Glucose 140 mg/dL [facility] Comment:eAG = Estimated ave rage glucose which is %A1C expressed asaverage glucose, using the formula of the S2E-NuzzqduMjxnbqd Glucose study (ADAG), Diabetes Care, Vol.31,#8,2007 Blood Venous blood specimen / Unknown 01/08/2025 9:10 AM EDT 01/08/2025 11:36 AM EDT Result [facility] LAB BLOOD ORDERABLES Saima l Result Performing Organization Address [facility] Co de Phone Number [facility] [address] [place] [address] [phone] * (ABNORMAL) Basic Metabolic Panel (01/08/2025 9:10 AM EDT) Sodium 139 135 - 145 mmol/L [facility] Potassium 3.3 3.3 - 5.1 mmol/L [facility] Chloride 107 96 - 108 mmol/L [facility] Carbon Dioxide 23 22 - 29 mmol/L [facility] Anion Gap 12 12 - 20 [facility] Urea Nitrogen (BUN) 9 9 - 16 mg/dL [facility] Creatinine, Serum 0.80 0.5 - 1.4 mg/dL [facility] Estimated Glomerular Filt Rate >60 [facility] Comment:Chronic Kidney Disea se: Estimated GFR < 60 mL/min/1.27h0Oxxmrb Kidney Disease: Estimated GFR < 15 mL/min/1.73m2 Glucose 204(H) 60 - 115 mg/dL [facility] Calcium 9.1 8.4 - 10.2 mg/dL [facility] Blood Venous blood specimen / Unknown 01/08/2025 9:10 AM EDT 01/08/2025 11:36 AM EDT [facility] LAB BLOOD ORDERABLES Saima l Result Performing Organization Address [facility]/ZIP Co de Phone Number [facility] [address] [place] [address] [phone] * ECG 12 lead (12/22/2024 12:34 PM EST) Narrative María Stephens CNP - 12/22/2024 12:34 PM EST NSR, Rate: 87 bpm, no ST elevation or depression, normal ECG [facility] [place] AUDIOLOGY DOCTOR ECG ORDERABLES Final Res ult * High Sensitivity Troponin I (12/13/2024 8:35 AM EST) Only the most recent of3 resultswithin the time period is included. TROPONIN I HIGH SENSITIVITY 8.4 <3.5 - 17.0 ng/L [facility] Comment:The Alaniz high sens itivity Troponin-I results should beused in conjunction with other diagnostic information suchas ECG, clinical observations and information, and patientsymptoms to aid in the diagnosis of AR. 12/13/2024 8:35 AM EST 12/13/2024 8:39 AM EST Generic External Data Provider LAB BLOOD ORDERAB LES Final Result [facility] [address] [place] [phone] * SARS-CoV-2 RNA, Influenza A/B, and RSV RNA, Ql NAAT (12/13/2024 8:35 AM EST) Pathologist [facility] Influenza A PCR NEGATIVE Negative [facility] Influenza B PCR NEGATIVE Negative [facility] Resp Syncy Virus RNA Qual PCR NEGATIVE Negative [facility] SARS COV2 PCR NEGATIVE Negative [facility] Comment:All test results mus t be [...] use by authorized laboratories.Testing performed on the [employer] GeneXpert utilizingreal-time RT-PCR.All SARS CoV2 and positive influenza A/B results arereported to [facility]. 12/13/2024 8:35 AM EST 12/13/2024 8:39 AM EST us Generic External Data Provider LAB MICROBIOLOGY - GENERAL ORDERABLES Final Result [facility] [address] [facility] [place] [address] [phone] * XR Chest 1 View (12/13/2024 2:16 AM EST) Anatomical Region Laterality Modality Chest Radiographic No ging 12/13/2024 2:16 AM EST Narrative 12/13/2024 2:17 AM EST ? [facility] ?[address] ?[place] [address] ?XRay Report ? Signed ? Patient: Bhatt Monlezun,Danyela ?MR ?? #: [id number] ? : 1980 ?Acct:[id number] ? Age/Sex: 44 / F ?ADM Date: 12/13/24 ? Loc: HO.ED ? Attending Dr: ? Ordering Physician: Generic ED Physician ?? Date of Service: 12/13/24 ?? Procedure(s): XR chest 1V ?? Accession Number(s): [id number] ? cc: Generic ED Physician; Isatu Sloan [...] ? DD/ 5 ? TD/TT: 12/13/24215 ? Lead Technical Architect: ? Procedure Note Adelfo, Francia - 12/13/[address] [address] XRay Report Signed Patient: Sundar Alegria #: [id number] : 1980Acct:[id number] Age/Sex: 44 / FADM Date: 12/13/24 Loc: HO.ED Attending Dr: Ordering Physician: Generic ED Physician Date of Service: 12/13/24 Procedure(s): XR chest 1V Accession Number(s): [id number] cc: Generic ED Physician; Isatu Sloan MD [...] in OV> 12/13/24216 DD/ 5 TD/TT: 12/13/24215 Lead Technical Architect: [facility] External Provider IMG XR PROCEDURES Edited Result - Final * (ABNORMAL) CBC auto differential (12/13/2024 1:21 AM EST) White Blood Count 7.2 4.8 - 10.8 X10*3/uL [facility] Red Blood Count 4.30 4.20 - 5.50 X10*6/uL [facility] Hemoglobin 13.6 12.0 - 16.0 g/dl [facility] Hematocrit 37.8 37.0 - 47.0 % [facility] Mean Corpuscular Volume 87.9 80.0 - 98.0 fL [facility] Mean Corpuscular Hemoglobin 31.6 27.0 - 33.0 pg [facility] Mean Corpuscular HGB Conc 36.0(H) 31.0 - 35.0 g/dl [facility] Red Cell Distribution Width 12.4 11.0 - 16.0 % [facility] Platelet Count 252 160 - 400 X10*3/uL [facility] Mean Platelet Volume 9.1(L) 9.4 - 12.3 fL [facility] Neutrophils Percent Auto 55.2 45 - 73 % [facility] Imm Gran Pct Auto 0.3 0.0 - 0.4 % [facility] Lymphocytes Percent Auto 35.1 20 - 40 % [facility] Monocytes Percent Auto 5.8 2 - 11 % [facility] Eosinophils Percent Auto 3.2 0 - 4 % [facility] Basophils Percent Auto 0.4 0 - 2 % [facility] NRBC Pct Auto 0.0 0.0 - 0.2 /100WBC [facility] Neutrophils Absolute Auto 4.0 2.0 - 8.3 x10*3/uL [facility] Imm Gran Abs Auto 0.02 0.00 - 0.03 X10*3/uL [facility] Lymphocytes Absolute Auto 2.5 1.2 - 4.9 X10*3/uL [facility] Monocytes Absolute Auto 0.4 0.1 - 1.2 X10*3/uL [facility] Eosinophils Absolute Auto 0.2 0.0 - 0.4 X10*3/uL [facility] Basophils Absolute Auto 0.0 0.0 - 0.2 X10*3/uL [facility] NRBC Abs Auto 0.000 0.0 - 0.012 X10*3/uL [facility] 12/13/2024 1:21 AM EST 12/13/2024 1:24 AM EST us Generic External Data Provider LAB BLOOD ORDERAB LES Final Result [facility] [address] [place], [place] [phone] * BI Mammogram Screening Tomosynthesis Bilateral (11/05/2023 2:30 PM EST) Anatomical Region Laterality Modality Breast Bilateral Mammography 11/05/2023 2:30 PM EST Narrative 11/20/2023 12:18 PM EST ? [facility] ? [address] ?[place] [address] ? Mammography Report ? Signed ? Patient: Bhatt Monlezun,Danyela ?MR ?? #: [id number] ? : 1980 ?Acct:[id number] ? Age/Sex: 43 / F ?ADM Date: 11/05/23 ? Loc: HO.MAMMO ? Attending Dr: Isatu Brandt MD ? Ordering Physician: Isatu Sloan MD ?Results: 0Incomplete: Needs Additional Imaging ?? Evaluation ? Date of Service: 11/05/23 ?Follow Up: Additional Imagi ?? ng ? Procedure(s): MM tomosynthesis screening BI ?? Accession Number(s): [id number] ? cc: Isatu Sloan MD ? EXAMINATION: [...] 1215 ? DD/ 1430 ? TD/TT: ? Lead Technical Architect: ? Procedure Note Francia Emanuel - 11/20/2023 [facility] [address] [place], [place] [address] Mammography Report Signed Patient: Sundar Alegria #: [id number] : 1980Acct:[id number] Age/Sex: 43 / FADM Date: 11/05/23 Loc: JUSTO Attending Dr: Isatu Brandt MD Ordering Physician: Isatu Sloan MD Results: 0Incomplete: Needs Additional Imaging Evaluation Date of Service: 11/05/23Follow Up: Additional Imagi ng Procedure(s): MM tomosynthesis screening BI Accession Number(s): [id number] cc: Isatu Sloan MD EXAMINATION: MM SCREENING [...] in OV> 11/20/23 1215 DD/ 1430 TD/TT: Lead Technical Architect: us Isatu Brandt MD IMG BI PROCEDURES Edited Result - Final * Lipid Panel, Standard (11/04/2023 9:45 AM EST) Triglycerides 100 <150 mg/dL [facility] Comment:Desirable Triglyceri de: less than 150 mg/dLBorderline High Triglyceride 150-199 mg/dLHigh Triglyceride: 200-499 mg/dLVery High Triglyceride: greater than or equal to 5OO mg/dL Cholesterol 164 <200 mg/dL [facility] Comment:Desirable Cholestero l: less than 200 mg/dLBorderline High Cholesterol: 200-239 mg/dLHigh Cholesterol: greater than 239 mg/dL LDL Cholesterol Calculated 93 <100 mg/dL [facility] Comment:Desirable LDL: less than 100 mg/dLNear Optimal/Above Optimal LDL: 110- 129 mg/dLBorderline High LDL: 130-159 mg/dLHigh LDL: 160-189 mg/dLVery High LDL: greater than or equal to 190 mg/dL HDL Cholesterol 51 >40 mg/dL [facility] Comment:Desirable HDL: great er than 40 mg/dL Note: This HDL assay may give artificially low results in patients with liver disease. Blood Venous blood specimen / Unknown 11/04/2023 9:45 AM EST 11/04/2023 12:00 PM EST Isatu Brandt MD LAB BLOOD ORDERAB LES Final Result [facility] [address] [place] [address] [phone] from Last 3 Months or Most Recently Relevant to Health Maintenance [place] [address] [place] [address] [place] [address] [facility] AD[place] Care Teams Investments Manager Relationship Specialty Start Date End Date Ina Arroyo NP [address] [place] [address] [place] [address] PCP - General Family Medicine 10/30/24
--- OUTSIDE RECORDS SUMMARY | 2025-03-02 09:33 | XMS_ITS | Encounter Summary ---
Author Organization [employer] Address [address] [facility] [address]t [place] [address] Care Team Providers Care Wearing Apparel Presser Name Role Phone Isatu Sloan MD Primary Care Pro vider Janel Go RN Unavailable [phone] Ina Arroyo NP Primary Care Provider [phone] Encounter Details Date Type Department Care Team (Late st Contact Info) Description 09/26/2024 Orders Only [facility] [address] [place] [address] Vanita Silver MD [address] [place] [address] Social History Tobacco Use Types Packs/Day Years [...] Description 03/05/2025 10:00 AM EDT Office Visit [facility] [address] [place] [address] Terry, Aminta, OD [address] [place] [address] 05/16/2025 10:00 AM EDT Office Visit [facility] [address] [place] [address] Fiona Camacho [address] [place] [address] documented as of this encounter Visit Diagnoses Not on filedocumented in this encounter Additional Health Concerns Assessment Noted Time PHQ-9 Depression Total Score: 0 09/22/20 24 1:10 PM EST documented as of this encounter Care Teams Wearing Apparel Presser Relationship Specialty Start Date End Date Isatu Sloan MD [address] [place] [address] PCP - General Internal Medicine 10/01/23 10/29/24 Ina Arroyo NP [address] [place] [address] PCP - General Family Medicine 10/30/24 Janel Go RN [address] [place] [phone] Industrial Waste Treatment TechnicianShagger 10/19/24 01/22/25 documented as of this encounter
== END 2025-03-02 09:25 | disposition home or self-care (01) ==
LOC: HO.US 09:24
PROVIDERS: PCP Student in an Organized Health Care Education/Training Program; Visit Provider Nurse Practitioner
DX: R74.01 Elevation of levels of liver transaminase levels (principal); K21.9 Gastro-esophageal reflux disease without esophagitis; R09.A2 Foreign body sensation, throat; Z98.51 Tubal ligation status; Z98.891 History of uterine scar from previous surgery
CPT/HCPCS: 76700; 76981

== ENCOUNTER → 2025-03-02 09:29 | Outpatient (BNV) | payer MEDICAID, SELFPAY | PROVIDERS: PCP Student in an Organized Health Care Education/Training Program; Visit Provider Radiology Diagnostic Radiology | DX: R94.5 Abnormal results of liver function studies (principal); R16.0 Hepatomegaly, not elsewhere classified; K76.0 Fatty (change of) liver, not elsewhere classified | CPT/HCPCS: 76700; 76981 ==

== ENCOUNTER 2025-03-06 10:57 | Outpatient (REF) | payer MEDICAID, SELFPAY ==
--- NOTE | 2025-03-06 11:00 | PFT_ITS ---
Flows: FEV1: 87 % of predicted at 2.53 L FVC: 83 % of predicted at 2.96 L FEV1/FVC: 85 % Bronchodilator response: Absent Volumes: Total lung capacity: 80 % of predicted at 4.17 L Residual volume: 88 % of predicted at 1.22 L Slow vital capacity: 77 % of predicted at 2.95 L Expiratory reserve volume: 58 % of predicted at 0.66 L Diffusion capacity: Normal Impression: No obstructive or restrictive ventilatory defect. No bronchodilator response. Decreased expiratory reserve volume suggests extrathoracic restriction likely secondary to abdominal obesity. MTDD
[2025-03-06 11:50] VITALS: PULSE 98; O2SAT 98
--- OUTSIDE RECORDS SUMMARY | 2025-03-06 12:14 | XMS_ITS | Encounter Summary ---
Author Organization [employer] Address [address] [facility] 7[address] [place] [address] Care Team Providers Care Senior Windows Systems Administrator Name Role Phone Ina Arroyo NP Primary Care Provider [phone] Reason for Visit * Reason Comments Blurred Vision Encounter Details Date Type Department Care Team ([facility] st Contact Info) Description 03/05/2025 10:00 AM EDT Office Visit [facility] [address] [place] [address] Terry, Aminta, OD [address] [place] [address] Optic nerve asymmetry, right (Primary Dx); Chorioretinal scar, right; Dark area on retina; Congenital hypertrophy of retinal pigment epithelium; Presbyopia Social History Tobacco Use Types Packs/Day Years [...] as of this encounter Progress Notes * Aminta Stewart, OD - 03/05/2025 10:00 AM EDT Eye Care Progress Note Patient ID: Carlos Castle is a 44 y.o. female. 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 Today the patient complains of blurry vision in both eyes at distance when driving at night. She ishappy without distance vision correction during the day. She states she can't wear her distance vision glasses from her last exam as they make her dizzy. She is happy with her near vision with her reading glasses but notes her son broke them a few months ago. Her last eye exam was here on 11/16/2023. Last edited by Aminta Stewart, OD on 03/05/2025 10:38 AM. Current Medications[1] Medical History[2] Surgical History[3] Family History[4] Social History Socioeconomic History Marital status: Other Spouse name: Not on file Number of children: Not on file Years of education: Not on file Highest education level: Not on file Occupational History Not on file Tobacco Use Smoking status: Never Passive exposure: Never Smokeless tobacco: Never Vaping Use Vaping status: Never Used Substance and Sexual Activity Alcohol use: Yes Comment: social Drug use: Never Sexual activity: Not Currently control/protection: Female Sterilization Other Topics Concern Not on file Social History Narrative Not on file Social Drivers of Health Food Insecurity: Low Risk (10/23/2024) Food Insecurity Within the past 12 months, you worried that your food would run out before you got money to buy more:: Never True Within the past 12 months,the food you bought just didn't last and you didn't have enough money to get more: : Never True Transportation Needs: Low Risk (10/23/2024) Transportation In the past 12 months, has lack of transportation kept you from medical appts, meetings, work or from getting things needed for daily living? : No Intimate Partner Violence: Not on file Housing Stability: Low Risk (10/23/2024) Housing Stability What is your housing situation today?: I have housing Think about the place you live. Do you have problems with any of the following? : None of the above Allergies[5] ROS Positive for: Eyes Negative for: Constitutional, Gastrointestinal, Neurological, Skin, Genitourinary, Musculoskeletal,HENT, Endocrine, Cardiovascular, Respiratory, Psychiatric, Allergic/Imm, Heme/Lymph Last edited by Aminta Stewart OD on 03/05/2025 10:11 AM. Base Eye Exam Visual Acuity (Snellen - Linear) Right Left Dist sc 20/20 -2 20/20 -1 Tonometry ([facility] , 10:24 AM) Right Left Pressure 18 19 Pupils Pupils APD Right PERRL None Left PERRL None Visual Narvaez (Counting fingers) Left Right Full Full Extraocular Movement Right Left Full Full Neuro/Psych Oriented x3: Yes Mood/Affect: Normal Dilation Both eyes: 1.0% Tropicamide @ 10:24 AM Slit Lamp and Fundus Exam External Exam Right Left External Normal Normal Slit Lamp Exam Right Left Lids/Lashes Normal Normal Conjunctiva/Sclera White and quiet White and quiet Cornea Clear Clear Anterior Chamber Deep and quiet Deep and quiet Iris Flat Flat Lens Clear Clear Fundus Exam Right Left Vitreous Clear Clear Disc [place] and Distinct [place] and Distinct C/D Ratio Vertical 0.55 0.4 C/D Ratio Horizontal 0.55 0.4 Macula Flat and Intact Flat and Intact Vessels Normal Normal Periphery Chorioretinal scar at 11:00 in the periphery, DWOP temporal periphery, No detachments 360degrees Pinpoint CHRPE at 12:00 in the periphery, DWOP temporal periphery, No holes/breaks/tears 360 degrees Refraction Wearing Rx Sphere Cylinder [place] Add Right -0.25 -0.50 100 +1.50 Left +0.25 -0.50 080 +1.50 Manifest Refraction Sphere Cylinder [place] Dist VA Add Right [place] -0.75 093 20/20 +1.50 Left +0.25 -0.75 085 20/20 +1.50 Dist VA Both: 20/20 Near VA Both: 20/20 Final Rx Sphere Cylinder [place] Dist VA Add Right [place] -0.75 093 20/20 +1.50 Left +0.25 -0.75 085 20/20 +1.50 Expiration Date: 03/05/2026 Assessment/plan: Diagnoses and all orders for this visit: Optic nerve asymmetry, right Stable to previous exam findings. The patient was educated there is no concern for glaucoma or another pathology. No treatment is necessary. Will monitor with a complete eye exam in 2 years, sooner with new vision or ocular complaints. Chorioretinal scar, right Previously noted as lattice. A chorioretinal scar is an area of pigmentary change or fibrosis that is located on the inside surface of the eye (the retina). A scar may be the result of an old infection or injury, but in many cases we do not know the source. The scar is located away from the center of the eye and should not cause any visual problems. There is a slightly higher risk of a new hole or tear occurring in an eye with scars present. The patient was educated to [facility] with any sudden onset of flashes, floaters, or decreased vision as these are the symptoms of a hole or tear occurring. Otherwise, will monitor at their next eye exam. Dark area on retina The patient has areas of dark without pressure (DWOP) in both eyes. This condition appears as discrete patches of darker retina, with well-defined scalloped edges. The affected areas are flat, vary in shape and can car changer time. DWOP is more common in darkly pigmented individuals but that the exact cause is unknown. No treatment is necessary. Will monitor at her next eye exam. 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 A CHRPE is a benign finding characterized by a round, flat, dark pelletier or dark brown rell on the retinal surface. CHRPE's typically show little change in size or appearance over time. No treatment is necessary. Will monitor at her next exam. Presbyopia Glasses prescription updated and given. Will monitor at the patient's next full eye exam. Aminta Stewart, OD 03/05/2025, 11:30 AM Application Defense Manager Source: _x__ None ___ Bilingual Staff ___ Qualified Staff Sugar Chipper Machine Operator ___ Telephone Application Defense Manager; ID# ___ Application Defense Manager brought by patient (family member, friend, PRODUCT TRANSFER PUMPER, etc) ___ In person medical interpreter ___ Ipad Application Defense Manager; ID#: Language Spoken During Exam: __English [1] Current Outpatient Medications Medication Sig Dispense Refill sertraline (Zoloft) 50 MG tablet Take 1 tablet by mouth Once per day. acetaminophen (Tylenol) 500 MG tablet Take 1 tablet by mouth every 6 (six) hours if needed for mildpain. Blood Pressure kit 1 each 2 times daily. 1 kit 0 famotidine (Pepcid) 20 MG tablet TAKE 1 TABLET (20 MG) BY MOUTH IF NEEDED AT BEDTIME FOR HEARTBURN.90 tablet 0 fexofenadine (Misti) 180 MG tablet Take 1 tablet by mouth Once per day. fluticasone (Flonase) 50 MCG/ACT nasal spray INSTILL 1-2 SPRAYS IN EACH NOSTRIL ONCE DAILY IN THE MORNING 48 g 0 hydroCHLOROthiazide 12.5 MG tablet TAKE 1 TABLET BY MOUTH EVERY DAY 90 tablet 0 hydrocortisone (Anusol-HC) 2.5 % rectal cream INSERT RECTALLY TWICE DAILY 30 g 0 lidocaine (Lidoderm) 5 % patch APPLY 1 PATCH TOPICALLY ONCE PER DAY. REMOVE & DISCARD PATCH WITHIN 12 HOURS OR DIRECTED BY MD. 30 patch 2 lidocaine (Xylocaine) 5 % ointment Apply to affected area up to 5 times a day as needed 30 g 0 omeprazole (PriLOSEC) [address] capsule TAKE 1 CAPSULE BY MOUTH BEFORE BREAKFAST 90 capsule 0 valACYclovir (Valtrex) 1 g tablet One tablet twice a day x 7 days 14 tablet 0 No current facility-administered medications for this visit. [2] Past Medical History: Diagnosis Date Cervical spine pain Coccyx pain Hypertension Hyperthyroidism [3] Past Surgical History: Procedure Laterality Date SECTION, UNSPECIFIED CHOLECYSTECTOMY TUBAL LIGATION [4] Family History Problem Relation Name Age of Onset Other (DM2,depression,stroke) Mother Alcohol abuse Father Other (depression -commited suicide) Sister Breast cancer Maternal Grandmother 50 - 59 Lung cancer Paternal Grandfather [5] Allergies Allergen Reactions Onion All red onion types documented in this encounter Plan of Treatment Upcoming Encounters Date Type Department Care Team (Late st Contact Info) Description 05/16/2025 10:00 AM EDT Office Visit [facility] [address] [place] [address] Fiona Camacho [address] [place] [phone] documented as of this encounter Visit Diagnoses Diagnosis Optic nerve asymmetry, right- Primary Chorioretinal scar, right Dark area on retina Neoplasms of unspecified nature, 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
--- OUTSIDE RECORDS SUMMARY | 2025-03-06 12:14 | XMS_ITS | Encounter Summary ---
Author Organization [employer] Address [address] [facility] 7t [place] [address] Care Team Providers Care Ledger Clerk Name Role Phone Elliotnba Ina JENNY Primary Care Provider [phone] Encounter Details Date Type Department Care Team ([facility] st Contact Info) Description 01/24/2025 Orders Only [facility] MEDICINE [address] [place] [address] Layla Bautista MD [address] [place] [address] Social History Tobacco Use Types Packs/Day Years [...] Description 05/16/2025 10:00 AM EDT Office Visit [facility] ADULT DENTAL [address] [place] [address] Fiona Camacho [address] [place] [phone] documented as of this encounter Visit Diagnoses Not on filedocumented in this encounter Additional Health Concerns Assessment Noted Time PHQ-9 Depression Total Score: 0 09/22/20 24 1:10 PM EST documented as of this encounter Care Teams Ledger Clerk Relationship Specialty Start Date End Date Ina Arroyo NP [address] [place] [address] PCP - General Family Medicine 10/30/24 documented as of this encounter
--- OUTSIDE RECORDS SUMMARY | 2025-03-06 12:14 | XMS_ITS | Encounter Summary ---
Author Organization [employer] Address [address] [facility] 7t [place] [address] Care Team Providers Care Acid Cutter Name Role Phone Ina Arroyo JENNY Primary Care Provider [phone] Encounter Details Date Type Department Care Team (Latest Contact Info) Description 03/05/2025 Travel Social History Tobacco Use Types Packs/Day [...] Description 05/16/2025 10:00 AM EDT Office Visit [facility] ADULT DENTAL [address] [place] [address] Fiona Camacho [address] [place] [address] [phone] documented as of this encounter Visit Diagnoses Not on filedocumented in this encounter Additional Health Concerns Assessment Noted Time PHQ-9 Depression Total Score: 0 09/22/20 24 1:10 PM EST documented as of this encounter Care Teams Acid Cutter Relationship Specialty Start Date End Date Ina Arroyo NP [address] [place] [address] PCP - General Family Medicine 10/30/24 documented as of this encounter
--- OUTSIDE RECORDS SUMMARY | 2025-03-06 12:14 | XMS_ITS | Encounter Summary ---
Author Organization [employer] Address [address] [facility] 7t [place] [address] Care Team Providers Care Ice Cream Van Vendor Name Role Phone Isatu Sloan MD Primary Care Pro vider Janel Go RN Unavailable [phone] Ina Arroyo NP Primary Care Provider [phone] Encounter Details Date Type Department Care Team (Late st Contact Info) Description 09/26/2024 Orders Only [facility] MEDICINE [address] [place] [address] Vanita Silver MD [address] [place] [address] Social History Tobacco Use Types Packs/Day Years [...] Description 05/16/2025 10:00 AM EDT Office Visit [facility] ADULT DENTAL [address] [place] [address] Fiona Camacho [address] [place] [phone] documented as of this encounter Visit Diagnoses Not on filedocumented in this encounter Additional Health Concerns Assessment Noted Time PHQ-9 Depression Total Score: 0 09/22/20 24 1:10 PM EST documented as of this encounter Care Teams Ice Cream Van Vendor Relationship Specialty Start Date End Date Isatu Sloan MD [address] [place] [address] PCP - General Internal Medicine 10/01/23 10/29/24 Ina Arroyo NP [address] [place] [address] PCP - General Family Medicine 10/30/24 Janel Go, OPAL [address] [place] [address] Pressing Machine TenderTicket Maker 10/19/24 01/22/25 documented as of this encounter
--- OUTSIDE RECORDS SUMMARY | 2025-03-06 12:14 | XMS_ITS | Encounter Summary ---
Author Organization [employer] Address [address] [facility] 7t [place] [address] Care Team Providers Care Fur Dry Cleaner Name Role Phone Ina Arroyo NP Primary Care Provider [phone] Encounter Details Date Type Department Care Team ([facility] st Contact Info) Description 02/26/2025 Orders Only [facility] MEDICINE [address] [place] [address] Ina Arroyo NP [address] [place] [address] Social History Tobacco Use Types Packs/Day Years [...] Description 05/16/2025 10:00 AM EDT Office Visit [facility] ADULT DENTAL [address] [place] [address] Fiona Camacho [address] [place] [address] [phone] documented as of this encounter Procedures Procedure Name Priority Date/Time Associated Diagnosis Comments BI MAMMOGRAM SCREENING TOMOSYNTHESIS BILATERAL Routine 02/26/2025 12:30 PM EDT documented in this encounter Results * BI Mammogram Screening Tomosynthesis Bilateral (02/26/2025 12:30 PM EDT) Anatomical Region Laterality Modality Breast Bilateral Mammography 02/26/2025 12:3 0 PM EDT Narrative 03/04/2025 5:32 PM EDT ? [facility] ? [address] ?[place] [address] ?[phone] ? Mammography Report ? Signed ? Patient: Bhatt Monlezun,Danyela ?MR ?? #: [id number] ? : 1980 ?Acct:[id number] ? Age/Sex: 44 / F ?ADM Date: 05/12/25 ? Loc: HO.MAMMO ? Attending Dr: María Stephens WARD SECRETARY ? Ordering Physician: Ina Arroyo ?Results: 1Negative ? Date of Service: 02/26/25 ?Follow Up: 1 Year From Orig ?? inal Mammogram ? Procedure(s): MM tomosynthesis screening BI ?? Accession Number(s): [id number] ? cc: Ina Arroyo ? EXAMINATION: ?? MM SCREENING DIGITAL BREAST TOMOSYNTHESIS, BILATERAL ? CLINICAL INFORMATION: ? Screening. Asymptomatic. ? COMPARISON: ?? Mammography: Comparison is made with available priors ? TECHNIQUE: ?? Digital breast mammography with tomosynthesis is performed in both the ?? craniocaudal and mediolateral oblique views along with computer-aided ?? detection (CAD). ? FINDINGS: ?? There are scattered areas of fibroglandular density (ACR BI-RADS breast ?? composition Category b). ? There are no significant masses, abnormal calcifications, or other ?? abnormalities. ? MM/MM tomosynthesis screening BI ?? IMPRESSION: ?? No mammographic evidence of malignancy. ? ASSESSMENT: ? BI-RADS BI-RADS 1 - Negative ? RECOMMENDATION: ?? Routine annual mammography screening. ? 1 year F/U ? This examination should not preclude the clinical evaluation of a ?? suspicious palpable abnormality. ? This patient's information was entered into a reminder system with a ?? target due date for their next mammogram. ? Electronically signed by: ??Renata Johnson DO ??03/04/2025 05:30 PM EDT ?? RP ? Dictated By: ?Renata Johnson DO ? Signed By: ?<Electronically signed by Renata Johnson, DO in OV> ? 03/04/25 1730 ? DD/ 1230 ? TD/TT: 02/26/25 1255 ? Inspector Fibrous Wallboard: ? Procedure Note Donotuseinterpreter, Image - 03/05/2025 [facility] [address] [place] [address] Mammography Report Signed Patient: Sundar Alegria #: [id number] : 1980Acct:[id number] Age/Sex: 44 / FADM Date: 02/26/25 Loc: HO.MAMMO Attending Dr: María Stephens WARD SECRETARY Ordering Physician: Ina ArroyoResults: 1Negative Date of Service: 02/26/25Follow Up: 1 Year From Orig ina Mammogram Procedure(s): MM tomosynthesis screening BI Accession Number(s): [id number] cc: Ina Arroyo EXAMINATION: MM SCREENING DIGITAL BREAST TOMOSYNTHESIS, BILATERAL CLINICAL INFORMATION: Screening. Asymptomatic. COMPARISON: Mammography: Comparison is made with available priors TECHNIQUE: Digital breast mammography with tomosynthesis is performed in both the craniocaudal and mediolateral oblique views along with computer-aided detection (CAD). FINDINGS: There are scattered areas of fibroglandular density (ACR BI-RADS breast composition Category b). There are no significant masses, abnormal calcifications, or other abnormalities. MM/MM tomosynthesis screening BI IMPRESSION: No mammographic evidence of malignancy. ASSESSMENT: BI-RADS BI-RADS 1 - Negative RECOMMENDATION: Routine annual mammography screening. 1 year F/U This examination should not preclude the clinical evaluation of a suspicious palpable abnormality. This patient's information was entered into a reminder system with a target due date for their next mammogram. Electronically signed by: Renata Johnson DO 03/04/2025 05:30 PM EDT Dictated By: Renata Johnson DO Signed By: <Electronically signed by Renata Johnson DO in OV> 03/04/25 1730 DD/ 1230 TD/TT: 02/26/25 1255 Inspector Fibrous Wallboard: us Ina Arroyo NP IMG BI PROCEDURES Edited Result - Final documented in this encounter Visit Diagnoses Not on filedocumented in this encounter Additional Health Concerns Assessment Noted Time PHQ-9 Depression Total Score: 0 09/22/20 24 1:10 PM EST documented as of this encounter Care Teams Fur Dry Cleaner Relationship Specialty Start Date End Date Ina Arroyo NP [address] [place] [address] PCP - General Family Medicine 10/30/24 documented as of this encounter
--- OUTSIDE RECORDS SUMMARY | 2025-03-06 12:14 | XMS_ITS | Encounter Summary ---
Author Organization [employer] Address [address] [facility] 7t [place] [address] Care Team Providers Care Crtts Name Role Phone Elliotnba Ina JENNY Primary Care Provider [phone] Encounter Details Date Type Department Care Team (Late st Contact Info) Description 03/02/2025 Orders Only [facility] External Provider, [facility] Social History Tobacco Use Types Packs/Day Years [...] Description 05/16/2025 10:00 AM EDT Office Visit [facility] ADULT DENTAL [address] [place] [address] Fiona Camacho [address] [place] [address] documented as of this encounter Procedures Procedure Name Priority Date/Time Associated Diagnosis Comments US ABDOMEN COMPLETE WITH ELASTOGRAPHY Routine 03/02/2025 9:32 AM EDT documented in this encounter Results * US Abdomen Comp w elastography (03/02/2025 9:32 AM EDT) Anatomical Region Laterality Modality Abdomen Ultrasound 03/02/2025 9:32 AM EDT Narrative 03/02/2025 10:22 AM EDT ? [facility] ?[address] ?[place] [address] ? Ultrasound Report ? Signed ? Patient: Bhatt Monlezun,Danyela ?MR ?? #: [id number] ? : 1980 ?Acct:[id number] ? Age/Sex: 44 / F ?ADM Date: 05/16/25 ? Loc: HO.US ? Attending Dr: Lexi BARONE-C ? Ordering Physician: Lexi Caicedo ?? Date of Service: 03/02/25 ?? Procedure(s): US abdomen comp w elastography ?? Accession Number(s): [id number] ? cc: Lexi Caicedo; Isatu Sloan MD ? EXAMINATION: ??US ABDOMEN COMPLETE WITH LIVER ELASTOGRAPHY ? HISTORY: R74.01 - Elevation of levels of liver transaminase levels ? TECHNIQUE: Real-time grayscale ultrasound imaging of the abdomen was ?? performed and images were reviewed. ? COMPARISON: Correlation is made with a CT of the abdomen with contrast ?? dated 10/12/2024. ? FINDINGS: ?? Liver: ??The right lobe of the liver measures 22.6 cm in size. The left ?? lobe of the liver measures 14.3 cm in size. The liver demonstrates ?? increased echotexture, consistent with steatosis. ??No focal mass or ?? intrahepatic biliary ductal dilatation is identified. ??There is normal ?? hepatopedal flow in the portal vein. ? Ultrasound elastography of the liver was performed with 10 separate ?? measurements of the liver parenchyma with the patient in the supine ?? position. ??Measurements were obtained approximately 2 cm below ?? An's capsule and perpendicular to the capsule. ??Images are of ?? satisfactory quality. ? The median shear wave velocity is 1.36 m/s. ?? The interquartile range/median (IQR/median) is 0.14. ? Gallbladder and biliary tree: The gallbladder is surgically absent. ? The common bile duct is normal in caliber measuring 3 mm. ? Kidneys: ??The right kidney measures 11.1 cm in length. The left kidney ?? measures 11.5 cm in length. ??The kidneys are unremarkable, without ?? evidence of masses, hydronephrosis, or calculi. ? Pancreas: The pancreatic head, neck, and body are unremarkable. The ?? pancreatic tail is obscured by bowel gas. ? Spleen: The spleen is normal in size and contour, measuring 10.3 cm in ?? length. ? Abdominal aorta and inferior vena cava: The visualized portions of the ?? abdominal aorta and inferior vena cava are normal in caliber. ? There is no free fluid in the abdomen. ? US/US abdomen comp w elastography ?? IMPRESSION: ? Hepatomegaly and hepatic steatosis. ? The median shear wave velocity in the liver is 1.36 m/s, corresponding ?? to a median liver stiffness of 5.54 kPa. ??The IQR/median value is 0.19. ?? This is indicative of a poor quality data set, and the estimated liver ?? stiffness may be unreliable. ?? Findings are indicative of a low elastography value which rules out ?? advanced chronic liver disease in asymptomatic patients. ? REFERENCE: ?? Society of Radiologists in Ultrasound Liver Stiffness Thresholds (2019): ? LIVER STIFFNESS THRESHOLDS: ?? *Shear wave velocity less than 1.3 m/s (Liver Stiffness equal or less ?? than 5 kPa): ??High probability of being normal. ?? *Shear wave velocity less than 1.7 m/s (Liver Stiffness less than 9 ?? kPa): ??In the absence of other known clinical signs, rules out ?? compensated advanced chronic liver disease. ?? *Shear wave velocity between 1.7-2.1 m/s (Liver Stiffness 9-13 kPa): ? Suggestive of compensated advanced chronic liver disease but need ?? further test for confirmation. ?? *Shear wave velocity between 2.1-2.4 m/s (Liver Stiffness 13-17 kPa): ? Rules in compensated advanced chronic liver disease. ?? *Shear wave velocity ??greater than 2.4 m/s (Liver Stiffness over 17 ?? kPa): ??Suggestive of clinically significant portal hypertension. ? QUALITY OF DATA SET: ?? *IQR/Median value equal or less than 0.15 implies a quality data set. ?? *IQR/Median value over 0.15 implies a poor quality data set. ? SIGNIFICANT CHANGE FROM PRIOR EXAM: ?? Significant change if liver stiffness measurement is 10% or greater ?? from prior exam. ? OTHER CONSIDERATIONS: ?? The stage of liver fibrosis may be overestimated in the setting of ?? acute hepatitis, liver inflammation, elevated liver function tests, ?? hepatic vascular congestion, obstructive cholestasis, non-fasting ?? state, and infiltrative diseases such as amyloidosis and lymphoma. ??In ?? some patients with NAFLD, the liver stiffness thresholds for ?? compensated advanced chronic liver disease may be lower. ??In causes ?? other than viral hepatitis and NAFLD, liver stiffness thresholds are ?? not well established. ? Electronically signed by: ??Quintin Gomes MD ??03/02/2025 10:19 AM EDT ?? RP ? Dictated By: ?Quintin Gomes MD ? Signed By: ?<Electronically signed by uQintin Gomes MD in OV> ?03/02/25 1019 ? DD/ 0932 ? TD/TT: 03/02/25 0948 ? Speech Language Pathologist Travel: ? Procedure Note Donotjaroninterpreter, Image - 03/05/2025 [place] [address] Ultrasound Report Signed Patient: Sundar Alegria #: [id number] : 1980Acct:[id number] Age/Sex: 44 / FADM Date: 03/02/25 Loc: HO.US Attending Dr: Lexi DON Ordering Physician: Lexi Caicedo Date of Service: 03/02/25 Procedure(s): US abdomen comp w elastography Accession Number(s): [id number] cc: Lexi Caicedo; Isatu Solan MD EXAMINATION: US ABDOMEN COMPLETE WITH LIVER ELASTOGRAPHY HISTORY: R74.01 - Elevation of levels of liver transaminase levels TECHNIQUE: Real-time grayscale ultrasound imaging of the abdomen was performed and images were reviewed. COMPARISON: Correlation is made with a CT of the abdomen with contrast dated 10/12/2024. FINDINGS: Liver: The right lobe of the liver measures 22.6 cm in size. The left lobe of the liver measures 14.3 cm in size. The liver demonstrates increased echotexture, consistent with steatosis. No focal mass or intrahepatic biliary ductal dilatation is identified. There is normal hepatopedal flow in the portal vein. Ultrasound elastography of the liver was performed with 10 separate measurements of the liver parenchyma with the patient in the supine position. Measurements were obtained approximately 2 cm below An's capsule and perpendicular to the capsule. Images are of satisfactory quality. The median shear wave velocity is 1.36 m/s. The interquartile range/median (IQR/median) is 0.14. Gallbladder and biliary tree: The gallbladder is surgically absent. The common bile duct is normal in caliber measuring 3 mm. Kidneys: The right kidney measures 11.1 cm in length. The left kidney measures 11.5 cm in length. The kidneys are unremarkable, without evidence of masses, hydronephrosis, or calculi. Pancreas: The pancreatic head, neck, and body are unremarkable. The pancreatic tail is obscured by bowel gas. Spleen: The spleen is normal in size and contour, measuring 10.3 cm in length. Abdominal aorta and inferior vena cava: The visualized portions of the abdominal aorta and inferior vena cava are normal in caliber. There is no free fluid in the abdomen. US/US abdomen comp w elastography IMPRESSION: Hepatomegaly and hepatic steatosis. The median shear wave velocity in the liver is 1.36 m/s, corresponding to a median liver stiffness of 5.54 kPa. The IQR/median value is 0.19. This is indicative of a poor quality data set, and the estimated liver stiffness may be unreliable. Findings are indicative of a low elastography value which rules out advanced chronic liver disease in asymptomatic patients. REFERENCE: Society of Radiologists in Ultrasound Liver Stiffness Thresholds (2020): LIVER STIFFNESS THRESHOLDS: *Shear wave velocity less than 1.3 m/s (Liver Stiffness equal or less than 5 kPa): High probability of being normal. *Shear wave velocity less than 1.7 m/s (Liver Stiffness less than 9 kPa): In the absence of other known clinical signs, rules out compensated advanced chronic liver disease. *Shear wave velocity between 1.7-2.1 m/s (Liver Stiffness 9-13 kPa): Suggestive of compensated advanced chronic liver disease but need further test for confirmation. *Shear wave velocity between 2.1-2.4 m/s (Liver Stiffness 13-17 kPa): Rules in compensated advanced chronic liver disease. *Shear wave velocity greater than 2.4 m/s (Liver Stiffness over 17 kPa): Suggestive of clinically significant portal hypertension. QUALITY OF DATA SET: *IQR/Median value equal or less than 0.15 implies a quality data set. *IQR/Median value over 0.15 implies a poor quality data set. SIGNIFICANT CHANGE FROM PRIOR EXAM: Significant change if liver stiffness measurement is 10% or greater from prior exam. OTHER CONSIDERATIONS: The stage of liver fibrosis may be overestimated in the setting of acute hepatitis, liver inflammation, elevated liver function tests, hepatic vascular congestion, obstructive cholestasis, non-fasting state, and infiltrative diseases such as amyloidosis and lymphoma. In some patients with NAFLD, the liver stiffness thresholds for compensated advanced chronic liver disease may be lower. In causes other than viral hepatitis and NAFLD, liver stiffness thresholds are not well established. Electronically signed by: Quintin Gomes MD 03/02/2025 10:19 AM EDT Dictated By: Quintin Gomes MD Signed By: <Electronically signed by Quintin Gomes MD in OV> 03/02/25 1019 DD/ 0932 TD/TT: 03/02/25 0948 Speech Language Pathologist Travel: [facility] External Provider [facility] PROCEDURES Edited Result - Final documented in this encounter Visit Diagnoses Not on filedocumented in this encounter Additional Health Concerns Assessment Noted Time PHQ-9 Depression Total Score: 0 09/22/20 24 1:10 PM EST documented as of this encounter Care Teams Crtts Relationship Specialty Start Date End Date Ina Arroyo NP [address] [place] [address] PCP - General Family Medicine 10/30/24 documented as of this encounter
--- OUTSIDE RECORDS SUMMARY | 2025-03-06 12:14 | XMS_ITS | Clinical Summary ---
Author Organization [employer] Address [address] [place] [address] Care Team Providers Care Director Of Assessing Name Role Phone Ina Arroyo NP Primary Care Provider [phone] Allergies Active Allergy Reactions Criticality Noted Date [...] 25 Active omeprazole (PriLOSEC) [address] Morris ons:Gastroesoph ageal reflux disease with esophagitis, unspecified whether hemorrhage TAKE 1 CAPSULE BY MOUTH BEFORE BREAKFAST 90 capsule 02/03/20 25 Active lidocaine (Lidoderm) 5 % patch APPLY 1 PATCH TOPICALLY ONCE PER DAY. REMOVE & DISCARD PATCH WITHIN 12 HOURS OR DIRECTED BY . 30 patch 2 02/09/20 25 Active sertraline (Zoloft) 50 MG tablet Take 1 tablet by mouth Once per day. 03/01/20 25 Active lidocaine (Lidoderm) 5 % patch Apply 1 patch topically Once per day. Remove & discard patch within 12 hours or as directed by . 30 patch 2 09/22/20 24 025 Discontinued Active Problems Problem Noted Date Diagnosed Date Class 3 severe obesity due t o excess calories without serious comorbidity with body mass index (BMI) of 40.0 to 44.9 in adult 01/13/2025 Assessment & Plan (01/13/2025 6:37 AM EDT): -Failed Zepbound trial -Engaged with briar wood sorter -Continue lifestyle and diet modifications -Plan to [...] for a follow up, seen at our [facility] with c/o svere abdominal pain x [...] sign out to the charge nurse at [facility] who will be expecting her. Generalized [...] her sister completed SI. Family relocated from [place] to [place] as part of the transition process about six months ago. Patient feels very overwhelmed and frustrated due to having so many stressors (taking care of her mom, son, she has no transportation). PLAN: (check all that apply) Continue with current services (defined as services in the past 12 months) . Carlos was referred to [facility] on 10/04/23. She completed intake and [...] her sister completed SI. Family relocated from [place] to [place] as part of the transition [...] one due to SI. Pt will see faustino Espinal during next physical appointment. Assessment & Plan [...] her sister completed SI. Family relocated from [place] to [place] as part of the transition process. PLAN: (check all that apply) New/Additional Services needed PCP management On-site non-integrated services Off-site services for , Behavioral Health Integration Plan Internal Follow up with I, External OP therapy referral , Patient Self Plan Patient to utilize skills provided in intervention , [facility], Patient to engage in OP therapy , and Patient to reach out [...] her sister completed SI. Family relocated from [place] to [place] as part of the transition process about six months ago. Patient feels very overwhelmed and frustrated due to having so many stressors (taking care of her mom, son, she has no transportation). PLAN: (check all that apply) Continue with current services (defined as services in the past 12 months) . Carlos was referred to [facility] on 10/04/23. She completed intake and [...] her sister completed SI. Family relocated from [place] to [place] as part of the transition [...] her sister completed SI. Family relocated [place] as part of the transition [...] Plan (10/24/2024 11:48 AM EST): Referred to [facility] weight management center Elevated BP without diagnosis of hypertension 02/15/2012/22/2024 Assessment & Plan (02/27/2024 9:03 PM EDT): Monitor, referral to cardiology given episode of substernal chest pain Encounters Date Type Department Care Team Description 03/05/2025 10:00 AM EDT Office Visit [facility] [address] [place] [address] Terry, Aminta, OD Optic nerve asymmetry, right (Primary Dx); Chorioretinal scar, right; Dark area on retina; Congenital hypertrophy of retinal pigment epithelium; Presbyopia 03/05/2025 Travel 03/02/2025 Orders Only [facility] External Provider, [facility] 02/26/2025 Orders Only [facility] [address] [place] [address] Ina Arroyo NP 02/09/2025 Telephone [facility] [address] [place] [address] Gerda Carmona MA Chart Prep 02/07/2025 Refill [facility] [address] [place] [address] Isatu Sloan MD 02/02/2025 Refill [facility] [address] [place] [address] Alec Barber MD Gastroesophageal reflux disease with esophagitis, unspecified whether hemorrhage 01/25/2025 Patient Outreach [facility] [address] [place] [address] Ina Arroyo NP Care Coordination (Appt reminder) 01/24/2025 Orders Only [facility] [address] [place] [address] Layla Bautista MD 01/24/2025 Refill [facility] [address] [place] [address] Adelaida Degroot MD 01/23/2025 Patient Outreach [address] [address] Ina Arroyo NP Care Coordination 01/23/[address] [address] Ina Arroyo NP Care Management (C3CM- f/u call) 01/19/2025 Orders Only GENERIC EXTERNAL DATA DEPARTMENT Provider, Generic External Data 01/18/2025 Patient Outreach [address] [address] Ina Arroyo NP Care Coordination (Appt reminder) 01/16/2025 2:15 PM EDT Procedure Visit [address] [address] Chayo Key CNM Cervical cancer screening (Primary Dx); Screening examination for venereal disease; Genital ulcer, female; Vaginal odor 01/16/2025 Orders Only [address] [address] Chayo Key CNM 01/16/[address] [address] Isatu Sloan MD med concern (Pt walked in stating that she has not taken her lisinopril 10 MG tablet in 2 day. Stating the medication is giving her a bad dry cough and she does not like how it is making her feel . Pt is requesting to speak about stopping medications or finding a different option.) 01/16/2025 Travel 01/15/[address] [address] Ina Arroyo NP 01/12/2025 1:00 PM EDT Office Visit [address] [address] Ina Arroyo NP Encounter to establish care (Primary Dx); Chronic low back pain without sciatica, unspecified back pain laterality; Neck pain; Subclinical hypothyroidism; Class 3 severe obesity due to excess calories without serious comorbidity with body mass index (BMI) of 40.0 to 44.9 in adult (CMS/[facility]); Dietary counseling; Exercise counseling; Primary hypertension; Obesity (BMI 30-39.9); Pre-diabetes; Hypertension, unspecified type 01/12/2025 Travel 01/11/2025 Patient Outreach [address] [address] Ina Arroyo NP Care Coordination (Appt reminder) 01/10/[address] [address] Ina Arroyo NP Care Management (C3CM- f/u call) 01/08/2025 Orders Only [address] [address] María Stephens CNP 01/08/2025 Patient Outreach [address] [address] Ina Arroyo NP Care Coordination (Appt reminder) 01/05/2025 Patient Outreach [facility] [address] [place] [address] Ina Arroyo NP Pre-visit Planning (SDOH was already completed. ) 01/04/[address] [address] Angel Luis Silva MA chartprep 12/29/2024 Population Health Risk Score [facility] (C3) Department [address] [place] [phone] Provider, Population Health Generic 12/29/2024 Patient Outreach [address] [address] Ina Arroyo NP Care Coordination (SDOH outreach) 12/28/[address] [address] Ina Arroyo NP Care Management (C3CM- f/u call) 12/22/2024 11:15 AM EST Office Visit [address] [address] María Stephens CNP Palpitations (Primary Dx); Hypertension, unspecified type; Unexplained weight gain; Shortness of breath 12/22/2024 10:00 AM EST Clinical Support [address] [address] Rhina Herrera RN Elevated BP without diagnosis of hypertension 12/22/2024 Travel 12/21/2024 Patient Outreach [facility] [address] [place] [address] Ina Arroyo NP Care Coordination (CM/CHW f/u) 12/21/[address] [address] Isatu Sloan MD 12/18/2024 Patient Outreach [address] [address] Ina Arroyo NP Care Coordination (Appt reminder) 12/15/[address] [address] Ina Arroyo NP Care Management (C3CM- f/u call) 12/13/2024 Orders Only [facility] External Provider, [facility] from Last 3 Months Immunizations Immunization [...] Description 05/16/2025 10:00 AM EDT Office Visit [facility] ADULT D[facility] [address] [place] [address] Fiona Camacho [address] [place] [address] Health Maintenance Due Date Last Done Comments Hepatitis B Vaccines (1 of 3 - 19+ 3-dose series) 1999 Dental X-Ray: Bitewings 03/11/2025 03/10/2024 Dental Oral Exam 05/14/2025 11/13/2024, 03/10/2024 Dental Prophylaxis 05/14/2025 11/13/2024, 04/04/2024 Alcohol/Substance Use Screening 09/22/2025 09/22/2024 Depression Screening 09/22/2025 09/22/2024, 09/22/2024 SDOH Screening 10/24/2025 10/24/2024 Disability Screening 01/12/2026 01/12/2025 Family Planning (PISQ) 01/16/2026 01/16/2025 Tobacco Screening 03/05/2026 03/05/2025 Mammogram 02/26/2027 02/26/2025, 11/05/2023 Dental X-Ray: Full Mouth 03/11/2027 03/10/2024 Lipid [...] WITH ELASTOGRAPHY Routine 03/02/2025 9:32 AM EDT BI MAMMOGRAM SCREENING TOMOSYNTHESIS BILATERAL Routine 02/26/2025 12:30 PM EDT TRANSTHORACIC ECHO (TTE) COMPLETE Routine 02/26/2025 Palpitations [...] RADIOGRAPHIC IMAGES Routine 03/10/2024 3:00 PM EDT LIPID PANEL, STANDARD Routine 11/04/2023 9:45 AM EST Annual physical exam from Last 3 Months or Most Recently Relevant to Health Maintenance Results * US Abdomen Comp w elastography (03/02/2025 9:32 AM EDT) Anatomical Region Laterality Modality Abdomen Ultrasound 03/02/2025 9:32 AM EDT Narrative 03/02/2025 10:22 AM EDT ? [facility] ?[address] ?[place] [address] ? Ultrasound Report ? Signed ? Patient: Miller GloverjuliethCarlos ?MR ?? #: [id number] ? : 1980 ?Acct:[id number] ? Age/Sex: 44 / F ?ADM Date: 03/02/25 ? Loc: HO.US ? Attending Dr: Lexi BARONE-C ? Ordering Physician: Lexi Caicedo-C ?? Date of Service: 03/02/25 ?? Procedure(s): US abdomen comp w elastography ?? Accession Number(s): [id number] ? cc: Lexi Caicedo-C; Isatu Sloan MD ? EXAMINATION: ??US ABDOMEN [...] MD ? Signed By: ?<Electronically signed by Quintin Gomes MD in OV> ?03/02/25 1019 ? DD/ 0932 ? TD/TT: 03/02/25 0948 ? Resaw Tailer: ? Procedure Note Adelfo, Image - 03/05/[address] [address] Ultrasound Report Signed Patient: Sundar Alegria #: [id number] : 1980Acct:[id number] Age/Sex: 44 / FADM Date: 03/02/25 Loc: HO.US Attending Dr: Lexi DON Ordering Physician: Lexi Caicedo Date of Service: 03/02/25 Procedure(s): US abdomen comp w elastography Accession Number(s): [id number] cc: Lexi Caicedo; Isatu Sloan MD EXAMINATION: US ABDOMEN COMPLETE WITH LIVER [...] 03/02/25 1019 DD/ 0932 TD/TT: 03/02/25 0948 Resaw Tailer: [facility] External Provider IMG US PROCEDURES Edited Result - Final * BI Mammogram Screening Tomosynthesis Bilateral (02/26/2025 12:30 PM EDT) Anatomical Region Laterality Modality Breast Bilateral Mammography 02/26/2025 12:3 0 PM EDT Narrative 03/04/2025 5:32 PM EDT ? [facility] ? [address] ?[place] [address] ?[phone] ? Mammography Report ? Signed ? Patient: Carlos Alegria ?MR ?? #: [id number] ? : 1980 ?Acct:[id number] ? Age/Sex: 44 / F ?ADM Date: 02/26/25 ? Loc: HO.MAMMO ? Attending : María Stephens COAL UNLOADER ? Ordering Physician: Ina Arroyo ?Results: 1Negative ? Date of Service: 02/26/25 ?Follow Up: 1 Year From Orig ?? inal Mammogram ? Procedure(s): MM tomosynthesis screening BI ?? Accession Number(s): [id number] ? cc: Ina Arroyo ? EXAMINATION: ?? [...] ??Renata Johnson DO ??03/04/2025 05:30 PM EDT ? Dictated By: ?Renata Johnson DO ? Signed By: ?<Electronically signed by Renata Johnson, DO in OV> ? 03/04/25 1730 ? DD/ 1230 ? TD/TT: 02/26/25 1255 ? Resaw Tailer: ? Procedure Note Adelfo, Image - 03/05/2025 [facility] [address] [place] [address] [place] [address] Mammography Report Signed Patient: Liz AlegriaR #: [id number] : 1980Acct:[id number] Age/Sex: 44 / FADM Date: 02/26/25 Loc: JUSTO Attending Dr: María Stephens COAL UNLOADER Ordering Physician: Ginger Arroyoults: 1Negative Date of Service: 02/26/25Follow Up: 1 Year From Orig inal Mammogram Procedure(s): MM tomosynthesis screening BI Accession Number(s): [id number] cc: Ina Arryoo EXAMINATION: MM SCREENING DIGITAL BREAST TOMOSYNTHESIS, BILATERAL [...] 03/04/25 1730 DD/ 1230 TD/TT: 02/26/25 1255 Resaw Tailer: Ina Arroyo COAL UNLOADER IMG BI PROCEDURES Edited Result - Final * Transthoracic Echo (TTE) Complete (02/26/2025) María Stephens CHART CLERK CV ECHO PROCEDURES Final Result * Cancelled Chemistry (01/19/2025 2:06 PM EDT) Cancelled Chemistry SEE NOTE [facility] Comment:CANCEL GLUCOSE EVIE ANCE TEST 3HR( GTT 3 HR). NO SPECIMENRECEIVED 01/19/2025 2:06 PM EDT 01/19/2025 2:06 PM EDT Generic External Data Provider HISTORICAL/NON OR DERABLE LABS Final Result [facility] [address] [place] [address] [phone] * Syphilis Screen (01/19/2025 2:06 PM EDT) Pathologist [facility] Syphilis Screen Nonreactive Nonreactive [facility] Blood Venous blood specimen / Unknown 01/19/2025 2:06 PM EDT 01/19/2025 2:06 PM EDT Chayo Key [facility] LAB BLOOD ORDERABLES Saima l Result Performing Organization Address [facility]/ZIP Co de Phone Number [facility] [address] [place] [phone] * TSH with Reflex to Free T4 (01/19/2025 2:06 PM EDT) Only the most recent of2 resultswithin the time period is included. [facility] TSH reflex Free T4 2.86 0.32 - 4.0 uIU/mL [facility] 01/19/2025 2:06 PM EDT 01/19/2025 2:06 PM EDT Generic External Data Provider LAB BLOOD ORDERAB LES Final Result Performing Organization Address [facility] Co de Phone Number [facility] [address] [place] [phone] * Hepatitis Panel, General (01/19/2025 2:06 PM EDT) [facility] Hepatitis A IgM Nonreactive Nonreactive [facility] Comment:IgM antibodies to JAFFE V not detected; does not exclude earlyacute or recovered HAV infection. ~Hepatitis B Surface Antibody NONREACTIVE Nonreactive [facility] Comment:Nonreactive: < 8.00 mIU/mL Hepatitis B Core Antibody Nonreactive Nonreactive [facility] Hepatitis C Antibody Nonreactive Nonreactive [facility] Comment:Antibodies to HCV no t detected; does not exclude early acuteHCV infection. Hepatitis B Surface Ag Negative Negative [facility] 01/19/2025 2:06 PM EDT 01/19/2025 2:06 PM EDT Generic External Data Provider LAB BLOOD ORDERAB LES Final Result Performing Organization Address [facility]/ZIP Co de Phone Number [facility] [address] [place] [phone] [phone] * Thyroid Peroxidase Antibodies (01/19/2025 2:06 PM EDT) Thyroid Peroxidase Antibodies <1 <9 IU/mL [facility] Comment:THIS TEST WAS PERFOR MED AT:[facility] [address] [id number] CROSS MD 01/19/2025 2:06 PM EDT 01/19/2025 2:06 PM EDT Generic External Data Provider LAB BLOOD ORDERAB LES Final Result Performing Organization Address [facility] Co de Phone Number [facility] [address] [place] [phone] [phone] * Actin (Smooth Muscle) Antibody (IgG) (01/19/2025 2:06 PM EDT) Smooth Muscle Antibody <20 <20 U [facility] Comment:Reference Range: <20 U: Negative>or=20 U: [...] with AIH type 1.THIS TEST WAS PERFORMED AT:[facility] [id number] [place] [id number] EDEN MD,PHD 01/19/2025 2:06 PM EDT 01/19/2025 2:06 PM EDT us Generic External Data Provider LAB BLOOD ORDERAB LES Final Result Performing Organization Address [facility]/ZIP Co de Phone Number [facility] [address] [place] [phone] * Mitochondrial Antibody with Reflex to Titer (01/19/2025 2:06 PM EDT) Mitochondrial Antibodies NEGATIVE NEGATIVE [facility] Comment:THIS TEST WAS PERFOR MED AT:[facility] [place] [phone] CROSS MD Mitochondrial Ab Titer TNP [facility] 01/19/2025 2:06 PM EDT 01/19/2025 2:06 PM EDT Generic External Data Provider LAB BLOOD ORDERAB LES Final Result Performing Organization Address [facility] Co de Phone Number [facility] [address] [place] [phone] * (ABNORMAL) Herpes Simplex Virus 1 and 2 (IgG), Type-Specific Antibodies (01/19/2025 2:06 PM EDT) Herpes Simplex Type 1 IgG 11.70(A) index [facility] Herpes Simplex Type 2 IgG 13.90(A) index [facility] Comment:Index Interpretation ----- <0.90 Negative 0.90-1.09 [...] immunocompromised patients,or screening.For additional information, please refer tohttp://education.Intraxio/faq/ZHX622(This link is being provided for informational/educational purposes only.)THIS TEST WAS PERFORMED AT:[facility] [place] [phone] CROSS MD Blood Venous blood specimen / Unknown 01/19/2025 2:06 PM EDT 01/19/2025 2:06 PM EDT us Chayo Key [facility] LAB BLOOD ORDERABLES Saima l Result Performing Organization Address City/[facility]/ZIP Co de Phone Number [facility] [address] [place] [phone] * HIV-1/2 Antigen and Antibodies, Fourth Generation, with Reflexes (01/19/2025 2:06 PM EDT) [facility] HIV AB/AG Nonreactive Nonreactive [facility] Comment:HIV-1 p24 Ag and/or HIV-1/HIV-2 Ab not detected.A test result that is nonreactive does not exclude thepossibility of exposure to or infection with HIV-1 and/orHIV-2. Nonreactive results in this assay for individualswith prior exposure to HIV-1 and/or HIV-2 may be due toantigen and antibody levels that are below the limit ofdetection of this assay.[email or web address] HIV Ag/Ab Combo assay result andsupplemental assay results should be interpreted inconjunction with the patient's clinical presentation,history and other laboratory results. If the results areinconsistent with clinical evidence, additional testing issuggested to confirm the result. 01/19/2025 2:06 PM EDT 01/19/2025 2:06 PM EDT us Generic External Data Provider LAB BLOOD ORDERAB LES Final Result Performing Organization Address [facility]/ZIP Co de Phone Number [facility] [address] [place] [phone] * RAFI Screen,IFA, with Reflex to Titer and Pattern (01/19/2025 2:06 PM EDT) Pathologist [facility] Anti Nuclear Antibody Screen NEGATIVE NEGATIVE [facility] Comment:RAFI IFA is a first l [...] clinicallysuspected inflammatory myopathies.AC-0: NegativeInternational Consensus on RAFI Patterns(https://doi.org/10.1515/nzbd-8389-4954)For additional information, please refer tohttp://education.Intraxio/faq/XPM705(This link is being provided for informational/educational purposes only.)THIS TEST WAS PERFORMED AT:[facility] [place] [phone] CROSS MD RAFI Titer TNP [facility] Pattern [facility] RAFI TITER 2 (REF LAB) [facility] RAFI Pattern 2 [facility] RAFI TITER 3 [facility] RAFI PATTERN 3 [facility] 01/19/2025 2:06 PM EDT 01/19/2025 2:06 PM EDT us Generic External Data Provider LAB BLOOD ORDERAB LES Final Result Performing Organization Address [facility] Co de Phone Number [facility] [address] [place] [phone] * (ABNORMAL) Ferritin (01/19/2025 2:06 PM EDT) Ferritin 262(H) 10 - 250 ng/mL [facility] 01/19/2025 2:06 PM EDT 01/19/2025 2:06 PM EDT Generic External Data Provider LAB BLOOD ORDERAB LES Final Result Performing Organization Address [facility]/ZIP Co de Phone Number [facility] [address] [place] [phone] * Comprehensive Metabolic Panel (01/19/2025 2:06 PM EDT) Only the most recent of2 resultswithin the time period is included. Sodium 140 135 - 145 mmol/L [facility] Potassium 3.8 3.3 - 5.1 mmol/L [facility] Chloride 106 96 - 108 mmol/L [facility] Carbon Dioxide 25 22 - 29 mmol/L [facility] Anion Gap 13 12 - 20 [facility] Urea Nitrogen (BUN) 15 9 - 16 mg/dL [facility] Creatinine, Serum 0.76 0.5 - 1.4 mg/dL [facility] Estimated Glomerular Filt Rate >60 [facility] Comment:Chronic Kidney Disea se: Estimated GFR < 60 mL/min/1.85z7Gerted Kidney Disease: Estimated GFR < 15 mL/min/1.73m2 Glucose 104 60 - 115 mg/dL [facility] Calcium 9.4 8.4 - 10.2 mg/dL [facility] Bilirubin, Total 0.4 0.0 - 1.0 mg/dL [facility] Aspartate Amino Transferase 24 5 - 31 U/L [facility] Alanine Aminotransferase 29 0 - 31 U/L [facility] Total Protein 7.6 6.5 - 8.0 g/dL [facility] Albumin Level 4.4 3.5 - 5.0 g/dL [facility] Alkaline Phosphatase 77 39 - 117 U/L [facility] 01/19/2025 2:06 PM EDT 01/19/2025 2:06 PM EDT us Generic External Data Provider LAB BLOOD ORDERAB LES Final Result Performing Organization Address [facility]/ZIP Co de Phone Number [facility] [address] [place] [phone] * (ABNORMAL) Urinalysis w/reflex microscopic (01/19/2025 2:00 PM EDT) Color Urine Yellow [facility] Appearance Urine Clear [facility] PH 5.5 5.0 - 9.0 [facility] Glucose Urine UA Negative Negative mg/dL [facility] Urine Blood Negative Negative [facility] Specific [place] - Urine >=1.030(H) 1.005 - 1.025 [facility] Urine Protein Trace Neg-Trace mg/dL [facility] Urine Ketones Negative Negative mg/dL [facility] Nitrite Urine Negative Negative [facility] Leukocyte Esterase Urine Negative Negative [facility] 01/19/2025 2:00 PM EDT 01/19/2025 2:27 PM EDT Narrative [facility] - 01/19/2025 2:32 PM EDT Urine, Clean Catch us Generic External Data Provider LAB URINE ORDERAB LES Final Result [facility] [address] [place] [phone] * POCT fern test, vaginal fluid manually resulted (01/16/2025 3:16 PM EDT) MARINO Prep Negative Comment:pH 4.5, neg whiff, n eg clue, neg yeast, neg trich, neg wbc Vaginal Fluid Vaginal structure / Unknown 01/16/2025 3:16 PM EDT us Chayo [place] POINT OF CARE TEST ENTER/ EDIT ORDERABLES Final Result * HPV DNA, Low/High Risk (01/16/2025 2:24 PM EDT) HPV High Risk Negative Negative [facility] HPV Genotype 16 Negative Negative [facility] HPV Genotype 18 Negative Negative [facility] Comment:HPV testing performe d at [facility] (CLIA#[id number])[address] [address].Testing for HPV was performed using the Norberto [...] 2:24 PM EDT 01/17/2025 6:00 AM EDT us Chayo Key CNM LAB BLOOD ORDERABLES Saima l Result [facility] [address] [place] [phone] * Pap Smear (01/16/2025 2:24 PM EDT) Swab Cervix uteri structure / Unknown 01/16/2025 2:24 PM EDT 01/17/2025 6:00 AM EDT Narrative [facility] - 01/22/2025 1:21 PM EDT ----- ------- Name: Carlos Alegria ?Age/Sex: 44/F ? : 1980 Unit#: [id number] ?? Attend Dr: CHAYO KEY CNM ?Re01/16/25 ?Status: DEP REF ? Location: HO.LNP ?Disch: ? ----- ------- SPEC : [id number] ? RECD: 01/17/25 ? STATUS: ??SOUT ? REQ NUM: [id number] ? ADELA: 01/16/25-694 ? SUBM DR: CHAYO KEY CNM ? [...] ------- Signed (signature on file) LAYA Dewey ([facility]) 01/22/25 1321 ? ----- ------- ? END OF REPORT ? Chayo Key [facility] CYTOLOGY ORDERABLES F inal Result Performing Organization Address [facility]/ZIP Co de Phone Number [facility] [address], [place] [phone] * T4, Free (01/08/2025 9:10 AM EDT) Free T4 (Free Thyroxine) 0.85 0.71 - 1.85 ng/dL [facility] 01/08/2025 9:10 AM EDT 01/08/2025 11:36 AM EDT María Stephens [facility] LAB BLOOD ORDERABLES Saima l Result Performing Organization Address [facility]/ZIP Co de Phone Number [facility] [address], [place] [phone] * (ABNORMAL) Hemoglobin A1c (01/08/2025 9:10 AM EDT) Hemoglobin A1c 6.5(H) <6.0 % [facility] Comment:Hemoglobin A1C Refer ence Range Adults: 4.8 - 6.0 % Non diabetic: < 6.0 % Goal: < 7.0 %Additional Action Suggested: > 8.0 %Note: Hemoglobin A1c results are invalid for patients with abnormal amounts of HbF. Blood transfusions may impact the HbA1c concentration in the patient sample. Estimated Average Glucose 140 mg/dL [facility] Comment:eAG = Estimated ave rage glucose which is %A1C expressed asaverage glucose, using the formula of the R1R-ZopxvciNmovrks Glucose study (ADAG), Diabetes Care, Vol.31,#8,May. 2007 Blood Venous blood specimen / Unknown 01/08/2025 9:10 AM EDT 01/08/2025 11:36 AM EDT [facility] LAB BLOOD ORDERABLES Saima l Result [facility] [address] [place] [phone] * (ABNORMAL) Basic Metabolic Panel (01/08/2025 9:10 AM EDT) Sodium 139 135 - 145 mmol/L [facility] Potassium 3.3 3.3 - 5.1 mmol/L [facility] Chloride 107 96 - 108 mmol/L [facility] Carbon Dioxide 23 22 - 29 mmol/L [facility] Anion Gap 12 12 - 20 [facility] Urea Nitrogen (BUN) 9 9 - 16 mg/dL [facility] Creatinine, Serum 0.80 0.5 - 1.4 mg/dL [facility] Estimated Glomerular Filt Rate >60 [facility] Comment:Chronic Kidney Disea se: Estimated GFR < 60 mL/min/1.32v5Pdedkz Kidney Disease: Estimated GFR < 15 mL/min/1.73m2 Glucose 204(H) 60 - 115 mg/dL [facility] Calcium 9.1 8.4 - 10.2 mg/dL [facility] Blood Venous blood specimen / Unknown 01/08/2025 9:10 AM EDT 01/08/2025 11:36 AM EDT [facility] LAB BLOOD ORDERABLES Saima l Result Performing Organization Address [facility]/ZIP Co de Phone Number [facility] [address] [place] [phone] * ECG 12 lead (12/22/2024 12:34 PM EST) Narrative StephensMaría CNP - 12/22/2024 12:34 PM EST NSR, Rate: 87 bpm, no ST elevation or depression, normal ECG [facility] ECG ORDERABLES Final Res ult * High Sensitivity Troponin I (12/13/2024 8:35 AM EST) Only the most recent of3 resultswithin the time period is included. Pathologist [facility] TROPONIN I HIGH SENSITIVITY 8.4 <3.5 - 17.0 ng/L [facility] Comment:The Alaniz high sens itivity Troponin-I results should beused in conjunction with other diagnostic information suchas ECG, clinical observations and information, and patientsymptoms to aid in the diagnosis of NH. 12/13/2024 8:35 AM EST 12/13/2024 8:39 AM EST Generic External Data Provider LAB BLOOD ORDERAB LES Final Result Performing Organization Address [facility]/ZIP Co de Phone Number [facility] [address] [place] [phone] * SARS-CoV-2 RNA, Influenza A/B, and RSV RNA, Ql NAAT (12/13/2024 8:35 AM EST) Pathologist [facility] Influenza A PCR NEGATIVE Negative [facility] Influenza B PCR NEGATIVE Negative [facility] Resp Syncy Virus RNA Qual PCR NEGATIVE Negative [facility] SARS COV2 PCR NEGATIVE Negative [facility] Comment:All test results mus t be [...] use by authorized laboratories.Testing performed on the Home-Account GeneXpert utilizingreal-time RT-PCR.All SARS CoV2 and positive influenza A/B results arereported to [facility]. 12/13/2024 8:35 AM EST 12/13/2024 8:39 AM EST us Generic External Data Provider LAB MICROBIOLOGY - GENERAL ORDERABLES Final Result [facility] [address] [place] [phone] * XR Chest 1 View (12/13/2024 2:16 AM EST) Anatomical Region Laterality Modality Chest Radiographic No ging 12/13/2024 2:16 AM EST Narrative 12/13/2024 2:17 AM EST ? [facility] ?[address] ?[place] [address] ?XRay Report ? Signed ? Patient: Bhatt Monlezun,Danyela ?MR ?? #: [id number] ? : 1980 ?Acct:[id number] ? Age/Sex: 44 / F ?ADM Date: 02/26/25 ? Loc: HO.ED ? Attending Dr: ? Ordering Physician: Generic ED Physician ?? Date of Service: 12/13/24 ?? Procedure(s): XR chest 1V ?? Accession Number(s): [id number] ? cc: Generic ED Physician; Isatu Sloan [...] signed by Domingo Aguayo MD in OV> ?12/13/247 ? DD/ 5 ? TD/TT: 12/13/24215 ? Resaw Tailer: ? Procedure Note Dondaniellater, Image - 12/13/2024 [place] [address] XRay Report Signed Patient: Sundar Alegria #: [id number] : 1980Acct:[id number] Age/Sex: 44 / FADM Date: 12/13/24 Loc: HO.ED Attending Dr: Ordering Physician: Generic ED Physician Date of Service: 12/13/24 Procedure(s): XR chest 1V Accession Number(s): [id number] cc: Generic ED Physician; Isatu Sloan MD [...] in OV> 12/13/24216 DD/ 5 TD/TT: 12/13/24215 Resaw Tailer: [facility] External Provider IMG XR PROCEDURES Edited Result - Final * (ABNORMAL) CBC auto differential (12/13/2024 1:21 AM EST) White Blood Count 7.2 4.8 - 10.8 X10*3/uL [facility] Red Blood Count 4.30 4.20 - 5.50 X10*6/uL [facility] Hemoglobin 13.6 12.0 - 16.0 g/dl [facility] Hematocrit 37.8 37.0 - 47.0 % [facility] Mean Corpuscular Volume 87.9 80.0 - 98.0 fL [facility] Mean Corpuscular Hemoglobin 31.6 27.0 - 33.0 pg [facility] Mean Corpuscular HGB Conc 36.0(H) 31.0 - 35.0 g/dl [facility] Red Cell Distribution Width 12.4 11.0 - 16.0 % [facility] Platelet Count 252 160 - 400 X10*3/uL [facility] Mean Platelet Volume 9.1(L) 9.4 - 12.3 fL [facility] Neutrophils Percent Auto 55.2 45 - 73 % [facility] Imm Gran Pct Auto 0.3 0.0 - 0.4 % [facility] Lymphocytes Percent Auto 35.1 20 - 40 % [facility] Monocytes Percent Auto 5.8 2 - 11 % [facility] Eosinophils Percent Auto 3.2 0 - 4 % [facility] Basophils Percent Auto 0.4 0 - 2 % [facility] NRBC Pct Auto 0.0 0.0 - 0.2 /100WBC [facility] Neutrophils Absolute Auto 4.0 2.0 - 8.3 x10*3/uL [facility] Imm Gran Abs Auto 0.02 0.00 - 0.03 X10*3/uL [facility] Lymphocytes Absolute Auto 2.5 1.2 - 4.9 X10*3/uL [facility] Monocytes Absolute Auto 0.4 0.1 - 1.2 X10*3/uL [facility] Eosinophils Absolute Auto 0.2 0.0 - 0.4 X10*3/uL [facility] Basophils Absolute Auto 0.0 0.0 - 0.2 X10*3/uL [facility] NRBC Abs Auto 0.000 0.0 - 0.012 X10*3/uL [facility] 12/13/2024 1:21 AM EST 12/13/2024 1:24 AM EST us Generic External Data Provider LAB BLOOD ORDERAB LES Final Result [facility] [address] [place] [phone] * Lipid Panel, Standard (11/04/2023 9:45 AM EST) Triglycerides 100 <150 mg/dL [facility] Comment:Desirable Triglyceri de: less than 150 mg/dLBorderline High Triglyceride 150-199 mg/dLHigh Triglyceride: 200-499 mg/dLVery High Triglyceride: greater than or equal to 5OO mg/dL Cholesterol 164 <200 mg/dL [facility] Comment:Desirable Cholestero l: less than 200 mg/dLBorderline High Cholesterol: 200-239 mg/dLHigh Cholesterol: greater than 239 mg/dL LDL Cholesterol Calculated 93 <100 mg/dL [facility] Comment:Desirable LDL: less than 100 mg/dLNear Optimal/Above Optimal LDL: 110- 129 mg/dLBorderline High LDL: 130-159 mg/dLHigh LDL: 160-189 mg/dLVery High LDL: greater than or equal to 190 mg/dL HDL Cholesterol 51 >40 mg/dL [facility] Comment:Desirable HDL: great er than 40 mg/dL Note: This HDL assay may give artificially low results in patients with liver disease. Blood Venous blood specimen / Unknown 11/04/2023 9:45 AM EST 11/04/2023 12:00 PM EST us Isatu Brandt MD LAB BLOOD ORDERAB LES Final Result [facility] [address] [place] [phone] from Last 3 Months or Most Recently Relevant to Health Maintenance Insurance [facility] C3 DENTAL-[facility] MEDICAID STAND ADULT Care Teams Director Of Assessing Relationship Specialty Start Date End Date Ina Arroyo NP [address] [place] [phone] PCP - General Family Medicine 10/30/24
--- OUTSIDE RECORDS SUMMARY | 2025-03-06 12:14 | XMS_ITS | Clinical Summary ---
Author Organization [facility] Address [address] [place] [address] Phone Care Team Providers Care Supervisor Advertising Dispatch Clerks Name Role Phone Ina Arroyo NP Primary Care Provider [phone] Allergies No known active allergies Encounters Date Type Department Care Team Description 01/09/2025 11:00 AM EDT Consult Orthopedic Surgery [facility] [address] [facility] [address] [place] [address] Tom Higgins DPM Left foot [...] Info) Description 04/18/2025 8:45 AM EDT Appointment [facility] [address] [place] [phone] Health Maintenance Due Date Last [...] Insurance [place]ICA[place] - [place] Care Teams Supervisor Advertising Dispatch Clerks Relationship Specialty Start Date End Date Ina Arroyo NP [address] [place] [phone] PCP - General 01/18/25
== END 2025-03-06 10:58 | disposition home or self-care (01) ==
LOC: HO.RESP 10:57
PROVIDERS: PCP Nurse Practitioner
DX: R06.02 Shortness of breath (principal)
CPT/HCPCS: 94010; 94640; 94727; 94729

== ENCOUNTER → 2025-03-06 11:00 | Outpatient (BNV) | payer MEDICAID, SELFPAY | PROVIDERS: PCP Nurse Practitioner; Visit Provider Internal Medicine Pulmonary Disease | DX: R06.2 Wheezing (principal) | CPT/HCPCS: 94060; 94727; 94729 ==

== ENCOUNTER 2025-03-20 07:56 | Outpatient (REF) | payer MEDICAID, SELFPAY ==
--- OUTSIDE RECORDS SUMMARY | 2025-03-20 07:58 | XMS_ITS | Clinical Summary ---
Author Organization [facility] Address [address] [place] [address] Phone Care Team Providers Care Perch Machine Inspector Name Role Phone Ina Arroyo NP Primary Care Provider [phone] Allergies No known active allergies Encounters Date Type Department Care Team Description 01/09/2025 11:00 AM EDT Consult Orthopedic Surgery [facility] [address] [facility] [address] [place] [address] Tom Higgins DPM Left foot [...] Info) Description 04/18/2025 8:45 AM EDT Appointment [facility] Xray [address] [place] [address] Health Maintenance Due Date Last [...] Months Insurance [place] Care Teams Perch Machine Inspector Relationship Specialty Start Date End Date Ina Arroyo NP [address] [place] [phone] PCP - General 01/18/25
== END 2025-03-20 07:57 | disposition home or self-care (01) ==
LOC: HO.XRAY 07:56
PROVIDERS: PCP Nurse Practitioner; Visit Provider Nurse Practitioner
DX: Z13.89 Encounter for screening for other disorder (principal)

== ENCOUNTER 2025-03-26 13:53 | Outpatient (AMB) | payer MEDICAID, SELFPAY ==
--- NOTE | 2025-03-26 13:56 | A.OFFVIS_ITS ---
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 Over the last few months, she states that she has been noticing racing shortness of breath with activity. When she climbs stairs extra she feels short of breath. However, she has gained a lot of weight as well. She was apparently around 179 lb in the past but currently, she is weighing almost 250 lb. So about 70 lb weight gain or so. She states she was hypothyroid in the past but as the labs have recently been normal, her thyroid supplementation has been stopped and she feels that is the reason. Otherwise, no documented cardiac issues in the past including coronary disease or cardiomyopathy. She also feels her heart racing at different times including a night. Could be sinus tachycardia related to obesity and less likely atrial arrhythmias. She states she also snores at night. She is awaiting sleep study. Very tearful and upset because of her weight gain. [facility] Medical History (Updated 03/26/25 @ 14:30 by Norm Don MD) Pre-diabetes Surgical History (Updated 01/19/25 @ 13:24 by ARIAN Fuchs) History of tubal ligation History of section S/P cholecystectomy Family History (Updated 03/26/25 @ 14:04 by Renetta Dodson) Father Diabetes Mother Implantable loop recorder present History of cardiac cath Stroke Social History (Updated 03/26/25 @ 14:04 by Renetta Dodson) Alcohol intake: never Patient Tobacco Use Status: Never used Tobacco Review of Systems Const Denies weakness ENT Denies dizziness Card Denies chest pain, Denies chest pain with activity, Denies syncope, Denies rapid heart rate, Denies pedal edema, Denies edema, Denies leg edema, Denies lightheadedness, Reports palpitations, Reports dyspnea, Denies dyspnea on exertion and Denies orthopnea Resp Denies cough, Reports dyspnea and Denies dyspnea on exertion GI Denies hematochezia and Denies change in stool character Musc Denies abnormal gait, Denies muscle cramps, Denies muscle weakness, Denies numbness, Denies radiating pain into limb and Denies tingling Neuro Denies abnormal gait, Denies dizziness, Denies syncope, Denies numbness, Denies tingling and Denies weakness Endo Reports palpitations Physical Exam Vital Signs: Last Vital Signs Pulse 88 03/26/25 13:58 BP 130/78 03/26/25 13:58 BMI result Body Mass Index 42.7 Const General: comfortable and no acute distress Orientation/consciousness: patient oriented x3 HEENT Other: Unremarkable Head: Yes normal to inspection Neck Neck: Yes normal visual inspection Chest Chest palpation & inspection: normal inspection of the chest Resp Auscultation: clear to auscultation bilaterally Cardio Palpation: normal PMI Heart sounds: S1 normal heart sound present, S2 normal heart sound present, no gallops, no murmurs and no rubs GI Palpation (GI): Soft to palpation Back/Spine/Pelvis Other: unremarkable Skin General skin exam: no rashes or lesions noted Neuro General: patient oriented x3 Extrem General: Yes normal to inspection Psych Mental Status: mental status grossly normal Assessment & Plan Assessment & Plan (1) Shortness of breath: Code(s): R06.02 - Shortness of breath Category: Medical Plan: Echocardiogram with normal LVEF at 60-65% with normal filling pattern. No significant valvular findings. There is no evidence of pulmonary hypertension. IVC is normal size with normal collapsibility. EKG with underlying sinus rhythm at 96/Min; minimal criteria for LVH; no ischemic findings; normal FL and corrected QT. Pulmonary function testing shows no obstructive or restrictive ventilatory defect. Decreased expiratory reserve volume suggesting extrathoracic restriction from abdominal obesity. Overall, suspect shortness of breath is mainly related to weight gain and deconditioning as she has gained almost 70 lb in the last couple of years. No further cardiac testing at this time as necessary. Mainly focus on weight loss which should help her breathing. (2) Heart palpitations: Code(s): R00.2 - Palpitations Category: Medical Plan: Could be sinus tachycardia from deconditioning/obesity. Less likely atrial arrhythmias. We will get a Holter monitor. Plan Discussion Notes During our discussion, I informed the patient about the benign nature of the echocardiogram results, emphasizing the normal function of her heart valves and chambers. We discussed palpitations originating potentially from non-cardiac causes, such as weight gain and possible sleep apnea. I explained the plan for using a heart monitor to identify the nature of arrhythmias. The patient was informed about the expected results of the upcoming sleep study and how it could affect current symptoms. I provided reassurance that the palpitations, in the absence of heart disease evidence, do not pose a significant risk but require monitoring to confirm this. Risks and benefits of potential testing were all addressed and understood. Patient was informed and verbally consented to the use of an ambient scribe for clinic note documentation during this visit. Orders: Orders ECG holter monitor 48 hour Today R00.2 - Palpitations Patient Instructions: - Use a heart monitor as specified. - Follow up with stemhole borer and monitor weight. - Attend the scheduled sleep study. - Monitor and record any significant episodes of palpitations or shortness of breath. - Notify the clinic if symptoms worsen or new symptoms arise. Coding Level of Care Code New Pt Level 3 (98446) Diagnoses Shortness of breath R06.02 Heart palpitations R00.2
[2025-03-26 13:58] VITALS: BP 130/78; PULSE 88; BMI 42.7
--- OUTSIDE RECORDS SUMMARY | 2025-03-26 15:48 | XMS_ITS | Clinical Summary ---
Author Organization [employer] Address [address] [facility] 7 [place] [address] Care Team Providers Care Heating Plant Superintendent Name Role Phone Ina Arroyo NP Primary Care Provider [phone] Allergies Active Allergy Reactions Criticality Noted Date [...] 1 kit 06/14/20 24 06/14/ 025 Active fexofenadine (Misti) 180 MG tablet Take [...] 25 Active omeprazole (PriLOSEC) [address] Migdaliati ons:Gastroesoph ageal reflux disease with esophagitis, unspecified whether hemorrhage TAKE 1 CAPSULE BY MOUTH BEFORE BREAKFAST 90 capsule 04/18/20 25 Active lidocaine (Lidoderm) 5 % patch APPLY 1 PATCH TOPICALLY ONCE PER DAY. REMOVE & DISCARD PATCH WITHIN 12 HOURS OR DIRECTED BY MD. 30 patch 2 02/09/20 25 Active sertraline (Zoloft) 50 MG tablet Take 1 tablet by mouth Once per day. 03/01/20 25 Active famotidine (Pepcid) 20 MG tablet TAKE 1 TABLET (20 MG) BY MOUTH IF NEEDED AT BEDTIME FOR HEARTBURN. 90 tablet 03/20/20 25 Active famotidine (Pepcid) 20 MG tablet TAKE 1 TABLET (20 MG) BY MOUTH IF NEEDED AT BEDTIME FOR HEARTBURN. 90 tablet 12/22/19 25 025 Discontinued Active Problems Problem Noted Date Diagnosed Date Class 3 severe obesity due t o excess calories without serious comorbidity with body mass index (BMI) of 40.0 to 44.9 in adult 01/13/2025 Assessment & Plan (01/13/2025 6:37 AM EDT): -Failed Zepbound trial -Engaged with wool classer -Continue lifestyle and diet modifications -Plan to [...] for a follow up, seen at our [facility] with c/o svere abdominal pain x [...] sign out to the charge nurse at [facility] who will be expecting her. [...] her sister completed SI. Family relocated from [place] to [place] as part of the transition process about six months ago. Patient feels very overwhelmed and frustrated due to having so many stressors (taking care of her mom, son, she has no transportation). PLAN: (check all that apply) Continue with current services (defined as services in the past 12 months) . Carlos was referred to [facility] on 10/04/23. She completed intake and [...] her sister completed SI. Family relocated from [place] to [place] as part of the transition process. PLAN: [...] her sister completed SI. Family relocated from [place] to [place] as part of the transition process. PLAN: (check all that apply) New/Additional Services needed PCP management On-site non-integrated services Off-site services for , Behavioral Health Integration Plan Internal Follow up with I, External OP therapy referral , Patient Self Plan Patient to utilize skills provided in intervention , [facility] as needed, Patient to engage [...] her sister completed SI. Family relocated from [place] to [place] as part of the transition process about six months ago. Patient feels very overwhelmed and frustrated due to having so many stressors (taking care of her mom, son, she has no transportation). PLAN: (check all that apply) Continue with current services (defined as services in the past 12 months) . Carlos was referred to [facility] on 10/04/23. She completed intake and [...] her sister completed SI. Family relocated from [place] to [place] as part of the transition process. PLAN: [...] of family issues financial concern recent move. Carlso is having a difficult time adjusting to a new routine after her sister completed SI. Family relocated from [place] to [place] as part of the transition process. PLAN: [...] Diagnosed Date Resolved Date Obesity (BMI 30-39.9) 02/27/2024 03/29/ 2025 Assessment & Plan (10/24/2024 11:48 AM EST): Referred to [facility] weight management center Elevated BP without diagnosis of hypertension 02/15/2012/22/2024 Assessment & Plan (02/27/2024 9:03 PM EDT): Monitor, referral to cardiology given episode of substernal chest pain Encounters Date Type Department Care Team Description 03/19/2025 Refill [facility] MEDICINE [address] [place] [address] Ina Arroyo NP 03/07/2025 Results Follow-Up [facility] [address] [place] [address] Ina Arroyo NP BI Mammogram Screening Tomosynthesis Bilateral 03/05/2025 10:00 AM EDT Office Visit [facility] OPTOMETRY [address] [place] [address] Terry, Aminta, OD Optic nerve asymmetry, right (Primary Dx); Chorioretinal scar, right; Dark area on retina; Congenital hypertrophy of retinal pigment epithelium; Presbyopia 03/05/2025 Travel 03/02/2025 Orders Only [facility] External Provider, [facility] 02/26/2025 Orders Only [facility] MEDICINE [address] [place] [address] Ina Arroyo NP 02/09/2025 Telephone [facility]INE [address] [place] [address] Gerda Carmona MA Chart Prep 02/07/2025 Refill [facility] [address] [place] [address] Isatu Sloan MD 02/02/2025 Refill [facility] [address] [place] [address] Alec Barber MD Gastroesophageal reflux disease with esophagitis, unspecified whether hemorrhage 01/25/2025 Patient Outreach [facility] [address] [place] [address] Ina Arroyo NP Care Coordination (Appt reminder) 01/24/2025 Orders Only [address] [address] Layla Bautista MD 01/24/[address] [address] Adelaida Degroot MD 01/23/2025 Patient Outreach [address] [address] Ina Arroyo NP Care Coordination 01/23/[address] [address] Ina Arroyo NP Care Management (C3CM- f/u call) 01/19/2025 Orders Only GENERIC EXTERNAL DATA DEPARTMENT Provider, Generic External Data 01/18/2025 Patient Outreach [address] [address] Ina Arroyo NP Care Coordination (Appt reminder) 01/16/2025 2:15 PM EDT Procedure Visit [address] [address] Chayo Key CNM Cervical cancer screening (Primary Dx); Screening examination for venereal disease; Genital ulcer, female; Vaginal odor 01/16/2025 Orders Only [address] [address] Chayo Key CNM 01/16/[address] [address] Isatu Sloan MD med concern (Pt walked in stating that she has not taken her lisinopril 10 MG tablet in 2 day. Stating the medication is giving her a bad dry cough and she does not like how it is making her feel . Pt is requesting to speak about stopping medications or finding a different option.) 01/16/2025 Travel 01/15/[address] [address] Ina Arroyo NP 01/12/2025 1:00 PM EDT Office Visit [address] [address] Ina Arroyo NP Encounter to establish care (Primary Dx); Chronic low back pain without sciatica, unspecified back pain laterality; Neck pain; Subclinical hypothyroidism; Class 3 severe obesity due to excess calories without serious comorbidity with body mass index (BMI) of 40.0 to 44.9 in adult (CMS/[facility]); Dietary counseling; Exercise counseling; Primary hypertension; Obesity (BMI 30-39.9); Pre-diabetes; Hypertension, unspecified type 01/12/2025 Travel 01/11/2025 Patient Outreach [address] [address] Ina Arroyo NP Care Coordination (Appt reminder) 01/10/[address] [address] Ina Arroyo NP Care Management (C3CM- f/u call) 01/08/2025 Orders Only [address] [address] María Stephens CNP 01/08/2025 Patient Outreach [address] [address] Ina Arroyo NP Care Coordination (Appt reminder) 01/05/2025 Patient Outreach [facility] [address] [place] [address] Ina Arroyo NP Pre-visit Planning (SDOH was already completed. ) 01/04/[address] [address] Angel Luis Silva MA chartprep 12/29/2024 Population Health Risk Score [facility] [address] [place] [phone] Provider, Population Health Generic 12/29/2024 Patient Outreach [address] [address] Ina Arroyo NP Care Coordination (SDOH outreach) 12/28/[address] [address] Ina Arroyo NP Care Management (C3CM- f/u call) from Last 3 Months Immunizations Immunization Administration [...] Care Team (Late st Contact Info) Description 04/02/2025 11:00 AM EDT Office Visit [facility] [address] [place] [address] Ina Arroyo NP [address] [place] [address] 05/16/2025 10:00 AM EDT Office Visit [facility] ADULT DENTAL [address] [place] [address] Fiona Camacho [address] [place] [address] [phone] Health Maintenance Due Date Last Done Comments [...] Routine 01/08/2025 9 :10 AM EDT Palpitations PROPHYLAXIS - ADULT Routine 11/13/2024 1 1:00 [...] EDT Narrative 03/02/2025 10:22 AM EDT ? [facility] ?[address] ?[place] [address] ? Ultrasound Report ? Signed ? Patient: Bhatt Monlezun,Danyela ?MR ?? #: [id number] ? : 1980 ?Acct:[id number] ? Age/Sex: 44 / F ?ADM Date: 05/16/25 ? Loc: HO.US ? Attending Dr: Lexi DON ? Ordering Physician: Lexi Ciacedo ?? Date of Service: 03/02/25 ?? Procedure(s): US abdomen comp w elastography ?? Accession Number(s): [id number] ? cc: Lexi Caicedo; Isatu Sloan MD [...] DD/ 0932 ? TD/TT: 03/02/25 0948 ? Grounds Maintenance Manager: ? Procedure Note Doneva, Image - 03/05/[address] [address] Ultrasound Report Signed Patient: Sundar Alegria #: [id number] : 1980Acct:[id number] Age/Sex: 44 / FADM Date: 03/02/25 Loc: HO.US Attending Dr: Lexi DON Ordering Physician: Lexi Caicedo Date of Service: 03/02/25 Procedure(s): US abdomen comp w elastography Accession Number(s): [id number] cc: Lexi Caicedo; Isatu Sloan MD EXAMINATION: [...] Quintin Gomes MD 03/02/2025 10:19 AM EDT RP Dictated By: Quintin Gomes MD Signed By: <Electronically signed by Quintin Gomes MD in OV> 03/02/25 1019 DD/ 0932 TD/TT: 03/02/25 0948 Grounds Maintenance Manager: [facility] External Provider IMG US PROCEDURES Edited Result - Final * BI Mammogram Screening Tomosynthesis Bilateral (02/26/2025 12:30 PM EDT) Anatomical Region Laterality Modality Breast Bilateral Mammography 02/26/2025 12:3 0 PM EDT Narrative 03/04/2025 5:32 PM EDT ? [facility] [place] ? [address] ?[place] [address] ?[phone] ? Mammography Report ? Signed ? Patient: Miller Castle,Danyela ?MR ?? #: [id number] ? : 1980 ?Acct:[id number] ? Age/Sex: 44 / F ?ADM Date: //25 ? Loc: HO.MAMMO ? Attending Dr: María Stephens PROFESSOR OF MANAGEMENT ? Ordering Physician: Ina Arroyo ?Results: 1Negative ? Date of Service: 02/26/ ?Follow Up: 1 Year From Orig ?? inal Mammogram ? Procedure(s): MM tomosynthesis screening BI ?? Accession Number(s): [id number] ? cc: Ina Arroyo ? EXAMINATION: ?? [...] by Renata Johnson, DO in OV> ? 05/18/25 1730 ? DD/ 1230 ? TD/TT: 02/26/25 1255 ? Grounds Maintenance Manager: ? Procedure Note Adelfo, Francia - 03/05/2025 [facility] [address] [place] [address] Mammography Report Signed Patient: Sundar Alegria #: [id number] : 1980Acct:[id number] Age/Sex: 44 / FADM Date: 02/26/25 Loc: HO.MAMMO Attending Dr: María Stephens PROFESSOR OF MANAGEMENT Ordering Physician: Ina ArroyoResults: 1Negative Date of Service: 02/26/25Follow Up: 1 Year From Orig inal Mammogram Procedure(s): MM tomosynthesis screening BI Accession Number(s): [id number] cc: Ina Arroyo EXAMINATION: MM SCREENING DIGITAL [...] 03/04/25 1730 DD/ 1230 TD/TT: 02/26/25 1255 Grounds Maintenance Manager: Ina Arroyo PROFESSOR OF MANAGEMENT IMG BI PROCEDURES Edited Result - Final * Transthoracic Echo (TTE) Complete (02/26/2025) María Stephens SOLAR PROJECT ENGINEER CV ECHO PROCEDURES Final Result * Cancelled Chemistry (01/19/2025 2:06 PM EDT) Cancelled Chemistry SEE NOTE [facility] Comment:CANCEL GLUCOSE EVIE ANCE TEST 3HR( GTT 3 HR). NO SPECIMENRECEIVED 01/19/2025 2:06 PM EDT 01/19/2025 2:06 PM EDT Generic External Data Provider HISTORICAL/NON OR DERABLE LABS Final Result Performing Organization Address [facility] Co de Phone Number [facility] [address] [place] [phone] * Syphilis Screen (01/19/2025 2:06 PM EDT) Pathologist [facility] Syphilis Screen Nonreactive Nonreactive [facility] Blood Venous blood specimen / Unknown 01/19/2025 2:06 PM EDT 01/19/2025 2:06 PM EDT Chayo Key [facility] LAB BLOOD ORDERABLES Saima l Result Performing Organization Address [facility] Co de Phone Number [facility] [address] [place] [phone] * TSH with Reflex to Free T4 (01/19/2025 2:06 PM EDT) Only the most recent of2 resultswithin the time period is included. TSH reflex Free T4 2.86 0.32 - 4.0 uIU/mL [facility] 01/19/2025 2:06 PM EDT 01/19/2025 2:06 PM EDT Generic External Data Provider LAB BLOOD ORDERAB LES Final Result Performing Organization Address [facility] de Phone Number [facility] [address] [place] [phone] * Hepatitis Panel, General (01/19/2025 2:06 PM EDT) Hepatitis A IgM Nonreactive Nonreactive [facility] Comment:IgM antibodies to JAFFE V not detected; does not exclude earlyacute or recovered HAV infection. ~Hepatitis B Surface Antibody NONREACTIVE Nonreactive [facility] Comment:Nonreactive: < 8.00 mIU/mL Hepatitis B Core Antibody Nonreactive Nonreactive [facility] Hepatitis C Antibody Nonreactive Nonreactive [facility] Comment:Antibodies to HCV no t detected; does not exclude early acuteHCV infection. Hepatitis B Surface Ag Negative Negative [facility] 01/19/2025 2:06 PM EDT 01/19/2025 2:06 PM EDT Generic External Data Provider LAB BLOOD ORDERAB LES Final Result Performing Organization Address [facility] Co de Phone Number [facility] [address] [place] [phone] * Thyroid Peroxidase Antibodies (01/19/2025 2:06 PM EDT) Thyroid Peroxidase Antibodies <1 <9 IU/mL [facility] Comment:THIS TEST WAS PERFOR MED AT:[email or web address] [place] [id number] CROSS MD 01/19/2025 2:06 PM EDT 01/19/2025 2:06 PM EDT Generic External Data Provider LAB BLOOD ORDERAB LES Final Result Performing Organization Address [facility] Co de Phone Number [facility] [address] [place] [phone] * Actin (Smooth Muscle) Antibody (IgG) (01/19/2025 2:06 PM EDT) Smooth Muscle Antibody <20 <20 U [facility] Comment:Reference Range: <20 U: Negative>or=20 [...] with AIH type 1.THIS TEST WAS PERFORMED AT:[employer] [place] [id number] EDEN MD,PHD 01/19/2025 2:06 PM EDT 01/19/2025 2:06 PM EDT Generic External Data Provider LAB BLOOD ORDERAB LES Final Result Performing Organization Address [facility] Co de Phone Number [facility] [address] [place] [phone] * Mitochondrial Antibody with Reflex to Titer (01/19/2025 2:06 PM EDT) Mitochondrial Antibodies NEGATIVE NEGATIVE [facility] Comment:THIS TEST WAS PERFOR MED AT:[employer] [address] [phone] CROSS MD Mitochondrial Ab Titer TNP [facility] 01/19/2025 2:06 PM EDT 01/19/2025 2:06 PM EDT [employer] External Data Provider LAB BLOOD ORDERAB LES Final Result Performing Organization Address [facility] Co de Phone Number [facility] [address] [place] [phone] * (ABNORMAL) Herpes Simplex Virus 1 and 2 (IgG), Type-Specific Antibodies (01/19/2025 2:06 PM EDT) Herpes Simplex Type 1 IgG 11.70(A) index [facility] Herpes Simplex Type 2 IgG 13.90(A) index [facility] Comment:Index Interpretation ----- <0.90 Negative [...] immunocompromised patients,or screening.For additional information, please refer tohttp://education.dMetrics/faq/BXB943(This link is being provided for informational/educational purposes only.)THIS TEST WAS PERFORMED AT:[email or web address] [place] [phone] CROSS MD Blood Venous blood specimen / Unknown 01/19/2025 2:06 PM EDT 01/19/2025 2:06 PM EDT Chayo Key [facility] LAB BLOOD ORDERABLES Saima eid Result [facility] [address] [place] [phone] * HIV-1/2 Antigen and Antibodies, Fourth Generation, with Reflexes (01/19/2025 2:06 PM EDT) Pathologist [facility] HIV AB/AG Nonreactive Nonreactive [facility] Comment:HIV-1 p24 Ag and/or HIV-1/HIV-2 Ab not detected.A test result that is nonreactive does not exclude thepossibility of exposure to or infection with HIV-1 and/orHIV-2. Nonreactive results in this assay for individualswith prior exposure to HIV-1 and/or HIV-2 may be due toantigen and antibody levels that are below the limit ofdetection of this assay.The [facility] HIV Ag/Ab Combo assay result andsupplemental assay results should be interpreted inconjunction with the patient's clinical presentation,history and other laboratory results. If the results areinconsistent with clinical evidence, additional testing issuggested to confirm the result. 01/19/2025 2:06 PM EDT 01/19/2025 2:06 PM EDT us Generic External Data Provider LAB BLOOD ORDERAB LES Final Result Performing Organization Address [facility]/ZIP Co de Phone Number [facility] [address] [place] [phone] [phone] * RAFI Screen,IFA, with Reflex to Titer and Pattern (01/19/2025 2:06 PM EDT) Anti Nuclear Antibody Screen NEGATIVE NEGATIVE [facility] Comment:RAFI IFA is a first [...] clinicallysuspected inflammatory myopathies.AC-0: NegativeInternational Consensus on RAFI Patterns(https://doi.org/10.1515/ewqb-3548-6370)For additional information, please refer tohttp://education.dMetrics/faq/CAV135(This link is being provided for informational/educational purposes only.)THIS TEST WAS PERFORMED AT:[email or web address] [place] [id number] CROSS MD RAFI Titer TNP [facility] RAFI Pattern [facility] RAFI TITER 2 (REF LAB) [facility] RAFI Pattern 2 [facility] RAFI TITER 3 [facility] RAFI PATTERN 3 [facility] 01/19/2025 2:06 PM EDT 01/19/2025 2:06 PM EDT us Generic External Data Provider LAB BLOOD ORDERAB LES Final Result Performing Organization Address [facility]/ZIP Co de Phone Number [facility] [address] [place] [phone] * (ABNORMAL) Ferritin (01/19/2025 2:06 PM EDT) Ferritin 262(H) 10 - 250 ng/mL [facility] 01/19/2025 2:06 PM EDT 01/19/2025 2:06 PM EDT us Generic External Data Provider LAB BLOOD ORDERAB LES Final Result [facility] [address] [place] [phone] * Comprehensive Metabolic Panel (01/19/2025 2:06 PM EDT) Sodium 140 135 - 145 mmol/L [facility] Potassium 3.8 3.3 - 5.1 mmol/L [facility] Chloride 106 96 - 108 mmol/L [facility] Carbon Dioxide 25 22 - 29 mmol/L [facility] Anion Gap 13 12 - 20 [facility] Urea Nitrogen (BUN) 15 9 - 16 mg/dL [facility] Creatinine, Serum 0.76 0.5 - 1.4 mg/dL [facility] Estimated Glomerular Filt Rate >60 [facility] Comment:Chronic Kidney Disea se: Estimated GFR < 60 mL/min/1.89n1Mkyllq Kidney Disease: Estimated GFR < 15 mL/min/1.73m2 Glucose 104 60 - 115 mg/dL [facility] Calcium 9.4 8.4 - 10.2 mg/dL [facility] Bilirubin, Total 0.4 0.0 - 1.0 mg/dL [facility] Aspartate Amino Transferase 24 5 - 31 U/L [facility] Alanine Aminotransferase 29 0 - 31 U/L [facility] Total Protein 7.6 6.5 - 8.0 g/dL [facility] Albumin Level 4.4 3.5 - 5.0 g/dL [facility] Alkaline Phosphatase 77 39 - 117 U/L [facility] 01/19/2025 2:06 PM EDT 01/19/2025 2:06 PM EDT us Generic External Data Provider LAB BLOOD ORDERAB LES Final Result Performing Organization Address [facility] Co de Phone Number [facility] [address] [place] [phone] * (ABNORMAL) Urinalysis w/reflex microscopic (01/19/2025 2:00 PM EDT) Color Urine Yellow [facility] Appearance Urine Clear [facility] PH 5.5 5.0 - 9.0 [facility] Glucose Urine UA Negative Negative mg/dL [facility] Urine Blood Negative Negative [facility] Specific [place] - Urine >=1.030(H) 1.005 - 1.025 [facility] Urine Protein Trace Neg-Trace mg/dL [facility] Urine Ketones Negative Negative mg/dL [facility] Nitrite Urine Negative Negative [facility] Leukocyte Esterase Urine Negative Negative [facility] 01/19/2025 2:00 PM EDT 01/19/2025 2:27 PM EDT Narrative [facility] - 01/19/2025 2:32 PM EDT Urine, Clean Catch us Generic External Data Provider LAB URINE ORDERAB LES Final Result Performing Organization Address [facility] Co de Phone Number [facility] [address] [place] [phone] * POCT fern test, vaginal fluid manually resulted (01/16/2025 3:16 PM EDT) [facility] Prep Negative Comment:pH 4.5, neg whiff, n eg clue, neg yeast, neg trich, neg wbc Vaginal Fluid Vaginal structure / Unknown 01/16/2025 3:16 PM EDT us Chayo Key CNM POINT OF CARE TEST ENTER/ EDIT ORDERABLES Final Result * HPV DNA, Low/High Risk (01/16/2025 2:24 PM EDT) HPV High Risk Negative Negative [facility] HPV Genotype 16 Negative Negative [facility] HPV Genotype 18 Negative Negative [facility] Comment:HPV testing performe d at [facility] (CLIA#[id number]), [address] [place] [address].Testing for HPV was performed using the [employer]system. The presence of HPV in the female [...] 01/17/2025 6:00 AM EDT us Chayo Key [facility] BLOOD ORDERABLES Saima stanton Result [facility] [address] [place] [phone] * Pap Smear (01/16/2025 2:24 PM EDT) Swab Cervix uteri structure / Unknown 01/16/2025 2:24 PM EDT 01/17/2025 6:00 AM EDT Narrative [facility] - 01/22/2025 1:21 PM EDT ----- ------- Name: Carlos Alegria ?Age/Sex: 44/F ? : 1980 Unit#: [id number] ?? Attend Dr: CHAOY KEY CNM ?Re01/16/25 ?Status: DEP REF ? Location: HO.LNP ?Disch: ? ----- ------- SPEC : [id number] ? RECD: 01/17/25 ? STATUS: ??SOUT ? REQ NUM: [id number] ? ADELA: 01/16/25-3233 ? SUBM DR: CHAYO KEY CNM ? ENTERED: ??01/17/2579 ?SP TYPE: Pap Smr ?OTHR DR: ? [...] ------- Signed (signature on file) LAYA Dewey (ASCP) 01/22/25 1321 ? ----- ------- ? END OF REPORT ? us Chayo Key [facility] CYTOLOGY ORDERABLES F inal Result [facility] [address] [place] [phone] [phone] * T4, Free (01/08/2025 9:10 AM EDT) Free T4 (Free Thyroxine) 0.85 0.71 - 1.85 ng/dL [facility] 01/08/2025 9:10 AM EDT 01/08/2025 11:36 AM EDT [facility] LAB BLOOD ORDERABLES Saima l Result Performing Organization Address [facility] Co de Phone Number [facility] [address] [place] [address] [phone] * (ABNORMAL) Hemoglobin A1c (01/08/2025 9:10 AM EDT) Hemoglobin A1c 6.5(H) <6.0 % [facility] Comment:Hemoglobin A1C Refer ence Range Adults: 4.8 - 6.0 % Non diabetic: < 6.0 % Goal: < 7.0 %Additional Action Suggested: > 8.0 %Note: Hemoglobin A1c results are invalid for patients with abnormal amounts of HbF. Blood transfusions may impact the HbA1c concentration in the patient sample. Estimated Average Glucose 140 mg/dL [facility] Comment:eAG = Estimated ave rage glucose which is %A1C expressed asaverage glucose, using the formula of the I2V-PrwcvkmHvnugzz Glucose study (ADAG), Diabetes Care, Vol.31,#8,2007 Blood Venous blood specimen / Unknown 01/08/2025 9:10 AM EDT 01/08/2025 11:36 AM EDT [facility] SOLAR PROJECT ENGINEER LAB BLOOD ORDERABLES Saima l Result Performing Organization Address [facility] Co de Phone Number [facility] [address] [place] [address] [phone] * (ABNORMAL) Basic Metabolic Panel (01/08/2025 9:10 AM EDT) Sodium 139 135 - 145 mmol/L [facility] Potassium 3.3 3.3 - 5.1 mmol/L [facility] Chloride 107 96 - 108 mmol/L [facility] Carbon Dioxide 23 22 - 29 mmol/L [facility] Anion Gap 12 12 - 20 [facility] Urea Nitrogen (BUN) 9 9 - 16 mg/dL [facility] Creatinine, Serum 0.80 0.5 - 1.4 mg/dL [facility] Estimated Glomerular Filt Rate >60 [facility] Comment:Chronic Kidney Disea se: Estimated GFR < 60 mL/min/1.00l1Zuidys Kidney Disease: Estimated GFR < 15 mL/min/1.73m2 Glucose 204(H) 60 - 115 mg/dL [facility] Calcium 9.1 8.4 - 10.2 mg/dL [facility] Blood Venous blood specimen / Unknown 01/08/2025 9:10 AM EDT 01/08/2025 11:36 AM EDT María Stephens [facility] LAB BLOOD ORDERABLES Saima l Result [facility] [address] [place] [address] [phone] * Lipid Panel, Standard (11/04/2023 9:45 AM EST) Triglycerides 100 <150 mg/dL [facility] Comment:Desirable Triglyceri de: less than 150 mg/dLBorderline High Triglyceride 150-199 mg/dLHigh Triglyceride: 200-499 mg/dLVery High Triglyceride: greater than or equal to 5OO mg/dL Cholesterol 164 <200 mg/dL [facility] Comment:Desirable Cholestero l: less than 200 mg/dLBorderline High Cholesterol: 200-239 mg/dLHigh Cholesterol: greater than 239 mg/dL LDL Cholesterol Calculated 93 <100 mg/dL [facility] Comment:Desirable LDL: less than 100 mg/dLNear Optimal/Above Optimal LDL: 110- 129 mg/dLBorderline High LDL: 130-159 mg/dLHigh LDL: 160-189 mg/dLVery High LDL: greater than or equal to 190 mg/dL HDL Cholesterol 51 >40 mg/dL [facility] Comment:Desirable HDL: great er than 40 mg/dL Note: This HDL assay may give artificially low results in patients with liver disease. Blood Venous blood specimen / Unknown 11/04/2023 9:45 AM EST 11/04/2023 12:00 PM EST Isatu Brandt MD LAB BLOOD ORDERAB LES Final Result [facility] [address] [place] [address] [phone] from Last 3 Months or Most Recently Relevant to Health Maintenance Insurance [facility] C3 DENTAL-[facility] MEDICAID STAND ADULT Care Teams Heating Plant Superintendent Relationship Specialty Start Date End Date Ina Arroyo NP [address] [place] [id number] PCP - General Family Medicine 10/30/24
== END 2025-03-26 14:29 | disposition home or self-care (01) ==
LOC: HO.HCS 13:54
PROVIDERS: PCP Student in an Organized Health Care Education/Training Program; Visit Provider Internal Medicine
DX: R06.02 Shortness of breath (principal); R00.2 Palpitations
CPT/HCPCS: 99203

== ENCOUNTER → 2025-03-26 13:53 | Outpatient (BNVA) | payer MEDICAID, SELFPAY | PROVIDERS: PCP Student in an Organized Health Care Education/Training Program; Visit Provider Internal Medicine | DX: R06.02 Shortness of breath (principal); R00.2 Palpitations | CPT/HCPCS: 99202 ==

== ENCOUNTER → 2025-04-05 09:53 | Outpatient (REF) | payer MEDICAID, SELFPAY ==
--- NOTE | 2025-04-05 09:55 | HM_ITS ---
Conclusion: 1. Patient was monitored for total period of 1 day and 23 hours 2. Baseline was normal sinus rhythm with average heart of 91 beats per minute 3. No significant pauses noted 4. Frequent sinus tachycardia noted with 25% of time heart rate of 100 beats per minute 5. No significant arrhythmias noted 6. Patient marked the counter 2 times with no code responding entries in his diary correlating with sinus rhythm MTDD
--- OUTSIDE RECORDS SUMMARY | 2025-04-05 10:54 | XMS_ITS | Encounter Summary ---
Author Organization [employer] Address [address] [facility] [address] [place] [address] Care Team Providers Care Circuit Recorder Name Role Phone Ina Arroyo JENNY Primary Care Provider [phone] Encounter Details Date Type Department Care Team (Latest Contact Info) Description 04/04/2025 Travel Social History Tobacco Use Types Packs/Day [...] Description 05/16/2025 10:00 AM EDT Office Visit [facility] ADULT DENTAL [address] [place] [address] Fiona Camacho [address] [place] [address] [phone] documented as of this encounter Visit Diagnoses Not on filedocumented in this encounter Additional Health Concerns Assessment Noted Time PHQ-9 Depression Total Score: 0 09/22/20 24 1:10 PM EST documented as of this encounter Care Teams Circuit Recorder Relationship Specialty Start Date End Date Ina Arroyo NP [address] [place] [address] PCP - General Family Medicine 10/30/24 documented as of this encounter
== END ==
LOC: HO.CARD 09:53
PROVIDERS: PCP Nurse Practitioner; Visit Provider Internal Medicine
DX: R00.2 Palpitations (principal)
CPT/HCPCS: 93225

== ENCOUNTER → 2025-04-05 09:55 | Outpatient (BNV) | payer MEDICAID, SELFPAY | PROVIDERS: PCP Nurse Practitioner; Visit Provider Internal Medicine Cardiovascular Disease | DX: R00.0 Tachycardia, unspecified (principal) | CPT/HCPCS: 93227 ==

== ENCOUNTER 2025-04-09 09:44 | Outpatient (REF) | payer MEDICAID, SELFPAY ==
--- OUTSIDE RECORDS SUMMARY | 2025-04-09 10:34 | XMS_ITS | Encounter Summary ---
Author Organization [employer] Address [address] [facility] [address] [place] [address] Care Team Providers Care Care Director Rn Name Role Phone Ina Arroyo JENNY Primary Care Provider [phone] Encounter Details Date Type Department Care Team [...] 05/16/2025 10:00 AM EDT Office Visit [facility] ADULT D[facility]AL [address] [place] [address] Fiona Camacho [address] [place] [address] [phone] documented as of this encounter Visit Diagnoses Not on filedocumented in this encounter Additional Health Concerns Assessment Noted Time PHQ-9 Depression Total Score: 0 09/22/20 24 1:10 PM EST documented as of this encounter Care Teams Care Director Rn Relationship Specialty Start Date End Date Ina Arroyo NP [address] [place] [address] PCP - General Family Medicine 10/30/24 documented as of this encounter
[2025-04-09 11:26] LABS: Estimated Average Glucose 137 mg/dL; Hemoglobin A1c % 6.4 % (<6.0); Total Hemoglobin (HGBA1C) 3660.0814 umol/L
[2025-04-09 11:39] LABS: Creatinine Urine 100.89 mg/dL; Microalbum/Creatinine Ratio Ur 19.8 ug/mg cr (<30)
[2025-04-09 11:42] LABS: Anion Gap 12 (12-20); Blood Urea Nitrogen 12 mg/dL (9-16); Carbon Dioxide 26 mmol/L (22-29); Chloride 104 mmol/L (96-108); Cholesterol 166 mg/dL (<200); Estimated Glomerular Filt Rate > 60; Glucose Random 149 mg/dL (60-115); HDL Cholesterol 45 mg/dL (>40); LDL Cholesterol Calculated 92 mg/dL (<100); Potassium 3.4 mmol/L (3.3-5.1); Sodium 139 mmol/L (135-145); Triglycerides 149 mg/dL (<150)
[2025-04-09 11:49] LABS: TSH reflex Free T4 6.17 uIU/mL (0.32-4.0)
[2025-04-09 13:16] LABS: Free T4 (Free Thyroxine) 0.95 ng/dL (0.71-1.85)
== END 2025-04-09 09:45 | disposition home or self-care (01) ==
LOC: HO.HHCL 09:44
PROVIDERS: PCP Nurse Practitioner; Visit Provider Nurse Practitioner
DX: E03.8 Other specified hypothyroidism (principal); E66.9 Obesity, unspecified; E11.9 Type 2 diabetes mellitus without complications; I10 Essential (primary) hypertension
CPT/HCPCS: 36415; 80048; 80061; 82043; 82570; 83036; 84439; 84443

== ENCOUNTER 2025-04-30 09:08 | Outpatient (AMB) | payer MEDICAID, SELFPAY ==
[2025-04-30 09:09] VITALS: BP 130/90; PULSE 92; BMI 39.6
--- NOTE | 2025-04-30 09:09 | MHC.OFFVIS ---
Vital Signs 04/30/25 09:09 Height 5 ft 4 in Weight 230 lb 9.656 oz BMI 39.6 BP 130/90 H Blood Pressure Location Lt brachial Position Sitting Pulse 92 Pulse Source Pulse Oximeter Intake Visit Reasons: 6 week f/up holter Obedience Trainer Required: No Allergies No Known Drug Allergies Allergy (Verified 04/30/25 09:11) none red onion Allergy (Severe, Uncoded 04/30/25 09:11) Anaphylaxis Medication List - Last Reconciled 04/30/25 by Sahara Marin, JENNY-C famotidine 20 mg PO BEDTIME PRN fexofenadine-pseudoephedrine 180-240 mg ER (Misti-D 24 Hour) 1 tab PO QAM hydrochlorothiazide 12.5 mg PO DAILY lidocaine 5% 1 patch topical DAILY omeprazole 40 mg PO QAM HPI HPI 6 week f/up holter: Details: Carlos is a 44-year-old female with past medical history of diabetes, obesity, hypothyroidism who reported heart palpitations and recently underwent Holter monitor and now presents for follow-up. Today she reports that she will feel brief rapid heart palpitations. No sustained rapid or irregular rates. She has not been having any chest discomfort at rest or with activity. She will get some shortness of breath when she over exerts. This was previously thought to be weight and deconditioning related. No PND, orthopnea or edema. No lightheadedness, presyncope, syncope. She feels that coming off the levothyroxine has related to her weight gain, palpitations, hair loss and overall not feeling well. She is hoping to go back on levothyroxine in the near future. She is currently discussing this with her PCP. [facility] Medical History Pre-diabetes Surgical History History of tubal ligation History of section S/P cholecystectomy Family History Father Diabetes Mother Implantable loop recorder present History of cardiac cath Stroke Social History Alcohol intake: never Patient Tobacco Use Status: Never used Tobacco Review of Systems Const All systems reviewed & are unremarkable except as noted in HPI and below Reports weight gain ENT Denies dizziness Card Details: brief heart palpitations Denies chest pain, Denies chest pain at rest, Denies chest pain with activity, Denies rapid heart rate, Denies pedal edema, Denies edema, Denies leg edema, Denies lightheadedness, Denies palpitations, Denies dyspnea, Denies dyspnea on exertion and Denies orthopnea Resp Denies cough, Denies dyspnea and Denies dyspnea on exertion GI Denies hematochezia and Denies change in stool character Musc Denies abnormal gait, Denies limited range of motion, Denies muscle cramps, Denies muscle weakness, Denies numbness, Denies radiating pain into limb, Denies stiffness and Denies tingling Neuro Denies abnormal gait, Denies dizziness, Denies numbness and Denies tingling Endo Denies palpitations Physical Exam Vital Signs: Last Vital Signs Pulse 92 04/30/25 09:09 BP 130/90 H 04/30/25 09:09 BMI result Body Mass Index 39.6 Const General: cooperative, healthy appearing, comfortable and no acute distress Orientation/consciousness: patient oriented x3 Neck Neck: Yes normal visual inspection Resp Effort & Inspection: normal respiratory effort Auscultation: clear to auscultation bilaterally, no rales, no rhonchi and no wheezes Cardio Rate: regular rate Rhythm: regular rhythm Heart sounds: S1 normal heart sound present, S2 normal heart sound present, no gallops, no murmurs and no rubs Neuro General: patient oriented x3 Extrem General: Yes normal to inspection, No no pedal edema and No calf tenderness Psych Appearance: grossly normal Mental Status: mental status grossly normal Speech and movement: Normal speech and movement present Assessment & Plan Assessment & Plan (1) Heart palpitations: Code(s): R00.2 - Palpitations Category: Medical Plan: Reports of brief rapid heart palpitations. Holter monitor done 04/05/2025 for 2 days shows sinus rhythm with average heart rate 91, 25% of the time heart rate greater than 100, symptoms correlated with sinus rhythm. Echocardiogram done 02/26/2025 was normal study. Test results reviewed with her. No need for medication management at this time. Discussed reduction in caffeinated beverages, increasing physical activity, good hydration and getting adequate rest. (2) Shortness of breath: Code(s): R06.02 - Shortness of breath Category: Medical Plan: Reports of shortness of breath with exertional activities. Prior echocardiogram was normal. Pulmonary function test showed no evidence of obstruction or restrictive ventilatory defect. Decreased expiratory reserve volume suggesting extrathoracic restriction from abdominal obesity. Reviewed with her. Weight loss is recommended. She is hoping to go back on levothyroxine which she feels will help. (3) Obesity: Code(s): E66.9 - Obesity, unspecified Category: Medical Plan: As above Plan I discussed with the patient the nature of her heart palpitations, emphasizing that brief episodes are not harmful but should be monitored for changes. We reviewed lifestyle modifications, including avoiding caffeine and managing stress, to help reduce symptoms. I recommended a follow-up with cardiology in six months and advised her to consult her primary care physician regarding her thyroid management. Patient Instructions: - Monitor heart palpitations and report any changes. - Avoid caffeine and manage stress. - Follow up with cardiology in six months. - Consult primary care for thyroid management. Patient was informed and verbally consented to the use of an ambient scribe for clinic note documentation during this visit. Visit time spent on chart review, interview, assessment, orders, documentation. Coding Level of Care Code Est Pt Level 3 (84519) Complex EM visit Add On G2211 Diagnoses Heart palpitations R00.2 Shortness of breath R06.02 Obesity E66.9 Time Spent (min) 24
--- OUTSIDE RECORDS SUMMARY | 2025-04-30 09:27 | XMS_ITS | Clinical Summary ---
Author Organization [facility] Address [address] [place] [address] Phone Care Team Providers Care Compounding And Finishing Supervisor Name Role Phone Ina Arroyo NP Primary Care Provider [phone] Allergies No known active allergies Social History Tobacco Use Types Packs/Day Years [...] Care Team (Late st Contact Info) Description 05/21/2025 8:30 AM EDT Appointment [facility] Xray [address] [place] [address] Health Maintenance Due Date Last Done Comments Breast Cancer Screening 1980 Hepatitis B Vaccines (1 of 3 - 19+ 3-dose series) 1999 Cervical Cancer Screening: Pap Smear 2001 Social Influencers of Health Screening 08/05/2024 Influenza Vaccine (#1) 2025 09/22/2024, 2022 Depression Screening 09/22/2025 09/22/2024 Hypertension/CHF/CAD Annual BMP Blood Test 01/08/2026 01/08/2025, 12/13/2024, 10/12/2024, Additional history exists Cholesterol Screening (Lipid Panel) 11/04/2028 11/04/2023 DTaP,Tdap,and Td Vaccines (2 - Td or Tdap) 10/01/2033 10/01/2023 HIV Screening Completed 11/04/2023 Hepatitis C Screening Completed 11/04/2023 COVID-19 Vaccine Completed 09/22/2024 HIB Vaccines Aged Out No longer eligi [...] 5 Years) and At-Risk Patients (6 to 49 Years) Aged Out No longer eligible based on patient's age to complete this topic RSV Immunization Patients Under 20 months Aged Out No longer eligible based on patient's age to complete this topic Varicella Vaccines Aged Out No longer eligible based on patient's age to complete this topic Insurance MEDICAID - [place] Care Teams Compounding And Finishing Supervisor Relationship Specialty Start Date End Date Ina Arroyo NP [address] [place] [phone] PCP - General 01/18/25
--- OUTSIDE RECORDS SUMMARY | 2025-04-30 09:27 | XMS_ITS | Encounter Summary ---
Author Organization [employer] Address [address] [facility] [address] [place] [address] Care Team Providers Care Regulatory Auditor Name Role Phone Elliotnba Ina JENNY Primary Care Provider [phone] Reason for Visit * Reason Comments Med Refill Encounter Details Date Type Department Care Team ([facility] st Contact Info) Description 04/28/2025 Refill [facility] MED[facility]INE [address] [place] [address] Adelaida Degroot MD [address] [place] [address] Social History Tobacco Use Types Packs/Day Years [...] Description 05/16/2025 10:00 AM EDT Office Visit [facility] ADULT DENTAL [address] [place] [address] Fiona Camacho [address] [place] [phone] documented as of this encounter Visit Diagnoses Not on filedocumented in this encounter Additional Health Concerns Assessment Noted Time PHQ-9 Depression Total Score: 0 09/22/20 24 1:10 PM EST documented as of this encounter Care Teams Regulatory Auditor Relationship Specialty Start Date End Date Ina Arroyo NP [address] [place] [address] PCP - General Family Medicine 10/30/24 documented as of this encounter
== END 2025-04-30 09:38 | disposition home or self-care (01) ==
LOC: HO.HCS 09:08
PROVIDERS: PCP Student in an Organized Health Care Education/Training Program; Visit Provider Nurse Practitioner Family
DX: R00.2 Palpitations (principal); R06.02 Shortness of breath; E66.9 Obesity, unspecified
CPT/HCPCS: 99213

== ENCOUNTER → 2025-04-30 09:08 | Outpatient (BNVA) | payer MEDICAID, SELFPAY | PROVIDERS: PCP Student in an Organized Health Care Education/Training Program; Visit Provider Nurse Practitioner Family | DX: R00.2 Palpitations (principal); R06.02 Shortness of breath; E66.9 Obesity, unspecified | CPT/HCPCS: 99212 ==

== ENCOUNTER 2025-05-14 08:06 | Outpatient (REF) | payer MEDICAID, SELFPAY ==
--- NOTE | ~2025-05-14 | FL_ITS ---
EXAMINATION: XR UPPER GI SERIES WITH SMALL BOWEL CLINICAL INFORMATION: Patient complaining of left sided episodic abdominal pain, chronic since prior . COMPARISON: None TECHNIQUE: Fluoroscopic air contrast upper GI examination was performed utilizing standard techniques with thin and thick barium and effervescent granules. Numerous spot images were obtained. Several fluoroscopic image hold cine sequences were also obtained. FINDINGS: UPPER GI SERIES: Lateral cine images of the oropharynx and hypopharynx demonstrate normal swallow mechanism with normal epiglottic inversion and soft palate elevation. No laryngeal penetration, glottic or subglottic aspiration identified. No nasopharyngeal reflux present. Hypopharyngeal structures appear normal without evidence of mass or diverticulum. There was no significant cricopharyngeal achalasia. Dual and single contrast images of the esophagus demonstrate normal caliber, contour, and mucosal pattern. No evidence of stricture, mass, or ulcerations identified. Esophageal peristalsis was normal. No evidence of hiatus hernia identified. No significant gastroesophageal reflux was seen during the course of the examination and on reflux views. Normal-appearing GE junction. Dual contrast and single contrast images of the stomach demonstrated normal contour and mucosal pattern without evidence of mass, ulceration, or other abnormality. Contrast freely passed into the gastric antrum and duodenal bulb without delay. Single and air-contrast images of the duodenal bulb demonstrate no abnormality. The duodenal sweep has a normal appearance, course, and mucosal fold appearance. SMALL BOWEL FOLLOW-THROUGH: CASINO FLOORPERSON: Senior Compliance Officer image demonstrates normal bowel gas pattern. No focally dilated loop. Cholecystectomy clips noted. No organomegaly. No abnormal calcifications. Lung bases clear. Bony structures normal. Contrast was noted to reach the right colon at approximately 2 hours, within normal limits. The jejunum and ileum have normal mucosal pattern, normal caliber, and normal appearance. Spot imaging of the terminal ileum demonstrates normal mucosal pattern without abnormalities. FLUOROSCOPY TIME: 3 minutes 29 seconds Number of Spot Images:10 abdominal flat plate taken, and 17 fluoroscopic spot images obtained. Number of cines obtained: 8 DOSE AREA PRODUCT: [id number] uGy-m2 (microgray-meter squared) FL/FL upper GI w air w SBFT IMPRESSION: 1. Normal upper GI examination. 2. Normal small bowel follow-through examination. Electronically signed by: Vincenzo Ibanez MD 05/14/2025 01:08 PM EDT
--- OUTSIDE RECORDS SUMMARY | 2025-05-14 08:10 | XMS_ITS | Clinical Summary ---
Author Organization [facility] Address [address] [place] [address] Phone Care Team Providers Care House Visitor Name Role Phone Ina Arroyo NP Primary Care Provider [phone] Allergies No known active allergies Social History [...] Info) Description 05/21/2025 8:30 AM EDT Appointment [facility] Xray [address] [place] [address] Health Maintenance Due Date Last Done Comments Breast Cancer Screening 1980 Hepatitis B Vaccines (1 of 3 - 19+ 3-dose series) 1999 Cervical Cancer Screening: Pap Smear 2001 Social Influencers of Health Screening 08/05/2024 Depression Screening 10/18/2024 Influenza Vaccine (#1) 2025 09/22/2024, 2022 Hypertension/CHF/CAD Annual BMP Blood Test 01/08/2026 01/08/2025, [...] topic Insurance MEDICAID - [place] Care Teams House Visitor Relationship Specialty Start Date End Date Ina Arroyo NP [address] [place] [phone] PCP - General 01/18/25
--- OUTSIDE RECORDS SUMMARY | 2025-05-14 08:10 | XMS_ITS | Clinical Summary ---
Author Organization [employer] Address [address] [facility] 7 [place] [address] Care Team Providers Care Hospice Administrator Name Role Phone Ina Arroyo NP Primary Care Provider [phone] Allergies Active Allergy Reactions Criticality Noted Date [...] 7 days 14 tablet 01/17/20 25 Active lidocaine (Lidoderm) 5 % patch APPLY 1 PATCH TOPICALLY ONCE PER DAY. REMOVE & DISCARD PATCH WITHIN 12 HOURS OR DIRECTED BY MD. 30 patch 2 02/09/20 25 Active sertraline (Zoloft) 100 MG tablet Take 1 tablet by mouth Once per day. 03/01/20 25 Active famotidine (Pepcid) 20 MG tablet TAKE 1 TABLET (20 MG) BY MOUTH IF NEEDED AT BEDTIME FOR HEARTBURN. 90 tablet 03/20/20 25 Active ALPRAZolam (Xanax) 1 MG tabletIndicatio ns:Neck pain,Low back pain radiating down leg Take 1 tablet (1 mg) by mouth if needed at bedtime for anxiety for up to 1 day. For imaging 1 tablet 04/04/20 25 Active hydroCHLOROthia zide 12.5 MG tablet TAKE 1 TABLET BY MOUTH EVERY DAY 90 tablet 04/30/20 25 Active omeprazole (PriLOSEC) [address] capsuleIndicati ons:Gastroesoph ageal reflux disease with esophagitis, unspecified whether hemorrhage TAKE 1 CAPSULE BY MOUTH BEFORE BREAKFAST 90 capsule 05/07/20 25 Active hydroCHLOROthia zide 12.5 MG tablet TAKE 1 TABLET BY MOUTH EVERY DAY 90 tablet 01/26/20 25 025 Discontinued omeprazole (PriLOSEC) [address] capsuleIndicati ons:Gastroesoph ageal reflux disease with esophagitis, unspecified whether hemorrhage TAKE 1 CAPSULE BY MOUTH BEFORE BREAKFAST 90 capsule 02/03/20 25 025 Discontinued Active Problems Problem Noted Date Diagnosed Date Elevated hemoglobin A1c measurement 04/04/2025 Assessment & Plan (04/04/2025 11:04 AM EDT): -A1c completed 12/2024 increased to 6.5% from 6.3% 3 month prior -as A1c is consistent with dx of diabetes, lifestyle modifications and dietary changes are discussed -repeat A1c with plan to start Jardiance with persistent elevation as patient is unable to tolerate metformin -patient agrees and will complete labs in 1 week Chronic low back pain without sciatica 5 Class 3 severe obesity due t o excess calories without serious comorbidity with body mass index (BMI) of 40.0 to 44.9 in adult 01/13/2025 Assessment & Plan (01/13/2025 6:37 AM EDT): -Failed Zepbound trial -Engaged with assisted living coordinator -Continue lifestyle and diet modifications -Plan to discuss other pharmacological measures at next visit Pre-diabetes 01/13/2025 Assessment & Plan (01/13/2025 6:35 AM EDT): -A1c 6.5%, glucose 204 on labs completed 01/08 -Patient declined metformin -Diet and exercise discussed -Plan to discuss further interventions at follow-up Palpitations 12/22/2024 Assessment & Plan (04/04/2025 11:11 AM EDT): -undergoing work-up with cardiology who suspect weight related tachycardia -normal thyroid functions Assessment & Plan (12/22/2024 12:38 PM EST): [...] the month. Hypertension 12/22/2024 Assessment & Plan (04/04/2025 11:12 AM EDT): -stable at this time -continue hydrochlorothiazide 12.5 mg every day -eye exam is up to date as of February 2025 -advised to complete BMP, lipid, and albuminuria labs previously ordered Assessment & Plan (01/13/2025 6:26 AM EDT): [...] Stretching exercises, Podiatry evaluation for heel pads Generalized abdominal pain 10/12/2024 Assessment & Plan (04/04/2025 11:10 AM EDT): -established with [facility] [place] work-up Assessment & Plan (10/24/2024 11:40 AM EST): Pt here for a follow up, seen at our [facility] with c/o svere abdominal pain [...] sign out to the charge nurse at [facility] who will be expecting [...] resolve Neck pain 02/15/2024 Assessment & Plan (04/04/2025 1:07 PM EDT): -placed order for MRI to accompany pain management referral -discussed referral to pain management to assist with her chronic pain -single dose of ativan rx'ed to aid with anxiety associated with imaging -BMP will be completed in 1 week Assessment & Plan (01/13/2025 6:49 AM EDT): -Referral for chiropractor placed -Discussed trial of acupuncture for generalized musculoskeletal pain. Schedule provided Low back pain radiating down leg 02/15/2024 Assessment & Plan (04/04/2025 1:08 PM EDT): -placed order for MRI to accompany pain management referral -discussed referral to pain management to assist with her chronic pain -single dose of ativan rx'ed to aid with anxiety associated with imaging -BMP will be completed in 1 week Chronic sinusitis 10/04/2023 Assessment & Plan (07/15/2024 11:16 AM EDT): Acute worsening of chronic sinusitis Continue home remedies such as steam inhalation, Misti D, Robitussin Focus on fluid intake and rast Can also use Mucinex as expectorant If she is experiencing the same level of symptoms or worsening symptoms after 07/17/24, to start Augmentin Arthralgia 10/04/2023 Subclinical hypothyroidism 10/01/202310/01 Assessment & Plan (04/04/2025 11:05 AM EDT): -stable TSH, free T4 and thyroid peroxidase tests -will continue to monitor Assessment & Plan (01/13/2025 6:32 AM EDT): [...] her sister completed SI. Family relocated [place] to [place] as part of the transition process about six months ago. Patient feels very overwhelmed and frustrated due to having so many stressors (taking care of her mom, son, she has no transportation). PLAN: (check all that apply) Continue with current services (defined as services in the past 12 months) . Carlos was referred to [facility] on 10/04/23. She completed intake and [...] her sister completed SI. Family relocated from [place] to [place] as part of the transition process. PLAN: (check all that apply) New/Additional Services needed PCP management On-site non-integrated services Off-site services for BH, Behavioral Health Integration Plan Internal Follow up with [facility], External OP therapy referral , Patient Self Plan Patient to utilize skills provided in intervention , Patient to reach out to [facility] team as needed, Patient to engage in [...] her sister completed SI. Family relocated [place] to [place] as part of the transition process. PLAN: [...] her sister completed SI. Family relocated [place] to [place] as part of the transition process about six months ago. Patient feels very overwhelmed and frustrated due to having so many stressors (taking care of her mom, son, she has no transportation). PLAN: (check all that apply) Continue with current services (defined as services in the past 12 months) . Carlos was referred to [facility] on 10/04/23. She completed intake and [...] her sister completed SI. Family relocated from [place] to [place] as part of the transition process. PLAN: (check all that apply) New/Additional Services needed PCP management On-site non-integrated BH services Off-site services for BH, Behavioral Health Integration Plan Internal Follow up with [facility], External OP BH therapy referral , Patient Self Plan Patient to utilize skills provided in intervention , Patient to reach out to [facility] HHC team as needed, Patient to engage [...] her sister completed SI. Family relocated [place] to [place] as part of the transition process. PLAN: (check all that apply) New/Additional Services needed PCP management On-site non-integrated BH services Off-site services for BH, Behavioral Health Integration Plan Internal Follow up with [facility], External OP BH therapy referral , Patient Self Plan Patient to utilize skills provided in intervention , Patient to reach out to [facility] team as needed, Patient to engage in OP therapy , and Patient to reach out to [facility] as needed. Resolved Problems Problem Noted Date Diagnosed Date Resolved Date Diarrhea 10/12/2024 04/04/2025 Obesity (BMI 30-39.9) 02/27/20242024 Assessment & Plan (10/24/2024 11:48 AM EST): Referred to [facility] Elevated BP without diagnosis of hypertension 02/15/2012/22/2024 Assessment & Plan (02/27/2024 9:03 PM EDT): Monitor, referral to cardiology given episode of substernal chest pain Health care maintenance 10/04/202303/18 Encounters Date Type Department Care Team Description 05/05/2025 Refill [facility] [address] [place] [address] Name, MD Armando Gastroesophageal reflux disease with esophagitis, unspecified whether hemorrhage 04/28/2025 Refill [facility] [address] [facility] [place] [address] Adelaida Degroot MD 04/17/2025 1:15 PM EDT Office Visit [facility] [address] [place] [address] Terry, Aminta, OD Presbyopia (Primary Dx) 04/17/2025 Travel 04/09/2025 Orders Only [facility] [address] [place] [address] Ina Arroyo NP 04/04/2025 9:45 AM EDT Office Visit [facility] [address] [facility] [place] [address] Ina Arroyo NP Primary hypertension (Primary Dx); Elevated hemoglobin A1c measurement; Subclinical hypothyroidism; Neck pain; Generalized abdominal pain; Palpitations; Low back pain radiating down leg; Left foot pain; Bilateral hip pain 04/04/2025 Travel 04/03/2025 Telephone [facility] [address] [facility] [place] [address] Ina Arroyo NP Chart Prep 03/29/2025 Telephone [facility] [address] [place] [address] Ina Arroyo NP Medication Question 03/28/2025 Refill [facility] [address] [place] [address] Adelaida Degroot MD 03/19/2025 Refill [facility] [address] [place] [address] Ina Arroyo NP 03/07/2025 Results Follow-Up [facility] [address] [place] [address] Ina Arroyo NP BI Mammogram Screening Tomosynthesis Bilateral 03/05/2025 10:00 AM EDT Office Visit [facility] [address] [place] [address] Terry, Aminta, OD Optic nerve asymmetry, right (Primary Dx); Chorioretinal scar, right; Dark area on retina; Congenital hypertrophy of retinal pigment epithelium; Presbyopia 03/05/2025 Travel 03/02/2025 Orders Only [facility] External Provider, [facility] 02/26/2025 Orders Only [facility] [address] [place] [address] Ina Arroyo NP from Last 3 Months Immunizations Immunization Administration [...] Sign Reading Time Taken Comments Blood Pressure 132/80 04/04/2025 10:18 AM EDT Pulse 93 04/04/2025 9:54 AM EDT Temperature 37.3 C (99.1 F) 04/04/2025 9:54 AM EDT Respiratory Rate 22 04/04/2025 9:54 AM EDT Oxygen Saturation 98% 04/04/2025 9:54 AM EDT Inhaled Oxygen Concentration - - Weight 106 kg (232 lb 9.6 oz) 04/04/2025 9:54 AM EDT Height 162.6 cm (5' 4 ) 04/04/2025 9:54 AM EDT Body Mass Index 39.93 04/04/2025 9:54 AM EDT Plan of Treatment Upcoming Encounters Date Type Department Care Team (Late st Contact Info) Description 05/16/2025 10:00 AM EDT Office Visit [facility] [address] [place] [address] Fiona Camacho [address] [place] [address] [phone] Health Maintenance Due Date Last Done Comments HPV Vaccines (1 - 3-dose series) 1995 Hepatitis B Vaccines (1 of 3 - 19+ 3-dose series) 1999 Dental X-Ray: Bitewings 03/11/2025 03/10/2024 Dental Oral Exam 05/14/2025 11/13/2024, 03/10/2024 Dental Prophylaxis 05/14/2025 11/13/2024, 04/04/2024 Influenza Vaccine (#1) 2025 09/22/2024, 2022 Alcohol/Substance Use Screening 09/22/2025 09/22/2024 Depression Screening 09/22/2025 09/22/2024, 09/22/20 SDOH Screening 10/24/2025 10/24/2024 Disability Screening 01/12/2026 01/12/2025 Family Planning (PISQ) 01/16/2026 01/16/2025 Tobacco Screening 04/04/2026 04/04/2025 Diabetes: Hemoglobin A1C 04/09/2026 025, 01/08/2025, 09/22/2024, Additional history exists Mammogram 02/26/2027 02/26/2025, 11/05/2023 Dental X-Ray: Full Mouth 03/11/2027 03/10/2024 Cervical Cancer Screening 01/16/2030 HPV/Cotest 01/16/2030 01/16/2025 Pap Smear 01/16/2030 01/16/2025 Lipid Panel 04/09/2030 04/09/2025, 11/04/2023 Zoster Vaccines (1 of 2) 2030 DTaP/Tdap/Td Vaccines (2 - Td or Tdap) 10/01/2033 10/01/2023 RSV Patients and Patients Aged 60 years or older (1 - 1-dose 75+ series) 2055 COVID-19 Vaccine Completed 09/22/2024 HIV Screening Completed 01/19/2025, 11/04/2023 Hepatitis C Screening Completed 01/19/2025, 024 HIB Vaccines Aged Out No longer eligi [...] Years) and At-Risk Patients (6 to 49) Years Aged Out No longer eligible based on patient's age to complete this topic RSV under 20 months Aged Out No longe r eligible based on patient's age to complete this topic Rotavirus Vaccines Aged Out No longer eligible based on patient's age to complete this topic Procedures Procedure Name Priority Date/Time Associated Diagnosis Comments T4, FREE Routine 04/09/2025 9:50 AM EDT HEMOGLOBIN A1C Routine 04/09/2025 9:50 AM EDT Elevated hemoglobin A1c measurement LIPID PANEL, STANDARD Routine 04/09/2025 9:50 AM EDT Obesity (BMI 30-39.9) ALBUMIN, RANDOM URINE W/CREATININE Routine 04/09/2025 9:50 AM EDT Primary hypertension BASIC METABOLIC PANEL Routine 04/09/2025 9:50 AM EDT Primary hypertension TSH W/REFLEX TO FT4 Routine 04/09/2025 9 :50 AM EDT Subclinical hypothyroidism US ABDOMEN COMPLETE WITH ELASTOGRAPHY Routine 03/02/2025 9:32 AM EDT BI MAMMOGRAM SCREENING TOMOSYNTHESIS BILATERAL Routine 02/26/2025 12:30 PM EDT TRANSTHORACIC ECHO (TTE) COMPLETE Routine 02/26/2025 Palpitations HEPATITIS PANEL, GENERAL Routine 01/19/2025 2:06 PM EDT HIV 1/2 ANTIGEN/ANTIBODY, FOURTH GENERATION W/RFL Routine 01/19/2025 2:06 PM EDT HPV DNA, LOW/HIGH RISK Routine 01/16/2025 2:24 PM EDT PAP SMEAR Routine 01/16/2025 2:24 PM EDT Cervical cancer screening PROPHYLAXIS - ADULT Routine 11/13/2024 1 1:00 AM EST Dental calculus Dental plaque PERIODIC ORAL EVALUATION - ESTABLISHED PATIENT Routine 11/13/2024 11:00 AM EST INTRAORAL - COMPLETE SERIES OF RADIOGRAPHIC IMAGES Routine 03/10/2024 3:00 PM EDT from Last 3 Months or Most Recently Relevant to Health Maintenance Results * (ABNORMAL) TSH W/Reflex to FT4 (04/09/2025 9:50 AM EDT) TSH reflex Free T4 6.17(H) 0.32 - 4.0 uIU/mL [facility] Blood Venous blood specimen / Unknown 04/09/2025 9:50 AM EDT 04/09/2025 11:08 AM EDT Ina Arroyo NP LAB BLOOD ORDERABLES Final Resu lt [facility] [address] [place] [phone] * Albumin, Random Urine W/Creatinine (04/09/2025 9:50 AM EDT) Creatinine, Urine 100.89 mg/dL [facility] Microalbumin Urine 20.0 mg/L [facility] Microalbum Creatinine Ratio Ur 19.8 <30 ug/mg cr [facility] Comment:Albumin/Creatinine R atio Reference Ranges: Normal: < 30 ug/mg creatinine Microalbuminuria: 30 - 300 ug/mg creatinineClinical Albuminuria: > 300 ug/mg creatinine Urine (Urine, Random) 04/09/2025 9:50 AM EDT 04/09/2025 10:56 AM EDT [facility] MANAGER GALLERY LAB URINE ORDERABLES Final Resu lt Performing Organization Address [facility] Co de Phone Number [facility] [address] [place] [phone] * T4, Free (04/09/2025 9:50 AM EDT) Free T4 (Free Thyroxine) 0.95 0.71 - 1.85 ng/dL [facility] 04/09/2025 9:50 AM EDT 04/09/2025 11:08 AM EDT [facility] MANAGER GALLERY LAB BLOOD ORDERABLES Final Resu lt Performing Organization Address [facility] de Phone Number [facility] [address] [place] [phone] * (ABNORMAL) Hemoglobin A1c (04/09/2025 9:50 AM EDT) Hemoglobin A1c 6.4(H) <6.0 % [facility] Comment:Hemoglobin A1C Refer ence Range Adults: 4.8 - 6.0 % Non diabetic: < 6.0 % Goal: < 7.0 %Additional Action Suggested: > 8.0 %Note: Hemoglobin A1c results are invalid for patients with abnormal amounts of HbF. Blood transfusions may impact the HbA1c concentration in the patient sample. Estimated Average Glucose 137 mg/dL [facility] Comment:eAG = Estimated ave rage glucose which is %A1C expressed asaverage glucose, using the formula of the F3J-[id number] Glucose study (ADAG), Diabetes Care, Vol.31,#8,2007 Blood Venous blood specimen / Unknown 04/09/2025 9:50 AM EDT 04/09/2025 11:08 AM EDT Ina Zarate MANAGER GALLERY LAB BLOOD ORDERABLES Final Resu lt Performing Organization Address [facility]/ZIP Co de Phone Number [facility] [address] [place] [phone] * Lipid Panel, Standard (04/09/2025 9:50 AM EDT) Triglycerides 149 <150 mg/dL [facility] Comment:Desirable Triglyceri de: less than 150 mg/dLBorderline High Triglyceride 150-199 mg/dLHigh Triglyceride: 200-499 mg/dLVery High Triglyceride: greater than or equal to 5OO mg/dL Cholesterol 166 <200 mg/dL [facility] Comment:Desirable Cholestero l: less than 200 mg/dLBorderline High Cholesterol: 200-239 mg/dLHigh Cholesterol: greater than 239 mg/dL LDL Cholesterol Calculated 92 <100 mg/dL [facility] Comment:Desirable LDL: less than 100 mg/dLNear Optimal/Above Optimal LDL: 110- 129 mg/dLBorderline High LDL: 130-159 mg/dLHigh LDL: 160-189 mg/dLVery High LDL: greater than or equal to 190 mg/dL HDL Cholesterol 45 >40 mg/dL [facility] Comment:Desirable HDL: great er than 40 mg/dL Note: This HDL assay may give artificially low results in patients with liver disease. Blood Venous blood specimen / Unknown 04/09/2025 9:50 AM EDT 04/09/2025 11:08 AM EDT Ina Elliotnba MANAGER GALLERY LAB BLOOD ORDERABLES Final Resu lt Performing Organization Address City/[facility]/ZIP Co de Phone Number [facility] [address] [place] [phone] * (ABNORMAL) Basic Metabolic Panel (04/09/2025 9:50 AM EDT) Sodium 139 135 - 145 mmol/L [facility] Potassium 3.4 3.3 - 5.1 mmol/L [facility] Chloride 104 96 - 108 mmol/L [facility] Carbon Dioxide 26 22 - 29 mmol/L [facility] Anion Gap 12 12 - 20 [facility] Urea Nitrogen (BUN) 12 9 - 16 mg/dL [facility] Creatinine, Serum 0.72 0.5 - 1.4 mg/dL [facility] Estimated Glomerular Filt Rate >60 [facility] Comment:Chronic Kidney Disea se: Estimated GFR < 60 mL/min/1.55y6Kpjits Kidney Disease: Estimated GFR < 15 mL/min/1.73m2 Glucose 149(H) 60 - 115 mg/dL [facility] Calcium 9.0 8.4 - 10.2 mg/dL [facility] Blood Venous blood specimen / Unknown 04/09/2025 9:50 AM EDT 04/09/2025 11:08 AM EDT us Ina Arroyo MANAGER GALLERY LAB BLOOD ORDERABLES Final Resu lt Performing Organization Address City/State/[facility] Co de Phone Number [facility] [address] [place] [phone] * US Abdomen Comp w elastography (03/02/2025 9:32 AM EDT) Anatomical Region Laterality Modality Abdomen Ultrasound 03/02/2025 9:32 AM EDT Narrative 03/02/2025 10:22 AM EDT [address] [address] Ultrasound Report Signed Patient: Carlos Alegria MR #: [id number] : 1980 Acct:[id number] Age/Sex: 44 / F ADM Date: 03/02/25 Loc: HO.US Attending Dr: Lexi DON Ordering Physician: Lexi Caicedo Date of Service: 03/02/25 Procedure(s): US abdomen comp w elastography Accession Number(s): [id number] cc: Lexi Caicedo; Isatu Sloan MD EXAMINATION: [...] 03/02/25 1019 DD/ 0932 TD/TT: 03/02/25 0948 Manager Telecom: Procedure Note Donotuseinterpreter, Image - 03/05/[address] [address] Ultrasound Report Signed Patient: Sundar Alegria #: [id number] : 1980Acct:[id number] Age/Sex: 44 / FADM Date: 03/02/25 Loc: HO.US Attending Dr: Lexi DON Ordering Physician: Lexi Caicedo Date of Service: 03/02/25 Procedure(s): US abdomen comp w elastography Accession Number(s): [id number] cc: Lexi Caicedo-Juan; Isatu Sloan MD EXAMINATION: US ABDOMEN COMPLETE [...] 03/02/25 1019 DD/ 0932 TD/TT: 03/02/25 0948 Manager Telecom: [facility] External Provider IMG US PROCEDURES Edited Result - Final * BI Mammogram Screening Tomosynthesis Bilateral (02/26/2025 12:30 PM EDT) Anatomical Region Laterality Modality Breast Bilateral Mammography 02/26/2025 12:3 0 PM EDT Narrative 03/04/2025 5:32 PM EDT [address] [place] [address] Mammography Report Signed Patient: Carlos Alegria MR #: [id number] : 1980 Acct:[id number] Age/Sex: 44 / F ADM Date: 02/26/25 Loc: HO.MAMMO Attending Dr: María Stephens MANAGER GALLERY Ordering Physician: Ina Arroyo Results: 1Negative Date of Service: 02/26/25 Follow Up: 1 Year From Orig inal Mammogram Procedure(s): MM tomosynthesis screening BI Accession Number(s): [id number] cc: Ina Arroyo EXAMINATION: MM SCREENING DIGITAL [...] 03/04/25 1730 DD/ 1230 TD/TT: 02/26/25 1255 Manager Telecom: Procedure Note Donotuseinterpreter, Image - 03/05/[address] [place] [address] Mammography Report Signed Patient: Sundar Alegria #: [id number] : 1980Acct:[id number] Age/Sex: 44 / FADM Date: 02/26/25 Loc: HO.MAMMO Attending Dr: María Stephens MANAGER GALLERY Ordering Physician: Ina ArroyoResults: 1Negative Date of Service: 02/26/25Follow Up: 1 Year From Orig inal Mammogram Procedure(s): MM tomosynthesis screening BI Accession Number(s): [id number] cc: Ina Arroyo EXAMINATION: MM SCREENING DIGITAL [...] 03/04/25 1730 DD/ 1230 TD/TT: 02/26/25 1255 Manager Telecom: Ina Arroyo MANAGER GALLERY IMG BI PROCEDURES Edited Result - Final * Transthoracic Echo (TTE) Complete (02/26/2025) María Stephens ELECTRIC [employer]OT WELDER CV ECHO PROCEDURES Final Result * Hepatitis Panel, General (01/19/2025 2:06 PM EDT) Hepatitis A IgM Nonreactive Nonreactive [facility] Comment:IgM antibodies to JAFFE V not detected; does not exclude earlyacute or recovered HAV infection. ~Hepatitis B Surface Antibody NONREACTIVE Nonreactive [facility] Comment:Nonreactive: < 8.00 mIU/mL Hepatitis B Core Antibody Nonreactive Nonreactive [facility] Hepatitis C Antibody Nonreactive Nonreactive [facility] Comment:Antibodies to HCV no t detected; does not exclude early acuteHCV infection. Hepatitis B Surface Ag Negative Negative [facility] 01/19/2025 2:06 PM EDT 01/19/2025 2:06 PM EDT us Generic External Data Provider LAB BLOOD ORDERAB LES Final Result Performing Organization Address [facility] Co de Phone Number [facility] [address] [place] [phone] * HIV-1/2 Antigen and Antibodies, Fourth Generation, with Reflexes (01/19/2025 2:06 PM EDT) HIV AB/AG Nonreactive Nonreactive [facility] Comment:HIV-1 p24 Ag and/or HIV-1/HIV-2 Ab not detected.A test result that is nonreactive does not exclude thepossibility of exposure to or infection with HIV-1 and/orHIV-2. Nonreactive results in this assay for individualswith prior exposure to HIV-1 and/or HIV-2 may be due toantigen and antibody levels that are below the limit ofdetection of this assay.The [employer] HIV Ag/Ab Combo assay result andsupplemental assay results should be interpreted inconjunction with the patient's clinical presentation,history and other laboratory results. If the results areinconsistent with clinical evidence, additional testing issuggested to confirm the result. 01/19/2025 2:06 PM EDT 01/19/2025 2:06 PM EDT us Generic External Data Provider LAB BLOOD ORDERAB LES Final Result Performing Organization Address [facility] Co de Phone Number [facility] [address] [place] [phone] * HPV DNA, Low/High Risk (01/16/2025 2:24 PM EDT) HPV High Risk Negative Negative [facility] HPV Genotype 16 Negative Negative [facility] HPV Genotype 18 Negative Negative [facility] Comment:HPV testing performe d at [facility] (CLIA#[id number]), [address] [place] [id number].Testing for HPV was performed using the Norberto [...] EDT 01/17/2025 6:00 AM EDT us [facility] BLOOD ORDERABLES Saima l Result Performing Organization Address [facility] Co de Phone Number [facility] [address] [place] [address] [phone] * Pap Smear (01/16/2025 2:24 PM EDT) Swab Cervix uteri structure / Unknown 01/16/2025 2:24 PM EDT 01/17/2025 6:00 AM EDT Narrative [facility] - 01/22/2025 1:21 PM EDT ----- ------- Name: Carlos Alegria Age/Sex: 44/F : 1980 Unit#: [id number] Attend Dr: CHAYO KEY [facility] Re01/16/25 Status: DEP REF Location: [facility] Disch: ----- ------- SPEC : [id number] RECD: 01/17/25 STATUS: [place] RG NUM: [id number] ADELA: 01/16/25-[address] [facility] [address]: CHAYO KEY ENTERED: 01/17/25 SP TYPE: Pap Smr OTHR : ORDERED: Pap Smear Interpretation Satisfactory for evaluation. Negative for intraepithelial lesion or malignancy. No endocervical cells seen. HPV High Risk: Negative HPV Genotyping 16: Negative HPV Genotyping 18: Negative Clinical Information LMP: Unknown date Previous PAP test: Unknown date/findings Material Received Cervix ----- ------- Signed (signature on file) LAYA Dewey (ASCP) 01/22/25 1321 ----- ------- END OF REPORT Chayo Key [facility] CYTOLOGY ORDERABLES F inal Result [facility] [address] [place] [address] [phone] from Last 3 Months or Most Recently Relevant to Health Maintenance Insurance [employer] C3 DENTAL-[employer] MEDICAID STAND ADULT Care Teams Hospice Administrator Relationship Specialty Start Date End Date Ina Arroyo NP [address] [place] [address] PCP - General Family Medicine 10/30/24
== END 2025-05-14 08:07 | disposition home or self-care (01) ==
LOC: HO.XRAY 08:06
PROVIDERS: PCP Nurse Practitioner; Visit Provider Nurse Practitioner
DX: R10.9 Unspecified abdominal pain (principal); R93.5 Abnormal findings on diagnostic imaging of other abdominal regions, including retroperitoneum
CPT/HCPCS: 74246; 74248

== ENCOUNTER → 2025-05-14 08:08 | Outpatient (BNV) | payer MEDICAID, SELFPAY | PROVIDERS: PCP Nurse Practitioner; Visit Provider Radiology Diagnostic Radiology | DX: R10.32 Left lower quadrant pain (principal) | CPT/HCPCS: 74246 ==

== ENCOUNTER 2025-06-22 13:56 | Outpatient (AMB) | payer MEDICAID, SELFPAY ==
--- NOTE | 2025-06-22 14:03 | A.OFFVIS_ITS ---
Vital Signs 06/22/25 14:08 Height 5 ft 4 in Weight 231 lb BMI 39.6 Blood Pressure Location Lt brachial Position Sitting Respiration 20 Pulse 87 Pulse Source Pulse Oximeter Pulse Oximetry (%) 97 Oxygen Delivery Method Room Air Intake Visit Reasons: Neck/Back Pain Security System Administrator Required: No Allergies No Known Drug Allergies Allergy (Verified 04/30/25 09:11) none red onion Allergy (Severe, Uncoded 04/30/25 09:11) Anaphylaxis HPI Comments Details: The patient is a 44-year-old female presenting with chronic neck and lower back pain. The neck pain began in 2013 and extends from the neck down to the tailbone, with the lower back pain starting in 2019 after the of her son. The pain is exacerbated by movement and is described as a burning sensation, particularly at night when she tries to relax. She experiences dizziness with certain neck movements and reports muscle spasms diagnosed in [place]. The patient has been managing her pain with acetaminophen due to concerns about using muscle relaxants, as she needs to remain alert for her son who has autism. She has tried various creams and nurse behavioral health care, which provide temporary relief. An MRI was attempted but not completed due to her claustrophobia, which has been a significant barrier to further diagnostic imaging. The patient was previously treated for hypothyroidism in [place], but upon moving to [place], her lab results normalized, and levothyroxine was discontinued. Since then, she has experienced weight gain, chills, and hair loss, raising concerns about the adequacy of her thyroid management. She has been working with a examining chair assembler to manage her weight, which has increased from 189 to 230 pounds since 2022. The patient also reports sacroiliac joint pain, which is exacerbated by certain movements and positions. She experiences numbness and burning sensations in her legs, which were noted during a previous MRI in [place]. Her daily activities are significantly impacted by her pain, requiring her to rest after playing with her son. - Onset: Neck pain since 2013, lower back pain since 2019 post-childbirth - Quality: Burning sensation, exacerbated by movement, particularly at night - Location: From neck to tailbone, sacroiliac joint involvement - Radiation: Numbness and burning in legs - Exacerbating factors: Movement, certain neck positions - Relieving factors: Temporary relief from nurse behavioral health care and acetaminophen - Interference: Limits ability to play with son, requires rest after activity - Affect: Pain impacts daily activities and mood, causing frustration - Analgesia: Currently using acetaminophen - Adverse Effects: Concerns about sedation from muscle relaxants - Activities of Daily Living: Pain limits physical activity, requires rest after exertion - Aberrant Drug Related Behaviors: None reported [facility] Medical History Pre-diabetes Surgical History History of tubal ligation History of section S/P cholecystectomy Family History Father Diabetes Mother Implantable loop recorder present History of cardiac cath Stroke Social History Alcohol intake: never Patient Tobacco Use Status: Never used Tobacco Review of Systems Const Details: - Musculoskeletal: Reports chronic neck and lower back pain, sacroiliac joint pain - Neurological: Reports dizziness with neck movement, numbness in legs - Endocrine: Reports weight gain, chills, hair loss, previously treated for hypothyroidism - Psychiatric: Reports claustrophobia Physical Exam Exam Exam: General: awake, alert, oriented. Answers questions appropriately. Fully engaged in examination. Skin: warm, dry, intact HEENT: Normocephalic. Hearing intact. Cardiac: External chest normal in appearance. Respiratory: No cough, audible wheezing or stridor. Abdomen: without gross distension. MS: No obvious swelling or deformities. Able to stand on bilateral tiptoes and bilateral heels.? Able to transition from sit to stand unassisted. Ambulates with bilaterally normal heel strike and toe off Bilateral lower extremity strength 5/5 SLR negative bilaterally Tenderness over midline lumbar and lumbar paraspinal muscles Bilateral SIJ: Tenderness over bilateral PSIS. [place] positive bilaterally, thigh thrust positive bilaterally, SI compression positive bilaterally Cervical spine: Minimally tender over midline cervical vertebrae and paraspinal muscles. Significantly decreased cervical range of motion in all planes. Axial compression test positive. Tenderness over upper and middle trapezius bilaterally with palpable trigger points. Neurological: Oriented to person, place, time and situation. Thought process intact. No gait abnormalities appreciated. Psychiatric: Appropriate mood and affect. Good judgment and insight. Vital Signs: Last Vital Signs Pulse 87 06/22/25 14:08 Resp 20 06/22/25 14:08 Pulse Ox 97 06/22/25 14:08 Oxygen Delivery Method Room Air 06/22/25 14:08 BMI result Body Mass Index 39.6 Assessment & Plan Assessment & Plan (1) Cervical spondylosis: Code(s): M47.812 - Spondylosis without myelopathy or radiculopathy, cervical region Category: Medical (2) Myofascial neck pain: Code(s): M54.2 - Cervicalgia Category: Medical (3) Lumbar spondylosis: Code(s): M47.816 - Spondylosis without myelopathy or radiculopathy, lumbar region Category: Medical (4) Coccydynia: Code(s): M53.3 - Sacrococcygeal disorders, not elsewhere classified Category: Medical Plan The plan includes obtaining x-rays of the neck, back, and tailbone to further evaluate the patient's chronic pain conditions. Physical therapy is recommended prior to proceeding with interventional management. Will schedule for bilateral cervical trigger point injections to alleviate muscle tightness and pain (low-dose steroid requested by patient). A low-dose gabapentin regimen is proposed to manage the burning pain, with the option to adjust the dosage based on the patient's response and tolerance. Will send a prescription for 100 mg p.o. 3 times daily. Patient advised on cautions for use. The patient is advised to continue working with a examining chair assembler to address weight management, which is crucial for alleviating the burden on her musculoskeletal system. Further evaluation of her thyroid function is suggested, given the symptoms of weight gain, chills, and hair loss. The patient is encouraged to explore alternative methods for completing an MRI, considering her claustrophobia, to obtain necessary imaging for comprehensive assessment. Patient was informed and verbally consented to the use of an ambient scribe for clinic note documentation during this visit. Orders: Orders XR lumbar spine 6V w bending Today M47.816 - Spondylosis without myelopathy or radiculopathy, lumbar region XR cervical spine w flex/ext Today M47.812 - Spondylosis without myelopathy or radiculopathy, cervical region, M54.2 - Cervicalgia XR sacrum coccyx min 2V Today M53.3 - Sacrococcygeal disorders, not elsewhere classified PT Evaluation and Treatment Today M47.812 - Spondylosis without myelopathy or radiculopathy, cervical region, M47.816 - Spondylosis without myelopathy or radiculopathy, lumbar region, M53.3 - Sacrococcygeal disorders, not elsewhere classified, M54.2 - Cervicalgia Medications: New gabapentin 100 mg PO TID 90 caps 3RF Patient Instructions: - Schedule and complete x-rays for neck, back, and tailbone. - Begin physical therapy as recommended. - Start low-dose gabapentin as prescribed, adjusting as needed. - Continue working with a examining chair assembler for weight management. - Consider alternative methods for MRI completion due to claustrophobia. Coding Level of Care Code New Pt Level 4 (00336) Complex EM visit Add On G2211 Diagnoses Cervical spondylosis M47.812 Myofascial neck pain M54.2 Lumbar spondylosis M47.816 Coccydynia M53.3
[2025-06-22 14:08] VITALS: PULSE 87; RESP 20; O2SAT 97; BMI 39.6
--- OUTSIDE RECORDS SUMMARY | 2025-06-22 14:26 | XMS_ITS | Encounter Summary ---
Author Organization [employer] Address [address] [facility] [address] [place] [address] Care Team Providers Care Slot Host Name Role Phone Elliotnba Ina JENNY Primary Care Provider [phone] Reason for Visit * Reason Comments Med Refill Encounter Details Date Type Department Care Team ([facility] st Contact Info) Description 03/28/2025 Refill [facility] [address] [place] [address] Adelaida Degroot MD [address] [place] [address] Social History Tobacco Use Types Packs/Day Years [...] Care Team (Late st Contact Info) Description 07/20/2025 3:15 PM EDT Office Visit [facility] [address] [place] [phone] Ina Arroyo NP [address] [place] [address] documented as of this encounter Visit Diagnoses Not on filedocumented in this encounter Additional Health Concerns Assessment Noted Time PHQ-9 Depression Total Score: 0 09/22/20 24 1:10 PM EST documented as of this encounter Care Teams Slot Host Relationship Specialty Start Date End Date Ina Arroyo NP [address] [place] [address] PCP - General Family Medicine 10/30/24 documented as of this encounter
--- OUTSIDE RECORDS SUMMARY | 2025-06-22 14:26 | XMS_ITS | Clinical Summary ---
Author Organization [employer] Address [address] [facility] 7 [place] [address] Care Team Providers Care Marriage And Family Therapist Name Role Phone Ina Arrooy NP Primary Care Provider [phone] Allergies Active Allergy Reactions Criticality Noted Date Comments Onion 10/15/2023 All red onion types Medications * This document contains information received from the source organization and may not represent a complete record from that organization. hydrocortisone (Anusol-HC) 2.5 % rectal cream INSERT RECTALLY TWICE DAILY 30 g 4 Active fluticasone (Flonase) 50 MCG/ACT nasal spray INSTILL 1-2 SPRAYS IN EACH NOSTRIL ONCE DAILY IN THE MORNING 48 g 4 Active fexofenadine (Misti) 180 MG tablet Take 1 tablet by mouth Once per day. Active acetaminophen (Tylenol) 500 MG tablet Take 1 tablet by mouth every 6 (six) hours if needed for mild pain. Active lidocaine (Xylocaine) 5 % ointment Apply to affected area up to 5 times a day as needed 30 g 5 Active valACYclovir (Valtrex) 1 g tablet One tablet twice a day x 7 days 14 tablet 5 Active lidocaine (Lidoderm) 5 % patch APPLY 1 PATCH TOPICALLY ONCE PER DAY. REMOVE & DISCARD PATCH WITHIN 12 HOURS OR DIRECTED BY MD. 30 patch 2 5 Active sertraline (Zoloft) 100 MG tablet Take 1 tablet by mouth Once per day. 5 Active famotidine (Pepcid) 20 MG tablet TAKE 1 TABLET (20 MG) BY MOUTH IF NEEDED AT BEDTIME FOR HEARTBURN. 90 tablet 5 Active ALPRAZolam (Xanax) 1 MG tabletIndication s:Neck pain,Low back pain radiating down leg Take 1 tablet (1 mg) by mouth if needed at bedtime for anxiety for up to 1 day. For imaging 1 tablet 5 Active hydroCHLOROthiaz veronica 12.5 MG tablet TAKE 1 TABLET BY MOUTH EVERY DAY 90 tablet 5 Active omeprazole (PriLOSEC) [address] Barahona ns:Gastroesophag eal reflux disease with esophagitis, unspecified whether hemorrhage TAKE 1 CAPSULE BY MOUTH BEFORE BREAKFAST 90 capsule 5 Active Blood Pressure kit 1 each 2 times daily. 1 kit 4 06/14/20 25 Active Problems Problem Noted Date Diagnosed Date [...] AM EDT): -Failed Zepbound trial -Engaged with artist representative -Continue lifestyle and diet modifications -Plan to [...] end of month GERD (gastroesophageal reflux disease) 01/07/202 5 Assessment & Plan (10/24/2024 11:44 AM EST): [...] Plan (04/04/2025 11:10 AM EDT): -established with [facility] work work-up Assessment & Plan (10/24/2024 11:40 AM EST): Pt here for a follow up, seen at our [facility] with c/o svere abdominal pain x 4 [...] her sister completed SI. Family relocated [place] as part of the transition [...] her sister completed SI. [place] as part of the transition [...] her sister completed SI. [place] as part of the transition [...] her sister completed SI. [place] as part of the transition [...] her sister completed SI. [place] as part of the transition [...] her sister completed SI. Family [place] as part of the transition [...] Encounters Date Type Department Care Team Description 06/14/[address] [facility] [address] [facility] [place] [address] Raymond Barlow MA chart prep 05/31/2025 2:30 PM EDT Telemedicine [facility] [address] [facility] [place] [address] Maria Luisa Flynn RN Primary hypertension [I10] 05/31/2025 Travel 05/24/[address] [facility] [address] [place] [address] Ina Arroyo NP Medication Problem (Pt requesting to speak to nurse about blood pressure medication. Pt explains blood pressure is high and medication isnt helping it go down. Pt wants to further explain to nurse for further help) 05/22/[address] [facility] [address] [facility] [place] [address] Ina Arroyo NP June05/14/2025 Orders Only [facility] External Provider, [facility] 05/05/[address] [facility] [address] [place] [address] Name, MD Armando Gastroesophageal reflux disease with esophagitis, unspecified whether hemorrhage 04/28/[address] [facility] [address] [place] [address] Adelaida Degroot MD 04/17/2025 1:15 PM EDT Office Visit [facility] OPTOMETRY [address] [place] [address] Terry, Aminta, OD Presbyopia (Primary Dx) 04/17/2025 Travel 04/09/2025 Orders Only [facility] MEDICINE [address] [place] [phone] Ina Arroyo NP 04/04/2025 9:45 AM EDT Office Visit [address] [address] Ina Arroyo NP Primary hypertension (Primary Dx); Elevated hemoglobin A1c measurement; Subclinical hypothyroidism; Neck pain; Generalized abdominal pain; Palpitations; Low back pain radiating down leg; Left foot pain; Bilateral hip pain 04/04/2025 Travel 04/03/[address] [address] Ina Arroyo NP Chart Prep 03/29/[address] [address] Ina Arroyo NP Medication Question 03/28/[address] [address] Adelaida Degroot MD from Last 3 Months Immunizations Immunization Administration [...] Description 07/20/2025 3:15 PM EDT Office Visit [facility] MEDICINE [address] [place] [address] Ina Chamberlain NP [address] [place] [address] Health Maintenance Due Date Last Done Comments HPV Vaccines (1 - 3-dose series) 1995 Hepatitis B Vaccines (1 of 3 - 19+ 3-dose series) 1999 Dental X-Ray: Bitewings 03/11/2025 03/10/2024 Dental Oral Exam 05/14/2025 11/13/2024, 03/10/2024 Dental Prophylaxis 05/14/2025 11/13/2024, 04/04/2024 Influenza Vaccine (#1) 2025 09/22/2024, 2022 Alcohol/Substance Use Screening 09/22/2025 09/22/2024 Depression Screening 09/22/2025 09/22/2024, 09/22/20 24 SDOH Screening 10/24/2025 10/24/2024 Disability Screening 01/12/2026 [...] Procedure Name Priority Date/Time Associated Diagnosis Comments FL UPPER GI AIR CONTRAST W SMALL BOWEL SERIES Routine 05/14/2025 8:15 AM EDT T4, FREE Routine 04/09/2025 9:50 AM EDT HEMOGLOBIN A1C Routine 04/09/2025 9:50 AM EDT Elevated hemoglobin A1c measurement LIPID PANEL, STANDARD Routine 04/09/2025 9:50 AM EDT Obesity (BMI 30-39.9) ALBUMIN, RANDOM URINE W/CREATININE Routine 04/09/2025 9:50 AM EDT Primary hypertension BASIC METABOLIC PANEL Routine 04/09/2025 9:50 AM EDT Primary hypertension TSH W/REFLEX TO FT4 Routine 04/09/2025 9 :50 AM EDT Subclinical hypothyroidism BI MAMMOGRAM SCREENING TOMOSYNTHESIS BILATERAL Routine 02/26/2025 12:30 PM EDT HEPATITIS PANEL, GENERAL Routine 01/19/2025 [...] Recently Relevant to Health Maintenance Results * FL UPPER GI AIR CONTRAST W SMALL BOWEL SERIES (05/14/2025 8:15 AM EDT) Anatomical Region Laterality Modality Radiographic No ging 05/14/2025 8:15 AM EDT Narrative 05/14/2025 1:11 PM EDT [place] [address] Fluoroscopy Report Signed Patient: Carlos Alegria MR #: [id number] : 1980 Acct:[id number] Age/Sex: 44 / F ADM Date: 05/14/25 Loc: HO.XRAY Attending Dr: Lexi DON Ordering Physician: Lexi Caicedo Date of Service: 05/14/25 Procedure(s): FL upper GI w air w SBFT Accession Number(s): [id number] cc: Ina Arroyo; Lexi Caicedo EXAMINATION: XR UPPER GI SERIES WITH SMALL BOWEL CLINICAL INFORMATION: Patient complaining of left sided episodic abdominal pain, chronic since prior . COMPARISON: None TECHNIQUE: Fluoroscopic air contrast upper GI examination was performed utilizing standard techniques with thin and thick barium and effervescent granules. Numerous spot images were obtained. Several fluoroscopic image hold cine sequences were also obtained. FINDINGS: UPPER GI SERIES: Lateral cine images of the oropharynx and hypopharynx demonstrate normal swallow mechanism with normal epiglottic inversion and soft palate elevation. No laryngeal penetration, glottic or subglottic aspiration identified. No nasopharyngeal reflux present. Hypopharyngeal structures appear normal without evidence of mass or diverticulum. There was no significant cricopharyngeal achalasia. Dual and single contrast images of the esophagus demonstrate normal caliber, contour, and mucosal pattern. No evidence of stricture, mass, or ulcerations identified. Esophageal peristalsis was normal. No evidence of hiatus hernia identified. No significant gastroesophageal reflux was seen during the course of the examination and on reflux views. Normal-appearing GE junction. Dual contrast and single contrast images of the stomach demonstrated normal contour and mucosal pattern without evidence of mass, ulceration, or other abnormality. Contrast freely passed into the gastric antrum and duodenal bulb without delay. Single and air-contrast images of the duodenal bulb demonstrate no abnormality. The duodenal sweep has a normal appearance, course, and mucosal fold appearance. SMALL BOWEL FOLLOW-THROUGH: CHECKER AND PACKER: Search And Rescue Officer image demonstrates normal bowel gas pattern. No focally dilated loop. Cholecystectomy clips noted. No organomegaly. No abnormal calcifications. Lung bases clear. Bony structures normal. Contrast was noted to reach the right colon at approximately 2 hours, within normal limits. The jejunum and ileum have normal mucosal pattern, normal caliber, and normal appearance. Spot imaging of the terminal ileum demonstrates normal mucosal pattern without abnormalities. FLUOROSCOPY TIME: 3 minutes 29 seconds Number of Spot Images:10 abdominal flat plate taken, and 17 fluoroscopic spot images obtained. Number of cines obtained: 8 DOSE AREA PRODUCT: 6448 uGy-m2 (microgray-meter squared) FL/FL upper GI w air w SBFT IMPRESSION: 1. Normal upper GI examination. 2. Normal small bowel follow-through examination. Electronically signed by: Vincenzo Ibanez MD 05/14/2025 01:08 PM EDT Dictated By: Vincenzo Ibanez MD Signed By: <Electronically signed by Vincenzo Ibanez MD in OV> 05/14/25 1308 DD/ 0815 TD/TT: 05/14/25 1159 Shirring Machine Operator: Procedure Note Donotuseinterpreter, Image - 05/14/[address] [address] Fluoroscopy Report Signed Patient: Liz AlegriaR #: [id number] : 1980Acct:[id number] Age/Sex: 44 / FADM Date: 05/14/25 Loc: ANUPAMA Attending Dr: Lexi DON Ordering Physician: Lexi Caicedo Date of Service: 05/14/25 Procedure(s): FL upper GI w air w SBFT Accession Number(s): [id number] cc: Ina Arroyo; Lexi Caicedo EXAMINATION: XR UPPER GI SERIES WITH SMALL BOWEL CLINICAL INFORMATION: Patient complaining of left sided episodic abdominal pain, chronic since prior . COMPARISON: None TECHNIQUE: Fluoroscopic air contrast upper GI examination was performed utilizing standard techniques with thin and thick barium and effervescent granules. Numerous spot images were obtained. Several fluoroscopic image hold cine sequences were also obtained. FINDINGS: UPPER GI SERIES: Lateral cine images of the oropharynx and hypopharynx demonstrate normal swallow mechanism with normal epiglottic inversion and soft palate elevation. No laryngeal penetration, glottic or subglottic aspiration identified. No nasopharyngeal reflux present. Hypopharyngeal structures appear normal without evidence of mass or diverticulum. There was no significant cricopharyngeal achalasia. Dual and single contrast images of the esophagus demonstrate normal caliber, contour, and mucosal pattern. No evidence of stricture, mass, or ulcerations identified. Esophageal peristalsis was normal. No evidence of hiatus hernia identified. No significant gastroesophageal reflux was seen during the course of the examination and on reflux views. Normal-appearing GE junction. Dual contrast and single contrast images of the stomach demonstrated normal contour and mucosal pattern without evidence of mass, ulceration, or other abnormality. Contrast freely passed into the gastric antrum and duodenal bulb without delay. Single and air-contrast images of the duodenal bulb demonstrate no abnormality. The duodenal sweep has a normal appearance, course, and mucosal fold appearance. SMALL BOWEL FOLLOW-THROUGH: CHECKER AND PACKER: Search And Rescue Officer image demonstrates normal bowel gas pattern. No focally dilated loop. Cholecystectomy clips noted. No organomegaly. No abnormal calcifications. Lung bases clear. Bony structures normal. Contrast was noted to reach the right colon at approximately 2 hours, within normal limits. The jejunum and ileum have normal mucosal pattern, normal caliber, and normal appearance. Spot imaging of the terminal ileum demonstrates normal mucosal pattern without abnormalities. FLUOROSCOPY TIME: 3 minutes 29 seconds Number of Spot Images:10 abdominal flat plate taken, and 17 fluoroscopic spot images obtained. Number of cines obtained: 8 DOSE AREA PRODUCT: 6448 uGy-m2 (microgray-meter squared) FL/FL upper GI w air w SBFT IMPRESSION: 1. Normal upper GI examination. 2. Normal small bowel follow-through examination. Electronically signed by: Vincenzo Ibanez MD 05/14/2025 01:08 PM EDT Dictated By: Vincenzo Ibanez MD Signed By: <Electronically signed by Vincenzo Ibanez MD in OV> 05/14/25 1308 DD/ 0815 TD/TT: 05/14/25 1159 Shirring Machine Operator: [facility] External Provider IMG FLU OROSCOPY PROCEDURES Final Result * (ABNORMAL) TSH W/Reflex to FT4 (04/09/2025 9:50 AM EDT) TSH reflex Free T4 6.17(H) 0.32 - 4.0 uIU/mL [facility] Blood Venous blood specimen / Unknown 04/09/2025 9:50 AM EDT 04/09/2025 11:08 AM EDT Ina Arroyo [employer]ZZ[employer] LAB BLOOD ORDERABLES Final Resu lt [facility] [address] [place] [phone] * Albumin, Random Urine W/Creatinine (04/09/2025 9:50 AM EDT) Creatinine, Urine 100.89 mg/dL [facility] Microalbumin Urine 20.0 mg/L [facility] Microalbum Creatinine Ratio Ur 19.8 <30 ug/mg cr [facility] Comment:Albumin/Creatinine R atio Reference Ranges: Normal: < 30 ug/mg creatinine Microalbuminuria: 30 - 300 ug/mg creatinineClinical Albuminuria: > 300 ug/mg creatinine Urine (Urine, Random) 04/09/2025 9:50 AM EDT 04/09/2025 10:[address] [facility] [employer]ZZ[employer] LAB URINE ORDERABLES Final Resu lt Performing Organization Address [facility]/ZIP Co de Phone Number [facility] [address] [place] [phone] * T4, Free (04/09/2025 9:50 AM EDT) Free T4 (Free Thyroxine) 0.95 0.71 - 1.85 ng/dL [facility] 04/09/2025 9:50 AM EDT 04/09/2025 11:08 AM EDT [facility] LAB BLOOD ORDERABLES Final Resu lt Performing Organization Address [facility] Co de Phone Number [facility] [address] [place] [phone] * (ABNORMAL) Hemoglobin A1c (04/09/2025 9:50 AM EDT) Hemoglobin A1c 6.4(H) <6.0 % [facility] Comment:Hemoglobin A1C Refer ence Range Adults: 4.8 - 6.0 % Non diabetic: < 6.0 % Goal: < 7.0 %Additional Action Suggested: > 8.0 %Note: Hemoglobin A1c results are invalid for patients with abnormal amounts of HbF. Blood transfusions may impact the HbA1c concentration in the patient sample. Estimated Average Glucose 137 mg/dL [facility] Comment:eAG = Estimated ave rage glucose which is %A1C expressed asaverage glucose, using the formula of the X5U-AdywkjpYnmzums Glucose study (ADAG), Diabetes Care, Vol.31,#8,May. 2007 Blood Venous blood specimen / Unknown 04/09/2025 9:50 AM EDT 04/09/2025 11:08 AM EDT [facility] LAB BLOOD ORDERABLES Final Resu lt Performing Organization Address City/[facility]/ZIP Co de Phone Number [facility] [address] [place] [address] [phone] * Lipid Panel, Standard (04/09/2025 9:50 AM EDT) Triglycerides 149 <150 mg/dL [facility] Comment:Desirable Triglyceri de: less than 150 mg/dLBorderline High Triglyceride 150-199 mg/dLHigh Triglyceride: 200-499 mg/dLVery High Triglyceride: greater than or equal to 5OO mg/dL Cholesterol 166 <200 mg/dL [facility] Comment:Desirable Cholestero l: less than 200 mg/dLBorderline High Cholesterol: 200-239 mg/dLHigh Cholesterol: greater than 239 mg/dL LDL Cholesterol Calculated 92 <100 mg/dL [facility] Comment:Desirable LDL: less than 100 mg/dLNear Optimal/Above Optimal LDL: 110- 129 mg/dLBorderline High LDL: 130-159 mg/dLHigh LDL: 160-189 mg/dLVery High LDL: greater than or equal to 190 mg/dL HDL Cholesterol 45 >40 mg/dL [facility] Comment:Desirable HDL: great er than 40 mg/dL Note: This HDL assay may give artificially low results in patients with liver disease. Blood Venous blood specimen / Unknown 04/09/2025 9:50 AM EDT 04/09/2025 11:[address] [facility] [employer] LAB BLOOD ORDERABLES Final Resu lt Performing Organization Address City/[facility]/ZIP Co de Phone Number [facility] [address] [place] [address] [phone] * (ABNORMAL) Basic Metabolic Panel (04/09/2025 9:50 AM EDT) Sodium 139 135 - 145 mmol/L [facility] Potassium 3.4 3.3 - 5.1 mmol/L [facility] Chloride 104 96 - 108 mmol/L [facility] Carbon Dioxide 26 22 - 29 mmol/L [facility] Anion Gap 12 12 - 20 [facility] Urea Nitrogen (BUN) 12 9 - 16 mg/dL [facility] Creatinine, Serum 0.72 0.5 - 1.4 mg/dL [facility] Estimated Glomerular Filt Rate >60 [facility] Comment:Chronic Kidney Disea se: Estimated GFR < 60 mL/min/1.28h5Vwyrfw Kidney Disease: Estimated GFR < 15 mL/min/1.73m2 Glucose 149(H) 60 - 115 mg/dL [facility] Calcium 9.0 8.4 - 10.2 mg/dL [facility] Blood Venous blood specimen / Unknown 04/09/2025 9:50 AM EDT 04/09/2025 11:08 AM EDT Ina Arroyo PIZZ[employer] LAB BLOOD ORDERABLES Final Resu lt Performing Organization Address City/State/[facility] Co de Phone Number [facility] [address] [place] [address] [phone] * BI Mammogram Screening Tomosynthesis Bilateral (02/26/2025 12:30 PM EDT) Anatomical Region Laterality Modality Breast Bilateral Mammography 02/26/2025 12:3 0 PM EDT Narrative 03/04/2025 5:32 PM EDT [facility] [address] [place] [address] Mammography Report Signed Patient: Carlos Alegria MR #: [id number] : 1980 Acct:[id number] Age/Sex: 44 / F ADM Date: 02/26/25 Loc: JUSTO Attending Dr: María Stephens PIZZA MAKER Ordering Physician: Ina Arroyo Results: 1Negative Date of Service: 02/26/25 Follow Up: 1 Year From Orig inal Mammogram Procedure(s): MM tomosynthesis screening BI Accession Number(s): [id number] cc: Ina Arroyo EXAMINATION: MM SCREENING DIGITAL [...] Renata Johnson DO 03/04/2025 05:30 PM EDT RP Dictated By: Renata Johnson DO Signed By: <Electronically signed by Renata Johnson DO in OV> 03/04/25 1730 DD/ 1230 TD/TT: 02/26/25 1255 Shirring Machine Operator: Procedure Note Donotuseinterpreter, Image - 03/05/2025 [facility] [address] [place] [address] Mammography Report Signed Patient: Sundar Alegria #: [id number] : 1980Acct:[id number] Age/Sex: 44 / FADM Date: 02/26/25 Loc: [place] Attending Dr: María Stephens PIZZ[employer] MAKER Ordering Physician: Ina ArroyoResults: 1Negative Date of Service: 02/26/25Follow Up: 1 Year From Orig inal Mammogram Procedure(s): MM tomosynthesis screening BI Accession Number(s): [id number] cc: Ina Arroyo EXAMINATION: MM SCREENING DIGITAL [...] Renata Johnson DO 03/04/2025 05:30 PM EDT RP Dictated By: Renata Johnson DO Signed By: <Electronically signed by Renata Johnson DO in OV> 03/04/25 1730 DD/ 1230 TD/TT: 02/26/25 1255 Shirring Machine Operator: Ina Arroyo NP IMG BI PROCEDURES Edited Result - Final * Hepatitis Panel, General (01/19/2025 2:06 PM EDT) Hepatitis A IgM Nonreactive Nonreactive [facility] Comment:IgM antibodies to JAFFE V not detected; does not exclude earlyacute or recovered HAV infection. ~Hepatitis B Surface Antibody NONREACTIVE Nonreactive [facility] Comment:Nonreactive: < 8.00 mIU/mL Hepatitis B Core Antibody Nonreactive Nonreactive [facility] Hepatitis C Antibody Nonreactive Nonreactive [facility] Comment:Antibodies to HCV no t detected; does not exclude early acuteHCV infection. Hepatitis B Surface Ag Negative Negative [facility] 01/19/2025 2:06 PM EDT 01/19/2025 2:06 PM EDT us Generic External Data Provider LAB BLOOD ORDERAB LES Final Result [facility] [address] [place] [phone] * HIV-1/2 Antigen and Antibodies, Fourth Generation, with Reflexes (01/19/2025 2:06 PM EDT) HIV AB/AG Nonreactive Nonreactive [facility] Comment:HIV-1 p24 Ag and/or HIV-1/HIV-2 Ab not detected.A test result that is nonreactive does not exclude thepossibility of exposure to or infection with HIV-1 and/orHIV-2. Nonreactive results in this assay for individualswith prior exposure to HIV-1 and/or HIV-2 may be due toantigen and antibody levels that are below the limit ofdetection of this assay.The [employer] HIV Ag/Ab Combo assay result andsupplemental assay results should be interpreted inconjunction with the patient's clinical presentation,history and other laboratory results. If the results areinconsistent with clinical evidence, additional testing issuggested to confirm the result. 01/19/2025 2:06 PM EDT 01/19/2025 2:06 PM EDT us Generic External Data Provider LAB BLOOD ORDERAB LES Final Result [facility] [address] [place] [phone] * HPV DNA, Low/High Risk (01/16/2025 2:24 PM EDT) Pathologist [facility] HPV High Risk Negative Negative [facility] HPV Genotype 16 Negative Negative [facility] HPV Genotype 18 Negative Negative [facility] Comment:HPV testing performe d at [facility] (CLIA#[id number]), [address] [place] [address].Testing for HPV was performed using the [employer]system. The presence of HPV in the female [...] Chayo Key CNM LAB BLOOD ORDERABLES Saima stanton Result [facility] [address] [place] [phone] * Pap Smear (01/16/2025 2:24 PM EDT) Swab Cervix uteri structure / Unknown 01/16/2025 2:24 PM EDT 01/17/2025 6:00 AM EDT Narrative [facility] - 01/22/2025 1:21 PM EDT ----- ------- Name: Carlos Alegria Age/Sex: 44/F : 1980 Unit#: [id number] Attend Dr: CHAYO KEY CNM Re01/16/25 Status: DEP REF Location: .LNP Disch: ----- ------- SPEC : [id number] RECD: 01/17/25 STATUS: [place] RG NUM: [id number] ADELA: 01/16/[address] [facility] [address]: CHAYO KEY CNM ENTERED: 01/17/25 SP TYPE: Pap Smr OT DR: ORDERED: Pap Smear Interpretation Satisfactory for evaluation. Negative for intraepithelial lesion or malignancy. No endocervical cells seen. HPV High Risk: Negative HPV Genotyping 16: Negative HPV Genotyping 18: Negative Clinical Information LMP: Unknown date Previous PAP test: Unknown date/findings Material Received Cervix ----- ------- Signed (signature on file) LAYA Dewey (ASCP) 01/22/25 1321 ----- ------- END OF REPORT Chayo Key CNM LAB CYTOLOGY ORDERABLES F inal Result [facility] [address] [place] [phone] from Last 3 Months or Most Recently Relevant to Health Maintenance [facility] [address] [place] [id number] [facility] ST[facility] AD[facility] Care Teams Marriage And Family Therapist Relationship Specialty Start Date End Date Ina Arroyo NP [address] [place] [address] [place] [address] PCP - General Family Medicine 10/30/24
--- OUTSIDE RECORDS SUMMARY | 2025-06-22 14:26 | XMS_ITS | Clinical Summary ---
Author Organization [facility] Address [address] [place] [phone] Phone Care Team Providers Care Morning News Producer Name Role Phone Unknown, Unknown Primary Care Provider Hubert carvalho Allergies Active Allergy Reactions Criticality Noted Date Comments Onion 10/15/2023 All red onion types Medications loratadine (CLARITIN) 10 mg tabletIndicatio ns:Stem cell donor Take 1 tablet (10 mg total) by mouth daily. Start taking 3 days before first G-CSF injection (planned for 10/24/2023) 30 tablet Active cetirizine (ZYRTEC) 10 MG tabletIndicatio ns:allergic rhinitis Take 10 mg by mouth daily as needed for allergies. Indications: inflammation of the nose due to an allergy Active famotidine (PEPCID) 20 MG tablet Take 20 mg by mouth as needed for heartburn. Active Family History Medical History Relation Comments Alcohol abuse Father No Known Problems Maternal Grandfather Diabetes Maternal Grandmother Stroke Mother Lung cancer Paternal Grandfather Dementia Paternal Grandmother Suicide Sister Autism Son Relation Status Comments Father Alive Maternal Grandfather Maternal Grandmother Mother Alive Paternal Grandfather Paternal Grandmother Sister Son Alive Social History Tobacco Use Types Packs/Day Years Used Date Smoking Tobacco: Never Smokeless Tobacco: Never Alcohol Use Standard Drinks/Week Comments Not Currently 0 (1 standard drink = 0.6 oz pure alcohol) Will abstain from alcohol 2 weeks prior to donation Education Answer Date Recorded Are you interested in more education? Not on arie e 09/28/2023 Are you concerned about learning? Not on file 09/28/2023 No 09/28/2023 No 09/28/2023 Digital Access Answer Date Recorded No 09/28/2023 No 09/28/2023 Reliable internet access at home? Not on file 09/28/2023 Device with a working camera? Not on file Comments No Sex and Gender Information Value Date Recorded Sex Assigned at Female 09/29/2023 2:08 PM EST Legal Sex Female 1:23 PM EST Gender Identity Female 09/29/2023 2:08 PM EST Sexual Orientation Straight 09/29/2023 2: 08 PM EST Last Filed Vital Signs Vital Sign Reading Time Taken Comments Blood Pressure 142/82 10/15/2023 11:34 AM EST manual Pulse 88 10/15/2023 11:34 AM EST on ECG at 12:15PM Temperature 36.6 C (97.9 F) 10/15/2023 10:37 AM EST Respiratory Rate 18 10/15/2023 10:3 7 AM EST Oxygen Saturation 98% 10/15/2023 10: 37 AM EST Inhaled Oxygen Concentration - - Weight 99.2 kg (218 lb 11.1 oz) 10/15/2023 10:37 AM EST Height 162.5 cm (5' 3.98 ) 10/15/2023 1 0:37 AM EST Body Mass Index 37.57 10/15/2023 10:37 AM EST Plan of Treatment Health Maintenance Due Date Last Done Comments DEPRESSION SCREENING 1992 HEPATITIS C SCREENING 1998 HIV ONE-TIME SCREENING (18-6 5 YEARS) 1998 PAP SMEAR 2001 MAMMOGRAM 2020 COVID-19 VACCINE ( - 2023-2 5 season) 2024 INFLUENZA VACCINE (#1) 2025 10/01/2023 SCREENING FOR DIABETES 10/15/2026 10/15/2023 Adult Td,Tdap Booster 10/01/2033 10/01/2023 SMOKING STATUS SCREENING (On ce After 26 Yrs) Completed 10/15/2023 HEPATITIS A VACCINES Aged Out No long er eligible based on patient's age to complete this topic HIB VACCINES Aged Out No longer eligi ble based on patient's age to complete this topic MENINGOCOCCAL VACCINES (ACWY) Aged Out No longer eligible based on patient's age to complete this topic MENINGOCOCCAL VACCINES (B) Aged Out N o longer eligible based on patient's age to complete this topic PNEUMOCOCCAL VACCINES (0-49 years) Aged Out No longer eligible based on patient's age to complete this topic Medical Devices Not on file Insurance [facility] [facility] [facility] [facility] C3 [employer] [phone] [place] [id number] [employer] ATTN: [place] [address] [place] [phone] [employer] ATTN: [place] [address] Care Teams Morning News Producer Relationship Specialty Start Date End Date Unknown, Unknown, PCP - General 09/28/23 Additional Source Comments The information contained in this document represents components of the legal health record. It is not the complete legal health record.[facility]
--- OUTSIDE RECORDS SUMMARY | 2025-06-22 14:26 | XMS_ITS | Encounter Summary ---
Author Organization [email or web address] Address [address] [place] [address] Care Team Providers Care Security Sales Manager Name Role Phone Isatu Sloan MD Primary Care Pro vider Janel Go RN Unavailable [phone] Ina Arroyo NP Primary Care Provider [phone] Encounter Details Date Type Department Care Team (Late st Contact Info) Description 09/26/2024 Orders Only [facility] [address] [place] [address] Vanita Silver MD [address] [place] [address] Social History Tobacco Use Types Packs/Day Years [...] Description 07/20/2025 3:15 PM EDT Office Visit [facility] [address] [place] [phone] Ina Arroyo NP [address] [place] [phone] documented as of this encounter Visit Diagnoses Not on filedocumented in this encounter Additional Health Concerns Assessment Noted Time PHQ-9 Depression Total Score: 0 09/22/20 24 1:10 PM EST documented as of this encounter Care Teams Security Sales Manager Relationship Specialty Start Date End Date Isatu Sloan MD [address] [place] [phone] PCP - General Internal Medicine 10/01/23 10/29/24 Ina Arroyo NP [address] [place] [phone] PCP - General Family Medicine 10/30/24 Janel Go RN [address] [place] [phone] Partition Making Machine OperatorComputer Installation Engineer 10/19/24 01/22/25 documented as of this encounter
--- OUTSIDE RECORDS SUMMARY | 2025-06-22 14:26 | XMS_ITS | Clinical Summary ---
Author Organization [facility] Address [address] [place] [address] Phone Care Team Providers Care Registered Route Associate Name Role Phone Ina Arroyo NP Primary Care Provider [phone] Allergies No known active allergies Social History [...] Care Team (Late st Contact Info) Description 06/26/2025 9:45 AM EDT Appointment [facility] Xray [address] [place] [address] Health Maintenance [...] topic Insurance MEDICAID - [place] Care Teams Registered Route Associate Relationship Specialty Start Date End Date Ina Arroyo NP [address] [place] [phone] PCP - General 01/18/25
--- OUTSIDE RECORDS SUMMARY | 2025-06-22 14:26 | XMS_ITS | Encounter Summary ---
Author Organization [email or web address] Address [address] [facility] [address] [place] [address] Care Team Providers Care Glazing Department Supervisor Name Role Phone Elliotnba Ina JENNY Primary Care Provider [phone] Encounter Details Date Type Department Care Team ([facility] st Contact Info) Description 01/24/2025 Orders Only [facility] [address] [place] [address] Layla Bautista MD [address] [place] [address] Social History Tobacco Use Types Packs/Day Years [...] Description 07/20/2025 3:15 PM EDT Office Visit [facility] [address] [place] [phone] Ina Arroyo NP [address] [place] [address] documented as of this encounter Visit Diagnoses Not on filedocumented in this encounter Additional Health Concerns Assessment Noted Time PHQ-9 Depression Total Score: 0 09/22/20 24 1:10 PM EST documented as of this encounter Care Teams Glazing Department Supervisor Relationship Specialty Start Date End Date Ina Arroyo NP [address] [place] [address] PCP - General Family Medicine 10/30/24 documented as of this encounter
== END 2025-06-22 15:08 | disposition home or self-care (01) ==
LOC: HO.PMC 13:57
PROVIDERS: PCP Nurse Practitioner; Visit Provider Registered Nurse Emergency
DX: M47.812 Spondylosis without myelopathy or radiculopathy, cervical region (principal); M54.2 Cervicalgia; M47.816 Spondylosis without myelopathy or radiculopathy, lumbar region; M53.3 Sacrococcygeal disorders, not elsewhere classified
CPT/HCPCS: 99204

== ENCOUNTER → 2025-06-22 13:56 | Outpatient (BNVA) | payer MEDICAID, SELFPAY | PROVIDERS: PCP Nurse Practitioner; Visit Provider Registered Nurse Emergency | DX: M54.2 Cervicalgia (principal); M47.812 Spondylosis without myelopathy or radiculopathy, cervical region; M47.816 Spondylosis without myelopathy or radiculopathy, lumbar region; M53.3 Sacrococcygeal disorders, not elsewhere classified | CPT/HCPCS: 99212 ==

== ENCOUNTER 2025-07-12 10:38 | Outpatient (REF) | payer MEDICAID, SELFPAY ==
--- NOTE | ~2025-07-12 | XR_ITS ---
EXAMINATION: XR LUMBOSACRAL SPINE CLINICAL INFORMATION: M47.816 - Spondylosis without myelopathy or radiculopathy, lumbar region COMPARISON: None available. TECHNIQUE: 7 views of the lumbar spine, inclusive of flexion and extension views, were obtained. FINDINGS: Clips in right upper quadrant are consistent with prior cholecystectomy. Bowel gas pattern is unremarkable. There are 5 non-rib bearing lumbar segments. Vertebral body height is preserved. Oblique views demonstrate no definite pars intra-articulars defect. There is mild sclerosis in the left L5 pars interarticularis region. T12-L1: There is mild disc space narrowing. L1-L2: There is mild disc space narrowing and posterior endplate osteophytes that are stable. There is subtle retrolisthesis on neutral view without instability. L2-L3: There is subtle retrolisthesis without instability. There is minimal disc space narrowing. L3-L4: Unremarkable L4-L5: There is minimal disc space narrowing and minimal endplate osteophyte formation. L5-S1: Unremarkable XR/XR lumbar spine 6V w bending IMPRESSION: No evidence of instability with flexion and extension. Mild degenerative disc disease. There is mild sclerosis in the left L5 pars interarticularis region without a definite pars defect. Electronically signed by: Gerald Larry MD 07/12/2025 11:44 AM EDT
--- NOTE | ~2025-07-12 | XR_ITS ---
EXAMINATION: XR CERVICAL SPINE FLEXION EXTENSION HISTORY: M54.2 - Cervicalgia COMPARISON: There are no prior studies available for comparison. FINDINGS: AP, lateral, bilateral oblique, and open-mouth odontoid views of the cervical spine are submitted. Flexion and extension lateral views were also obtained. Osseous mineralization is normal. Seven cervical vertebral bodies are identified maintaining normal height without evidence of fracture or subluxation. There is straightening of the normal cervical lordosis. There is disc space narrowing at the C6-7 level. There is no abnormal motion with flexion or extension. The neural foramina patent bilaterally. The odontoid and lateral masses of C1 are intact. There is no prevertebral soft tissue swelling. XR/XR cervical spine w flex/ext IMPRESSION: Straightening of the normal cervical lordosis. Disc space narrowing at C6-7. No abnormal motion with flexion or extension. Electronically signed by: Quintin Gomes MD 07/12/2025 11:36 AM EDT
--- NOTE | ~2025-07-12 | XR_ITS ---
EXAMINATION: XR SACRUM AND COCCYX CLINICAL INFORMATION: M53.3 - Sacrococcygeal disorders, not elsewhere classified, pain COMPARISON: None available. TECHNIQUE: 2 views of the sacrum and 2 views of the coccyx were obtained. FINDINGS: Minute marginal osteophyte are present at the inferior SI joints. SI joints are otherwise unremarkable. No sacral fracture or deformity is identified. There is grade 3 anterolisthesis at the third and fourth coccygeal segments. XR/XR sacrum coccyx min 2V IMPRESSION: Minimal degenerative change in the SI joints. There is grade 3 anterolisthesis at the third and fourth coccygeal segments of uncertain significance. Electronically signed by: Gerald Larry MD 07/12/2025 11:36 AM EDT
== END 2025-07-12 10:39 | disposition home or self-care (01) ==
LOC: HO.XRAY 10:38
PROVIDERS: PCP Nurse Practitioner; Visit Provider Registered Nurse Emergency
DX: K21.9 Gastro-esophageal reflux disease without esophagitis (principal); M53.3 Sacrococcygeal disorders, not elsewhere classified; M47.816 Spondylosis without myelopathy or radiculopathy, lumbar region; M54.2 Cervicalgia; M47.812 Spondylosis without myelopathy or radiculopathy, cervical region; K58.9 Irritable bowel syndrome, unspecified; E03.9 Hypothyroidism, unspecified; K75.81 Nonalcoholic steatohepatitis (NASH); R16.0 Hepatomegaly, not elsewhere classified; E11.9 Type 2 diabetes mellitus without complications; E66.01 Morbid (severe) obesity due to excess calories; Z68.41 Body mass index [BMI] 40.0-44.9, adult
CPT/HCPCS: 20552; 72052; 72114; 72220; 99212; J0665; J3300

== ENCOUNTER → 2025-07-12 10:41 | Outpatient (BNV) | payer MEDICAID, SELFPAY | PROVIDERS: PCP Nurse Practitioner; Visit Provider Radiology Diagnostic Radiology | DX: M47.816 Spondylosis without myelopathy or radiculopathy, lumbar region (principal); M54.2 Cervicalgia; M43.17 Spondylolisthesis, lumbosacral region; M51.369 Other intervertebral disc degeneration, lumbar region without mention of lumbar back pain or lower extremity pain | CPT/HCPCS: 72052; 72114; 72220 ==

== ENCOUNTER 2025-07-12 12:11 | Outpatient (AMB) | payer MEDICAID, SELFPAY ==
--- NOTE | 2025-07-12 12:28 | MHC.OFFVIS ---
Vital Signs 07/12/25 12:30 Height 5 ft 4 in Weight 233 lb BMI 40.0 BP 122/77 Blood Pressure Location Lt brachial Position Sitting Pulse 99 Intake Visit Reasons: 8w epigastric pain Intake Note: Carlos presents in the office as a 8 week follow up. CC: States that she had the upper GI series and she is here for results. All same concerns as before. 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 Code(s): R93.5 - Abnormal findings on diagnostic imaging of other abdominal regions, including retroperitoneum Category: Medical (3) Elevated transaminase level: Code(s): R74.01 - Elevation of levels of liver transaminase levels Category: Medical (4) GERD (gastroesophageal reflux disease): Code(s): K21.9 - Gastro-esophageal reflux disease without esophagitis Category: Medical (5) Globus sensation: Code(s): R09.A2 - Foreign body sensation, throat Category: Medical (6) Odynophagia: Code(s): R13.10 - Dysphagia, unspecified Category: Medical (7) Snoring: Code(s): R06.83 - Snoring Category: Medical (8) Fatigue: Code(s): R53.83 - Other fatigue Category: Medical (9) Nocturnal polyuria: Code(s): R35.81 - Nocturnal polyuria Category: Medical (10) Elevated fasting glucose: Code(s): R73.01 - Impaired fasting glucose Category: Medical Plan For years she has had trouble with left sides severe cramps and bloating that is asymmetric, this greatly worsened after her PCP tried to start Zepbound. She denies CIC, she does have intermittent diarrhea r/t fat content that was bad just after her mani, but has improved over time. She seems to have subclinical hypothyroid, as she had prior abnormal labs in [place] but an elevated TSH with normal T4 here. Her PCP stopped her levothyroxine, and she started gaining a lot of weight and losing her hair. She changed PCP's but so far they have not restarted her medication. Will get small bowel follow through, consider tx with either reglan or bentyl or both. Want to see the study first. She has an undetermined dx of NIDDM, will get 3 hr GTT to help her determine, also thyroid peroxidases for her TSH, she has transaminitis so getting a liver work up. FHX TIJERINA. She eats healthfully, no junk foods or candies. She snores very loudly at night and has daytime yawning and fatigue. BUT she also has nocturnal polyuria. / NIDDM??? getting UA. ROV 8 weeks. Orders: Orders [place] upper GI small bowel Today R10.9 - Unspecified abdominal pain, R93.5 - Abnormal findings on diagnostic imaging of other abdominal regions, including retroperitoneum Thyroid Peroxidase Antibodies Today K21.9 - Gastro-esophageal reflux disease without esophagitis, R09.A2 - Foreign body sensation, throat, R74.01 - Elevation of levels of liver transaminase levels, Z98.51 - Tubal ligation status, Z98.891 - History of uterine scar from previous surgery Ferritin Today K21.9 - Gastro-esophageal reflux disease without esophagitis, R09.A2 - Foreign body sensation, throat, R74.01 - Elevation of levels of liver transaminase levels, Z98.51 - Tubal ligation status, Z98.891 - History of uterine scar from previous surgery Mitochondrial Antibody Today K21.9 - Gastro-esophageal reflux disease without esophagitis, R09.A2 - Foreign body sensation, throat, R74.01 - Elevation of levels of liver transaminase levels, Z98.51 - Tubal ligation status, Z98.891 - History of uterine scar from previous surgery Smooth Muscle Antibody Today K21.9 - Gastro-esophageal reflux disease without esophagitis, R09.A2 - Foreign body sensation, throat, R74.01 - Elevation of levels of liver transaminase levels, Z98.51 - Tubal ligation status, Z98.891 - History of uterine scar from previous surgery RAFI Reflex Titer and Pattern Today K21.9 - Gastro-esophageal reflux disease without esophagitis, R09.A2 - Foreign body sensation, throat, R74.01 - Elevation of levels of liver transaminase levels, Z98.51 - Tubal ligation status, Z98.891 - History of uterine scar from previous surgery HIV Ab/Ag Today K21.9 - Gastro-esophageal reflux disease without esophagitis, R09.A2 - Foreign body sensation, throat, R74.01 - Elevation of levels of liver transaminase levels, Z98.51 - Tubal ligation status, Z98.891 - History of uterine scar from previous surgery US abdomen comp w elastography Today K21.9 - Gastro-esophageal reflux disease without esophagitis, R09.A2 - Foreign body sensation, throat, R74.01 - Elevation of levels of liver transaminase levels, Z98.51 - Tubal ligation status, Z98.891 - History of uterine scar from previous surgery UA CC w/rflx Micro + Cult Today R35.81 - Nocturnal polyuria TSH reflex Free T4 Today K21.9 - Gastro-esophageal reflux disease without esophagitis, R09.A2 - Foreign body sensation, throat, R74.01 - Elevation of levels of liver transaminase levels, Z98.51 - Tubal ligation status, Z98.891 - History of uterine scar from previous surgery Comprehensive Met. Panel Today K21.9 - Gastro-esophageal reflux disease without esophagitis, R09.A2 - Foreign body sensation, throat, R74.01 - Elevation of levels of liver transaminase levels, Z98.51 - Tubal ligation status, Z98.891 - History of uterine scar from previous surgery Hepatitis A,B,C Profile Today K21.9 - Gastro-esophageal reflux disease without esophagitis, R09.A2 - Foreign body sensation, throat, R74.01 - Elevation of levels of liver transaminase levels, Z98.51 - Tubal ligation status, Z98.891 - History of uterine scar from previous surgery RT PSG in-lab sleep study Today R06.83 - Snoring, R35.81 - Nocturnal polyuria, R53.83 - Other fatigue Glucose Tolerance 3 Hour Today R73.01 - Impaired fasting glucose Medications: Discontinued loperamide administer after each loose stool until symptoms controlled; do not exceed 8 mg per 24 hrs Discontinued Reason: Doctor's Order 2 mg PO Q4H PRN 14 caps 0RF loose stool 8 LABS; Laboratory Tests 12/13/24 01/19/25 04/09/25 01:21 14:06 09:50 WBC 7.2 Hgb 13.6 Hct 37.8 Plt Count 252 Estimated GFR > 60 Hemoglobin A1c % 6.4 H Ferritin 262 H Total Bilirubin 0.4 AST 24 ALT 29 Alkaline Phosphatase 77 TSH 6.17 H Free T4 0.95 RAFI Screen NEGATIVE Anti-Mitochondrial Ab NEGATIVE Anti-Smooth Muscle Ab <20 Thyroid Peroxidase Ab <1 Hepatitis A IgM Ab Nonreactive Hep Bs Antigen Negative Hep Bs Antibody NONREACTIVE Hep B Core Total Ab Nonreactive Hepatitis C Ab (EIA) Nonreactive HIV 1&2 Ab/P24 Ag 4thGn Nonreactive 01/19/25-[address]: Isatu Sloan MD ORDERED: Ua Clean Catch QUERIES: Source: Urine, Clean Catch Test Result Flag Reference Ur Color Yellow Ur Appear Clear PH 5.5 5.0-9.0 Ur Glu Negative Negative mg/dL Urine Blood Negative Negative Spec [place] Ur >= 1.030 H 1.005-1.025 Urine Protein Trace Neg-Trace mg/dL Urine Ketones Negative Negative mg/dL Ur Nitrite Negative Negative Ur Byron Esterase Negative Negative US ABD WITH ELASTOGRAPHY 03/02/2025 (F0) FINDINGS: Liver: The right lobe of the liver measures 22.6 cm in size. The left lobe of the liver measures 14.3 cm in size. The liver demonstrates increased echotexture, consistent with steatosis. No focal mass or intrahepatic biliary ductal dilatation is identified. There is normal hepatopedal flow in the portal vein. Ultrasound elastography of the liver was performed with 10 separate measurements of the liver parenchyma with the patient in the supine position. Measurements were obtained approximately 2 cm below An's capsule and perpendicular to the capsule. Images are of satisfactory quality. The median shear wave velocity is 1.36 m/s. The interquartile range/median (IQR/median) is 0.14. Gallbladder and biliary tree: The gallbladder is surgically absent. The common bile duct is normal in caliber measuring 3 mm. Kidneys: The right kidney measures 11.1 cm in length. The left kidney measures 11.5 cm in length. The kidneys are unremarkable, without evidence of masses, hydronephrosis, or calculi. Pancreas: The pancreatic head, neck, and body are unremarkable. The pancreatic tail is obscured by bowel gas. Spleen: The spleen is normal in size and contour, measuring 10.3 cm in length. Abdominal aorta and inferior vena cava: The visualized portions of the abdominal aorta and inferior vena cava are normal in caliber. There is no free fluid in the abdomen. US/US abdomen comp w elastography IMPRESSION: Hepatomegaly and hepatic steatosis. BARIUM SWALLOW 05/14/2025 INDINGS: UPPER GI SERIES: Lateral cine images of the oropharynx and hypopharynx demonstrate normal swallow mechanism with normal epiglottic inversion and soft palate elevation. No laryngeal penetration, glottic or subglottic aspiration identified. No nasopharyngeal reflux present. Hypopharyngeal structures appear normal without evidence of mass or diverticulum. There was no significant cricopharyngeal achalasia. Dual and single contrast images of the esophagus demonstrate normal caliber, contour, and mucosal pattern. No evidence of stricture, mass, or ulcerations identified. Esophageal peristalsis was normal. No evidence of hiatus hernia identified. No significant gastroesophageal reflux was seen during the course of the examination and on reflux views. Normal-appearing GE junction. Dual contrast and single contrast images of the stomach demonstrated normal contour and mucosal pattern without evidence of mass, ulceration, or other abnormality. Contrast freely passed into the gastric antrum and duodenal bulb without delay. Single and air-contrast images of the duodenal bulb demonstrate no abnormality. The duodenal sweep has a normal appearance, course, and mucosal fold appearance. SMALL BOWEL FOLLOW-THROUGH: FOOD ORDER DELIVERY RUNNER: Bonding Equipment Operator image demonstrates normal bowel gas pattern. No focally dilated loop. Cholecystectomy clips noted. No organomegaly. No abnormal calcifications. Lung bases clear. Bony structures normal. Contrast was noted to reach the right colon at approximately 2 hours, within normal limits. The jejunum and ileum have normal mucosal pattern, normal caliber, and normal appearance. Spot imaging of the terminal ileum demonstrates normal mucosal pattern without abnormalities. FLUOROSCOPY TIME: 3 minutes 29 seconds TODAYS VISIT [facility] Medical History (Updated 07/12/25 @ 15:39 by ARIAN Fuchs) Elevated fasting glucose Obesity Globus sensation Odynophagia Elevated transaminase level Pre-diabetes Surgical History History of tubal ligation History of section S/P cholecystectomy Family History Father Diabetes Mother Implantable loop recorder present History of cardiac cath Stroke Social History Alcohol intake: never Patient Tobacco Use Status: Never used Tobacco Review of Systems Const Denies fatigue, Denies fever(s), Denies night sweats, Denies poor appetite and Denies weight loss ENT Reports Normal hearing present, Denies dental pain, Denies dysphagia, Denies hearing loss, Denies mouth pain, Reports neck pain, Reports odynophagia (Really globus sensation), Denies throat swelling, Denies tongue swelling and Reports other (Dentition adequate) Card Reports no additional complaints Resp Reports no additional complaints GI Details: Denies abdominal pain, Denies melena, Denies bloating, Denies hematochezia, Denies constipation, Reports GI cramping, Denies dysphagia, Denies excessive flatus, Denies early satiety, Reports heartburn, Denies diarrhea, Reports loose stools, Denies nausea, Reports odynophagia (Really globus sensation), Denies vomiting and Denies hematemesis Reports nocturia Musc Reports back pain, Reports myalgias and Reports neck pain Skin/Breast Denies pruritus, Denies lesions, Denies rash and Denies jaundice Neuro Reports Normal hearing present and Denies Abnormal speech present Endo Denies fatigue Aller/Immun Denies throat swelling and Denies tongue swelling Physical Exam Vital Signs: Last Vital Signs Pulse 99 07/12/25 12:30 BP 122/77 07/12/25 12:30 BMI result Body Mass Index 40.0 Const General: cooperative, no acute distress, well developed and well groomed Nutritional Appearance: well nourished and obese morbidly obese Orientation/consciousness: oriented to person, oriented to place and oriented to time Limitations: No language barrier HEENT Head: Yes normocephalic and Yes atraumatic Eyes General: appearance normal, both eyes and all related structures Pupils: Equal, round and reactive pupils present Neck Neck: Yes normal visual inspection and Yes no lymphadenopathy Thyroid: Thyroid normal Resp Effort & Inspection: normal respiratory effort and able to speak in complete sentences Auscultation: clear to auscultation bilaterally Cardio Rate: regular rate Rhythm: regular rhythm Heart sounds: Normal, physiologic split S2 sound present Peripheral pulses: radial pulses present and posterior tibial pulses present GI Inspection: No distended, Yes Abdominal panniculus present and Yes obesity Palpation (GI): Soft to palpation, nontender, no guarding, not rigid and No hepatosplenomegaly present Percussion: Yes normal to percussion Auscultation: normal bowel sounds Rectal Exam - Female: deferred Skin General skin exam: no rashes or lesions noted, turgor normal, skin not dry, no jaundice, No spider nevi and no striae Rashes: no rashes Nails: normal Neuro General: oriented to person, oriented to place and oriented to time Cranial nerves: Yes Equal, round and reactive pupils present and Yes Normal hearing present Speech: No Abnormal speech present Extrem General: Yes normal to inspection, No clubbing, No cyanosis and No edema Psych Appearance: grossly normal and well kempt Mental Status: mental status grossly normal Speech and movement: Normal speech and movement present Affect: normal affect Attitude: cooperative Thought process: Normal thought process present and not confabulating Thought content: Normal thought content present Insight: Fair insight present (Psych) Judgement: Fair judgement present (Psych) Results Reviewed Results Reviewed: aboratory Tests 12/13/24 01/19/25 04/09/25 01:21 14:06 09:50 WBC 7.2 Hgb 13.6 Hct 37.8 Plt Count 252 Estimated GFR > 60 Hemoglobin A1c % 6.4 H Ferritin 262 H Total Bilirubin 0.4 AST 24 ALT 29 Alkaline Phosphatase 77 TSH 6.17 H Free T4 0.95 RAFI Screen NEGATIVE Anti-Mitochondrial Ab NEGATIVE Anti-Smooth Muscle Ab <20 Thyroid Peroxidase Ab <1 Hepatitis A IgM Ab Nonreactive Hep Bs Antigen Negative Hep Bs Antibody NONREACTIVE Hep B Core Total Ab Nonreactive Hepatitis C Ab (EIA) Nonreactive HIV 1&2 Ab/P24 Ag 4thGn Nonreactive 01/19/25-[address]: Isatu Sloan MD ORDERED: Ua Clean Catch QUERIES: Source: Urine, Clean Catch Test Result Flag Reference Ur Color Yellow Ur Appear Clear PH 5.5 5.0-9.0 Ur Glu Negative Negative mg/dL Urine Blood Negative Negative Spec [place] Ur >= 1.030 H 1.005-1.025 Urine Protein Trace Neg-Trace mg/dL Urine Ketones Negative Negative mg/dL Ur Nitrite Negative Negative Ur Byron Esterase Negative Negative US ABD WITH ELASTOGRAPHY 03/02/2025 (F0) FINDINGS: Liver: The right lobe of the liver measures 22.6 cm in size. The left lobe of the liver measures 14.3 cm in size. The liver demonstrates increased echotexture, consistent with steatosis. No focal mass or intrahepatic biliary ductal dilatation is identified. There is normal hepatopedal flow in the portal vein. Ultrasound elastography of the liver was performed with 10 separate measurements of the liver parenchyma with the patient in the supine position. Measurements were obtained approximately 2 cm below An's capsule and perpendicular to the capsule. Images are of satisfactory quality. The median shear wave velocity is 1.36 m/s. The interquartile range/median (IQR/median) is 0.14. Gallbladder and biliary tree: The gallbladder is surgically absent. The common bile duct is normal in caliber measuring 3 mm. Kidneys: The right kidney measures 11.1 cm in length. The left kidney measures 11.5 cm in length. The kidneys are unremarkable, without evidence of masses, hydronephrosis, or calculi. Pancreas: The pancreatic head, neck, and body are unremarkable. The pancreatic tail is obscured by bowel gas. Spleen: The spleen is normal in size and contour, measuring 10.3 cm in length. Abdominal aorta and inferior vena cava: The visualized portions of the abdominal aorta and inferior vena cava are normal in caliber. There is no free fluid in the abdomen. US/US abdomen comp w elastography IMPRESSION: Hepatomegaly and hepatic steatosis. BARIUM SWALLOW 05/14/2025 INDINGS: UPPER GI SERIES: Lateral cine images of the oropharynx and hypopharynx demonstrate normal swallow mechanism with normal epiglottic inversion and soft palate elevation. No laryngeal penetration, glottic or subglottic aspiration identified. No nasopharyngeal reflux present. Hypopharyngeal structures appear normal without evidence of mass or diverticulum. There was no significant cricopharyngeal achalasia. Dual and single contrast images of the esophagus demonstrate normal caliber, contour, and mucosal pattern. No evidence of stricture, mass, or ulcerations identified. Esophageal peristalsis was normal. No evidence of hiatus hernia identified. No significant gastroesophageal reflux was seen during the course of the examination and on reflux views. Normal-appearing GE junction. Dual contrast and single contrast images of the stomach demonstrated normal contour and mucosal pattern without evidence of mass, ulceration, or other abnormality. Contrast freely passed into the gastric antrum and duodenal bulb without delay. Single and air-contrast images of the duodenal bulb demonstrate no abnormality. The duodenal sweep has a normal appearance, course, and mucosal fold appearance. SMALL BOWEL FOLLOW-THROUGH: FOOD ORDER DELIVERY RUNNER: Bonding Equipment Operator image demonstrates normal bowel gas pattern. No focally dilated loop. Cholecystectomy clips noted. No organomegaly. No abnormal calcifications. Lung bases clear. Bony structures normal. Contrast was noted to reach the right colon at approximately 2 hours, within normal limits. The jejunum and ileum have normal mucosal pattern, normal caliber, and normal appearance. Spot imaging of the terminal ileum demonstrates normal mucosal pattern without abnormalities. FLUOROSCOPY TIME: 3 minutes 29 seconds Assessment & Plan Assessment & Plan (1) GERD (gastroesophageal reflux disease): Code(s): K21.9 - Gastro-esophageal reflux disease without esophagitis Category: Medical (2) IBS (irritable bowel syndrome): Code(s): K58.9 - Irritable bowel syndrome, unspecified Category: Medical (3) Hypothyroid: Code(s): E03.9 - Hypothyroidism, unspecified Category: Medical (4) TIJERINA (nonalcoholic steatohepatitis): Comment: BASELINE LABS 01/19/2506/23/25 262 H Total Bilirubin 0.4 AST 24 ALT 29 Alkaline Phosphatase 77 TSH 6.17 H Free T4 0.95 RAFI Screen NEGATIVE Anti-Mitochondrial Ab NEGATIVE Anti-Smooth Muscle Ab <20 Thyroid Peroxidase Ab <1 Hepatitis A IgM Ab Nonreactive Hep Bs Antigen Negative Hep Bs Antibody NONREACTIVE Hep B Core Total Ab Nonreactive Hepatitis C Ab (EIA) Nonreactive HIV 1&2 Ab/P24 Ag 4thGn NonreactivE ULTRASOUND OF THE ABDOMEN WITH ELASTOGRAPHY 03/02/2025 (F0) This is a morbidly obese female with diabetes that currently is controlled and who does not drink alcohol CURRENT LABS US ABD WITH ELASTOGRAPHY 03/02/2025 (F0) FINDINGS: Liver: The right lobe of the liver measures 22.6 cm in size. The left lobe of the liver measures 14.3 cm in size. The liver demonstrates increased echotexture, consistent with steatosis. No focal mass or intrahepatic biliary ductal dilatation is identified. There is normal hepatopedal flow in the portal vein. Ultrasound elastography of the liver was performed with 10 separate measurements of the liver parenchyma with the patient in the supine position. Measurements were obtained approximately 2 cm below An's capsule and perpendicular to the capsule. Images are of satisfactory quality. The median shear wave velocity is 1.36 m/s. The interquartile range/median (IQR/median) is 0.14. Gallbladder and biliary tree: The gallbladder is surgically absent. The common bile duct is normal in caliber measuring 3 mm. Kidneys: The right kidney measures 11.1 cm in length. The left kidney measures 11.5 cm in length. The kidneys are unremarkable, without evidence of masses, hydronephrosis, or calculi. Pancreas: The pancreatic head, neck, and body are unremarkable. The pancreatic tail is obscured by bowel gas. Spleen: The spleen is normal in size and contour, measuring 10.3 cm in length. Abdominal aorta and inferior vena cava: The visualized portions of the abdominal aorta and inferior vena cava are normal in caliber. There is no free fluid in the abdomen. US/US abdomen comp w elastography IMPRESSION: Hepatomegaly and hepatic steatosis. Code(s): K75.81 - Nonalcoholic steatohepatitis (TIJERINA) Category: Medical (5) Morbid obesity with BMI of 40.0-44.9, adult: Code(s): E66.01 - Morbid (severe) obesity due to excess calories; Z68.41 - Body mass index [BMI] 40.0-44.9, adult Category: Medical (6) T2DM (type 2 diabetes mellitus): Code(s): E11.9 - Type 2 diabetes mellitus without complications Category: Medical Plan Her current GI regimen consists of dicyclomine, famotidine, and omeprazole. - The patient is a 45-year-old female presenting for follow-up for abdominal pain that is cramping, GERD, and loose stools. She has also had a workup for transaminitis that likely is fatty liver. However, she also has an elevated TSH so subclinical hypothyroidism could also be driving up the transaminases. - She reports that the cramping has persisted over time and remains unresolved. I suggest we do a trial of dicyclomine now that we have had all of the imaging including a small-bowel follow-through and there is no severe pathology behind this symptom. - Occasional diarrhea is noted, occurring sometimes in association with eating patterns. - The urgency to defecate increases if breakfast is skipped, requiring the patient to remain near a bathroom. 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 I suggest that we start a trial of dicyclomine to see if this alleviates the problem. She had an area of the jejunum that seem to be a sacralized but follow-through barium study does not seem to show this as having any impact on motility. - she has transaminitis and we review all of the labs and imaging which show that there is no autoimmune process, infectious process or other metabolic process besides fatty liver driving the lab abnormalities. She is educated that the treatment for this is weight control, diabetes management, and abstaining from daily alcohol consumption. - An overactive bladder, prompted by frequent nighttime urination, led to testing, which ruled out infection. - Hypothyroidism is present as indicated by elevated TSH, though autoimmune thyroiditis is ruled out. I am going to, as a courtesy, restart her thyroid medication at 88 micro g and this can then be taken over by her primary care provider. - she was on thyroid replacement therapy in [place] but then this fell through the cracks when she moved to the [facility]. - Neck pain attributed to loss of cervical lordosis and arthritis; she just had steroid injections today which are causing her quite a bit of discomfort. I reassure her that this is common but usually will provide relief in the termite control technician once the initial inflammation dies down. RETURN OFFICE VISIT IN 6 WEEKS TO EVALUATE THE THICKNESS OF THE DICYCLOMINE Medications: New famotidine 20 mg PO BEDTIME PRN 30 tabs 3RF heartburn dicyclomine 20 mg PO QID 120 tabs 6RF 30 days K58.9 - Irritable bowel syndrome, unspecified omeprazole 40 mg PO QAM 30 caps 6RF levothyroxine 88 mcg PO DAILY 30 caps 0RF E03.9 - Hypothyroidism, unspecified Coding Level of Care Code Est Pt Level 4 (31316) Diagnoses GERD (gastroesophageal reflux disease) K21.9 IBS (irritable bowel syndrome) K58.9 Hypothyroid E03.9 TIJERINA (nonalcoholic steatohepatitis) K75.81 Morbid obesity with BMI of 40.0-44.9, adult E66.01; Z68.41 T2DM (type 2 diabetes mellitus) E11.9 Time Spent (min) 38
[2025-07-12 12:30] VITALS: BP 122/77; PULSE 99; BMI 40.0
--- OUTSIDE RECORDS SUMMARY | 2025-07-12 17:08 | XMS_ITS | Clinical Summary ---
Author Organization [facility] Address [address] [place] [id number] Phone Care Team Providers Care Monitor And Storage Bin Tender Name Role Phone Unknown, Unknown Primary Care [...] YEARS) 1998 PAP SMEAR 2001 MAMMOGRAM 2020 INFLUENZA VACCINE (#1) 2025 10/01/2023 COVID-19 VACCINE (2023-2 5 season) 2025 SCREENING FOR DIABETES 10/15/2026 10/15/2023 Adult Td,Tdap [...] topic Medical Devices Not on file Insurance [facility] [employer] [place] [id number] [place] [id number] [employer] ATTN: [place] [address] [place] [id number] [employer] ATTN: [place] [address] Care Teams Monitor And Storage Bin Tender Relationship Specialty Start Date End Date Unknown, Unknown, PCP - General 09/28/23 Additional Source Comments The information contained in this document represents components of the legal health record. It is not the complete legal health record.[facility]
== END 2025-07-12 13:06 | disposition home or self-care (01) ==
LOC: HO.HGI 12:12
PROVIDERS: PCP Nurse Practitioner; Visit Provider Nurse Practitioner
DX: K21.9 Gastro-esophageal reflux disease without esophagitis (principal); K58.9 Irritable bowel syndrome, unspecified; E03.9 Hypothyroidism, unspecified; K75.81 Nonalcoholic steatohepatitis (NASH); E66.01 Morbid (severe) obesity due to excess calories; Z68.41 Body mass index [BMI] 40.0-44.9, adult; E11.9 Type 2 diabetes mellitus without complications
CPT/HCPCS: 99214

== ENCOUNTER 2025-10-16 08:14 | Outpatient (AMB) | payer MEDICAID, SELFPAY ==
--- OUTSIDE RECORDS SUMMARY | 2025-10-16 09:47 | XMS_ITS | Clinical Summary ---
Author Organization [facility] Address [address] [place] [address] Phone Care Team Providers Care Lead Ios Developer Name Role Phone Ina Arroyo NP Primary Care Provider [phone] Allergies No known active allergies Social History [...] Last Done Comments Breast Cancer Screening 1980 Colorectal Cancer Screening: Colonoscopy 1980 Hepatitis B Vaccines (1 of 3 - 19+ 3-dose series) 1999 Cervical Cancer Screening: Pap Smear 2001 HPV Vaccines (1 - 3-dose SCDM series) 2007 Social Influencers of Health Screening 08/05/2024 Depression Screening 10/18/2024 COVID-19 Vaccine ( - season) 2025 09/22/2024 Influenza Vaccine (#1) 2025 09/22/2024, 2022 Hypertension/CHF/CAD Annual BMP Blood Test 01/08/2026 01/08/2025, 12/13/2024, 10/12/2024, Additional history exists Cholesterol Screening (Lipid Panel) 11/04/2028 11/04/2023 DTaP,Tdap,and Td Vaccines (2 - Td or Tdap) 10/01/2033 10/01/2023 RSV Immunization Adult Patients (1 - 1-dose 75+ series) 2055 HIV Screening Completed 11/04/2023 Hepatitis C Screening Completed 11/04/2023 HIB Vaccines Aged Out No longer [...] topic Insurance MEDICAID - [place] Care Teams Lead Ios Developer Relationship Specialty Start Date End Date Ina Arroyo NP [address] [place] [phone] [facility] - General 01/18/25
--- OUTSIDE RECORDS SUMMARY | 2025-10-16 09:47 | XMS_ITS | Clinical Summary ---
Author Organization [facility] Address [address] [place] [phone] Phone Care Team Providers Care Commissioning Editor Name Role Phone Unknown, Unknown Primary Care [...] Health Maintenance Due Date Last Done Comments LIPID PANEL 1980 DEPRESSION SCREENING 1992 HEPATITIS C SCREENING 1998 HIV ONE-TIME SCREENING (18-6 5 YEARS) 1998 PAP SMEAR 2001 MAMMOGRAM 2020 INFLUENZA VACCINE (#1) 2025 10/01/2023 COVID-19 VACCINE (1 - 2024-2 6 season) 2025 COLOGUARD 2025 COLONOSCOPY 2025 COLORECTAL CANCER SCREENING 2025 FIT TEST 2025 FOBT 2025 SIGMOIDOSCOPY 2025 VIRTUAL COLONOSCOPY 2025 SCREENING FOR DIABETES 10/15/2026 10/15/2023 Adult [...] topic Medical Devices Not [place] [address] [facility] C3 ACO [facility] C[facility]3 [facility]3 [facility] [place] [phone] [facility] [place] [place] [address] [employer] ATTN: [place] [address] [place] [phone] [employer] ATTN: [employer] [place] [address] Care Teams Commissioning Editor Relationship Specialty Start Date End Date Unknown, Unknown, PCP - General 09/28/23 Additional Source Comments The information contained in this document represents components of the legal health record. It is not the complete legal health record.[facility]
--- OUTSIDE RECORDS SUMMARY | 2025-10-16 09:47 | XMS_ITS | Encounter Summary ---
Author Organization [employer] Address [address] [place] [address] Care Team Providers Care Water Systems Designer Name Role Phone Ina Arroyo NP Primary Care Provider [phone] NameArmando MD Primary Care Provider [phone] Encounter Details Date Type Department Care Team ([facility] st Contact Info) Description 01/24/2025 Orders Only [facility] [address] [place] [address] Layla Bautista MD [address] [place] [address] Social History Tobacco Use Types Packs/Day Years [...] Care Team (Late st Contact Info) Description 11/13/2025 10:15 AM EST Office Visit [facility] [address] [place] [phone] Armando David MD [address] [place] [phone] documented as of this encounter Visit Diagnoses Not on filedocumented in this encounter Additional Health Concerns Assessment Noted Time PHQ-9 Depression Total Score: 0 09/22/20 24 1:10 PM EST documented as of this encounter Care Teams Water Systems Designer Relationship Specialty Start Date End Date Ina Arroyo NP [address] [place] [phone] PCP - General Family Medicine 10/30/24 09/02/25 Armando David MD [address] [place] [phone] PCP - General Internal Medicine 09/03/25 documented as of this encounter
--- OUTSIDE RECORDS SUMMARY | 2025-10-16 09:47 | XMS_ITS | Clinical Summary ---
Author Organization [facility] Address [address] [facility] [address] [place] [address] Care Team Providers Care Roll Off Driver Name Role Phone Name, Armando JOVEL Primary Care Provider [phone] Allergies Active Allergy Reactions Criticality Noted Date [...] THE MORNING 48 g 12/02/19 24 Active fexofenadine (Misti) 180 MG tablet Take [...] 7 days 14 tablet 01/17/20 25 Active sertraline (Zoloft) 100 MG tablet Take 1 tablet by mouth Once per day. 03/01/20 25 Active omeprazole (PriLOSEC) [address] jayshreeIndicati ons:Gastroesoph ageal reflux disease with esophagitis, unspecified whether hemorrhage TAKE 1 CAPSULE BY MOUTH BEFORE BREAKFAST 90 capsule 05/07/20 25 Active famotidine (Pepcid) 20 MG tablet TAKE 1 TABLET (20 MG) BY MOUTH IF NEEDED AT BEDTIME FOR HEARTBURN. 90 tablet 06/26/20 25 Active oxymetazoline (Afrin Nasal [place]) 0.05 % nasal spray Administer 2 sprays into each nostril every 12 (twelve) hours if needed for congestion for up to 2 days. Do not use for more than 3 days. 30 mL 07/24/20 25 Active hydroCHLOROthia zide 12.5 MG tablet TAKE 1 TABLET BY MOUTH EVERY DAY 90 tablet 1 07/26/20 25 Active ibuprofen 600 MG tablet TAKE 1 TABLET BY MOUTH 3 TIMES DAILY. 90 tablet 08/22/20 25 Active LORazepam (Ativan) 1 MG tabletIndicatio ns:Claustrophob ia Take 1 tablet 30 mins prior to appointment. May repeat with additional dose in 30 mins as needed. 4 tablet 09/05/20 25 Active lidocaine (Lidoderm) 5 % patch APPLY 1 PATCH TOPICALLY ONCE PER DAY. REMOVE & DISCARD PATCH WITHIN 12 HOURS OR DIRECTED BY MD. 30 patch 2 10/09/20 Active amoxicillin-cla vulanate (Augmentin) 875-125 MG tablet Take 1 tablet by mouth 2 times daily for 7 days. 14 tablet 10/10/20 25 025 Active amLODIPine (Norvasc) 5 MG tablet Take 1 tablet (5 mg) by mouth Once per day. 30 tablet 1 10/10/20 25 026 Active lidocaine (Lidoderm) 5 % patch APPLY 1 PATCH TOPICALLY ONCE PER DAY. REMOVE & DISCARD PATCH WITHIN 12 HOURS OR DIRECTED BY MD. 30 patch 2 02/09/20 25 025 Discontinued Active Problems Problem Noted Date Diagnosed Date Viral upper respiratory tract infection 10/10/20 Assessment & Plan (10/10/2025 12:54 PM EST): Orders: POCT Rapid Influenza B CALZADA ID NOW POCT Rapid Influenza A CALZADA ID NOW POCT Rapid Strep A CALZADA ID NOW POCT Rapid COVID-19 Binax NOW Subacute frontal sinusitis 10/10/2025 Assessment & Plan (10/10/2025 12:54 PM EST): Elevated hemoglobin A1c measurement 04/04/2025 Assessment & [...] week Chronic low back pain without sciatica Class 3 severe obesity due t o excess calories without serious comorbidity with body mass index (BMI) of 40.0 to 44.9 in adult 01/13/2025 Assessment & Plan (01/13/2025 6:37 AM EDT): -Failed Zepbound trial -Engaged with fabric finisher -Continue lifestyle and diet modifications -Plan to discuss other pharmacological measures at next visit Pre-diabetes 01/13/2025 Assessment & Plan (09/15/2025 11:04 AM EST): - Prediabetes acknowledged; patient declined metformin at this time. - Will defer management until after weight management consultation scheduled for August 16, 2025. Assessment & Plan (01/13/2025 6:35 AM EDT): [...] the month. Hypertension 12/22/2024 Assessment & Plan (10/10/2025 12:54 PM EST): Assessment & Plan (04/04/2025 11:12 AM EDT): [...] Plan (04/04/2025 11:10 AM EDT): -established with [facility] work work-up Assessment & Plan (10/24/2024 11:40 AM EST): Pt here for a follow up, seen at our [facility] with c/o svere abdominal pain x 4 [...] sign out to the charge nurse at [facility] who will be expecting her. Generalized [...] resolve Neck pain 02/15/2024 Assessment & Plan (09/15/2025 11:04 AM EST): -established with [facility] pain management Orders: MR Cervical Spine w/o Contrast; Future Basic Metabolic Panel; Future Assessment & Plan (04/04/2025 1:07 PM EDT): [...] 10/04/2023 Subclinical hypothyroidism 10/01/202310/01 Assessment & Plan (09/15/2025 11:04 AM EST): - Subclinical hypothyroidism with fluctuating thyroid levels; most recent TSH 6.17 in March, with normal T4. No current indication for levothyroxine initiation. - Ordered repeat thyroid labs. - Will advise on whether to start levothyroxine with lab results. Orders: TSH W/Reflex to FT4; Future T4, Free; Future T3, Total; Future Assessment & Plan (04/04/2025 11:05 AM EDT): [...] completed SI. Family relocated from [place] to [place] as part of the transition process about six months ago. Patient feels very overwhelmed and frustrated due to having so many stressors (taking care of her mom, son, she has no transportation). PLAN: (check all that apply) Continue with current services (defined as services in the past 12 months) . Carlos was referred to [facility] on 10/04/23. She completed intake [...] completed SI. Family relocated from [place] to [place] as part of the transition [...] completed SI. Family relocated from [place] as part of the transition process. PLAN: (check all that apply) New/Additional Services needed PCP management On-site non-integrated services Off-site services for , Behavioral Health Integration Plan Internal Follow up with I, External OP therapy referral , Patient Self Plan Patient to utilize skills provided in intervention , [facility] as [facility], Patient to engage [...] completed SI. Family relocated from [place] to [place] as part of the transition process about six months ago. Patient feels very overwhelmed and frustrated due to having so many stressors (taking care of her mom, son, she has no transportation). PLAN: (check all that apply) Continue with current services (defined as services in the past 12 months) . Carlos was referred to [facility] on 10/04/23. She completed intake [...] completed SI. Family relocated from [place] to [place] as part of the transition [...] completed SI. Family relocated [place] as part of the transition [...] Plan (10/24/2024 11:48 AM EST): Referred to [facility] weight management center Elevated BP without diagnosis of hypertension 02/15/2012/22/2024 Assessment & Plan (02/27/2024 9:03 PM EDT): Monitor, referral to cardiology given episode of substernal chest pain Health care maintenance 10/04/202303/18 Encounters Date Type Department Care Team Description 10/10/2025 11:40 AM EST Office Visit [facility] [address] [place] [phone] Mariela Coe NP Viral upper respiratory tract infection (Primary Dx); Subacute frontal sinusitis; Primary hypertension 10/10/2025 Travel 10/08/[address] [facility] [address] [place] [phone] Ina Arroyo NP 09/24/[address] [facility] [address] [place] [phone] Ina Arroyo NP 09/03/[address] [address] Armando David MD 09/03/[address] [address] Ina Arroyo NP Results (Patient in requiring about a referral about a sleep study that was suppose to ordered and pt also stated she was suppose to have an MRI and could not have it done and needs something to be put to sleep. Pt stated she's been waiting two weeks for referral and MRI order.///) 08/24/[address] [facility] [address] [place] [phone] Ina Arroyo NP Referral 08/20/[address] [facility] [address] [place] [phone] Candace Frost FNP 07/27/2025 3:30 PM EDT Office Visit [facility] [address] [place] [phone] Ina Arroyo NP Subclinical hypothyroidism (Primary Dx); Hypersomnolence; Claustrophobia; Cervical radiculopathy; Lumbar radiculopathy; Elevated BP without diagnosis of hypertension; Pre-diabetes; Tonsil stone 07/27/2025 Travel 07/26/[address] [facility] [address] [place] [phone] Raymond Barlow MA CHART PREP 07/26/[address] [facility] [address] [place] [phone] Armando David MD 07/24/2025 5:20 PM EDT Office Visit [facility] [address] [place] [phone] Candace Frost FNP Subacute frontal sinusitis (Primary Dx); Nasal congestion; Sore throat; Laryngitis, acute 07/20/[address] [facility] [address] [place] [phone] Ina Arroyo NP Error (VOID this visit) 07/19/2025 Results Follow-Up [address] [address] Ian Arroyo NP XR LUMBAR SPINE 6V W BENDING, XR Sacrum Coccyx 2+ Views, XR Spine Cervical w/ Flext and/ Or Ext 07/19/[address] [address] Ina Arroyo NP CHARTPREP from Last 3 Months Immunizations Immunization Administration [...] Sign Reading Time Taken Comments Blood Pressure 163/101 10/10/2025 12:02 PM EST Pulse 113 10/10/2025 12:02 PM EST Temperature 35.8 C (96.4 F) 10/10/2025 12:02 PM EST Respiratory Rate 22 10/10/2025 12:02 PM EST Oxygen Saturation 97% 10/10/2025 12:02 PM EST Inhaled Oxygen Concentration - - Weight 105 kg (231 lb 12.8 oz) 10/10/2025 12:02 PM EST Height 162.6 cm (5' 4 ) 07/27/2025 3:41 PM EDT Body Mass Index 39.79 07/27/2025 3:41 PM EDT Plan of Treatment Upcoming Encounters Date Type Department Care Team (Late st Contact Info) Description 11/13/2025 10:15 AM EST Office Visit [facility] [address] [place] [address] Name, MD Armando [address] [place] [address] Health Maintenance Due Date Last Done Comments CT Colonography 1980 Colonoscopy 1980 Colorectal Cancer Screening 1980 FIT DNA/Cologuard 1980 FIT 1980 FOBT 1980 Sigmoidoscopy 1980 Alcohol/Substance Use Screening 1992 HPV Vaccines (1 - 3-dose series) 1995 Hepatitis A Vaccines (1 of 2 - Risk 2-dose series) 1999 Hepatitis B Vaccines (1 of 3 - 19+ 3-dose series) 1999 Dental X-Ray: Bitewings 03/11/2025 03/10/2024 Dental Oral Exam 05/14/2025 11/13/2024, 03/10/2024 Dental Prophylaxis 05/14/2025 11/13/2024, 04/04/2024 COVID-19 Vaccine ( - season) 2025 09/22/2024 Influenza Vaccine (#1) 2025 09/22/2024, 2022 Depression Screening 09/22/2025 09/22/2024, 09/22/20 24 SDOH Screening 10/24/2025 10/24/2024 Disability Screening 01/12/2026 01/12/2025 Family Planning (PISQ) 01/16/2026 01/16/2025 Diabetes: Hemoglobin A1C 04/09/2026 025, 01/08/2025, 09/22/2024, Additional history exists Tobacco Screening 07/27/2026 07/27/2025 Mammogram 02/26/2027 02/26/2025, 01/17, 11/05/2023 Dental X-Ray: Full Mouth 03/11/2027 03/10/2024 Cervical Cancer Screening 01/16/2030 HPV/Cotest 01/16/2030 01/16/2025 Pap Smear 01/16/2030 01/16/2025 Lipid Panel 04/09/2030 04/09/2025, 11/04/2023 Zoster Vaccines (1 of 2) 2030 DTaP/Tdap/Td Vaccines (2 - Td or Tdap) 10/01/2033 10/01/2023 RSV Patients and Patients Aged 60 years or older (1 - 1-dose 75+ series) 2055 HIV Screening Completed 01/19/2025, 11/04/2023 Hepatitis C [...] Name Priority Date/Time Associated Diagnosis Comments POCT RAPID COVID ANTIGEN Routine 10/10/2025 12:21 PM EST Viral upper respiratory tract infection POC CALZADA ID NOW STREP A Routine 10/10/2025 12:21 PM EST Viral upper respiratory tract infection POCT INFLUENZA B (ID NOW RAPID MOLECULAR) Routine 10/10/2025 12:20 PM EST Viral upper respiratory tract infection POCT INFLUENZA A (ID NOW RAPID MOLECULAR) Routine 10/10/2025 12:19 PM EST Viral upper respiratory tract infection POC CALZADA ID NOW STREP A Routine 07/24/2025 5:23 PM EDT Sore throat POCT COVID-19 AG CALZADA ID NOW Routine 07/24/2025 5:22 PM EDT Sore throat POCT INFLUENZA A (ID NOW RAPID MOLECULAR) Routine 07/24/2025 5:21 PM EDT Nasal congestion POCT INFLUENZA B (ID NOW RAPID MOLECULAR) Routine 07/24/2025 5:20 PM EDT Nasal congestion HEMOGLOBIN A1C Routine 04/09/2025 9:50 AM EDT Elevated hemoglobin A1c measurement LIPID PANEL, STANDARD Routine 04/09/2025 9:50 AM EDT Obesity (BMI 30-39.9) BI MAMMOGRAM SCREENING TOMOSYNTHESIS BILATERAL Routine 02/26/2025 12:30 PM EDT HEPATITIS PANEL, GENERAL Routine 01/19/2025 2:06 PM EDT HIV 1/2 ANTIGEN/ANTIBODY, FOURTH GENERATION W/RFL Routine 01/19/2025 2:06 PM EDT HPV DNA, LOW/HIGH RISK Routine 2:24 PM EDT PAP SMEAR Routine 01/16/2025 2:24 PM EDT Cervical cancer screening PROPHYLAXIS - ADULT Routine 11/13/2024 1 1:00 AM EST Dental calculus Dental plaque PERIODIC ORAL EVALUATION - ESTABLISHED PATIENT Routine 11/13/2024 11:00 AM EST INTRAORAL - COMPLETE SERIES OF RADIOGRAPHIC IMAGES Routine 03/10/2024 3:00 PM EDT from Last 3 Months or Most Recently Relevant to Health Maintenance Results * POCT Rapid Strep A CALZADA ID NOW (10/10/2025 12:21 PM EST) Only the most recent of2 resultswithin the time period is included. [facility] Rapid Strep A Screen Negative Negative, None Detected QC Media Lot # [id number] Lot# Expiration Date [id number] Swab 10/10/2025 12:2 1 PM EST Mariela Graef LEAD GAME DESIGNER POINT OF CARE TEST ENTER/EDIT OR DERABLES Final Result * POCT Rapid COVID-19 Binax NOW (10/10/2025 12:21 PM EST) [facility] Rapid COVID Ag Negative QC Media Lot # [id number] Lot# Expiration Date [id number] Swab 10/10/2025 12:2 1 PM EST Result [facility] Mariela Hillef LEAD GAME DESIGNER POINT OF CARE TEST ENTER/EDIT OR DERABLES Final Result * POCT Rapid Influenza B CALZADA ID NOW (10/10/2025 12:20 PM EST) Only the most recent of2 resultswithin the time period is included. [facility] Influenza B Negative Negative, Indeterminate [facility] QC Media Lot # [id number] [facility] Lot# Expiration Date [facility] Swab 10/10/2025 12:2 0 PM EST Result [facility] Mariela Graef LEAD GAME DESIGNER POINT OF CARE TEST ENTER/EDIT OR DERABLES Final Result [facility] [address] [place] [address] [phone] * POCT Rapid Influenza A CALZADA ID NOW (10/10/2025 12:19 PM EST) Only the most recent of2 resultswithin the time period is included. [facility] Influenza A Negative Negative, Indeterminate [facility] QC Media Lot # [id number] [facility] Lot# Expiration Date [facility] Swab 10/10/2025 12:1 9 PM EST Mariela Coe LEAD GAME DESIGNER POINT OF CARE TEST ENTER/EDIT OR DERABLES Final Result [facility] [address] [place] [address] [phone] * POCT Rapid Covid-19 CALZADA ID NOW (07/24/2025 5:22 PM EDT) Coronavirus Antigen PCR Negative Negative, Indeterminate, None Detected, Invalid, Specimen unsatisfactory for evaluation, Weakly Positive, 2+ QC Media Lot # [id number] Lot# Expiration Date , Swab 07/24/2025 5:22 PM EDT Candace Frost COMPUTATIONAL CHEMIST POINT OF CARE TEST ENTER/EDIT O RDERABLES Final Result * (ABNORMAL) Hemoglobin A1c (04/09/2025 9:50 AM EDT) Hemoglobin A1c 6.4(H) <6.0 % [facility] Comment:Hemoglobin A1C Refer ence Range Adults: 4.8 - 6.0 % Non diabetic: < 6.0 % Goal: < 7.0 %Additional Action Suggested: > 8.0 %Note: Hemoglobin A1c results are invalid for patients with abnormal amounts of HbF. Blood transfusions may impact the HbA1c concentration in the patient sample. Estimated Average Glucose 137 mg/dL [facility] Comment:eAG = Estimated ave rage glucose which is %A1C expressed asaverage glucose, using the formula of the S1H-NbtbrdkInjzxgx Glucose study (ADAG), Diabetes Care, Vol.31,#8,May. 2007 Blood Venous blood specimen / Unknown 04/09/2025 9:50 AM EDT 04/09/2025 11:08 AM EDT Ina Arroyo LEAD GAME DESIGNER LAB BLOOD ORDERABLES Final Resu lt Performing Organization Address [facility] Co de Phone Number [facility] [address] [place] [address] [phone] * Lipid Panel, Standard (04/09/2025 9:50 AM EDT) Triglycerides 149 <150 mg/dL [facility] Comment:Desirable Triglyceri de: less than 150 mg/dLBorderline High Triglyceride 150-199 mg/dLHigh Triglyceride: 200-499 mg/dLVery High Triglyceride: greater than or equal to 5OO mg/dL Cholesterol 166 <200 mg/dL [facility] Comment:Desirable Cholestero l: less than 200 mg/dLBorderline High Cholesterol: 200-239 mg/dLHigh Cholesterol: greater than 239 mg/dL LDL Cholesterol Calculated 92 <100 mg/dL [facility] Comment:Desirable LDL: less than 100 mg/dLNear Optimal/Above Optimal LDL: 110- 129 mg/dLBorderline High LDL: 130-159 mg/dLHigh LDL: 160-189 mg/dLVery High LDL: greater than or equal to 190 mg/dL HDL Cholesterol 45 >40 mg/dL [facility] Comment:Desirable HDL: great er than 40 mg/dL Note: This HDL assay may give artificially low results in patients with liver disease. Blood Venous blood specimen / Unknown 04/09/2025 9:50 AM EDT 04/09/2025 11:08 AM EDT Ina Arroyo LEAD GAME DESIGNER LAB BLOOD ORDERABLES Final Resu lt Performing Organization Address City/[facility]/ZIP Co de Phone Number [facility] [address] [place] [address] [phone] * BI Mammogram Screening Tomosynthesis Bilateral (02/26/2025 12:30 PM EDT) Anatomical Region Laterality Modality Breast Bilateral Mammography 02/26/2025 12:3 0 PM EDT Narrative 03/04/2025 5:32 PM EDT [facility] [address] [place] [address] Mammography Report Signed Patient: Carlos Alegria MR #: [id number] : 1980 Acct:[id number] Age/Sex: 44 / F ADM Date: 02/26/25 Loc: HO.MAMMO Attending Dr: María Stephens LEAD GAME DESIGNER Ordering Physician: Ina Arroyo Results: 1Negative Date of Service: 02/26/25 Follow Up: 1 Year From Orig ina Mammogram Procedure(s): MM tomosynthesis screening BI Accession Number(s): [id number] cc: Ina Arroyo EXAMINATION: MM SCREENING DIGITAL [...] 03/04/25 1730 DD/ 1230 TD/TT: 02/26/25 1255 Exterior Door Installer: Procedure Note Lisater, Image - 03/05/2025 [facility] [address] [place] [address] Dr. [place], [place] [address] Mammography Report Signed Patient: Liz AlegriaR #: [id number] : 1980Acct:[id number] Age/Sex: 44 / FADM Date: 02/26/25 Loc: HO.MAMMO Attending Dr: María Stephens LEAD GAME DESIGNER Ordering Physician: Ina ArroyoResults: 1Negative Date of Service: 02/26/25Follow Up: 1 Year From Orig ina Mammogram Procedure(s): MM tomosynthesis screening BI Accession Number(s): [id number] cc: Ina Arroyo EXAMINATION: MM SCREENING DIGITAL [...] 03/04/25 1730 DD/ 1230 TD/TT: 02/26/25 1255 Exterior Door Installer: us Ina Arroyo NP IMG BI PROCEDURES Edited Result - Final * Hepatitis Panel, General (01/19/2025 2:06 PM EDT) Hepatitis A IgM Nonreactive Nonreactive [facility] Comment:IgM antibodies to JAFFE V not detected; does not exclude earlyacute or recovered HAV infection. ~Hepatitis B Surface Antibody NONREACTIVE Nonreactive [facility] Comment:Nonreactive: < 8.00 mIU/mL Hepatitis B Core Antibody Nonreactive Nonreactive [facility] Hepatitis C Antibody Nonreactive Nonreactive [facility] Comment:Antibodies to HCV no t detected; does not exclude early acuteHCV infection. Hepatitis B Surface Ag Negative Negative [facility] 01/19/2025 2:06 PM EDT 01/19/2025 2:06 PM EDT us Generic External Data Provider LAB BLOOD ORDERAB LES Final Result Performing Organization Address City/[facility]/ZIP Co de Phone Number [facility] [address] [place] [phone] * HIV-1/2 Antigen and Antibodies, Fourth Generation, with Reflexes (01/19/2025 2:06 PM EDT) [facility] HIV AB/AG Nonreactive Nonreactive [facility] Comment:HIV-1 p24 Ag and/or HIV-1/HIV-2 Ab not detected.A test result that is nonreactive does not exclude thepossibility of exposure to or infection with HIV-1 and/orHIV-2. Nonreactive results in this assay for individualswith prior exposure to HIV-1 and/or HIV-2 may be due toantigen and antibody levels that are below the limit ofdetection of this assay.The [employer] HIV Ag/Ab Combo assay result andsupplemental assay results should be interpreted inconjunction with the patient's clinical presentation,history and other laboratory results. If the results areinconsistent with clinical evidence, additional testing issuggested to confirm the result. 01/19/2025 2:06 PM EDT 01/19/2025 2:06 PM EDT us Generic External Data Provider LAB BLOOD ORDERAB LES Final Result Performing Organization Address City/[facility]/ZIP Co de Phone Number [facility] [address] [place] [phone] * HPV DNA, Low/High Risk (01/16/2025 2:24 PM EDT) [facility] HPV High Risk Negative Negative [facility] HPV Genotype 16 Negative Negative [facility] HPV Genotype 18 Negative Negative [facility] Comment:HPV testing performe d at [facility] (CLIA#[id number]), [address] [place] [phone].Testing for HPV was performed using the Norberto [...] 01/17/2025 6:00 AM EDT us Chayo [facility] LAB BLOOD ORDERABLES Saima l Result [facility] [address] [place] [phone] * Pap Smear (01/16/2025 2:24 PM EDT) Swab Cervix uteri structure / Unknown 01/16/2025 2:24 PM EDT 01/17/2025 6:00 AM EDT Narrative [facility] - 01/22/2025 1:21 PM EDT ----- ------- Name: Carlos Alegria Age/Sex: 44/F : 1980 Unit#: [id number] Attend Dr: CHAYO KEY [facility] Re01/16/25 Status: SHILPA REF Location: [facility] Disch: ----- ------- SPEC : [id number] RECD: 01/17/25 STATUS: [place] ANDREBouchra NUM: [id number] ADELA: 01/16/[address]: CHAYO KEY [facility] ENTERED: 01/17/25 SP TYPE: Pap Smr OTHR DR: ORDERED: Pap Smear Interpretation Satisfactory for evaluation. Negative for intraepithelial lesion or malignancy. No endocervical cells seen. HPV High Risk: Negative HPV Genotyping 16: Negative HPV Genotyping 18: Negative Clinical Information LMP: Unknown date Previous PAP test: Unknown date/findings Material Received Cervix ----- ------- Signed (signature on file) LAYA Dewey (ASC) 01/22/25 1321 ----- ------- END OF REPORT Chayo Joeeddiemaxx CNM LAB CYTOLOGY ORDERABLES F inal Result [facility] [address] [place] [address] [phone] from Last 3 Months or Most Recently Relevant to Health Maintenance Insurance [facility] C3 DENTAL-[facility] MEDICAID STAND ADULT Care Teams Roll Off Driver Relationship Specialty Start Date End Date Name, MD Armando [address] [place] [phone] PCP - General Internal Medicine 09/03/25
--- OUTSIDE RECORDS SUMMARY | 2025-10-16 09:47 | XMS_ITS | Encounter Summary ---
Author Organization [employer] Address [address] [facility] 7t [place] [address] Care Team Providers Care Technical Services Assistant Name Role Phone Name, Armando JOVEL Primary Care Provider [phone] Reason for Visit * Reason Comments Med Refill Encounter Details Date Type Department Care Team ([facility] st Contact Info) Description 09/24/[address] [facility] [address] [place] [address] Ina Arroyo NP [address] [place] [address] Social History Tobacco Use Types Packs/Day Years [...] encounter Miscellaneous Notes * Telephone Encounter - Armando David MD - 09/24/2025 1:26 PM EST I have never seen this patient and she does not have any recent BMP documented in this encounter Plan of Treatment Upcoming Encounters Date Type Department Care Team (Late st Contact Info) Description 11/13/2025 10:15 AM EST Office Visit [facility] [address] [place] [phone] Armando David MD [address] [place] [address] documented as of this encounter Visit Diagnoses Not on filedocumented in this encounter Additional Health Concerns Assessment Noted Time PHQ-9 Depression Total Score: 0 09/22/20 24 1:10 PM EST documented as of this encounter Care Teams Technical Services Assistant Relationship Specialty Start Date End Date Armando David MD [address] [place] [id number] PCP - General Internal Medicine 09/03/25 documented as of this encounter
--- OUTSIDE RECORDS SUMMARY | 2025-10-16 09:47 | XMS_ITS | Encounter Summary ---
Author Organization [employer] [facility] [employer] Address [address] [facility] 7t [place] [address] Care Team Providers Care Cutch Cleaner Name Role Phone Isatu Sloan MD Primary Care Pro vider Janel Go RN Unavailable [phone] Ina Arroyo NP Primary Care Provider [phone] Name, Armando JOVEL Primary Care Provider [phone] Encounter Details Date Type Department Care Team (Late st Contact Info) Description 09/26/2024 Orders Only [facility] [address] [place], [place] [phone] Vanita Silver MD [address] [place], [place] [phone] Social History Tobacco Use Types Packs/Day Years [...] Description 11/13/2025 10:15 AM EST Office Visit [facility] [address] [place] [address] Armando David MD [address] [place] [address] documented as of this encounter Visit Diagnoses Not on filedocumented in this encounter Additional Health Concerns Assessment Noted Time PHQ-9 Depression Total Score: 0 09/22/20 24 1:10 PM EST documented as of this encounter Care Teams Cutch Cleaner Relationship Specialty Start Date End Date Isatu Sloan MD [address] [place] [address] PCP - General Internal Medicine 10/01/23 10/29/24 Ina Arroyo NP [address] [place] [address] PCP - General Family Medicine 10/30/24 09/02/25 Armando David MD [address] [place] [address] PCP - General Internal Medicine 09/03/25 Janel Go RN [address] [place] [phone] Payment AnalystNewborn Hearing Screener 10/19/24 01/22/25 documented as of this encounter
--- OUTSIDE RECORDS SUMMARY | 2025-10-16 09:47 | XMS_ITS | Encounter Summary ---
Author Organization [employer] Address [address] [facility] 7[address] [place] [address] Care Team Providers Care Pie Filling Mixer Name Role Phone Ina Arroyo NP Primary Care Provider [phone] NameArmando MD Primary Care Provider [phone] Reason for Visit * Reason Comments Med Refill Encounter Details Date Type Department Care Team ([facility] st Contact Info) Description 03/28/[address] [facility] MED[facility]INE [address] [place] [address] Adelaida Degroot MD [address] [place] [address] Social History Tobacco Use Types Packs/Day Years [...] Description 11/13/2025 10:15 AM EST Office Visit [facility] MED[facility] [address] [place] [phone] NameArmando MD [address] [place] [phone] documented as of this encounter Visit Diagnoses Not on filedocumented in this encounter Additional Health Concerns Assessment Noted Time PHQ-9 Depression Total Score: 0 09/22/20 24 1:10 PM EST documented as of this encounter Care Teams Pie Filling Mixer Relationship Specialty Start Date End Date Ina Arroyo NP [address] [place] [id number] PCP - General Family Medicine 10/30/24 09/02/25 NameArmando MD [address] [place] [phone] PCP - General Internal Medicine 09/03/25 documented as of this encounter
--- NOTE | 2025-10-16 15:54 | MHC.OFFVISWM ---
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 Required: Yes Chemical Treatment Plant Technician Services: Chemical Treatment Plant Technician Present Information Interpreted: clinical only Allergies No Known Drug Allergies Allergy (Verified 10/16/25 15:56) none red onion Allergy (Severe, Uncoded 10/16/25 15:56) Anaphylaxis Medication List - Last Reconciled 10/16/25 by John Lopez MD acetaminophen 500 mg PO Q6H PRN amlodipine 5 mg PO DAILY fexofenadine-pseudoephedrine 180-240 mg ER (Misti-D 24 Hour) 1 tab PO QAM hydrochlorothiazide 12.5 mg PO DAILY ibuprofen 600 mg PO Q8H PRN lidocaine 5% 1 patch topical DAILY omeprazole 40 mg PO QAM HPI HPI 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: Details: Start time: 3.40pm, End time: 4.25pm ?I spent 40 minutes speaking with the patient on the phone plus an additional 5 minutes reviewing and updating records for a total of 45 minutes HPI Comments Details: Previous weight loss efforts: self diets, exercise, Zepbound: had to be discontinued due to side effects Wakes up: 7am, Sleeps: 1am Breakfast: 7am (Oatmeal, [place]) Lunch: 1-2pm (rice and chicken) Dinner: 7pm (same as lunch) Snacks: 9pm (fruit, chips) Exercise: none Beverages: Coffee: none, Tea: 3-4 cups/d (plain), Soda: Coke zero, Juice: 1/wk, ETOH: none PFSH Medical History (Updated 10/16/25 @ 16:16 by John Lopez MD) Obesity Anxiety Depression Hypertension BMI 39.0-39.9,adult Elevated fasting glucose Globus sensation Odynophagia Elevated transaminase level Pre-diabetes Surgical History (Updated 08/16/25 @ 14:23 by Sugar Kim CMA) Hx of bladder endoscopy History of tubal ligation History of section S/P cholecystectomy Family History Father Diabetes Mother Implantable loop recorder present History of cardiac cath Stroke Social History Alcohol intake: never Patient Tobacco Use Status: Never used Tobacco Telehealth Telehealth Telehealth Platform: Telephone Location of provider rendering services: practice address Location of patient: address on file Patient Identification confirmed using: Name, : Yes Telehealth method: voice only Patient verbally consented to treatment: Yes Patient verbally consented to billing insurance company: Yes Patient informed of any privacy concerns related to visit: Yes Minutes spent on Phone/Video with Pt.: 45 Assessment & Plan Assessment & Plan (1) Obesity: Code(s): E66.9 - Obesity, unspecified Category: Medical Qualifiers: Obesity type: due to excess calories Obesity classification: adult class 2 (BMI 35 - 39.9) Serious obesity comorbidity presence: with serious comorbidity Body mass index: BMI 39.0-39.9 Qualified Code(s): E66.812 - Obesity, class 2; Z68.39 - Body mass index [BMI] 39.0-39.9, adult Plan: 1.? Plan for lap sleeve gastrectomy. If diaphragmatic or ventral hernias are present at time of surgery, these will be repaired laparoscopically as well. I emphasized the importance of close follow-up, adherence to instructions and good communication. The surgery does not replace the need to change your lifestlyle which is the cause of the obesity problem. The surgery provides the motivation to try again to change your lifestyle, it reduces the appetite and make the transition to a better lifestyle easier and doubles the amount of weight you would lose compared to doing the lifestyle change without the surgery. You will need to be on a liquid diet with protein shakes for 2 weeks before surgery to maximize weight loss and boost your nutritional status to recover better from surgery and also for the first two weeks after surgery to let the stomach heal before we introduce other foods. After the first 2 weeks we will introduce protein bars and soft foods like scrambled eggs, cottage cheese and yogurt and after the 6th week will introduce meat, fish and cooked vegetables in small amounts. Over time you should be able to eat everything in small amounts. Side effects like nausea, vomiting, heartburn or abdominal pain are not common in the practice unless you are not following in the practice. This operation requires lifetime commitment to following in our practice and communication with me. You will much less weight and experience side effects if you don?t communicate or not following in the practice. Complications are rare and in our practice is about 1/10 of the national average. However, you can develop bleeding that may require transfusion (hasn?t happened for year in the practice), you may from complications (we did not have any deaths in the practice) and infections. Infections are usually a result of breakdown in communication or not understanding or following directions correctly. They are difficult to treat, they can happen during the first 6 weeks, they may require to be in the hospital for weeks or even months, not being able to eat by mouth and you may have drains and surgeries to try and correct the issue. Other risks and complications include possible conversion to an open procedure, leaks, small bowel obstruction, blood clots, cardiac, or pulmonary complications, as intermediate accountant complications such as ulcers, insufficient weight loss and vitamin deficiencies. 2. Nutritional counseling. Start with one premade PREMIER protein (buy at [employer] or [employer]) shake (mix 4oz of Premier mixed with 4oz low fat unsweetened almond milk) at 8am-10am, one protein bar (Fit Crunch protein bar, buy at [employer], or [employer]) at 11am-1pm, another premade PREMIER protein shake (mix 4oz of Premier mixed with 4oz low fat unsweetened almond milk) at 2pm-4pm, dinner at 5pm (8 forks of protein and 8 forks of salad/vegetables), another [employer] protein bar at 7pm-9pm and another premade PREMIER protein shake (mix 4oz of Premier mixed with 4oz low fat unsweetened almond milk) at 10pm to midnight. So you do 3 protein shakes, 2 protein bars and one meal per day. Meal to include lean meat (beef, fish, pork, turkey, chicken), or korean yogurt, or egg whites, or beans with a salad with olive oil and fruits (berries, pears, apples, kiwi). Avoid salt, breads, potatoes, rice, pasta, desserts. 3. Each shake would be drunk slowly, like coffee in a period of 2 hours. 4. Cut each bar in 4 pieces and eat each piece in 30min ?to make each bar last 2 hours. 5. I emphasized the importance of measuring accurately the food portion and measure it when serving the food in plate 6. The meal portions include 8 full-size forks of meat and 8 full-size forks of salad. You always eat the meat portion but you can replace up to 4 forks for salad/vegetables with rice, potatoes or pasta, or a fruit ?if you like. The less you do it the better weight loss will be. 7. One full-size fork is what it can be scooped on the fork without falling aside and not what can be bit with the fork. Use regular forks like those you find in a typical restaurant. 8.? Please buy the body composition scale we discussed and send me weight measurements as soon as possible and then once a week. Always include your diet and exercise plan. 9. The best choice would be to purchase a stationary bike at home that can track calories. If you get one, please start stationary bike at a resistance level of 4.0 Increase level by 1.0 every 3 min to a max level of 10.0. Stay at this level for 3 min and then return to level 4.0 and repeat same steps until 300 calories are burned. Goal is to burn 2000 calories per week on exercise 10.?It is important of avoiding and for at least 18 months postoperatively and has been discussed at the infosession. 11. Goal is to lose at least 1.5-2lbs per week 12. Goal to lose 10% of your weight before surgery, which is about 22lbs. Ultimate weight goal: 205lbs before surgery 13. Please follow the diet plan exactly without any change. If you don't like something about the plan or you feel hungry you need to communicate with me so I can help you revise the plan. You should not change the plan yourself 14. To be scheduled for EGD to assess the stomach's anatomy. The possibility of biopsies was discussed. Patient needs to avoid use of NSAIDs and aspirin for 1 week prior to EGD. You must be on liquids only the day before your endoscopy. Risks of perforation and bleeding was discussed with the patient. This will be an outpatient procedure with IV sedation. Orders: Orders Insulin Today E66.9 - Obesity, unspecified, I10 - Essential (primary) hypertension, K21.9 - Gastro-esophageal reflux disease without esophagitis, Z68.39 - Body mass index [BMI] 39.0-39.9, adult Hemoglobin A1c Today E66.9 - Obesity, unspecified, I10 - Essential (primary) hypertension, K21.9 - Gastro-esophageal reflux disease without esophagitis, Z68.39 - Body mass index [BMI] 39.0-39.9, adult Complete Blood Count Auto Diff Today E66.9 - Obesity, unspecified, I10 - Essential (primary) hypertension, K21.9 - Gastro-esophageal reflux disease without esophagitis, Z68.39 - Body mass index [BMI] 39.0-39.9, adult Lipid Panel Today E66.9 - Obesity, unspecified, I10 - Essential (primary) hypertension, K21.9 - Gastro-esophageal reflux disease without esophagitis, Z68.39 - Body mass index [BMI] 39.0-39.9, adult Comprehensive Met. Panel Today E66.9 - Obesity, unspecified, I10 - Essential (primary) hypertension, K21.9 - Gastro-esophageal reflux disease without esophagitis, Z68.39 - Body mass index [BMI] 39.0-39.9, adult Zinc Today E66.9 - Obesity, unspecified, I10 - Essential (primary) hypertension, K21.9 - Gastro-esophageal reflux disease without esophagitis, Z68.39 - Body mass index [BMI] 39.0-39.9, adult C Reactive Protein Today E66.9 - Obesity, unspecified, I10 - Essential (primary) hypertension, K21.9 - Gastro-esophageal reflux disease without esophagitis, Z68.39 - Body mass index [BMI] 39.0-39.9, adult Vitamin B1 Today E66.9 - Obesity, unspecified, I10 - Essential (primary) hypertension, K21.9 - Gastro-esophageal reflux disease without esophagitis, Z68.39 - Body mass index [BMI] 39.0-39.9, adult Ferritin Today E66.9 - Obesity, unspecified, I10 - Essential (primary) hypertension, K21.9 - Gastro-esophageal reflux disease without esophagitis, Z68.39 - Body mass index [BMI] 39.0-39.9, adult ECG 12 lead EKG Today E66.9 - Obesity, unspecified, I10 - Essential (primary) hypertension, K21.9 - Gastro-esophageal reflux disease without esophagitis, Z68.39 - Body mass index [BMI] 39.0-39.9, adult FL upper GI w air Today E66.9 - Obesity, unspecified, I10 - Essential (primary) hypertension, K21.9 - Gastro-esophageal reflux disease without esophagitis, Z68.39 - Body mass index [BMI] 39.0-39.9, adult H Pylori Breath Test Today E66.9 - Obesity, unspecified, I10 - Essential (primary) hypertension, K21.9 - Gastro-esophageal reflux disease without esophagitis, Z68.39 - Body mass index [BMI] 39.0-39.9, adult IRON PROFILE Today E66.9 - Obesity, unspecified, I10 - Essential (primary) hypertension, K21.9 - Gastro-esophageal reflux disease without esophagitis, Z68.39 - Body mass index [BMI] 39.0-39.9, adult Vitamin B12 and Folate Today E66.9 - Obesity, unspecified, I10 - Essential (primary) hypertension, K21.9 - Gastro-esophageal reflux disease without esophagitis, Z68.39 - Body mass index [BMI] 39.0-39.9, adult Vitamin A Today E66.9 - Obesity, unspecified, I10 - Essential (primary) hypertension, K21.9 - Gastro-esophageal reflux disease without esophagitis, Z68.39 - Body mass index [BMI] 39.0-39.9, adult TSH reflex Free T4 Today E66.9 - Obesity, unspecified, I10 - Essential (primary) hypertension, K21.9 - Gastro-esophageal reflux disease without esophagitis, Z68.39 - Body mass index [BMI] 39.0-39.9, adult Vitamin D 25-OH Total Today E66.9 - Obesity, unspecified, I10 - Essential (primary) hypertension, K21.9 - Gastro-esophageal reflux disease without esophagitis, Z68.39 - Body mass index [BMI] 39.0-39.9, adult US abdomen comp w elastography Today E66.9 - Obesity, unspecified, I10 - Essential (primary) hypertension, K21.9 - Gastro-esophageal reflux disease without esophagitis, Z68.39 - Body mass index [BMI] 39.0-39.9, adult XR chest 2V Today E66.9 - Obesity, unspecified, I10 - Essential (primary) hypertension, K21.9 - Gastro-esophageal reflux disease without esophagitis, Z68.39 - Body mass index [BMI] 39.0-39.9, adult Referrals Nutrition/Dietitian Referral E66.9 - Obesity, unspecified, I10 - Essential (primary) hypertension, K21.9 - Gastro-esophageal reflux disease without esophagitis, Z68.39 - Body mass index [BMI] 39.0-39.9, adult Behavioral Health Referral E66.9 - Obesity, unspecified, I10 - Essential (primary) hypertension, K21.9 - Gastro-esophageal reflux disease without esophagitis, Z68.39 - Body mass index [BMI] 39.0-39.9, adult
[2025-10-16 16:04] VITALS: BMI 39.0
== END 2025-10-16 16:25 | disposition home or self-care (01) ==
LOC: HO.HBS 08:14
PROVIDERS: PCP Nurse Practitioner; Visit Provider Surgery
DX: E66.812 Obesity, class 2 (principal); Z68.39 Body mass index [BMI] 39.0-39.9, adult
CPT/HCPCS: 99204